=== PATIENT | female | born 1965 | race Caucasian/White ===

== ENCOUNTER 2020-01-27 18:01 | Outpatient (REF) | payer MEDICAID, SELFPAY ==
--- NOTE | 2020-01-27 | MR_ITS ---
EXAMINATION: MR CERVICAL SPINE WITHOUT CONTRAST CLINICAL INFORMATION: Neck pain. Right arm weakness, numbness, pain, finger numbness. COMPARISON: Multiple priors, most recent cervical spine radiographs dated 11/13/2019 and cervical spine MRI dated 11/25/2018. TECHNIQUE: MRI of the cervical spine was obtained using routine sequences without contrast. FINDINGS: VERTEBRAL BODIES AND PARASPINAL SOFT TISSUES: Normal vertebral body alignment. The cervical lordosis is maintained. Artifact from anterior fusion hardware redemonstrated at C5-C7 without significant adjacent marrow edema to suggest complication. No acute fracture or subluxation. No loss of vertebral body height. Loss of intervertebral disc height with endplate osteophytes at C4-C5, similar when compared to the prior radiographs. No additional abnormal marrow signal. The visualized paraspinal soft tissues are unremarkable. No abnormal signal within the visualized cord. CERVICOMEDULLARY JUNCTION AND VISUALIZED POSTERIOR FOSSA: Unremarkable. SPINAL LEVELS: C2-C3: No significant disc bulge. No central canal or neural foraminal stenosis. C3-C4: Mild broad-based disc bulge which nearly completely effaces the ventral thecal sac. Bilateral uncinate spurring with mild bilateral neural foraminal stenosis. Findings have slightly progressed when compared to the prior examination. C4-C5: Broad-based disc bulge with a superimposed posterior central disc protrusion which has increased in prominence when compared to the prior examination and completely effaces the ventral thecal sac indenting the ventral cord. No associated abnormal cord signal. Bilateral uncinate spurring with eojlpyhz-[id number] left and moderate right neural foraminal stenosis, similar when compared to the prior examination. C5-C6: Broad-based disc-osteophyte complex which completely effaces the ventral thecal sac. Flattening the ventral cord without abnormal cord signal. Bilateral uncinate spurring with moderate bilateral neural foraminal stenosis, similar when compared to the prior examination. C6-C7: Broad-based disc-osteophyte complex, asymmetric to the right which completely effaces the ventral thecal sac and flattens the ventral cord. Bilateral facet arthropathy with moderate left and mild right neural foraminal stenosis, similar when compared to the prior examination. C7-T1: Shallow disc-osteophyte complex which nearly completely effaces the ventral thecal sac. Bilateral uncinate spurring with mild left neural foraminal stenosis, unchanged when compared to the prior examination. MR/MR cervical spine wo con IMPRESSION: 1. C3-C4 mild broad-based disc bulge which nearly completely effaces the ventral thecal sac with bilateral uncinate spurring and mild bilateral neural foraminal stenosis, slightly progressed when compared to the prior examination. 2. C4-C5 broad-based disc bulge with a superimposed posterior central disc protrusion which has increased in prominence when compared to the prior examination and completely effaces the ventral thecal sac, indenting the ventral cord. No associated abnormal cord signal. Bilateral uncinate spurring with ymacyfhm-tw-spvbmq left and moderate right neural foraminal stenosis, similar when compared to the prior examination. 3. C5-C6 broad-based disc-osteophyte complex which completely effaces the ventral thecal sac and flattens the ventral cord without abnormal cord signal. Bilateral uncinate spurring with moderate bilateral neural foraminal stenosis, similar when compared to the prior examination. 4. C6-C7 broad-based disc-osteophyte complex, asymmetric to the right which completely effaces the ventral thecal sac and flattens the adjacent cord. Bilateral facet arthropathy with moderate left and mild right neural foraminal stenosis, similar when compared to the prior examination. 5. C7-T1 shallow disc-osteophyte complex which nearly completely effaces the ventral thecal sac. Bilateral uncinate spurring with mild left neural foraminal stenosis, similar when compared to the prior examination. 6. Anterior stabilization hardware at C5-C6 and C6-C7 without evidence of complication.
== END 2020-01-27 18:02 | disposition home or self-care (01) ==
LOC: HO.MRI 18:01
PROVIDERS: Visit Provider Internal Medicine Geriatric Medicine
DX: M54.12 Radiculopathy, cervical region (principal); M54.2 Cervicalgia; Z98.890 Other specified postprocedural states
CPT/HCPCS: 72141

== ENCOUNTER 2020-12-12 12:33 | Outpatient (REF) | payer MEDICAID, SELFPAY ==
--- NOTE | ~2020-12-12 | XR_ITS ---
EXAMINATION: XR LUMBOSACRAL SPINE WITH OBLIQUES CLINICAL INFORMATION: Radiculopathy. COMPARISON: Lumbar spine radiographs dated 08/07/2018 TECHNIQUE: AP, lateral, coned-down, and bilateral oblique views of the lumbosacral spine. FINDINGS: Normal vertebral body alignment. The lumbar lordosis is maintained. No acute fracture or subluxation. No loss of vertebral body or intervertebral disc height. Multilevel anterior endplate osteophytes. Bilateral facet arthropathy at L4-L5 and L5-S1. No abnormal soft tissue calcification. Intra-abdominal surgical clips. XR/XR lumbar spine 4V min IMPRESSION: Mild multilevel degenerative disc disease with bilateral facet arthropathy at L4-L5 and L5-S1. Findings have slightly progressed when compared to the prior examination.
== END 2020-12-12 12:34 | disposition home or self-care (01) ==
LOC: HO.XRAY 12:33
PROVIDERS: PCP Internal Medicine Geriatric Medicine; Visit Provider Internal Medicine Geriatric Medicine
DX: M54.10 Radiculopathy, site unspecified (principal)
CPT/HCPCS: 72110

== ENCOUNTER 2021-04-04 12:10 | Outpatient (REF) | payer MEDICAID, SELFPAY ==
--- NOTE | ~2021-04-04 | XR_ITS ---
EXAMINATION: XR LUMBOSACRAL SPINE CLINICAL INFORMATION: Back pain. COMPARISON: Radiographs dated 12/12/2020. TECHNIQUE: AP and lateral views of the lumbar spine and lateral view of the lumbosacral junction. FINDINGS: Vertebral body alignment is normal. There is a stable very mild T12 anterior wedge compression fracture. The disc spaces are well-maintained. No acute fracture or spondylolisthesis is seen. A stable sclerotic bone island is noted in the anterior aspect of the L5 upper endplate. There is multi-level mild to moderate lower thoracic and lumbar spondylosis. The posterior elements are intact. Abdominopelvic herniorrhaphy mesh and surgical clips are noted. XR/XR lumbar spine 2-3V IMPRESSION: 1. No acute fracture or spondylolisthesis is seen. 2. There is a stable very mild T12 anterior wedge compression fracture. 3. The lumbar disc spaces are well-maintained. 4. There is multi-level mild to moderate thoracolumbar spondylosis.
--- NOTE | ~2021-04-04 | XR_ITS ---
EXAMINATION: XR HIP, LEFT CLINICAL INFORMATION: Lumbago and sciatica; question fracture. COMPARISON: None TECHNIQUE: AP and frog-leg lateral views of the left hip. FINDINGS: Bony alignment and mineralization are normal. There is mild narrowing of the superolateral left acetabular joint space. The left acetabular roof shows subchondral sclerosis, irregularity and peripheral osteophyte formation. The left femoral head appears smooth. There is no fracture or dislocation. There is right pelvic herniorrhaphy mesh. A small lower pelvic phlebolith is noted. XR/XR hip LT min 2V IMPRESSION: There is mild to moderate osteoarthritic change of the left hip. No fracture or dislocation is seen
== END 2021-04-04 12:11 | disposition home or self-care (01) ==
LOC: HO.XRAY 12:10
PROVIDERS: Absent Provider Internal Medicine Geriatric Medicine; PCP Internal Medicine Geriatric Medicine; Visit Provider Nurse Practitioner Family
DX: M54.42 Lumbago with sciatica, left side (principal)
CPT/HCPCS: 72100; 73502

== ENCOUNTER 2021-04-05 09:19 | Outpatient (REF) | payer MEDICAID, SELFPAY ==
[2021-04-05 10:28] LABS: Anion Gap 12 (12-20); Blood Urea Nitrogen 12 mg/dL (9-16); Calcium 9.3 mg/dL (8.4-10.2); Carbon Dioxide 30 mmol/L (22-29); Chloride 102 mmol/L (96-108); Estimated Glomerular Filt Rate > 60; Glucose Random 118 mg/dL (60-115); Potassium 4.2 mmol/L (3.3-5.1); Sodium 140 mmol/L (135-145)
== END 2021-04-05 09:20 | disposition home or self-care (01) ==
LOC: HO.LAB 09:19
PROVIDERS: Absent Provider Internal Medicine Geriatric Medicine; PCP Internal Medicine Geriatric Medicine; Visit Provider Nurse Practitioner Family
DX: R10.32 Left lower quadrant pain (principal)
CPT/HCPCS: 36415; 80048

== ENCOUNTER 2021-04-11 07:57 | Outpatient (REF) | payer MEDICAID, SELFPAY ==
--- NOTE | ~2021-04-11 | CT_ITS ---
EXAMINATION: CT ABDOMEN AND PELVIS WITH CONTRAST CLINICAL INFORMATION: Left lower quadrant abdominal pain. COMPARISON: Ultrasound pelvis 11/30/2019. TECHNIQUE: Multidetector volumetric images were obtained from the superior aspect of the liver through the pubic symphysis following administration 85 mL of Omnipaque 350 intravenous contrast. Sagittal and coronal reformatted images were obtained on the technologist's workstation. Oral contrast: No This CT examination was performed using dose optimization techniques as appropriate, variously including the following: *Automated exposure control *Adjustment of mA and/or kV according to patient size (this includes techniques or standardized protocols for targeted exams where dose is matched to indication/reason for exam; i.e. extremities or head) *Use of iterative reconstruction technique DLP: 736 mGy-cm FINDINGS: LUNG BASES: The visualized lung bases are unremarkable. LIVER, GALLBLADDER, AND BILIARY TREE: The liver is normal in size, shape, and decreased attenuation. No focal hepatic lesion or biliary ductal dilatation is present. The gallbladder has been surgically removed. The mid CBD measures a 9 mm. PANCREAS: Unremarkable. SPLEEN: Unremarkable. ADRENAL GLANDS: Unremarkable. KIDNEYS AND URETERS: The kidneys are normal in size, shape, and attenuation. There are 3 mm lower pole and 2 mm midpole radiopaque calculi right kidney. No caliectasis or hydronephrosis. Punctate 1-2 mm radiopaque calculus suspected in the lower pole left kidney. There is lobulated kidney contour. BLADDER: Unremarkable. GASTROINTESTINAL TRACT: There is gastric sleeve surgery changes. There is scattered oral contrast in small bowel loops without distention. Scattered stool, diverticuli and gas seen in the colon without distention. ABDOMINAL WALL: There are postsurgical changes along the anterior abdominal wall with upper abdominal hernia repair and mesh placement. No recurrent hernia seen. LYMPH NODES: Normal. VASCULAR: Unremarkable. PELVIC VISCERA: The uterus is anteverted and appears unremarkable. There is no free air or free fluid. OSSEOUS STRUCTURES: There is moderate ventral spondylosis lower dorsal and upper lumbar spine. CT/CT abdomen pelvis w con IMPRESSION: Scattered colonic diverticulosis without diverticulitis. There is mild constipation. There is evidence of previous gastric sleeve surgery with anterior abdominal wall postsurgical changes. There is mesh placement in the upper abdominal wall for hernia repair. Mild hepatic steatosis without focal lesion. Nonobstructive bilateral radiopaque renal calculi. No hydronephrosis. Fleischner guidelines were followed.
[2021-04-11] MEDS: iohexoL 350 MG/ML 100 ML INFUS..BTL 85 ML IV (12:17)
[2021-04-11] MEDS: Barium Sulfate Oral (Vanilla) 450 ML ORAL.SUSP 900 ML PO (12:17)
== END 2021-04-11 07:58 | disposition home or self-care (01) ==
LOC: HO.CT 07:57
PROVIDERS: Absent Provider Internal Medicine Geriatric Medicine; PCP Internal Medicine Geriatric Medicine; Visit Provider Nurse Practitioner Family
DX: R10.32 Left lower quadrant pain (principal); R10.9 Unspecified abdominal pain; R30.0 Dysuria; Z87.442 Personal history of urinary calculi; Z90.49 Acquired absence of other specified parts of digestive tract; Z98.84 Bariatric surgery status
CPT/HCPCS: 74177; Q9967

== ENCOUNTER 2021-04-19 15:32 | Outpatient (REF) | payer MEDICAID, SELFPAY ==
--- NOTE | ~2021-04-19 | MR_ITS ---
EXAMINATION: MR THORACIC SPINE WITHOUT CONTRAST CLINICAL INFORMATION: Left-sided flank pain radiating to the left extremities with symptoms for 1.5 months. Left arm pain and weakness with left finger weakness. Left leg pain. Compression fracture of T12. Right hand weakness. COMPARISON: Most recent CT abdomen/pelvis dated 04/11/2021. TECHNIQUE: MRI of the thoracic spine was obtained using routine sequences without contrast. FINDINGS: VERTEBRAL BODIES AND PARASPINAL STRUCTURES: Normal vertebral body alignment. The thoracic kyphosis is maintained. No acute fracture or subluxation. No loss of vertebral body height. No marrow edema to suggest acute osseous injury. Specifically, there is no compression fracture at T12. There is mild multilevel loss of intervertebral disc height with disc desiccation throughout the thoracic spine. No abnormal signal within the visualized cord. Partially visualized hardware artifact at C5-C6 and C6-C7. The visualized paraspinal soft tissues are unremarkable. SPINAL LEVELS: C7-T1: No significant disc bulge. No central canal or neural foraminal stenosis. T1-T2: No significant disc bulge. No central canal or neural foraminal stenosis. T2-T3: Shallow disc bulge without significant central canal or neural foraminal stenosis. T3-T4: Shallow disc bulge without central canal or neural foraminal stenosis. T4-T5: No significant disc bulge. No central canal or neural foraminal stenosis. T5-T6: Posterior central disc protrusion which nearly completely effaces the ventral thecal sac. No abnormal signal within the adjacent cord. No significant neural foraminal stenosis. T6-T7: Shallow posterior central disc protrusion which partially effaces the ventral thecal sac without significant neural foraminal stenosis. T7-T8: Shallow left paracentral disc protrusion which nearly completely effaces the ventral thecal sac. Mild left neural foraminal stenosis. T8-T9: Broad-based disc bulge which nearly completely effaces the ventral thecal sac. No significant neural foraminal stenosis. T9-T10: Shallow left paracentral/subarticular disc protrusion with mild left neural foraminal stenosis. T10-T11: No significant disc bulge. No central canal or neural foraminal stenosis. T11-T12: No significant disc bulge. No central canal or neural foraminal stenosis. T12-L1: No significant disc bulge. No central canal or neural foraminal stenosis. MR/MR thoracic spine wo con IMPRESSION: Multilevel degenerative disc disease throughout the thoracic spine with small disc bulges and shallow disc protrusions causing multilevel mild central canal or neural foraminal stenosis. Shallow left paracentral disc protrusion at T7-T8 which nearly completely effaces the ventral thecal sac and causes mild left neural foraminal stenosis. Shallow left paracentral/subarticular disc protrusion at T9-T10 causing mild left neural foraminal stenosis. No compression deformity or acute osseous injury.
--- NOTE | ~2021-04-19 | MR_ITS ---
EXAMINATION: MR CERVICAL SPINE WITHOUT CONTRAST CLINICAL INFORMATION: 55-year-old with history of previous anterior cervical fusion, with complaints of left-sided upper extremity radicular symptoms. COMPARISON: 01/27/2020 MRI. TECHNIQUE: MRI of the cervical spine was obtained using routine sequences without contrast. FINDINGS: Alignment: The cervical spine is anatomically aligned. Lordotic curvature is maintained without spondylolisthesis or retrolisthesis. Craniocervical Junction/C1-C2 Articulations: Intact and aligned. Visualized Intracranial Structures: Within normal limits. Vertebral Bodies: Normal height. Disc Spaces and Endplates: Status post ACDF at C5-C6 and C6-C7, partially obscured by hardware artifact but unchanged in appearance from previous study. Mild disc space height loss and anterior marginal spondylosis at C4-C5 is stable. Bone Marrow: No significant marrow-replacing process or bone marrow edema, accounting for artifacts at C5-C6 and C6-C7. C2-C3: Normal disc contour. Mild hypertrophic changes of the left facet joint unchanged in appearance without significant canal or neural foraminal stenosis, stable in appearance. C3-C4: Broad-based central disc protrusion noted, with flattening of the ventral dural sac slightly more prominent centrally than on the previous exam without spinal cord impingement. There is mild spinal canal stenosis stable in appearance. No definite cord impingement. There is slfc-nc-qrgrvwgr bilateral facet arthropathy stable in appearance with uncinate process spurring noted, with the ajsw-hi-ribtkrya left and mild right-sided neural foraminal stenosis stable in appearance. C4-C5: Central disc herniation again noted, with effacement of the ventral dural sac indenting the ventral aspect of the spinal cord centrally and slightly to the left of midline consistent with kngr-qo-wjvfqdzv ventral cord impingement, with associated moderate central spinal canal stenosis largely unchanged. There is uncovertebral spurring and facet arthropathy with moderate right-sided and jmnxjyii-gc-ddbnsf left-sided neural foraminal stenosis stable in appearance. C5-C6: Status post ACDF, with posterolateral osteophytic ridging and adpuzseu-xq-losahw flattening of the dural sac asymmetric to the left without cord impingement. There is pazy-ws-umwnjsrn spinal canal stenosis, stable in appearance and there are lateral bony productive changes, with moderate bilateral neural foraminal stenosis stable in appearance. C6-C7: Status post ACDF with broad-based central to right paramedian posterior disc osteophyte complex and/or osteophytic ridging with effacement of the dural sac asymmetric to the right abutting the ventral aspect of the spinal cord to the right of midline resulting in mild right-sided ventral cord deformity and moderate central spinal canal stenosis stable in appearance. Suspect some degree of spondylitic myelomalacia at this level unchanged. There is moderate left-sided neural foraminal stenosis stable in appearance. C7-T1: Mild broad-based disc osteophyte complex with mild flattening of the ventral dural sac without cord impingement and no significant spinal canal stenosis stable in appearance. Mild facet arthropathy noted on the left unchanged in appearance with no significant neural foraminal stenosis. T1-T2: Small right paramedian to lateral foraminal disc osteophyte complex without neural impingement stable in appearance. No significant canal stenosis or neural foraminal compromise. There is facet arthropathy on the right at T2-T3 and T3-T4 stable in appearance. There is a tiny focus of T2 hyperintensity on the right side of the spinal cord at the C5-C6 level on the sagittal images which cannot be confirmed on the axial images and therefore may be artifactual. Otherwise, the cervical and visualized upper thoracic spinal cord is normal in signal intensity without focal lesion, edema or syrinx. MR/MR cervical spine wo con IMPRESSION: 1. Status post ACDF procedures at C5-C6 and C6-C7 with bony productive changes, stable from previous exam with stable lzya-tv-fiwxfcqj canal stenosis at C5-C6 and moderate canal stenosis at C6-C7 with suspicion for a mild degree of spondylitic myelomalacia at C6-C7, unchanged in appearance. Moderate bilateral neural foraminal stenosis at C5-C6 and moderate left-sided neural foraminal stenosis at C6-C7 is stable. 2. Discogenic degenerative changes, spondylosis and DJD at C4-C5 with central disc herniation and mdxq-hj-kpcyysqd ventral cord impingement at this level is stable with stable moderate central spinal canal stenosis. Central disc herniation at C3-C4 slightly more prominent than on the previous exam without spinal cord impingement, with mild spinal canal stenosis, unchanged in appearance. 3. Disc osteophyte complex at C7-T1 with mild flattening the ventral dural sac without cord impingement, stable in appearance. 4. Multilevel bilateral uncovertebral and facet arthrosis as detailed by level above, largely unchanged in appearance with varying degrees of neural foraminal compromise, unchanged in appearance.
== END 2021-04-19 15:33 | disposition home or self-care (01) ==
LOC: HO.MRI 15:32
PROVIDERS: Visit Provider Nurse Practitioner Family
DX: S22.089D Unspecified fracture of T11-T12 vertebra, subsequent encounter for fracture with routine healing (principal); M62.81 Muscle weakness (generalized)
CPT/HCPCS: 72141; 72146

== ENCOUNTER 2021-05-04 08:57 | Outpatient (REF) | payer MEDICAID, SELFPAY ==
--- NOTE | ~2021-05-04 | MM_ITS ---
EXAMINATION: BONE DENSITOMETRY CLINICAL INDICATION: Wedge compression fracture of T11-T12. COMPARISON: None (current study represents initial baseline exam). TECHNIQUE: Using a [employer] DXA System (software version: 13.1) manufactured by [employer], dual-energy x-ray absorptiometry was performed of the lumbar spine and left hip. The images are of good technical quality. Summary results are attached. FINDINGS: AP SPINE L1-L4: BMD 1.334 g/cm2, Z-score 0.8, T-score 1.3, normal. LEFT FEMUR, NECK: BMD 1.093 g/cm2, Z-score 0.6, T-score 0.4, normal. LEFT FEMUR, TOTAL: BMD 1.282 g/cm2, Z-score 2.0, T-score 2.2, normal. IDENTIFIED RISK FACTORS: Rheumatoid arthritis. Early menopause, secondary osteoporosis. HISTORY OF FRACTURE: None listed. MEDICATIONS: Calcium or multivitamins. MM/XR DEXA axial skeleton IMPRESSION: 1. DIAGNOSIS: Normal bone density based on the lowest T-score value of 0.4 in the femoral neck applying World Health Organization criteria. 2. 10-YEAR FRACTURE RISK PREDICTION, FRAX: According to the guidelines, FRAX calculation should only be performed on patients in the osteopenia bone density category. Therefore, FRAX was not performed on this patient. 3. Treatment Recommendations: NOF guidelines recommend consideration for treatment in postmenopausal women and men age 50 and older presenting with the following: -A hip or vertebral (clinical or morphometric) fracture. -T-score less than or equal to -2.5 at the femoral neck or spine after appropriate evaluation to exclude secondary causes. -Low bone mass at the hip or spine and a 10-year fracture probability by FRAX of greater than or equal to 3% for hip fracture or greater than or equal to 20% for major osteoporotic fracture based on the [place] adapted WHO algorithm. 4. Other Recommendations: All treatment decisions require clinical judgment and consideration of individual patient factors, including patient preferences, comorbidities, previous drug use, risk factors not captured in the FRAX model (e.g. frailty, falls, vitamin D deficiency, increased bone turnover, interval significant decline in bone density) and possible under or overestimation of fracture risk by FRAX. FUTURE SCAN RECOMMENDATION: People with diagnosed cases of osteoporosis or at high risk for fracture should have regular bone mineral density tests. For patients eligible for Medicare, routine testing is allowed once every 2 years. The testing frequency can be increased to one year for patients who have rapidly progressing disease, those who are receiving or discontinuing medical therapy to restore bone mass, or have additional risk factors.
== END 2021-05-04 08:58 | disposition home or self-care (01) ==
LOC: HO.MAMMO 08:57
PROVIDERS: Visit Provider Nurse Practitioner Family
DX: Z13.820 Encounter for screening for osteoporosis (principal); S22.080D Wedge compression fracture of T11-T12 vertebra, subsequent encounter for fracture with routine healing; Z78.0 Asymptomatic menopausal state; Z79.899 Other long term (current) drug therapy
CPT/HCPCS: 77080

== ENCOUNTER 2022-11-19 19:45 | Outpatient (REF) | payer MEDICAID, SELFPAY ==
[2022-11-24 03:34] LABS: HPV mRNA E6/E7 rflx Not Detected (Not Detected)
== END 2022-11-19 19:46 | disposition home or self-care (01) ==
LOC: HO.HHCLNP 19:45
PROVIDERS: Visit Provider Advanced Practice Midwife
DX: Z12.4 Encounter for screening for malignant neoplasm of cervix (principal)
CPT/HCPCS: 87624; 88142

== ENCOUNTER 2022-12-13 15:13 | Outpatient (REF) | payer MEDICAID, SELFPAY | END 2022-12-13 15:14 | disposition home or self-care (01) | LOC: HO.MAMMO 15:13 | PROVIDERS: PCP Internal Medicine Geriatric Medicine; Visit Provider Advanced Practice Midwife | DX: Z12.31 Encounter for screening mammogram for malignant neoplasm of breast (principal) | CPT/HCPCS: 77063; 77067 ==

== ENCOUNTER → 2022-12-13 15:30 | Outpatient (BNV) | payer MEDICAID, SELFPAY | PROVIDERS: PCP Internal Medicine Geriatric Medicine; Visit Provider Radiology Diagnostic Radiology | DX: Z12.31 Encounter for screening mammogram for malignant neoplasm of breast (principal) | CPT/HCPCS: 77063; 77067 ==

== ENCOUNTER 2023-02-07 11:01 | Outpatient (REF) | payer MEDICAID, SELFPAY ==
--- NOTE | ~2023-02-07 | XR_ITS ---
STUDY: Cervical spine, right shoulder, right elbow INDICATION: Postlaminectomy syndrome, right shoulder and right elbow pain COMPARISON: None TECHNIQUE: 3 view cervical spine, 4 view right shoulder, 3 view right elbow FINDINGS: Cervical spine: Anterior fusion hardware C5-C6. Disc spaces C4-C5-C7. Limited evaluation of underlying vertebral bodies. Alignment appears satisfactory, posterior elements are aligned and no prevertebral soft tissue swelling is seen. Hypertrophic facet changes identified. Odontoid is partially obscured. Lung apices are clear. Soft tissues are unremarkable. Right shoulder: Acromioclavicular joint space narrowing, sclerosis and spurring. Glenohumeral joint is maintained. Humeral head spurring. No fracture or dislocation. Visualized ribs and right lung are unremarkable. Right elbow: Calcification and/or spurring lateral epicondyle. No fracture or dislocation. Alignment and articulations are maintained. XR/XR cervical spine 3V IMPRESSION: Postoperative cervical spine. Right acromioclavicular degenerative changes. Lateral epicondylar spurring, question calcific tendinopathy.
--- NOTE | ~2023-02-07 | XR_ITS ---
STUDY: Cervical spine, right shoulder, right elbow INDICATION: Postlaminectomy syndrome, right shoulder and right elbow pain COMPARISON: None TECHNIQUE: 3 view cervical spine, 4 view right shoulder, 3 view right elbow FINDINGS: Cervical spine: Anterior fusion hardware C5-C6. Disc spaces C4-C5-C7. Limited evaluation of underlying vertebral bodies. Alignment appears satisfactory, posterior elements are aligned and no prevertebral soft tissue swelling is seen. Hypertrophic facet changes identified. Odontoid is partially obscured. Lung apices are clear. Soft tissues are unremarkable. Right shoulder: Acromioclavicular joint space narrowing, sclerosis and spurring. Glenohumeral joint is maintained. Humeral head spurring. No fracture or dislocation. Visualized ribs and right lung are unremarkable. Right elbow: Calcification and/or spurring lateral epicondyle. No fracture or dislocation. Alignment and articulations are maintained. XR/XR shoulder RT min 2V IMPRESSION: Postoperative cervical spine. Right acromioclavicular degenerative changes. Lateral epicondylar spurring, question calcific tendinopathy.
--- NOTE | ~2023-02-07 | XR_ITS ---
STUDY: Cervical spine, right shoulder, right elbow INDICATION: Postlaminectomy syndrome, right shoulder and right elbow pain COMPARISON: None TECHNIQUE: 3 view cervical spine, 4 view right shoulder, 3 view right elbow FINDINGS: Cervical spine: Anterior fusion hardware C5-C6. Disc spaces C4-C5-C7. Limited evaluation of underlying vertebral bodies. Alignment appears satisfactory, posterior elements are aligned and no prevertebral soft tissue swelling is seen. Hypertrophic facet changes identified. Odontoid is partially obscured. Lung apices are clear. Soft tissues are unremarkable. Right shoulder: Acromioclavicular joint space narrowing, sclerosis and spurring. Glenohumeral joint is maintained. Humeral head spurring. No fracture or dislocation. Visualized ribs and right lung are unremarkable. Right elbow: Calcification and/or spurring lateral epicondyle. No fracture or dislocation. Alignment and articulations are maintained. XR/XR elbow RT min 3V IMPRESSION: Postoperative cervical spine. Right acromioclavicular degenerative changes. Lateral epicondylar spurring, question calcific tendinopathy.
== END 2023-02-07 11:02 | disposition home or self-care (01) ==
LOC: HO.XRAY 11:01
PROVIDERS: PCP Internal Medicine Geriatric Medicine; Visit Provider Nurse Practitioner Family
DX: M25.521 Pain in right elbow (principal); M25.511 Pain in right shoulder; M54.12 Radiculopathy, cervical region; M96.1 Postlaminectomy syndrome, not elsewhere classified; M47.812 Spondylosis without myelopathy or radiculopathy, cervical region
CPT/HCPCS: 72040; 73030; 73080; 99212

== ENCOUNTER 2023-02-07 11:01 | Outpatient (AMB) | payer MEDICAID, SELFPAY ==
--- NOTE | 2023-02-07 11:15 | A.OFFVIS_ITS ---
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: [employer] Instructor Name: Esme Accompanied by: Self / Same As Patient Allergies No Known Allergies Allergy (Verified 02/07/23 11:32) Medication List - Last Reconciled 02/11/23 by CRISTINA Perez diclofenac sodium 1% (Arthritis Pain (diclofenac)) 4 grams topical QID dulaglutide (Trulicity) 4.5 mg subcut QWEEK metformin 500 mg PO DAILY oxycodone-acetaminophen 5-325 mg 1 tab PO Q8H PRN HPI CHRONIC NECK PAIN/confirmed HPI Details Patient is a pleasant 57 years old female this history of chronic neck pain, degenerative joint disease, history of cervical spine surgery x3 (ACDF C6- C7 in 2013, ACDF C5-C6 in 2018, ACDF C4-C5 in 2021 in [facility] [place] diabetes (A1C 8.3 on 01/21/23), bariatric surgery, presents today for initial evaluation for neck pain that has been radiating to right arm, upper chest and right elbow with associated intermittent tingling and weakness for about one year. Denies any recent trauma, injury, or falls. Reports recent influenza vaccination into right upper arm without any rash, swelling or pain. Pain is rated at 7/10 on average and 10/10 at its worse with movements or use of right arm. Right hand dominant. Patient reports she was evaluated at [facility] about 5 months ago for physical therapy and made no improvement in functioning or reduction in pain. She failed conservative measures including PT, elbow bracing, home exercise program, topical applications, medical management and failed previous cervical spinal surgeries. She avoids and states due to previous bariatric surgery and has been managing her pain with Percocet prescribed by her PCP. Pain affects her daily functioning, activities, mood, sleep, and quality of life. Patient denies any fever, chills, sore throat, cough, shortness of breath, wheezing, chest pain, leg swelling, weakness, gait imbalances, bladder or bowel dysfunction or saddle anesthesia. Location Anterior right neck pain, right shoulder and right elbow Duration Chronic pain >1 year Characteristics of symptom or complaint Throbbing, aching, spasming, tingling Aggravating or associated factors Movements, pulling, lifting, squeezing Relieving factors Oxycodone, muscle relaxant, rest, lidocaine patches, Tylenol Treatment PT- no improvement, neck surgery x3, elbow bracing [facility] Medical History (Updated 02/11/23 @ 17:44 by CRITSINA Perez) Chronic radicular cervical pain Cervical spine degeneration Cervical spondylosis Diabetes mellitus Surgical History (Updated 02/11/23 @ 17:43 by CRISTINA Perez) History of bariatric surgery H/O neck surgery (~2013) Review of Systems Const All systems reviewed & are unremarkable except as noted in HPI and below Physical Exam General: Appears afebrile. Alert and oriented. Mood and affect appropriate. Follows and participates in conversation appropriately. Respiratory effort is unlabored. No cough. No nasal discharge. Able to transition from sit to stand unassisted. Ambulates with bilaterally normal heel strike and toe off. Neck Neck: Yes no lymphadenopathy, Yes supple, No anterior neck swelling and Yes no JVD Thyroid: Thyroid normal Back/Spine/Pelvis Cervical Spine: loss of normal cervical lordosis, cervical muscular tenderness (right), pain with cervical ROM (with left lateral rotation and tilting), Cervical spine scars present, No Cervical spine tenderness and No step off deformity Thoracic/Lumbar Spine: thoracic and lumbar spine normal to inspection, Lasegue's sign negative, straight leg raise negative bilaterally, No thoracic spinal tenderness and No lumbar spinal tenderness Extrem General: Yes capillary refill normal, Yes no clubbing, cyanosis or edema and Yes no calf tenderness Right upper extremity: normal to inspection, normal capillary refill, shoulder/upper arm (Pain with overhead reaches. Painful arc test.) Details: normal to inspection, tenderness Location: of the clavicle Laterality: mid- shaft, of the A-C joint and of the scapula and crepitus; no swelling, no ecchymosis, no deformity and no unusual warmth and elbow/forearm (Wearing elbow bracing and lidocaine patch) Details: normal to inspection, tenderness Location: of the lateral epicondyle, normal ROM and distal pulses intact; no swelling, no unusual warmth, no ecchymosis and no crepitus; no cyanosis Results Reviewed Results Reviewed: MR CERVICAL SPINE WITHOUT CONTRAST 04/19/21 CLINICAL INFORMATION: 55-year-old with history of previous anterior cervical fusion, with complaints of left-sided upper extremity radicular symptoms. COMPARISON: 01/27/2020 MRI. TECHNIQUE: MRI of the cervical spine was obtained using routine sequences without contrast. FINDINGS: Alignment: The cervical spine is anatomically aligned. Lordotic curvature is maintained without spondylolisthesis or retrolisthesis. Craniocervical Junction/C1-C2 Articulations: Intact and aligned. Visualized Intracranial Structures: Within normal limits. Vertebral Bodies: Normal height. Disc Spaces and Endplates: Status post ACDF at C5-C6 and C6-C7, partially obscured by hardware artifact but unchanged in appearance from previous study. Mild disc space height loss and anterior marginal spondylosis at C4-C5 is stable. Bone Marrow: No significant marrow-replacing process or bone marrow edema, accounting for artifacts at C5-C6 and C6-C7. C2-C3: Normal disc contour. Mild hypertrophic changes of the left facet joint unchanged in appearance without significant canal or neural foraminal stenosis, stable in appearance. C3-C4: Broad-based central disc protrusion noted, with flattening of the ventral dural sac slightly more prominent centrally than on the previous exam without spinal cord impingement. There is mild spinal canal stenosis stable in appearance. No definite cord impingement. There is ghpn-mx-urityldk bilateral facet arthropathy stable in appearance with uncinate process spurring noted, with the bdkq-wd-jzuwwtek left and mild right-sided neural foraminal stenosis stable in appearance. C4-C5: Central disc herniation again noted, with effacement of the ventral dural sac indenting the ventral aspect of the spinal cord centrally and slightly to the left of midline consistent with iixd-nx-qetgdxuc ventral cord impingement, with associated moderate central spinal canal stenosis largely unchanged. There is uncovertebral spurring and facet arthropathy with moderate right-sided and wbkdigxs-qy-duiqmn left-sided neural foraminal stenosis stable in appearance. C5-C6: Status post ACDF, with posterolateral osteophytic ridging and vhxylgpn-jv-mmvmey flattening of the dural sac asymmetric to the left without cord impingement. There is rreg-if-ogvajjwn spinal canal stenosis, stable in appearance and there are lateral bony productive changes, with moderate bilateral neural foraminal stenosis stable in appearance. C6-C7: Status post ACDF with broad-based central to right paramedian posterior disc osteophyte complex and/or osteophytic ridging with effacement of the dural sac asymmetric to the right abutting the ventral aspect of the spinal cord to the right of midline resulting in mild right-sided ventral cord deformity and moderate central spinal canal stenosis stable in appearance. Suspect some degree of spondylitic myelomalacia at this level unchanged. There is moderate left-sided neural foraminal stenosis stable in appearance. C7-T1: Mild broad-based disc osteophyte complex with mild flattening of the ventral dural sac without cord impingement and no significant spinal canal stenosis stable in appearance. Mild facet arthropathy noted on the left unchanged in appearance with no significant neural foraminal stenosis. T1-T2: Small right paramedian to lateral foraminal disc osteophyte complex without neural impingement stable in appearance. No significant canal stenosis or neural foraminal compromise. There is facet arthropathy on the right at T2-T3 and T3-T4 stable in appearance. There is a tiny focus of T2 hyperintensity on the right side of the spinal cord at the C5-C6 level on the sagittal images which cannot be confirmed on the axial images and therefore may be artifactual. Otherwise, the cervical and visualized upper thoracic spinal cord is normal in signal intensity without focal lesion, edema or syrinx. IMPRESSION: 1. Status post ACDF procedures at C5-C6 and C6-C7 with bony productive changes, stable from previous exam with stable aoue-kh-pgixascy canal stenosis at C5-C6 and moderate canal stenosis at C6-C7 with suspicion for a mild degree of spondylitic myelomalacia at C6-C7, unchanged in appearance. Moderate bilateral neural foraminal stenosis at C5-C6 and moderate left-sided neural foraminal stenosis at C6-C7 is stable. 2. Discogenic degenerative changes, spondylosis and DJD at C4-C5 with central disc herniation and cvvr-kt-aohafmle ventral cord impingement at this level is stable with stable moderate central spinal canal stenosis. Central disc herniation at C3-C4 slightly more prominent than on the previous exam without spinal cord impingement, with mild spinal canal stenosis, unchanged in appearance. 3. Disc osteophyte complex at C7-T1 with mild flattening the ventral dural sac without cord impingement, stable in appearance. 4. Multilevel bilateral uncovertebral and facet arthrosis as detailed by level above, largely unchanged in appearance with varying degrees of neural foraminal compromise, unchanged in appearance. BONE DENSITOMETRY 05/04/21 CLINICAL INDICATION: Wedge compression fracture of T11-T12. FINDINGS: AP SPINE L1-L4: BMD 1.334 g/cm2, Z-score 0.8, T-score 1.3, normal. LEFT FEMUR, NECK: BMD 1.093 g/cm2, Z-score 0.6, T-score 0.4, normal. LEFT FEMUR, TOTAL: BMD 1.282 g/cm2, Z-score 2.0, T-score 2.2, normal. IDENTIFIED RISK FACTORS: Rheumatoid arthritis. Early menopause, secondary osteoporosis. HISTORY OF FRACTURE: None listed. MEDICATIONS: Calcium or multivitamins. IMPRESSION: 1. DIAGNOSIS: Normal bone density based on the lowest T-score value of 0.4 in the femoral neck applying World Health Organization criteria. MR THORACIC SPINE WITHOUT CONTRAST 04/19/21 CLINICAL INFORMATION: Left-sided flank pain radiating to the left extremities with symptoms for 1.5 months. Left arm pain and weakness with left finger weakness. Left leg pain. Compression fracture of T12. Right hand weakness. COMPARISON: Most recent CT abdomen/pelvis dated 04/11/2021. TECHNIQUE: MRI of the thoracic spine was obtained using routine sequences without contrast. FINDINGS: VERTEBRAL BODIES AND PARASPINAL STRUCTURES: Normal vertebral body alignment. The thoracic kyphosis is maintained. No acute fracture or subluxation. No loss of vertebral body height. No marrow edema to suggest acute osseous injury. Specifically, there is no compression fracture at T12. There is mild multilevel loss of intervertebral disc height with disc desiccation throughout the thoracic spine. No abnormal signal within the visualized cord. Partially visualized hardware artifact at C5-C6 and C6-C7. The visualized paraspinal soft tissues are unremarkable. SPINAL LEVELS: C7-T1: No significant disc bulge. No central canal or neural foraminal stenosis. T1-T2: No significant disc bulge. No central canal or neural foraminal stenosis. T2-T3: Shallow disc bulge without significant central canal or neural foraminal stenosis. T3-T4: Shallow disc bulge without central canal or neural foraminal stenosis. T4-T5: No significant disc bulge. No central canal or neural foraminal stenosis. T5-T6: Posterior central disc protrusion which nearly completely effaces the ventral thecal sac. No abnormal signal within the adjacent cord. No significant neural foraminal stenosis. T6-T7: Shallow posterior central disc protrusion which partially effaces the ventral thecal sac without significant neural foraminal stenosis. T7-T8: Shallow left paracentral disc protrusion which nearly completely effaces the ventral thecal sac. Mild left neural foraminal stenosis. T8-T9: Broad-based disc bulge which nearly completely effaces the ventral thecal sac. No significant neural foraminal stenosis. T9-T10: Shallow left paracentral/subarticular disc protrusion with mild left neural foraminal stenosis. T10-T11: No significant disc bulge. No central canal or neural foraminal stenosis. T11-T12: No significant disc bulge. No central canal or neural foraminal stenosis. T12-L1: No significant disc bulge. No central canal or neural foraminal stenosis. IMPRESSION: Multilevel degenerative disc disease throughout the thoracic spine with small disc bulges and shallow disc protrusions causing multilevel mild central canal or neural foraminal stenosis. Shallow left paracentral disc protrusion at T7-T8 which nearly completely effaces the ventral thecal sac and causes mild left neural foraminal stenosis. Shallow left paracentral/subarticular disc protrusion at T9-T10 causing mild left neural foraminal stenosis. No compression deformity or acute osseous injury. Lumbar spine xray 2-3V on 04/04/21 IMPRESSION: 1. No acute fracture or spondylolisthesis is seen. 2. There is a stable very mild T12 anterior wedge compression fracture. 3. The lumbar disc spaces are well-maintained. 4. There is multi-level mild to moderate thoracolumbar spondylosis. Assessment & Plan Assessment & Plan (1) Right elbow pain: Code(s): M25.521 - Pain in right elbow (2) Right shoulder pain: Code(s): M25.511 - Pain in right shoulder (3) Cervical post-laminectomy syndrome: Code(s): M96.1 - Postlaminectomy syndrome, not elsewhere classified (4) Cervical spondylosis: Code(s): M47.812 - Spondylosis without myelopathy or radiculopathy, cervical region (5) Cervical spine degeneration: Code(s): M47.812 - Spondylosis without myelopathy or radiculopathy, cervical region (6) Chronic radicular cervical pain: Code(s): M54.12 - Radiculopathy, cervical region; G89.29 - Other chronic pain Plan Cervical spine, right elbow and shoulder xrays to assess degree of degenerative changes, any subluxation, listhesis, compression fractures or pars defects. Discussed interventional treatments for right elbow and shoulder and cervical post laminectomy syndrome, including diagnostic vs therapeutic injections, peripheral nerve stimulation, cervical spinal cord stimulation, and RFA procedures. Will also proceed with neurodiagnostic studies to help us differentiate cervical radicular vs peripheral neuropathy of RUE prior to interventional treatments. All questions and concerns have been answered and patient agreed with the plan. Follow-up for x-ray and EMG studies results and sooner as needed. Orders: Orders XR elbow RT min 3V 02/07/23 M25.521 - Pain in right elbow XR shoulder RT min 2V 02/07/23 M25.511 - Pain in right shoulder, M25.521 - Pain in right elbow NE electromyogram (EMG) 02/07/23 M25.511 - Pain in right shoulder, M25.521 - Pain in right elbow, M96.1 - Postlaminectomy syndrome, not elsewhere classified XR cervical spine 3V 02/07/23 M96.1 - Postlaminectomy syndrome, not elsewhere classified NE nerve conduction velocity 02/07/23 M25.511 - Pain in right shoulder, M25.521 - Pain in right elbow, M96.1 - Postlaminectomy syndrome, not elsewhere classified Medications: New diclofenac sodium 1% (Arthritis Pain (diclofenac)) 4 grams topical QID 100 grams 3RF pain M25.511 - Pain in right shoulder, M25.521 - Pain in right elbow Coding Level of Care Code New Pt Level 4 (30258) Diagnoses Right elbow pain M25.521 Right shoulder pain M25.511 Cervical post-laminectomy syndrome M96.1 Cervical spondylosis M47.812 Cervical spine degeneration M47.812 Chronic radicular cervical pain M54.12; G89.29
== END 2023-02-07 12:00 | disposition home or self-care (01) ==
PROVIDERS: PCP Internal Medicine Geriatric Medicine; Visit Provider Nurse Practitioner Family
DX: M25.521 Pain in right elbow (principal); M25.511 Pain in right shoulder; M96.1 Postlaminectomy syndrome, not elsewhere classified; M47.812 Spondylosis without myelopathy or radiculopathy, cervical region; M54.12 Radiculopathy, cervical region; G89.29 Other chronic pain
CPT/HCPCS: 99204

== ENCOUNTER 2023-03-22 09:57 | Outpatient (REF) | payer MEDICAID, SELFPAY ==
--- NOTE | 2023-03-22 10:00 | EMG_ITS ---
Chief complaint: Right-sided neck pain, right arm pain, occasional numbness 2nd to 4th digits right history of cervical spine surgery x3 (ACDF C6-C7 in 2014, ACDF C5-C6 in 2019, ACDF C4-C5 in 2021 in [facility] [place]), diabetes Reason for referral: Evaluate for radiculopathy Referred by: Tiana Ocampo NP Procedure done: Right upper extremity NCS/EMG Precautions and/or limitations: None The limb temperature was monitored continuously and remained between 32-36 degrees C during the performance of the NCS. Nerve Conduction Studies Anti Sensory Summary Table ?Stim Site NR Onset (ms) Norm Onset (ms) Peak (ms) Norm Peak (ms) O-P Amp (?V) Norm O-P Amp Site1 Site2 Delta-0 (ms) Dist (cm) Aldo (m/s) Norm Aldo (m/s) Right Median Anti Sensory (2nd Digit) Wrist ? 3.3 4.3 <3.6 10.7 >10 Wrist 2nd Digit 3.3 14.0 42 Right Radial Anti Sensory (Thumb) Forearm ? 1.6 2.2 <3.1 20.5 Forearm Thumb 1.6 0.0 Right Ulnar Anti Sensory (5th Digit) Wrist ? 2.7 3.4 <3.7 18.3 >15.0 Wrist 5th Digit 2.7 14.0 52 Motor Summary Table ?Stim Site NR Onset (ms) Norm Onset (ms) O-P Amp (mV) Norm O-P Amp iAmp (mV) Amp (1st) (%) Site1 Site2 Delta-0 (ms) Dist (cm) Aldo (m/s) Norm Aldo (m/s) Right Median Motor (Abd Poll Brev) Wrist ? 4.9 <3.9 5.6 >4.5 7.0 100.0 Elbow Wrist 4.2 19.0 45 >45 Elbow ? 9.1 5.0 6.2 89.3 Right Ulnar Motor (Abd Dig Minimi) Wrist ? 3.0 <3.0 9.3 >5 11.4 100.0 B Elbow Wrist 3.5 17.5 50 >45 B Elbow ? 6.5 7.8 9.9 83.9 A Elbow B Elbow 1.4 10.0 71 >45 A Elbow ? 7.9 7.7 9.9 82.8 EMG ?Side Muscle Nerve Root Ins Act Fibs Psw Amp Dur Poly Recrt Int Pat Comment Right 1stDorInt Ulnar C8-T1 Nml Nml Nml Nml Nml 0 Nml Complete Right FlexCarRad Median C6-7 Nml Nml Nml Nml Nml 0 Nml Complete Right Biceps Musculocut C5-6 Nml Nml Nml Nml Nml 0 Nml Complete Right Triceps Radial C6-7-8 Nml Nml Nml Nml Nml 0 Nml Complete Right Deltoid Axillary C5-6 Nml Nml Nml Nml Nml 0 Nml Complete FINDINGS: Right median motor nerve showed prolonged distal latency, normal amplitude and normal conduction velocity. Right median sensory nerve showed prolonged peak latency. All other nerves tested were within normal. Concentric needle EMG was performed in selected muscles of the right upper extremity. Study did not reveal signs of electric abnormalities as shown in the table below. IMPRESSION: 1. This is an abnormal study. 2. There is electrodiagnostic evidence for right moderate-severe median neuropathy at the wrist, consistent with carpal tunnel syndrome. 3. There is no electrodiagnostic evidence for ulnar neuropathy, brachial plexopathy, or cervical radiculopathy. Thank you for your kind referral. Moni Boothe MD, RENE Board Certified, [place] [employer] and Rehabilitation (ABPMR) Board Certified, [place] Board of Electrodiagnostic Medicine (ABEM) [place] [id number] [facility]
== END 2023-03-22 09:58 | disposition home or self-care (01) ==
LOC: HO.NEURO 09:57
PROVIDERS: PCP Internal Medicine Geriatric Medicine; Visit Provider Nurse Practitioner Family
DX: M25.511 Pain in right shoulder (principal); M25.521 Pain in right elbow; M96.1 Postlaminectomy syndrome, not elsewhere classified
CPT/HCPCS: 95886; 95909

== ENCOUNTER → 2023-03-22 10:00 | Outpatient (BNV) | payer MEDICAID, SELFPAY | PROVIDERS: PCP Internal Medicine Geriatric Medicine; Visit Provider Physical Medicine & Rehabilitation | DX: G56.01 Carpal tunnel syndrome, right upper limb (principal) | CPT/HCPCS: 95886; 95909 ==

== ENCOUNTER 2023-04-17 09:36 | Outpatient (REF) | payer MEDICAID, SELFPAY ==
[2023-04-17 11:45] LABS: MANUAL DIFF FLAG NO
[2023-04-17 11:51] LABS: Basophils Percent Auto 0.5 % (0-2); Eosinophils Absolute Auto 0.1 X10*3/uL (0.0-0.4); Eosinophils Percent Auto 1.7 % (0-4); Hematocrit 40.3 % (37.0-47.0); Hemoglobin 12.6 g/dl (12.0-16.0); Imm Gran Abs Auto 0.02 X10*3/uL (0.00-0.03); Imm Gran Pct Auto 0.3 % (0.0-0.4); Lymphocytes Absolute Auto 2.1 X10*3/uL (1.2-4.9); Lymphocytes Percent Auto 35.7 % (20-40); Mean Corpuscular HGB Conc 31.3 g/dl (31.0-35.0); Mean Corpuscular Hemoglobin 25.3 pg (27.0-33.0); Mean Corpuscular Volume 80.9 fL (80.0-98.0); Mean Platelet Volume 10.7 fL (9.4-12.3); Monocytes Absolute Auto 0.7 X10*3/uL (0.1-1.2); Monocytes Percent Auto 11.4 % (2-11); Neutrophils Percent Auto 50.4 % (45-73); Platelet Count 241 X10*3/uL (160-400); Red Blood Count 4.98 X10*6/uL (4.20-5.50); Red Cell Distribution Width 13.4 % (11.0-16.0); White Blood Count 5.9 X10*3/uL (4.8-10.8)
[2023-04-17 12:32] LABS: Creatinine Urine 200.63 mg/dL; Microalbum/Creatinine Ratio Ur 30.4 ug/mg cr (<30)
[2023-04-17 12:57] LABS: Alanine Aminotransferase 13 U/L (0-31); Albumin Level 4.2 g/dL (3.5-5.0); Alkaline Phosphatase 73 U/L (39-117); Anion Gap 11 (12-20); Aspartate Amino Transferase 13 U/L (5-31); Bilirubin Total 0.4 mg/dL (0.0-1.0); Blood Urea Nitrogen 13 mg/dL (9-16); Calcium 9.4 mg/dL (8.4-10.2); Carbon Dioxide 26 mmol/L (22-29); Chloride 106 mmol/L (96-108); Cholesterol 246 mg/dL (<200); Estimated Glomerular Filt Rate > 60; Glucose Random 113 mg/dL (60-115); HDL Cholesterol 44 mg/dL (>40); LDL Cholesterol Calculated 174 mg/dL (<100); Potassium 4.1 mmol/L (3.3-5.1); Sodium 139 mmol/L (135-145); Triglycerides 143 mg/dL (<150)
[2023-04-18 07:55] LABS: ~HepC Num1 0.08 S/CO (0.00-0.79); ~Hepatitis C Antibody Nonreactive (Nonreactive)
== END 2023-04-17 09:37 | disposition home or self-care (01) ==
LOC: HO.HHCL 09:36
PROVIDERS: Visit Provider Internal Medicine Geriatric Medicine
DX: Z00.00 Encounter for general adult medical examination without abnormal findings (principal); Z11.59 Encounter for screening for other viral diseases; R30.0 Dysuria; E11.9 Type 2 diabetes mellitus without complications
CPT/HCPCS: 36415; 80053; 80061; 82043; 82570; 85025; 86803

== ENCOUNTER 2023-07-02 13:18 | Outpatient (AMB) | payer MEDICAID, SELFPAY ==
--- NOTE | 2023-07-02 13:22 | MHC.OFFVIS ---
Vital Signs 07/02/23 13:23 Height 5 ft 2 in Weight 193 lb 9.054 oz BMI 35.4 BP 148/63 H Blood Pressure Location Lt brachial Position Sitting Pulse 76 Intake Visit Reasons: Colonoscopy Screening Intake Note: New patient presents in office today for colonoscopy screening. CC: Patient reports diarrhea d/t metformin. She takes Omeprazole for GERD. Denies other GI symptoms. 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 female with past medical history of diabetes, hypertension, GERD, hyperlipidemia is here today for pre colonoscopy screening.? Patient was sent to us by her PCP.? ? Patient denies any gastrointestinal symptoms in the past or at present.? Patient does admit to have occasional acid reflux depending on what she eats. Patient does report occasional loose stool depending on what she eats, however patient was told that this is because of metformin. Patient states that she is taking omeprazole, however does not feel like it really helps. Denies any personal or family history of gastrointestinal disease, colon polyps, or cancer.? Denies history of difficulty with sedation or anesthesia in the past.? Negative for history of sleep apnea.? Denies any history of cardiac, renal, pulmonary, or hepatic disease.?? No history of infectious? diseases like hepatitis A, B, C, HIV or tuberculosis.? Patient is not on any anticoagulation therapy. [facility] Medical History Chronic radicular cervical pain Cervical spine degeneration Cervical spondylosis Diabetes mellitus Surgical History History of esophagogastroduodenoscopy (EGD) H/O colonoscopy History of bariatric surgery H/O neck surgery (~2013) Family History Maternal Grandmother Breast cancer Maternal Grandfather Colon cancer Social History Alcohol intake: never Patient Tobacco Use Status: Never used Tobacco Review of Systems Const Denies weight gain and Denies weight loss ENT Reports no additional complaints, Denies dysphagia and Denies odynophagia Card Reports no additional complaints Resp Reports no additional complaints GI Denies abdominal pain, Denies belching, Denies melena, Denies bloating, Denies change in bowel habits, Denies dysphagia, Denies excessive flatus, Denies dyspepsia, Reports heartburn (Occasional), Denies diarrhea, Denies loose stools, Denies nausea, Denies odynophagia and Denies vomiting Reports no additional complaints Musc Reports no additional complaints Neuro Reports no additional complaints Psych Reports no additional complaints Endo Reports no additional complaints Physical Exam Vital Signs: Last Vital Signs Pulse 76 07/02/23 13:23 BP 148/63 H 07/02/23 13:23 BMI result Body Mass Index 35.4 Const General: healthy appearing, no acute distress and well developed Nutritional Appearance: well nourished Orientation/consciousness: patient oriented x3 Resp Effort & Inspection: normal respiratory effort, able to speak in complete sentences, no tracheal deviation and symmetric chest movement Auscultation: clear to auscultation bilaterally Cardio Rate: regular rate GI Inspection: Yes normal to inspection and No distended Palpation (GI): Soft to palpation, not firm, nontender and No hepatosplenomegaly present Auscultation: normal bowel sounds General: Yes no CVA tenderness Back/Spine/Pelvis Back: no CVA tenderness Skin General skin exam: elasticity normal, turgor normal and dry skin Neuro General: patient oriented x3 Psych Appearance: grossly normal Mental Status: mental status grossly normal Assessment & Plan Assessment & Plan (1) Screen for colon cancer: Code(s): Z12.11 - Encounter for screening for malignant neoplasm of colon (2) GERD (gastroesophageal reflux disease): Code(s): K21.9 - Gastro-esophageal reflux disease without esophagitis Qualifiers: Esophagitis presence: esophagitis presence not specified Qualified Code(s): K21.9 - Gastro-esophageal reflux disease without esophagitis (3) Postprandial abdominal bloating: Code(s): R14.0 - Abdominal distension (gaseous) (4) Postprandial diarrhea: Code(s): K52.9 - Noninfective gastroenteritis and colitis, unspecified Plan ?Denies any issues with anesthesia in the past.? Denies any history of sleep apnea.? No history infectious diseases in the past or present.? Not on any anticoagulation therapy.? No family or personal history of colon cancer or polyps.? Patient denies melena, hematochezia, unintentional weight loss or ribbon like stools.? Patient reports that she continues to have epigastric pain and acid reflux despite taking omeprazole. Will switch to pantoprazole. Patient reports that her PCP wanted to stop Trulicity as her blood sugars were still elevated and she was going to put her not new medication. RN called pharmacy, no new meds send yet. Call placed to PCP and there was discussion with patient about putting her on Ozempic, however medication not order yet. Patient reports that she is moving her bowels well, however occasionally will have postprandial loose stools. Patient believes that this is related to metformin as she was told by her PCP. Discussed with patient avoiding dietary triggers. Low FODMAP diet discussed with patient. List of food recommended as well as list of food to avoid given to patient. She will follow-up in the office in 2 months to re-evaluate her reflux as well as her bowels. We will discuss prep then. Patient is agreeable to this plan and verbalizes understanding of instructions. She was given the opportunity to ask questions and all questions answered. Thank you for allowing me to participate in her care Medications: New methylcellulose (laxative) (Citrucel) 500 mg PO DAILY 30 tabs 2RF K59.00 - Constipation, unspecified bisacodyl (Dulcolax (bisacodyl)) take 4 tabs at noon the day before your colonoscopy 20 mg (4 x 5 mg) PO ONCE 1 day 4 tabs 0RF Z12.11 - Encounter for screening for malignant neoplasm of colon pantoprazole take one tablet half an hour before breakfast 40 mg PO DAILY 30 tabs 2RF K21.9 - Gastro-esophageal reflux disease without esophagitis Coding Level of Care Code New Pt Level 4 (53115) Diagnoses Screen for colon cancer Z12.11 Gastroesophageal reflux disease, unspecified whether esophagitis present K21.9 Esophagitis presence: esophagitis presence not specified Postprandial abdominal bloating R14.0 Postprandial diarrhea K52.9 Time Spent (min) 45 Comment 30 minutes spent with patient and additional 15 minutes spent reviewing her records
[2023-07-02 13:23] VITALS: BP 148/63; PULSE 76; BMI 35.4
== END 2023-07-02 14:03 | disposition home or self-care (01) ==
PROVIDERS: PCP Internal Medicine Geriatric Medicine; Visit Provider Nurse Practitioner Family
DX: Z12.11 Encounter for screening for malignant neoplasm of colon (principal); K21.9 Gastro-esophageal reflux disease without esophagitis; R14.0 Abdominal distension (gaseous); K52.9 Noninfective gastroenteritis and colitis, unspecified; Z01.818 Encounter for other preprocedural examination
CPT/HCPCS: 99204

== ENCOUNTER → 2023-07-02 13:18 | Outpatient (BNVA) | payer MEDICAID, SELFPAY | PROVIDERS: PCP Internal Medicine Geriatric Medicine; Visit Provider Nurse Practitioner Family | DX: Z01.818 Encounter for other preprocedural examination (principal); K21.9 Gastro-esophageal reflux disease without esophagitis; R14.0 Abdominal distension (gaseous); K52.9 Noninfective gastroenteritis and colitis, unspecified; K59.00 Constipation, unspecified; Z79.899 Other long term (current) drug therapy | CPT/HCPCS: 99212 ==

== ENCOUNTER 2023-10-02 15:55 | Outpatient (AMB) | payer MEDICAID, SELFPAY ==
--- NOTE | 2023-10-02 16:09 | A.OFFVIS_ITS ---
Vital Signs 10/02/23 16:11 Height 5 ft 2 in Weight 190 lb 14.725 oz BMI 34.9 BP 142/70 H Blood Pressure Location Lt brachial Position Sitting Pulse 76 Pulse Source Pulse Oximeter Pulse Oximetry (%) 97 Oxygen Delivery Method Room Air Intake Visit Reasons: Discuss prep w/ Daniela Intake Note: Rafi presents in office today to discuss the preparation instructions for her double s/p. CC; Pt provided with colo info in tamazight. Pt reports that following their previous colo s/p, there were some polyps removed. Pt reports that their last s/p was within the last 5 years. Pt denies any new concerns or sx since their last visit. Appeals Referee Required: Yes Appeals Referee Services: Appeals Referee Present Appeals Referee Name: Lisette [id number] Information Interpreted: non-clinical & clinical Accompanied by: Self / Same As Patient Allergies No Known Allergies Allergy (Verified 10/10/23 10:55) HPI HPI Discuss prep w/ Daniela: Details: LAST VISIT Screen for colon cancer GERD (gastroesophageal reflux disease) Postprandial abdominal bloating Postprandial diarrhea Plan ?Denies any issues with anesthesia in the past.? Denies any history of sleep apnea.? No history infectious diseases in the past or present.? Not on any anticoagulation therapy.? No family or personal history of colon cancer or polyps.? Patient denies melena, hematochezia, unintentional weight loss or ribbon like stools.? Patient reports that she continues to have epigastric pain and acid reflux despite taking omeprazole. Will switch to pantoprazole. Patient reports that her PCP wanted to stop Trulicity as her blood sugars were still elevated and she was going to put her not new medication. RN called pharmacy, no new meds send yet. Call placed to PCP and there was discussion with patient about putting her on Ozempic, however medication not order yet. Patient reports that she is moving her bowels well, however occasionally will have postprandial loose stools. Patient believes that this is related to metformin as she was told by her PCP. Discussed with patient avoiding dietary triggers. Low FODMAP diet discussed with patient. List of food recommended as well as list of food to avoid given to patient. She will follow-up in the office in 2 months to re- evaluate her reflux as well as her bowels. We will discuss prep then. Patient is agreeable to this plan and verbalizes understanding of instructions. She was given the opportunity to ask questions and all questions answered. ? Thank you for allowing me to participate in her care Medications New methylcellulose (laxative) (Citrucel) 500 mg PO DAILY 30 tabs 2RF K59.00 bisacodyl (Dulcolax (bisacodyl)) take 4 tabs at noon the day before your colonoscopy 20 mg (4 x 5 mg) PO ONCE 1 day 4 tabs 0RF Z12.11 pantoprazole take one tablet half an hour before breakfast 40 mg PO DAILY 30 tabs 2RF K21.9 TODAY'S VISIT Patient is here today to go over the prep. Doing better on pantoprazole. Avoids dietary triggers. Patient reports that she is moving her bowels better now. Denies any other GI concerning symptoms. Patient has colonoscopy and upper endoscopy scheduled for next . Denies any issues with anesthesia in the past. No history of sleep apnea. Not on any anticoagulation medication. [facility] Medical History Chronic radicular cervical pain Cervical spine degeneration Cervical spondylosis Diabetes mellitus Surgical History History of esophagogastroduodenoscopy (EGD) H/O colonoscopy History of bariatric surgery H/O neck surgery (~2013) Family History Maternal Grandmother Breast cancer Maternal Grandfather Colon cancer Social History Alcohol intake: never Patient Tobacco Use Status: Never used Tobacco Review of Systems Const Denies weight gain and Denies weight loss ENT Reports no additional complaints, Denies dysphagia and Denies odynophagia Card Reports no additional complaints Resp Reports no additional complaints GI Denies abdominal pain, Denies belching, Denies melena, Denies bloating, Denies change in bowel habits, Denies dysphagia, Denies excessive flatus, Denies dyspepsia, Denies heartburn, Denies diarrhea, Denies loose stools, Denies nausea, Denies odynophagia and Denies vomiting Musc Reports no additional complaints Neuro Reports no additional complaints Psych Reports no additional complaints Endo Reports no additional complaints Physical Exam Vital Signs: Last Vital Signs Pulse 76 10/02/23 16:11 BP 142/70 H 10/02/23 16:11 Pulse Ox 97 10/02/23 16:11 Oxygen Delivery Method Room Air 10/02/23 16:11 BMI result Body Mass Index 34.9 Const General: healthy appearing and no acute distress Nutritional Appearance: obese Orientation/consciousness: patient oriented x3 Resp Effort & Inspection: normal respiratory effort, able to speak in complete sentences, no tracheal deviation and symmetric chest movement Auscultation: clear to auscultation bilaterally Cardio Rate: regular rate GI Inspection: Yes normal to inspection, No distended and Yes obesity Palpation (GI): Soft to palpation, not firm, nontender and No hepatosplenomegaly present Auscultation: normal bowel sounds General: Yes no CVA tenderness Back/Spine/Pelvis Back: no CVA tenderness Skin General skin exam: elasticity normal, turgor normal and dry skin Neuro General: patient oriented x3 Psych Appearance: grossly normal Mental Status: mental status grossly normal Assessment & Plan Assessment & Plan (1) Screen for colon cancer: Code(s): Z12.11 - Encounter for screening for malignant neoplasm of colon (2) GERD (gastroesophageal reflux disease): Code(s): K21.9 - Gastro-esophageal reflux disease without esophagitis Qualifiers: Esophagitis presence: esophagitis presence not specified Qualified Code(s): K21.9 - Gastro-esophageal reflux disease without esophagitis (3) Postprandial abdominal bloating: Code(s): R14.0 - Abdominal distension (gaseous) (4) Postprandial diarrhea: Code(s): K52.9 - Noninfective gastroenteritis and colitis, unspecified Plan Continue pantoprazole. Avoid dietary triggers and late night snacking. Patient is scheduled for endoscopy next week and colonoscopy. What to expect before during and after procedure discussed with patient. The importance of clear liquid diet and good bowel prep discussed with patient. Patient will follow-up in the office after the procedure, sooner on as needed basis. Patient is agreeable to this plan and verbalizes understanding of instructions. She was given the opportunity to ask questions and all questions answered. Thank you for allowing me to participate in her care Medications: New polyethylene glycol 3350 (Miralax) As directed by gastroenterology department at [facility] 238 grams PO ONCE 238 grams 0RF Z12.11 - Encounter for screening for malignant neoplasm of colon Coding Level of Care Code Est Pt Level 3 (62653) Diagnoses Screen for colon cancer Z12.11 Gastroesophageal reflux disease, unspecified whether esophagitis present K21.9 Esophagitis presence: esophagitis presence not specified Postprandial abdominal bloating R14.0 Postprandial diarrhea K52.9 Time Spent (min) 30 Comment 20 minutes spent with patient and additional 10 minutes spent reviewing her records
[2023-10-02 16:11] VITALS: BP 142/70; PULSE 76; O2SAT 97; BMI 34.9
== END 2023-10-02 16:40 | disposition home or self-care (01) ==
PROVIDERS: PCP Internal Medicine Geriatric Medicine; Visit Provider Nurse Practitioner Family
DX: Z12.11 Encounter for screening for malignant neoplasm of colon (principal); K21.9 Gastro-esophageal reflux disease without esophagitis; R14.0 Abdominal distension (gaseous); K52.9 Noninfective gastroenteritis and colitis, unspecified; Z01.818 Encounter for other preprocedural examination
CPT/HCPCS: 99213

== ENCOUNTER → 2023-10-02 15:55 | Outpatient (BNVA) | payer MEDICAID, SELFPAY | PROVIDERS: PCP Internal Medicine Geriatric Medicine; Visit Provider Nurse Practitioner Family | DX: Z01.818 Encounter for other preprocedural examination (principal); K21.9 Gastro-esophageal reflux disease without esophagitis; K52.9 Noninfective gastroenteritis and colitis, unspecified; R14.0 Abdominal distension (gaseous) | CPT/HCPCS: 99212 ==

== ENCOUNTER → 2023-10-09 12:23 | Day surgery (SDC) | payer MEDICAID, SELFPAY ==
--- NOTE | 2023-10-08 08:16 | HO.ANESPROP2 ---
HPI - Anesthesia Eval Consult details Narrative: 58yo F for Upper Endoscopy and Colonoscopy Anesthesia Pre-Procedure Meds Is the patient on any of the following meds?: GLP1/DPP4 PMFSH Active Problems Active Problems: All Active Problems Carpal tunnel syndrome of right wrist (Acute) Chronic radicular cervical pain (Acute) Cervical spine degeneration (Acute) Cervical spondylosis (Acute) Right shoulder pain (Acute) Right elbow pain (Acute) Past Medical History Medical History Chronic radicular cervical pain Cervical spine degeneration Cervical spondylosis Diabetes mellitus Family History Family History Maternal Grandmother Breast cancer Maternal Grandfather Colon cancer Surgical History Surgical History History of esophagogastroduodenoscopy (EGD) H/O colonoscopy History of bariatric surgery H/O neck surgery (~2013) Social History Social History Alcohol intake: never Patient Tobacco Use Status: Never used Tobacco Meds Allergies Allergy/AdvReac Type Severity Reaction Status Date / Time No Known Allergies Allergy Verified 10/10/23 10:55 Home Medications ?Medication ?Instructions ?Recorded ?Confirmed ?Last Taken ?Type atorvastatin 40 mg tablet 40 mg PO DAILY 07/02/23 10/10/23 Unknown History lidocaine 5 % topical patch 1 patch topical DAILY 07/02/23 10/10/23 Unknown History lisinopril 10 mg tablet 10 mg PO DAILY 07/02/23 10/10/23 Unknown History metformin 850 mg tablet 850 mg PO BID 07/02/23 10/10/23 Unknown History sertraline 50 mg tablet 50 mg PO DAILY 07/02/23 10/10/23 Unknown History fexofenadine 180 mg tablet 180 mg PO DAILY 10/02/23 10/10/23 Unknown History glipizide 2.5 mg tablet, extended 2.5 mg PO DAILY 10/02/23 10/10/23 Unknown History release 24 hr insulin glargine 100 unit/mL (3 5 unit subcut DAILY 10/02/23 10/10/23 Unknown History mL) subcutaneous pen (Lantus Solostar U-100 Insulin) semaglutide 1 mg/dose (4 mg/3 mL) 1 mg subcut QWEEK 10/02/23 10/10/23 10/04/23 History subcutaneous pen injector (Ozempic) Assessment and Plan Assessment Anesthesia Assessment: Chart Reviewed
== END ==
LOC: HO.SSS 12:25
PROVIDERS: PCP Internal Medicine Geriatric Medicine; Visit Provider Internal Medicine Gastroenterology
DX: Z12.11 Encounter for screening for malignant neoplasm of colon (principal); Z53.8 Procedure and treatment not carried out for other reasons; K21.9 Gastro-esophageal reflux disease without esophagitis
CPT/HCPCS: J1596; J2704

== ENCOUNTER 2023-10-10 10:40 | Day surgery (SDC) | payer MEDICAID, SELFPAY ==
[2023-10-10 11:06] VITALS: BP 144/88; PULSE 86; RESP 18; TEMP 36.8; O2SAT 98; BMI 34.7
[2023-10-10 11:18] LABS: Glucose, Whole Blood 106 mg/dL (60-115)
[2023-10-10] MEDS: Lactated Ringers 1,000 ML 100 ML IVCONT (11:43)
--- NOTE | 2023-10-10 12:47 | P.HPSUR_ITS ---
Pre-Procedural Eval Section A - 24 Hr Update-Section A only Date of Service: 10/10/23 Section B - Complete if H&P > 30 days Chief Complaint: GERD, colon screening Relevant Family History (Specify if Yes): No Relevant Social History: None Present Medications: see Short Stay Collaborative assessment Medical History: Significant History (Chronic radicular cervical pain Cervical spine degeneration Cervical spondylosis Diabetes mellitus) History of Previous Operations: Relevant previous surgery/procedure and date(s) (History of esophagogastroduodenoscopy (EGD) H/O colonoscopy History of bariatric surgery H/O neck surgery (~2013)) Allergies: Allergies Allergy/AdvReac Type Severity Reaction Status Date / Time No Known Allergies Allergy Verified 10/10/23 10:55 Review of Systems Sugical H&P ROS: Negative: Constitution, Cardiovascular, Respiratory, Neurolo gical, Psychiatric, Hem-Onc, Allergic/Immunologic, Gastrointestinal, Genitourinary, Musculoskeletal, Integumentary, Endocrine and Eyes/Ears/Nose/Throat Exam Surgical H&P Exam: Normal: HEENT, Normal: Heart, Normal: Lungs, Normal: Extremities, Normal: Abdomen, Normal: Skin and Normal: Neurological Plan Diagnosis/Plan: Unchanged I have reviewed the history and physical and performed a pertinent physical examination on my patient. No changes have occurred unless specified. Time Spent With Patient Time: Total time managing care of this patient today ____ minutes.
--- NOTE | 2023-10-10 13:05 | HO.ANESPROP2 ---
[facility] Active Problems Active Problems: All Active Problems Carpal tunnel syndrome of right wrist (Acute) Chronic radicular cervical pain (Acute) Cervical spine degeneration (Acute) Cervical spondylosis (Acute) Right shoulder pain (Acute) Right elbow pain (Acute) Past Medical History Medical History Chronic radicular cervical pain Cervical spine degeneration Cervical spondylosis Diabetes mellitus Family History Family History Maternal Grandmother Breast cancer Maternal Grandfather Colon cancer Surgical History Surgical History History of esophagogastroduodenoscopy (EGD) H/O colonoscopy History of bariatric surgery H/O neck surgery (~2013) History of Problems with Anesthesia: No Social History Social History Alcohol intake: never Patient Tobacco Use Status: Never used Tobacco Use of substances other than those prescribed or required for medical reasons: No Are you DNR?: No Advance Directives: No Advance Directives Information Provided: Yes Meds Allergies Allergy/AdvReac Type Severity Reaction Status Date / Time No Known Allergies Allergy Verified 10/10/23 10:55 Active Medications: Current Medications Lactated Ringer's (Lr) 1,000 mls @ 100 mls/hr IVCONT .Q10H DONALD Last Admin: 10/10/23 11:43 Dose: 100 mls/hr Home Medications ?Medication ?Instructions ?Recorded ?Confirmed ?Last Taken ?Type atorvastatin 40 mg tablet 40 mg PO DAILY 07/02/23 10/10/23 Unknown History lidocaine 5 % topical patch 1 patch topical DAILY 07/02/23 10/10/23 Unknown History lisinopril 10 mg tablet 10 mg PO DAILY 07/02/23 10/10/23 Unknown History metformin 850 mg tablet 850 mg PO BID 07/02/23 10/10/23 Unknown History sertraline 50 mg tablet 50 mg PO DAILY 07/02/23 10/10/23 Unknown History fexofenadine 180 mg tablet 180 mg PO DAILY 10/02/23 10/10/23 Unknown History glipizide 2.5 mg tablet, extended 2.5 mg PO DAILY 10/02/23 10/10/23 Unknown History release 24 hr insulin glargine 100 unit/mL (3 5 unit subcut DAILY 10/02/23 10/10/23 Unknown History mL) subcutaneous pen (Lantus Solostar U-100 Insulin) semaglutide 1 mg/dose (4 mg/3 mL) 1 mg subcut QWEEK 10/02/23 10/10/23 10/04/23 History subcutaneous pen injector (Ozempic) Exam Height,Weight and Vital Signs: Height 5 ft 2 in Weight 86.183 kg Last Vital Signs Temp 98.3 F 10/10/23 11:06 Pulse 86 10/10/23 11:06 Resp 18 10/10/23 11:06 BP 144/88 H 10/10/23 11:06 Pulse Ox 98 10/10/23 11:06 O2 Del Method Room Air 10/10/23 11:06 Pertinent Lab Results Pertinent Lab Results: Laboratory Tests 10/10/23 11:14 POC Glucose 106 Airway Mallampati Class: III TM Dist: >3cm Neck ROM: Full Loose/Missing/Broken Teeth: No Heart: RRR Lungs: CTA Assessment and Plan Assessment Anesthesia Assessment: Anesthesia Plan Discussed and Chart Reviewed Final Anesthetic Review History of Problems with Anesthesia: No NPO: Yes ASA Class: II Final Preanesthetic Review: Meds/Allgs Chart Reviewed, Consent Obtained/Reviewed and Anes Risks/Benef Reviewed Patient Risk: Low Procedure Risk: Intermediate Anesthetic Plan Anesthetic Plan: MAC: Disposition: Standard PACU
--- NOTE | 2023-10-10 14:50 | HO.OPN-COLON ---
Colonoscopy Operative Note Operative Note Date of Service: 10/10/23 Narrative: Operative Information Procedure Description: EGD, Colonoscopy Indication: GERD, Colon screening Anesthesia: MAC FLEXIBLE TRANSORAL UPPER GASTROINTESTINAL ENDOSCOPY AND COLONOSCOPY PROCEDURE NOTE UPPER ENDOSCOPY Consent: Indications for the procedure and potential complications of bleeding, perforation, reaction to medications and missed diagnosis were discussed with the patient and informed consent was obtained. Instrument: Olympus GIF H 190 J mid size upper endoscope Monitoring: Vital signs and clinical assessment, continuous EKG monitoring, Pulse oximetry, Carbon Dioxide monitoring and blood pressure monitoring were done throughout the procedure. Procedure: The patient was placed in the left lateral decubitis position and pre-procedure medications were administered and a bite block was placed. The endoscope was inserted into the mouth and advanced under direct vision to the third part of duodenum. A careful inspection was made as the upper endoscope was withdrawn including a retroflexed examination of the proximal stomach; Findings and interventions are described below. Findings: Larynx:normal Esophagus: GE junction at 31 cm, diaphragm hiatus at 35 cm, consistent with 4 cm sliding hiatal hernia, with mild esophagitis noted Stomach: Altered stomach s/p sleeve with tight narrowing at proximal stomach, patchy erythema. Biopsies were obtained. Retroflexion- unable to see fundus due to the stricture. Duodenum: Normal bulb and descending duodenum, Intervention: Biopsies as noted above, COLONOSCOPY Instrument: Olympus variable stiffness pediatric scope 190L Colonoscopy Monitoring: Vital signs and clinical assessment, continuous EKG monitoring, Pulse oximetry, Carbon Dioxide monitoring and blood pressure monitoring were done throughout the procedure. Colon withdrawal time was 7 minutes. Procedure: The patient was placed in the left lateral decubitis position and pre-procedure medications were administered. After a digital rectal examination of the ano-rectum, the video colonoscope was inserted into the rectum and advanced through the colon to the cecum/TI. The colonoscope was slowly withdrawn in a retrograde panoramic fashion and the colon mucosa was carefully examined including a retroflexed view of the rectum. Findings and interventions are described below. Procedure Difficulty:moderate Findings: Terminal Ileum-not intubated Cecum:normal Ascending Colon: normal Transverse Colon -normal Descending Colon:normal Sigmoid Colon: normal Rectum: Retroflexion with small internal hemorrhoids, grade I Anorectum - normal Colon preparation: [place] Bowel Preparation Scale Right colon; 1 Transverse colon: 1 Left colon; 1 (0 = Unprepared colon segment with mucosa not seen due to solid stool that cannot be cleared. 1 = Portion of mucosa of the colon segment seen, but other areas of the colon segment not well seen due to staining, residual stool and/or opaque liquid. 2 = Minor amount of residual staining, small fragments of stool and/or opaque liquid, but mucosa of colon segment seen well. 3 = Entire mucosa of colon segment seen well with no residual staining, small fragments of stool or opaque liquid) Impression and Post Procedure Diagnosis: Endoscopy Findings: esophagitis Colonoscopy Findings: poor prep internal hemorrhoids Plan: Await Pathology results Repeat Colonoscopy in 3-6 months or earlier if clinically indicated High fiber diet leaflet avoid straining at stool, epsom salts and sitz bath, anusol supps or cream can consider dilation of narrowing with pneumatic balloon if needed. Probably contributing to her reflux sx. Should eat small meals and chew slowly. Above findings were reviewed with the patient and relevant handouts were provided if indicated.
[2023-10-10 14:55] VITALS: BP 119/62; PULSE 82; RESP 16; TEMP 36.1; O2SAT 96
[2023-10-10 15:10] VITALS: BP 128/71; PULSE 77; RESP 20; TEMP 36.6; O2SAT 98
== END 2023-10-10 15:45 | disposition home or self-care (01) ==
PROVIDERS: PCP Internal Medicine Geriatric Medicine; Visit Provider Internal Medicine Gastroenterology
PROC: (CPT 45378; principal; 2023-10-10 13:40)
DX: Z12.11 Encounter for screening for malignant neoplasm of colon (principal); K64.0 First degree hemorrhoids; K21.9 Gastro-esophageal reflux disease without esophagitis; K29.50 Unspecified chronic gastritis without bleeding; K44.9 Diaphragmatic hernia without obstruction or gangrene; K31.2 Hourglass stricture and stenosis of stomach; K20.80 Other esophagitis without bleeding; E11.9 Type 2 diabetes mellitus without complications; Z79.4 Long term (current) use of insulin; Z79.84 Long term (current) use of oral hypoglycemic drugs; Z79.85 Long-term (current) use of injectable non-insulin antidiabetic drugs; Z79.899 Other long term (current) drug therapy; Z98.84 Bariatric surgery status; Z98.890 Other specified postprocedural states
CPT/HCPCS: 45378; 43239; 82947; 88305; 88342

== ENCOUNTER → 2023-10-10 10:40 | Outpatient (BNV) | payer MEDICAID, SELFPAY | PROVIDERS: PCP Internal Medicine Geriatric Medicine; Visit Provider Internal Medicine Gastroenterology | DX: Z12.11 Encounter for screening for malignant neoplasm of colon (principal); K64.0 First degree hemorrhoids; Z91.199 Patient's noncompliance with other medical treatment and regimen due to unspecified reason; K21.00 Gastro-esophageal reflux disease with esophagitis, without bleeding; Z98.84 Bariatric surgery status; K31.89 Other diseases of stomach and duodenum | CPT/HCPCS: 43239; 45378 ==

== ENCOUNTER 2023-10-22 15:01 | Outpatient (AMB) | payer MEDICAID, SELFPAY ==
--- NOTE | 2023-10-22 15:03 | MHC.OFFVIS ---
Vital Signs 10/22/23 15:04 Height 5 ft 2 in Weight 193 lb 1.999 oz BMI 35.3 BP 122/60 Blood Pressure Location Rt brachial Position Sitting Pulse 80 Pulse Source Pulse Oximeter Pulse Oximetry (%) 97 Oxygen Delivery Method Room Air Intake Visit Reasons: S/p colo Intake Note: Rafi presents in office today for a scheduled post op FUV. CC; Pt denies any new concerns or sx post op and is here to discuss the results of her s/p today. Career Services Officer Required: Yes Career Services Officer Name: Colin De Guzman [id number] Accompanied by: Family/Other Allergies No Known Allergies Allergy (Verified 10/22/23 15:03) HPI HPI S/p colo: Details: LAST VISIT Screen for colon cancer GERD (gastroesophageal reflux disease) Postprandial abdominal bloating Postprandial diarrhea Plan Continue pantoprazole. Avoid dietary triggers and late night snacking. Patient is scheduled for endoscopy next week and colonoscopy. What to expect before during and after procedure discussed with patient. The importance of clear liquid diet and good bowel prep discussed with patient. Patient will follow-up in the office after the procedure, sooner on as needed basis. Patient is agreeable to this plan and verbalizes understanding of instructions. She was given the opportunity to ask questions and all questions answered. ? Thank you for allowing me to participate in her care Medications New polyethylene glycol 3350 (Miralax) As directed by gastroenterology department at [facility] 238 grams PO ONCE 238 grams 0RF Z12.11 UPPER ENDOSCOPY AND COLONOSCOPY Upper endoscopy Findings: Larynx:normal Esophagus: GE junction at 31 cm, diaphragm hiatus at 35 cm, consistent with 4 cm sliding hiatal hernia, with mild esophagitis noted Stomach: Altered stomach s/p sleeve with tight narrowing at proximal stomach, patchy erythema. Biopsies were obtained. Retroflexion- unable to see fundus due to the stricture. Duodenum: Normal bulb and descending duodenum, Intervention: Biopsies as noted above, Colonoscopy Findings: Terminal Ileum-not intubated Cecum:normal Ascending Colon: normal Transverse Colon -normal Descending Colon:normal Sigmoid Colon: normal Rectum: Retroflexion with small internal hemorrhoids, grade I Anorectum - normal Colon preparation: [place] Bowel Preparation Scale Right colon; 1 Transverse colon: 1 Left colon; 1 (0 = Unprepared colon segment with mucosa not seen due to solid stool that cannot be cleared. 1 = Portion of mucosa of the colon segment seen, but other areas of the colon segment not well seen due to staining, residual stool and/or opaque liquid. 2 = Minor amount of residual staining, small fragments of stool and/or opaque liquid, but mucosa of colon segment seen well. 3 = Entire mucosa of colon segment seen well with no residual staining, small fragments of stool or opaque liquid) Impression and Post Procedure Diagnosis: Endoscopy Findings: esophagitis Colonoscopy Findings: poor prep internal hemorrhoids Plan: Await Pathology results Repeat Colonoscopy in 3-6 months or earlier if clinically indicated High fiber diet leaflet avoid straining at stool, epsom salts and sitz bath, anusol supps or cream can consider dilation of narrowing with pneumatic balloon if needed. Probably contributing to her reflux sx. Should eat small meals and chew slowly. PATHOLOGY RESULTS Addendum Addendum #1 Immunostain for H. pylori is negative. Control stains appropriately. Electronically Signed By: Kaylan Ng 10/16/23 0842 Diagnosis Stomach, biopsy: Gastric antral mucosa with minimal chronic inactive gastritis; negative for intestinal metaplasia and dysplasia. Comment: Immunostain for H. pylori pending; addendum to follow. TODAY'S VISIT: Patient is here today for follow-up and to discuss upper endoscopy and colonoscopy. Patient denies any ill effects from the prep, anesthesia or procedure itself. Patient had poor prep and will need to have colonoscopy rescheduled in 3-6 months. Will try to schedule that today. Type narrowing in proximal stomach was seen which probably is contributing to patient's reflux. Patient reports that she has been feeling little better now. Denies any dyspepsia, dysphagia or odynophagia. Patient denies any melena, hematochezia. Patient has not follow-up with her bariatric surgeon or has not been following any of the diet that was suggested. [facility] Medical History Chronic radicular cervical pain Cervical spine degeneration Cervical spondylosis Diabetes mellitus Surgical History History of esophagogastroduodenoscopy (EGD) H/O colonoscopy History of bariatric surgery H/O neck surgery (~2013) Family History Maternal Grandmother Breast cancer Maternal Grandfather Colon cancer Social History Alcohol intake: never Patient Tobacco Use Status: Never used Tobacco Review of Systems Const Denies weight gain and Denies weight loss ENT Reports no additional complaints, Denies dysphagia and Denies odynophagia Card Reports no additional complaints Resp Reports no additional complaints GI Denies abdominal pain, Denies belching, Denies melena, Denies bloating, Reports constipation, Denies dysphagia, Denies excessive flatus, Denies dyspepsia, Denies heartburn, Denies diarrhea, Denies loose stools, Denies nausea, Denies odynophagia and Denies vomiting Reports no additional complaints Musc Reports no additional complaints Neuro Reports no additional complaints Psych Reports no additional complaints Endo Reports no additional complaints Physical Exam Vital Signs: Last Vital Signs Pulse 80 10/22/23 15:04 BP 122/60 10/22/23 15:04 Pulse Ox 97 10/22/23 15:04 Oxygen Delivery Method Room Air 10/22/23 15:04 BMI result Body Mass Index 35.3 Const General: healthy appearing and no acute distress Nutritional Appearance: obese Orientation/consciousness: patient oriented x3 Resp Effort & Inspection: normal respiratory effort, able to speak in complete sentences, no tracheal deviation and symmetric chest movement Auscultation: clear to auscultation bilaterally Cardio Rate: regular rate GI Inspection: Yes normal to inspection, No distended and Yes obesity Palpation (GI): Soft to palpation, not firm, nontender and No hepatosplenomegaly present Auscultation: normal bowel sounds General: Yes no CVA tenderness Back/Spine/Pelvis Back: no CVA tenderness Skin General skin exam: elasticity normal, turgor normal and dry skin Neuro General: patient oriented x3 Psych Appearance: grossly normal Mental Status: mental status grossly normal Assessment & Plan Assessment & Plan (1) Screen for colon cancer: Code(s): Z12.11 - Encounter for screening for malignant neoplasm of colon (2) GERD (gastroesophageal reflux disease): Code(s): K21.9 - Gastro-esophageal reflux disease without esophagitis Qualifiers: Esophagitis presence: with esophagitis Esophagitis bleeding: without hemorrhage Qualified Code(s): K21.00 - Gastro-esophageal reflux disease with esophagitis, without bleeding (3) Postprandial abdominal bloating: Code(s): R14.0 - Abdominal distension (gaseous) (4) Postprandial diarrhea: Code(s): K52.9 - Noninfective gastroenteritis and colitis, unspecified (5) Constipation: Code(s): K59.00 - Constipation, unspecified Qualifiers: Constipation type: slow transit constipation Qualified Code(s): K59.01 - Slow transit constipation (6) Anastomotic stricture of stomach: Code(s): K92.9 - Disease of digestive system, unspecified; K31.89 - Other diseases of stomach and duodenum Plan Patient will continue pantoprazole daily. Small meals and more often. Avoid dietary triggers. Avoid late night snacking. Staying upright for minimum 3 hours after meals discussed with patient. Patient will start taking Dulcolax tablets daily. Increase fluid intake and activity to promote better bowel motility. Patient was encouraged to call her bariatric surgeon for follow-up. Patient might need to have dilation of the proximal stomach. Again stressed the importance of good bowel prep and clear liquid diet day before procedure. Patient will be seen in 2 months to make sure that she is moving her bowels well just before she goes for her procedure. She is agreeable to this plan and verbalizes understanding of instructions. She was given the opportunity to ask questions and all questions answered. Thank you for allowing me to participate in her care Medications: New bisacodyl (Dulcolax (bisacodyl)) 10 mg (2 x 5 mg) PO BEDTIME 180 tabs 4RF Changed From polyethylene glycol 3350 As directed by gastroenterology department at [facility] 238 grams PO ONCE 238 grams 0RF Z12.11 - Encounter for screening for malignant neoplasm of colon To polyethylene glycol 3350 (Miralax) As directed by gastroenterology department at [facility] 238 grams PO ONCE 238 grams 0RF Z12.11 - Encounter for screening for malignant neoplasm of colon Refilled pantoprazole take one tablet half an hour before breakfast 40 mg PO DAILY 30 tabs 2RF K21.9 - Gastro-esophageal reflux disease without esophagitis bisacodyl (Dulcolax (bisacodyl)) take 4 tabs at noon the day before your colonoscopy 20 mg (4 x 5 mg) PO ONCE 4 tabs 0RF 1 day Z12.11 - Encounter for screening for malignant neoplasm of colon Coding Level of Care Code Est Pt Level 4 (21413) Diagnoses Screen for colon cancer Z12.11 Gastroesophageal reflux disease with esophagitis without hemorrhage K21.00 Esophagitis presence: with esophagitis Esophagitis bleeding: without hemorrhage Postprandial abdominal bloating R14.0 Postprandial diarrhea K52.9 Slow transit constipation K59.01 Constipation type: slow transit constipation Anastomotic stricture of stomach K92.9; K31.89 Time Spent (min) 35 Comment 20 minutes spent with patient and additional 15 minutes spent reviewing her records
[2023-10-22 15:04] VITALS: BP 122/60; PULSE 80; O2SAT 97; BMI 35.3
== END 2023-10-22 15:58 | disposition home or self-care (01) ==
PROVIDERS: PCP Internal Medicine Geriatric Medicine; Visit Provider Nurse Practitioner Family
DX: Z12.11 Encounter for screening for malignant neoplasm of colon (principal); K21.00 Gastro-esophageal reflux disease with esophagitis, without bleeding; R14.0 Abdominal distension (gaseous); K52.9 Noninfective gastroenteritis and colitis, unspecified; K59.01 Slow transit constipation; K92.9 Disease of digestive system, unspecified; K31.89 Other diseases of stomach and duodenum; Z01.818 Encounter for other preprocedural examination
CPT/HCPCS: 99214

== ENCOUNTER → 2023-10-22 15:01 | Outpatient (BNVA) | payer MEDICAID, SELFPAY | PROVIDERS: PCP Internal Medicine Geriatric Medicine; Visit Provider Nurse Practitioner Family | DX: Z12.11 Encounter for screening for malignant neoplasm of colon (principal); K21.00 Gastro-esophageal reflux disease with esophagitis, without bleeding; R14.0 Abdominal distension (gaseous); K52.9 Noninfective gastroenteritis and colitis, unspecified; K59.01 Slow transit constipation; K92.9 Disease of digestive system, unspecified; K31.89 Other diseases of stomach and duodenum | CPT/HCPCS: 99212 ==

== ENCOUNTER 2024-01-01 15:41 | Outpatient (REF) | payer MEDICAID, SELFPAY ==
--- NOTE | ~2024-01-01 | MM_ITS ---
EXAMINATION: MM SCREENING DIGITAL BREAST TOMOSYNTHESIS, BILATERAL CLINICAL INFORMATION: Screening. Asymptomatic. COMPARISON: Mammography: Comparison is made with available priors TECHNIQUE: Digital breast mammography with tomosynthesis is performed in both the craniocaudal and mediolateral oblique views along with computer-aided detection (CAD). FINDINGS: There are scattered areas of fibroglandular density (ACR BI-RADS breast composition Category b). There are no significant masses, abnormal calcifications, or other abnormalities. MM/MM tomosynthesis screening BI IMPRESSION: No mammographic evidence of malignancy. ASSESSMENT: BI-RADS BI-RADS 1 - Negative RECOMMENDATION: Routine annual mammography screening. 1 year F/U This examination should not preclude the clinical evaluation of a suspicious palpable abnormality. This patient's information was entered into a reminder system with a target due date for their next mammogram. Electronically signed by: Juanita Kaba DO 01/13/2024 04:15 PM MATT
== END 2024-01-01 15:42 | disposition home or self-care (01) ==
LOC: HO.MAMMO 15:41
PROVIDERS: PCP Internal Medicine Geriatric Medicine; Visit Provider Internal Medicine Geriatric Medicine
DX: Z12.31 Encounter for screening mammogram for malignant neoplasm of breast (principal)
CPT/HCPCS: 77063; 77067

== ENCOUNTER → 2024-01-01 16:00 | Outpatient (BNV) | payer MEDICAID, SELFPAY | PROVIDERS: PCP Internal Medicine Geriatric Medicine; Visit Provider Internal Medicine | DX: Z12.31 Encounter for screening mammogram for malignant neoplasm of breast (principal) | CPT/HCPCS: 77063; 77067 ==

== ENCOUNTER 2024-01-23 11:03 | Outpatient (AMB) | payer MEDICAID, SELFPAY ==
[2024-01-23 11:06] VITALS: BMI 35.3
--- NOTE | 2024-01-23 11:06 | MHC.OFFVIS ---
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 We utilized Leslie for youth development professional. She states she noticed them approximately a month ago and they are getting worse. Complaints include intermittent pain over varicosities, swelling of lower extremities, cramping, fatigue, and heaviness of the lower extremities. It has been affecting their daily activities including walking and standing. It is noted more so in right leg. She is a nonsmoker. She is a diabetic on oral medications. Patient denies any previous venous surgery or injections. Patient denies any history of DVT/ PE. Patient denies any history of phlebitis. Trial of compression includes - elevation with no change, has not tried compression stockings. They now present for vascular evaluation regarding their varicose veins. [facility] Medical History Chronic radicular cervical pain Cervical spine degeneration Cervical spondylosis Diabetes mellitus Surgical History History of esophagogastroduodenoscopy (EGD) H/O colonoscopy History of bariatric surgery H/O neck surgery (~2013) Family History Maternal Grandmother Breast cancer Maternal Grandfather Colon cancer Social History Alcohol intake: never Patient Tobacco Use Status: Never used Tobacco Review of Systems Const Reports as per HPI and Denies weakness ENT Reports Normal hearing present and Denies dizziness Card Reports as per HPI, Denies chest pain, Denies chest pain at rest, Denies chest pain with activity, Denies dyspnea and Denies dyspnea on exertion Resp Reports as per HPI, Denies cough, Denies dyspnea and Denies dyspnea on exertion GI Reports as per HPI, Denies abdominal pain, Denies nausea and Denies vomiting Musc Denies numbness Skin/Breast Reports as per HPI, Denies erythema and Denies wounds Neuro Reports Normal hearing present, Denies dizziness, Denies numbness, Denies Sensory deficit (Neuro) and Denies weakness Psych Reports no additional complaints Endo Reports no additional complaints Physical Exam Vital Signs: BMI result Body Mass Index 35.3 Const General: healthy appearing and no acute distress Orientation/consciousness: patient oriented x3 HEENT Head: Yes normal to inspection Ears: hearing grossly normal bilaterally Mouth: Normal oral and palatal mucosa present Resp Effort & Inspection: normal respiratory effort and able to speak in complete sentences Auscultation: clear to auscultation bilaterally Cardio Jugular venous distension: no JVD Rate: regular rate Rhythm: regular rhythm Heart sounds: S1 normal heart sound present and S2 normal heart sound present Bruits: no abdominal aortic bruits, no carotid bruits, no femoral bruits and no renal bruits Peripheral pulses: Peripheral pulses 2+ throughout GI Inspection: Yes normal to inspection Palpation (GI): No Abdominal aortic bruit present Skin General skin exam: no rashes or lesions noted Wounds: no wounds Hair: normal Neuro General: patient oriented x3 Cranial nerves: Yes Normal hearing present Cognition (Neuro): normal cognition Gait exam (Neuro): Normal gait present Motor exam (neuro): 5/5 motor strength present throughout Sensory Exam: No Sensory deficit (Neuro) Extrem Other: Right lower extremity: Several tortuous veins around the knee with varicose veins and spider veins noted. The longest tortuous vein approximately 4 cm. Palpable DP pulses. Slight discoloration noted in lower extremities. No edema noted. Left lower extremity: Tortuous vein, approximately 6-8 cm on the lateral aspect of her knee, with the ending in a circular pattern. Palpable DP pulses. Slight discoloration noted in the lower extremity. No edema noted. CEAP: C - 4 E - primary A - superficial P - reflux General: Yes normal to inspection, Yes full ROM, Yes capillary refill normal and Yes normal gait Assessment & Plan Assessment & Plan (1) Varicose veins of both lower extremities with inflammation: Code(s): I83.11 - Varicose veins of right lower extremity with inflammation; I83.12 - Varicose veins of left lower extremity with inflammation Category: Medical Plan: Eunices is presenting today as a referral from her PCP for ongoing varicose veins, worsening over the last month. She states she is getting pain intermittently over the varicosities. In short, the patient has evidence of venous insufficiency. I have discussed the pathophysiology with the patient. In addition I have provided informational material regarding venous disease to the patient. We have discussed conservative measures including compression, elevation, and exercise. I have also provided a handout regarding appropriate use of compression stockings and where to purchase good compression stockings as well; unfortunately, we do not have it in [place]. I have taken the liberty of ordering venous insufficiency testing with the patient. They will follow up with me after testing. The patient had an opportunity to ask questions regarding the treatment plan. All questions were answered. No major barriers to understanding were identified. The patient expressed understanding and agreement with the above treatment plan. The patient is aware they should contact our office by phone for worsening of the current condition or the appearance of new symptoms. Thank you for allowing me to participate in the vascular care of this patient. If you have any questions or concerns regarding the treatment for the above condition please do not hesitate to contact me. The office telephone contact is [phone]. This note is constructed using voice recognition software. While every effort has been made to ensure accuracy, motion picture scene builder errors may have been included. Thank you for allowing me to participate in the care of your patient. Yours sincerely, KRUNAL Mcgee Orders: Orders US venous duplex LE BI 1 Week I83.11 - Varicose veins of right lower extremity with inflammation, I83.12 - Varicose veins of left lower extremity with inflammation Coding Level of Care Code New Pt Level 4 (93013) Diagnoses Varicose veins of both lower extremities with inflammation I83.11; I83.12
== END 2024-01-23 11:21 | disposition home or self-care (01) ==
PROVIDERS: PCP Internal Medicine Geriatric Medicine; Visit Provider Physician Assistant Surgical
DX: I83.11 Varicose veins of right lower extremity with inflammation (principal); I83.12 Varicose veins of left lower extremity with inflammation
CPT/HCPCS: 99204

== ENCOUNTER → 2024-01-23 11:03 | Outpatient (BNVA) | payer MEDICAID, SELFPAY | PROVIDERS: PCP Internal Medicine Geriatric Medicine; Visit Provider Physician Assistant Surgical | DX: I83.11 Varicose veins of right lower extremity with inflammation (principal); I83.12 Varicose veins of left lower extremity with inflammation | CPT/HCPCS: 99212 ==

== ENCOUNTER 2024-02-17 13:04 | Outpatient (REF) | payer MEDICAID, SELFPAY | END 2024-02-17 13:05 | disposition home or self-care (01) | LOC: HO.US 13:04 | PROVIDERS: PCP Internal Medicine Geriatric Medicine; Visit Provider Physician Assistant Surgical | DX: I83.11 Varicose veins of right lower extremity with inflammation (principal); I83.12 Varicose veins of left lower extremity with inflammation | CPT/HCPCS: 93970 ==

== ENCOUNTER → 2024-02-17 13:11 | Outpatient (BNV) | payer MEDICAID, SELFPAY | PROVIDERS: PCP Internal Medicine Geriatric Medicine; Visit Provider Radiology Diagnostic Radiology | DX: I83.893 Varicose veins of bilateral lower extremities with other complications (principal) | CPT/HCPCS: 93970 ==

== ENCOUNTER 2024-02-20 08:08 | Day surgery (SDC) | payer MEDICAID, SELFPAY ==
[2024-02-20 08:30] VITALS: BP 148/71; PULSE 77; RESP 16; TEMP 36.7; O2SAT 99
[2024-02-20 08:32] LABS: Glucose, Whole Blood 132 mg/dL (60-115)
[2024-02-20 08:47] VITALS: BMI 36.8
--- NOTE | 2024-02-20 09:00 | P.CONAN_ITS ---
Documented by User: Christine Garcia NP 02/19/24 09:43 HPI - Anesthesia Eval Consult details Narrative: 58yo F for Upper Endoscopy and Colonoscopy Anesthesia Pre-Procedure Meds Is the patient on any of the following meds?: GLP1/DPP4 PMFSH Active Problems Active Problems: All Active Problems Varicose veins of both lower extremities with inflammation (Acute) Carpal tunnel syndrome of right wrist (Acute) Chronic radicular cervical pain (Acute) Cervical spine degeneration (Acute) Cervical spondylosis (Acute) Right shoulder pain (Acute) Right elbow pain (Acute) Past Medical History Medical History (Updated 01/23/24 @ 11:22 by Agueda Mejia PA-C) Chronic radicular cervical pain Cervical spine degeneration Cervical spondylosis Diabetes mellitus Family History Family History Maternal Grandmother Breast cancer Maternal Grandfather Colon cancer Surgical History Surgical History (Updated 02/20/24 @ 08:47 by Mone Wiggins RN) Hx of cholecystectomy Previous section History of esophagogastroduodenoscopy (EGD) H/O colonoscopy History of bariatric surgery H/O neck surgery (~2013) History of Problems with Anesthesia: No Social History Social History Are you a primary healthcare project manager to a significant other at home: No Do you presently have visiting nurse or other home services: No Alcohol intake: never Patient Tobacco Use Status: Never used Tobacco Use of substances other than those prescribed or required for medical reasons: No Have you been hit, kicked, punched, or otherwise hurt by someone within the past year? If so, by whom?: No Are you DNR?: No Advance Directives: No Advance Directives Information Provided: No Advance Directives on File: No Recently lost weight without trying: No How much weight loss: Not applicable Eating poorly because of decreased appetite: No Nutrition screen score: 0 Nutrition Risks: No Nutritional Risk Patient : No : No Poor oral hygiene: Yes (upper and lower missing teeth) Meds Allergies Allergy/AdvReac Type Severity Reaction Status Date / Time No Known Allergies Allergy Verified 02/20/24 08:46 Home Medications ?Medication ?Instructions ?Recorded ?Confirmed ?Last Taken ?Type atorvastatin 40 mg tablet 40 mg PO DAILY 07/02/23 02/20/24 Unknown History lidocaine 5 % topical patch 1 patch topical DAILY 07/02/23 02/20/24 Unknown History lisinopril 10 mg tablet 10 mg PO DAILY 07/02/23 02/20/24 Unknown History metformin 850 mg tablet 850 mg PO BID 07/02/23 02/20/24 02/19/24 History sertraline 50 mg tablet 50 mg PO DAILY 07/02/23 02/20/24 Unknown History fexofenadine 180 mg tablet 180 mg PO DAILY 10/02/23 02/20/24 Unknown History glipizide 2.5 mg tablet, extended 2.5 mg PO DAILY 10/02/23 02/20/24 02/19/24 History release 24 hr insulin glargine 100 unit/mL (3 5 unit subcut DAILY 10/02/23 02/20/24 02/18/24 History mL) subcutaneous pen (Lantus Solostar U-100 Insulin) semaglutide 1 mg/dose (4 mg/3 mL) 1 mg subcut QWEEK 10/02/23 02/20/24 02/10/24 History subcutaneous pen injector (Ozempic) Assessment and Plan Assessment Anesthesia Assessment: Chart Reviewed Final Anesthetic Review History of Problems with Anesthesia: No Documented by User: Leslie Garcia DO 02/20/24 09:08 HPI - Anesthesia Eval Anesthesia Pre-Procedure Meds Is the patient on any of the following meds?: GLP1/DPP4 [facility] Past Medical History Medical History (Updated 01/23/24 @ 11:22 by Agueda Mejia PA-C) Chronic radicular cervical pain Cervical spine degeneration Cervical spondylosis Diabetes mellitus Family History Family History Maternal Grandmother Breast cancer Maternal Grandfather Colon cancer Family history of problems with anesthesia: No Surgical History Surgical History (Updated 02/20/24 @ 08:47 by Mone Wiggins RN) Hx of cholecystectomy Previous section History of esophagogastroduodenoscopy (EGD) H/O colonoscopy History of bariatric surgery H/O neck surgery (~2013) History of Problems with Anesthesia: Yes (PONV) Social History Social History Are you a primary healthcare project manager to a significant other at home: No Do you presently have visiting nurse or other home services: No Alcohol intake: never Patient Tobacco Use Status: Never used Tobacco Use of substances other than those prescribed or required for medical reasons: No Have you been hit, kicked, punched, or otherwise hurt by someone within the past year? If so, by whom?: No Are you DNR?: No Advance Directives: No Advance Directives Information Provided: No Advance Directives on File: No Recently lost weight without trying: No How much weight loss: Not applicable Eating poorly because of decreased appetite: No Nutrition screen score: 0 Nutrition Risks: No Nutritional Risk Patient : No : No Poor oral hygiene: Yes (upper and lower missing teeth) Meds Allergies Allergy/AdvReac Type Severity Reaction Status Date / Time No Known Allergies Allergy Verified 02/20/24 08:46 Home Medications ?Medication ?Instructions ?Recorded ?Confirmed ?Last Taken ?Type atorvastatin 40 mg tablet 40 mg PO DAILY 07/02/23 02/20/24 Unknown History lidocaine 5 % topical patch 1 patch topical DAILY 07/02/23 02/20/24 Unknown History lisinopril 10 mg tablet 10 mg PO DAILY 07/02/23 02/20/24 Unknown History metformin 850 mg tablet 850 mg PO BID 07/02/23 02/20/24 02/19/24 History sertraline 50 mg tablet 50 mg PO DAILY 07/02/23 02/20/24 Unknown History fexofenadine 180 mg tablet 180 mg PO DAILY 10/02/23 02/20/24 Unknown History glipizide 2.5 mg tablet, extended 2.5 mg PO DAILY 10/02/23 02/20/24 02/19/24 History release 24 hr insulin glargine 100 unit/mL (3 5 unit subcut DAILY 10/02/23 02/20/24 02/18/24 History mL) subcutaneous pen (Lantus Solostar U-100 Insulin) semaglutide 1 mg/dose (4 mg/3 mL) 1 mg subcut QWEEK 10/02/23 02/20/24 02/10/24 History subcutaneous pen injector (Ozempic) Exam Exam Date and Time: 02/20/24 0900 Height,Weight and Vital Signs: Height 5 ft 2 in Weight 91.354 kg Vital Signs Temperature 98.0 F 02/20/24 08:30 Pulse Rate 77 02/20/24 08:30 Respiratory Rate 16 02/20/24 08:30 Blood Pressure 148/71 H 02/20/24 08:30 Pulse Oximetry 99 02/20/24 08:30 Oxygen Delivery Method Room Air 02/20/24 08:30 Temperature 98.0 F 02/20/24 08:30 Pulse Rate 77 02/20/24 08:30 Respiratory Rate 16 02/20/24 08:30 Blood Pressure 148/71 H 02/20/24 08:30 Pulse Oximetry 99 02/20/24 08:30 Oxygen Delivery Method Room Air 02/20/24 08:30 Airway Mallampati Class: III TM Dist: >3cm Neck ROM: Full Loose/Missing/Broken Teeth: No (patient denies any loose or broken teeth) Heart: S1S2 Lungs: CTAB Assessment and Plan Assessment Anesthesia Assessment: Anesthesia Plan Discussed and Chart Reviewed Final Anesthetic Review Family History of Problems with Anesthesia: No History of Problems with Anesthesia: Yes (PONV) NPO: Yes ASA Class: II Final Preanesthetic Review: No Changes in Pt Med Stat, Meds/Allgs Chart Reviewed, Consent Obtained/Reviewed (Malawian intepreter at bedside for translation) and Anes Risks/Benef Reviewed Patient Risk: Low Procedure Risk: Low Anesthetic Plan Anesthetic Plan: MAC: and Agree w/ Assess. and Plan Disposition: Standard PACU
[2024-02-20] MEDS: Lactated Ringers 1,000 ML 100 ML IVCONT (09:01)
--- NOTE | 2024-02-20 09:10 | P.HPSUR_ITS ---
Pre-Procedural Eval Section A - 24 Hr Update-Section A only Date of Service: 02/20/24 Section B - Complete if H&P > 30 days Chief Complaint: gerd,screening Relevant Family History (Specify if Yes): No Relevant Social History: None Present Medications: see Short Stay Collaborative assessment Medical History: Significant History (Chronic radicular cervical pain Cervical spine degeneration Cervical spondylosis Diabetes mellitus) History of Previous Operations: Relevant previous surgery/procedure and date(s) (Hx of cholecystectomy Previous section History of esophagogas troduodenoscopy (EGD) H/O colonoscopy History of bariatric surgery H/O neck surgery (~2013)) Allergies: Allergies Allergy/AdvReac Type Severity Reaction Status Date / Time No Known Allergies Allergy Verified 02/20/24 08:46 Review of Systems Sugical H&P ROS: Negative: Constitution, Cardiovascular, Respiratory, Neurological, Psychiatric, Hem-Onc, Allergic/Immunologic, Gastrointestinal, Genitourinary, Musculoskeletal, Integumentary, Endocrine and Eyes/Ears/Nose/Throat Exam Surgical H&P Exam: Normal: HEENT, Normal: Heart, Normal: Lungs, Normal: Extremities, Normal: Abdomen, Normal: Skin and Normal: Neurological Plan Diagnosis/Plan: Unchanged I have reviewed the history and physical and performed a pertinent physical examination on my patient. No changes have occurred unless specified. Time Spent With Patient Time: Total time managing care of this patient today ____ minutes.
--- NOTE | 2024-02-20 09:50 | HO.OPN-COLON ---
Colonoscopy Operative Note Operative Note Date of Service: 02/20/24 Narrative: Operative Information Procedure Description: EGD, Colonoscopy Indication: GERD and stomach stricture, screen colo Anesthesia: MAC FLEXIBLE TRANSORAL UPPER GASTROINTESTINAL ENDOSCOPY AND COLONOSCOPY PROCEDURE NOTE UPPER ENDOSCOPY Consent: Indications for the procedure and potential complications of bleeding, perforation, reaction to medications and missed diagnosis were discussed with the patient and informed consent was obtained. Instrument: Olympus GIF H 190 J mid size upper endoscope Monitoring: Vital signs and clinical assessment, continuous EKG monitoring, Pulse oximetry, Carbon Dioxide monitoring and blood pressure monitoring were done throughout the procedure. Procedure: The patient was placed in the left lateral decubitis position and pre-procedure medications were administered and a bite block was placed. The endoscope was inserted into the mouth and advanced under direct vision to the third part of duodenum. A careful inspection was made as the upper endoscope was withdrawn including a retroflexed examination of the proximal stomach; Findings and interventions are described below. Findings: Larynx:normal Esophagus: GE junction at 31 cm, diaphragm hiatus at 35 cm, consistent with 4 cm sliding hiatal hernia, with mild esophagitis noted Stomach: Altered stomach s/p sleeve with tight narrowing at proximal stomach, patchy erythema. Biopsies were obtained. Retroflexion- unable to see fundus due to the stricture. This was dilated using 20 mm balloon with wire with resistance felt. Duodenum: Normal bulb and descending duodenum, Intervention: Biopsies as noted above, balloon dilation COLONOSCOPY Instrument: Olympus variable stiffness pediatric scope 190L Colonoscopy Monitoring: Vital signs and clinical assessment, continuous EKG monitoring, Pulse oximetry, Carbon Dioxide monitoring and blood pressure monitoring were done throughout the procedure. Colon withdrawal time was 9 minutes. Procedure: The patient was placed in the left lateral decubitis position and pre-procedure medications were administered. After a digital rectal examination of the ano-rectum, the video colonoscope was inserted into the rectum and advanced through the colon to the cecum/TI. The colonoscope was slowly withdrawn in a retrograde panoramic fashion and the colon mucosa was carefully examined including a retroflexed view of the rectum. Findings and interventions are described below. Procedure Difficulty:moderate Findings: Terminal Ileum-not intubated Cecum:normal Ascending Colon: normal Transverse Colon -normal Descending Colon:normal Sigmoid Colon: normal Rectum: Retroflexion with small internal hemorrhoids, grade I Anorectum - normal Colon preparation: [employer] Bowel Preparation Scale Right colon; 1-2 Transverse colon: 1-2 Left colon; 1-2 (0 = Unprepared colon segment with mucosa not seen due to solid stool that cannot be cleared. 1 = Portion of mucosa of the colon segment seen, but other areas of the colon segment not well seen due to staining, residual stool and/or opaque liquid. 2 = Minor amount of residual staining, small fragments of stool and/or opaque liquid, but mucosa of colon segment seen well. 3 = Entire mucosa of colon segment seen well with no residual staining, small fragments of stool or opaque liquid) Impression and Post Procedure Diagnosis: Endoscopy Findings: esophagitis gastritis sleeve stricture Colonoscopy Findings: fair to poor prep internal hemorrhoids Plan: Await Pathology results Repeat Colonoscopy in 6-12 months or earlier if clinically indicated--NEXT time 2 d of clears High fiber diet leaflet avoid straining at stool, epsom salts and sitz bath, anusol supps or cream if no better with balloon dilation can consider pneumatic balloon next time Above findings were reviewed with the patient and relevant handouts were provided if indicated.
[2024-02-20 10:00] VITALS: BP 106/57; PULSE 102; RESP 16; TEMP 36.4; O2SAT 92
[2024-02-20 10:15] VITALS: BP 123/57; PULSE 101; RESP 16; TEMP 36.3; O2SAT 94
== END 2024-02-20 10:38 | disposition home or self-care (01) ==
PROVIDERS: PCP Internal Medicine Geriatric Medicine; Visit Provider Internal Medicine Gastroenterology
PROC: (CPT 45378; principal; 2024-02-20 11:50)
DX: Z12.11 Encounter for screening for malignant neoplasm of colon (principal); K64.0 First degree hemorrhoids; K21.9 Gastro-esophageal reflux disease without esophagitis; K29.50 Unspecified chronic gastritis without bleeding; K20.80 Other esophagitis without bleeding; K31.2 Hourglass stricture and stenosis of stomach; K44.9 Diaphragmatic hernia without obstruction or gangrene; E11.9 Type 2 diabetes mellitus without complications; Z79.84 Long term (current) use of oral hypoglycemic drugs; Z79.899 Other long term (current) drug therapy; Z98.84 Bariatric surgery status; Z98.890 Other specified postprocedural states; Z90.49 Acquired absence of other specified parts of digestive tract
CPT/HCPCS: 45378; 43245; 43239; 82947; 88305; 88313; 88342; J2003; J2704

== ENCOUNTER → 2024-02-20 08:08 | Outpatient (BNV) | payer MEDICAID, SELFPAY | PROVIDERS: PCP Internal Medicine Geriatric Medicine; Visit Provider Internal Medicine Gastroenterology | DX: Z12.11 Encounter for screening for malignant neoplasm of colon (principal); K64.0 First degree hemorrhoids; K21.9 Gastro-esophageal reflux disease without esophagitis; Z98.84 Bariatric surgery status; K31.89 Other diseases of stomach and duodenum; Z90.3 Acquired absence of stomach [part of] | CPT/HCPCS: 43239; 43245; 45378 ==

== ENCOUNTER 2024-03-06 13:38 | Outpatient (AMB) | payer MEDICAID, SELFPAY ==
--- NOTE | 2024-03-06 13:39 | A.OFFVIS_ITS ---
Vital Signs 03/06/24 13:40 Height 5 ft 2 in Weight 208 lb 1.862 oz BMI 38.1 BP 124/66 Blood Pressure Location Rt brachial Position Sitting Pulse 88 Pulse Source Pulse Oximeter Pulse Oximetry (%) 98 Oxygen Delivery Method Room Air Intake Visit Reasons: S/P Double; Dr. Canales Intake Note: ESTABLISHED PATIENT Rafi presents in office today for a scheduled s/p FUV Meds and Allergies reviewed? Y No recent or relevant surgeries? Duo w/ TH Any significant concerns or new changes? No significant concerns. Pharmacy verified? [facility] Mold Inspector Required: Yes Mold Inspector Services: Mold Inspector Present Mold Inspector Name: Stefani [id number] Information Interpreted: non-clinical & clinical Accompanied by: Self / Same As Patient Allergies No Known Allergies Allergy (Verified 03/06/24 13:40) HPI HPI S/P Double; Dr. Canales: Details: LAST VISIT: Screen for colon cancer GERD (gastroesophageal reflux disease) Postprandial abdominal bloating Postprandial diarrhea Constipation Anastomotic stricture of stomach Plan Patient will continue pantoprazole daily. Small meals and more often. Avoid dietary triggers. Avoid late night snacking. Staying upright for minimum 3 hours after meals discussed with patient. Patient will start taking Dulcolax tablets daily. Increase fluid intake and activity to promote better bowel motility. Patient was encouraged to call her bariatric surgeon for follow-up. Patient might need to have dilation of the proximal stomach. Again stressed the importance of good bowel prep and clear liquid diet day before procedure. Patient will be seen in 2 months to make sure that she is moving her bowels well just before she goes for her procedure. She is agreeable to this plan and verbalizes understanding of instructions. She was given the opportunity to ask questions and all questions answered. ? Thank you for allowing me to participate in her care Medications New bisacodyl (Dulcolax (bisacodyl)) 10 mg (2 x 5 mg) PO BEDTIME 180 tabs 4RF Changed Changed From polyethylene glycol 3350 As directed by gastroenterology department at [facility] [place] 238 grams PO ONCE 238 grams 0RF Z12.11 Changed To polyethylene glycol 3350 (Miralax) As directed by gastroenterology department at [facility] [place] 238 grams PO ONCE 238 grams 0RF Z12.11 Refilled pantoprazole take one tablet half an hour before breakfast 40 mg PO DAILY 30 tabs 2RF K21.9 bisacodyl (Dulcolax (bisacodyl)) take 4 tabs at noon the day before your colonoscopy 20 mg (4 x 5 mg) PO ONCE 4 tabs 0RF 1 day Z12.11 UPPER ENDOSCOPY AND COLONOSCOPY: Findings: Larynx:normal Esophagus: GE junction at 31 cm, diaphragm hiatus at 35 cm, consistent with 4 cm sliding hiatal hernia, with mild esophagitis noted Stomach: Altered stomach s/p sleeve with tight narrowing at proximal stomach, patchy erythema. Biopsies were obtained. Retroflexion- unable to see fundus due to the stricture. This was dilated using 20 mm balloon with wire with resistance felt. Duodenum: Normal bulb and descending duodenum, Intervention: Biopsies as noted above, balloon dilation COLONOSCOPY Instrument: Olympus variable stiffness pediatric scope 190L Colonoscopy Monitoring: Vital signs and clinical assessment, continuous EKG monitoring, Pulse oximetry, Carbon Dioxide monitoring and blood pressure monitoring were done throughout the procedure. Colon withdrawal time was 9 minutes. Procedure: The patient was placed in the left lateral decubitis position and pre-procedure medications were administered. After a digital rectal examination of the ano-rectum, the video colonoscope was inserted into the rectum and advanced through the colon to the cecum/TI. The colonoscope was slowly withdrawn in a retrograde panoramic fashion and the colon mucosa was carefully examined including a retroflexed view of the rectum. Findings and interventions are described below. Procedure Difficulty:moderate Findings: Terminal Ileum-not intubated Cecum:normal Ascending Colon: normal Transverse Colon -normal Descending Colon:normal Sigmoid Colon: normal Rectum: Retroflexion with small internal hemorrhoids, grade I Anorectum - normal Colon preparation: [employer] Bowel Preparation Scale Right colon; 1-2 Transverse colon: 1-2 Left colon; 1-2 (0 = Unprepared colon segment with mucosa not seen due to solid stool that cannot be cleared. 1 = Portion of mucosa of the colon segment seen, but other areas of the colon segment not well seen due to staining, residual stool and/or opaque liquid. 2 = Minor amount of residual staining, small fragments of stool and/or opaque liquid, but mucosa of colon segment seen well. 3 = Entire mucosa of colon segment seen well with no residual staining, small fragments of stool or opaque liquid) Impression and Post Procedure Diagnosis: Endoscopy Findings: esophagitis gastritis sleeve stricture Colonoscopy Findings: fair to poor prep internal hemorrhoids Plan: Await Pathology results Repeat Colonoscopy in 6-12 months or earlier if clinically indicated--NEXT time 2 d of clears High fiber diet leaflet avoid straining at stool, epsom salts and sitz bath, anusol supps or cream if no better with balloon dilation can consider pneumatic balloon next time PATHOLOGY: Diagnosis Stomach, biopsy: Chronic active erosive gastritis; no Helicobacter organisms identified TODAY'S VISIT Patient is here today for follow-up and to discuss upper endoscopy and colonoscopy results. Upper endoscopy showed chronic active erosive gastritis. Patient reports that she is taking pantoprazole daily. Patient denies any abdominal pain or discomfort. Patient denies any ill effects from the prep, anesthesia or procedure itself. Patient had suboptimal prep and will need to re peat colonoscopy in 6-12 months. Patient denies any dyspepsia, dysphagia or odynophagia. Denies any melena, hematochezia, unintentional weight loss or ribbon like stools. Patient reports that she moves her bowels daily. Patient denies any abdominal pain or discomfort. Patient denies any GI concerning symptoms today. [facility] Medical History Chronic radicular cervical pain Cervical spine degeneration Cervical spondylosis Diabetes mellitus Surgical History Hx of cholecystectomy Previous section History of esophagogastroduodenoscopy (EGD) H/O colonoscopy History of bariatric surgery H/O neck surgery (~2013) Family History Maternal Grandmother Breast cancer Maternal Grandfather Colon cancer Social History Are you a primary animal care taker to a significant other at home: No Do you presently have visiting nurse or other home services: No Alcohol intake: never Patient Tobacco Use Status: Never used Tobacco Review of Systems Const Denies weight gain and Denies weight loss ENT Reports no additional complaints, Denies dysphagia and Denies odynophagia Card Reports no additional complaints Resp Reports no additional complaints GI Denies abdominal pain, Denies belching, Denies melena, Denies bloating, Denies change in bowel habits, Reports constipation, Denies dysphagia, Denies excessive flatus, Denies dyspepsia, Denies heartburn, Denies diarrhea, Denies loose stools, Denies nausea, Denies odynophagia and Denies vomiting Reports no additional complaints Musc Reports no additional complaints Neuro Reports no additional complaints Psych Reports no additional complaints Endo Reports no additional complaints Physical Exam Vital Signs: Last Vital Signs Pulse 88 03/06/24 13:40 BP 124/66 03/06/24 13:40 Pulse Ox 98 03/06/24 13:40 Oxygen Delivery Method Room Air 03/06/24 13:40 BMI result Body Mass Index 38.1 Const General: healthy appearing and no acute distress Nutritional Appearance: obese Orientation/consciousness: patient oriented x3 Resp Effort & Inspection: normal respiratory effort, able to speak in complete sentences, no tracheal deviation and symmetric chest movement Auscultation: clear to auscultation bilaterally Cardio Rate: regular rate GI Inspection: Yes normal to inspection, No distended and Yes obesity Palpation (GI): Soft to palpation, not firm, nontender and No hepatosplenomegaly present Auscultation: normal bowel sounds General: Yes no CVA tenderness Back/Spine/Pelvis Back: no CVA tenderness Skin General skin exam: elasticity normal, turgor normal and dry skin Neuro General: patient oriented x3 Psych Appearance: grossly normal Mental Status: mental status grossly normal Assessment & Plan Assessment & Plan (1) Screen for colon cancer: Code(s): Z12.11 - Encounter for screening for malignant neoplasm of colon (2) GERD (gastroesophageal reflux disease): Code(s): K21.9 - Gastro-esophageal reflux disease without esophagitis Qualifiers: Esophagitis presence: esophagitis presence not specified Qualified Code(s): K21.9 - Gastro-esophageal reflux disease without esophagitis (3) Postprandial abdominal bloating: Code(s): R14.0 - Abdominal distension (gaseous) (4) Anastomotic stricture of stomach: Code(s): K92.9 - Disease of digestive system, unspecified; K31.89 - Other diseases of stomach and duodenum Plan Patient will start taking Dulcolax to help with emptying her bowels completely. Even though patient reports that she is moving her bowels, admits that she does not feel like she empties her bowels completely. Continue pantoprazole daily. Avoid dietary triggers and late night snacking. Staying upright for minimum 3 hours after meals discussed with patient. Patient will return in 2 months to discuss going for colonoscopy. Patient is agreeable to this plan and verbalizes understanding of instructions. She was given the opportunity to ask questions and all questions answered. Thank you for allowing me to participate in her care Medications: New bisacodyl (Dulcolax (bisacodyl)) 10 mg (2 x 5 mg) PO BEDTIME 180 tabs 4RF hydrocortisone 2.5% (Proctosol HC) 1 appl [place] BID-QID PRN 30 grams 2RF hemorrhoids K64.9 - Unspecified hemorrhoids Discontinued methylcellulose (laxative) Discontinued Reason: Doctor's Order 500 mg PO DAILY 30 tabs 0RF K59.00 - Constipation, unspecified Coding Level of Care Code Est Pt Level 3 (22659) Diagnoses Screen for colon cancer Z12.11 Gastroesophageal reflux disease, unspecified whether esophagitis present K21.9 Esophagitis presence: esophagitis presence not specified Postprandial abdominal bloating R14.0 Anastomotic stricture of stomach K92.9; K31.89 Time Spent (min) 30 Comment 20 minutes spent with patient and additional 10 minutes spent reviewing her records
[2024-03-06 13:40] VITALS: BP 124/66; PULSE 88; O2SAT 98; BMI 38.1
== END 2024-03-06 14:10 | disposition home or self-care (01) ==
PROVIDERS: PCP Internal Medicine Geriatric Medicine; Visit Provider Nurse Practitioner Family
DX: K21.9 Gastro-esophageal reflux disease without esophagitis (principal); K92.9 Disease of digestive system, unspecified; K31.89 Other diseases of stomach and duodenum; K64.8 Other hemorrhoids
CPT/HCPCS: 99213

== ENCOUNTER → 2024-03-06 13:38 | Outpatient (BNVA) | payer MEDICAID, SELFPAY | PROVIDERS: PCP Internal Medicine Geriatric Medicine; Visit Provider Nurse Practitioner Family | DX: K21.9 Gastro-esophageal reflux disease without esophagitis (principal); K92.9 Disease of digestive system, unspecified; K31.89 Other diseases of stomach and duodenum; K59.00 Constipation, unspecified; K64.9 Unspecified hemorrhoids; R14.0 Abdominal distension (gaseous) | CPT/HCPCS: 99212 ==

== ENCOUNTER → 2024-04-16 10:46 | Outpatient (BNVA) | payer MEDICAID, SELFPAY | PROVIDERS: PCP Internal Medicine Geriatric Medicine; Visit Provider Physician Assistant Surgical | DX: I83.11 Varicose veins of right lower extremity with inflammation (principal); I83.12 Varicose veins of left lower extremity with inflammation | CPT/HCPCS: 99212 ==

== ENCOUNTER 2024-05-19 09:06 | Outpatient (REF) | payer MEDICAID, SELFPAY ==
--- OUTSIDE RECORDS SUMMARY | 2024-05-19 10:09 | XMS_ITS | Encounter Summary ---
Author Organization [employer] Address [address] [facility] [address] [place] [address] Care Team Providers Care Chief Building Inspector Name Role Phone Name, Andrés RODRIGUEZ Primary Care Provider [phone] Reason for Visit * Reason Onset Date Comments Med Refill 02/18/2024 Encounter Details Date Type Department Care Team ([facility] st Contact Info) Description 02/18/2024 Telephone [facility] MEDICINE [address] [place], [place] [phone] Name, MD Andrés [address] [place] [address] Med Refill Social History Tobacco Use Types Packs/Day Years Used Date Smoking Tobacco: Never Passive Smoke Exposure: Never Smokeless Tobacco: Never Alcohol Use Standard Drinks/Week Comments Never 0 (1 standard drink = 0.6 oz pur e alcohol) Alcohol Answer Date Recorded Frequency of Alcohol Consumption Not on file 10/29/2023 Average Number of Drinks Not on file 024 Frequency of Binge Drinking Not on file 10/10 Score 0 10/29/2023 Depression Answer Date Recorded Patient Health Questionnaire-9 Score 0 08/07/2023 Patient Health Questionnaire-9 Score 0 08/07/2023 Last PHQ-9: Questionnaire Data Not on file 0 08/07/2023 Housing Stability Answer Date Recorded What is your housing situation today? I have imtiaz lima 01/03/[address] you li ve. Do you have problems with any of the following? None of the above 01/03/2023 Food Insecurity Answer Date Recorded Within the past 12 months, y ou worried that your food would run out before you got money to buy more: Never True 01/03/2023 Within the past 12 months,th e food you bought just didn't last and you didn't have enough money to get more: Never True Transportation Answer Date Recorded In the past 12 months, has l ack of transportation kept you from medical appts, meetings, work or from getting things needed for daily living? No 01/03/2023 Utilities Answer Date Recorded In the past 12 months, has t he electric, gas, oil or water company threatened to shut off services in your home? No 01/03/2023 Depression Answer Date Recorded Patient Health Questionnaire-2 Score 0 08/07/2023 Comments No Sex and Gender Information Value Date Recorded Sex Assigned at Female 01/08/2022 10:29 AM EDT Legal Sex Female 10:29 AM EDT Gender Identity Female 01/08/2022 10:29 AM EDT Sexual Orientation Straight 01/08/2022 10 :29 AM EDT documented as of this encounter Miscellaneous Notes * Telephone Encounter - Yolie Houston LPN - 02/18/2024 10:49 AM EST Medication pended to PCP. * Telephone Encounter - Hodan Sanz - 02/18/2024 10:39 AM EST TC from pt requesting medication refill. Medications needing refill : tiZANidine (Zanaflex) 4 MG tablet To be sent to: [facility] - [place], [place] - [address] documented in this encounter Plan of Treatment Upcoming Encounters Date Type Department Care Team (Late st Contact Info) Description 06/17/2024 9:00 AM EDT Procedure Visit [facility]ICINE [address] [place] [phone] Roshni Mays FNP 230 [place] [address] 08/25/2024 2:30 PM EDT Office Visit [facility] [address] [place] [phone] Name, MD Andrés [address] [place] [address] documented as of this encounter Visit Diagnoses Not on filedocumented in this encounter Additional Health Concerns Assessment Noted Time PHQ-9 Depression Total Score: 0 08/07/19 24 2:21 PM EDT documented as of this encounter Care Teams Chief Building Inspector Relationship Specialty Start Date End Date Name, MD Andrés [address] [place] [address] PCP - General Family Medicine 04/08/15 documented as of this encounter
--- OUTSIDE RECORDS SUMMARY | 2024-05-19 10:09 | XMS_ITS | Encounter Summary ---
Author Organization [employer] [facility] Address [address] [facility] [address] [place] [address] Care Team Providers Care Web Site Specialist Name Role Phone Name, Andrés RODRIGUEZ Primary Care Provider [phone] Reason for Visit * Reason Comments Med Refill Encounter Details Date Type Department Care Team (Late Contact Info) Description 08/28/2022 Refill [facility] MEDICINE [address] [place] [address] [phone] Name, MD Andrés [address] [place] [address] [phone] Cervical radicular pain Social History Tobacco Use Types Packs/Day Years Used Date Smoking Tobacco: Never Smokeless Tobacco: Never Alcohol Use Standard Drinks/Week Comments Never 0 (1 standard drink = 0.6 oz pur e alcohol) Depression Answer Date Recorded Patient Health Questionnaire-9 Score 0 02/20/2022 Depression Answer Date Recorded Patient Health Questionnaire-2 Score 0 02/20/2022 Comments Unknown Sex and Gender Information Value Date Recorded Sex Assigned at Female 01/08/2022 10:29 AM EDT Legal Sex Female 10:29 AM EDT Gender Identity Female 01/08/2022 10:29 AM EDT Sexual Orientation Straight 01/08/2022 10 :29 AM EDT COVID-19 Exposure Response Date Recorded In the last 10 days, have yo u been in contact with someone who was confirmed or suspected to have Coronavirus/COVID-19? No / Unsure 08/13/2022 12:51 PM EDT documented as of this encounter Plan of Treatment Upcoming Encounters Date Type Department Care Team ([facility] Contact Info) Description 06/17/2024 9:00 AM EDT Procedure Visit [facility] MEDICINE 230 [place], [place] [phone] Roshni Mays FNP [address] [place] [address] 08/25/2024 2:30 PM EDT Office Visit [facility] MEDICINE [address] [place] [address] [phone] Name, MD Andrés [address] [place] [address] [phone] documented as of this encounter Visit Diagnoses Diagnosis Cervical radicular pain documented in this encounter Additional Health Concerns Assessment Noted Time PHQ-9 Depression Total Score: 0 02/21/20 22 3:25 PM EST documented as of this encounter Care Teams Web Site Specialist Relationship Specialty Start Date End Date Name, MD Andrés [address] [place] [phone] PCP - General Family Medicine 04/08/15 documented as of this encounter
--- OUTSIDE RECORDS SUMMARY | 2024-05-19 10:10 | XMS_ITS | Encounter Summary ---
Author Organization [employer] Address [address] [facility] 7t [place] [address] Care Team Providers Care Seed Service Advisor Name Role Phone Name, Andrés RODRIGUEZ Primary Care Provider [phone] Encounter Details Date Type Department Care Team (Latest Contact Info) Description 05/19/2024 Travel Social History Tobacco Use Types Packs/Day Years [...] AM EDT documented as of this encounter Plan of Treatment Upcoming Encounters Date Type Department Care Team (Late st Contact Info) Description 06/17/2024 9:00 AM EDT Procedure Visit [facility] MEDICINE [address] [place] [phone] Roshni Mays FNP [address] [place] [phone] 08/25/2024 2:30 PM EDT Office Visit [facility] MEDICINE [address] [place] [phone] Name, MD Andrés [address] [place] [phone] documented as of this encounter Visit Diagnoses Not on filedocumented in this encounter Additional Health Concerns Assessment Noted Time PHQ-9 Depression Total Score: 0 08/07/19 24 2:21 PM EDT documented as of this encounter Care Teams Seed Service Advisor Relationship Specialty Start Date End Date Name, MD Andrés [address] [place] [phone] PCP - General Family Medicine 04/08/15 documented as of this encounter
--- OUTSIDE RECORDS SUMMARY | 2024-05-19 10:10 | XMS_ITS | Encounter Summary ---
Author Organization [employer] Address [address] [facility] [address] [place] [address] Care Team Providers Care Commercial Ocean Clammer Name Role Phone Name, Andrés RODRIGUEZ Primary Care Provider [phone] Reason for Visit * Reason Comments Med Refill Encounter Details Date Type Department Care Team ([facility] st Contact Info) Description 05/14/2024 Refill [facility] MEDICINE 230 [place], [place] [phone] Name, MD Andrés 230 [place] [address] Type 2 diabetes mellitus without complication, without long-term current use of insulin ([facility]) Social History Tobacco Use Types Packs/Day Years [...] Description 06/17/2024 9:00 AM EDT Procedure Visit [facility] MEDICINE [address] [place] [phone] Roshni Mays FNP [address] [place] [phone] 08/25/2024 2:30 PM EDT Office Visit [facility] MEDICINE [address] [place] [phone] NameAndrés MD [address] [place] [phone] documented as of this encounter Visit Diagnoses Diagnosis Type 2 diabetes mellitus without complication, without long-term current use of insulin ([facility]) documented in this encounter Additional Health Concerns Assessment Noted Time PHQ-9 Depression Total Score: 0 08/07/19 24 2:21 PM EDT documented as of this encounter Care Teams Commercial Ocean Clammer Relationship Specialty Start Date End Date Andrés Lee MD [address] [place] [phone] PCP - General Family Medicine 04/08/15 documented as of this encounter
--- OUTSIDE RECORDS SUMMARY | 2024-05-19 10:10 | XMS_ITS | Encounter Summary ---
Author Organization [employer] Address [address] [facility] [address] [place] [address] Care Team Providers Care Bureau Director Name Role Phone Name, Andrés RODRIGUEZ Primary Care Provider Reason for Visit * Reason Onset Date Comments Medication Question 04/23/2024 Encounter Details Date Type Department Care Team ([facility] st Contact Info) Description 04/23/2024 Refill [facility] MEDICINE 230 [place], [place] [phone] Name, MD Andrés [address] [place] [address] Chronic neck pain Social History Tobacco Use Types Packs/Day [...] encounter Miscellaneous Notes * Telephone Encounter - Mone Parkinson RN - 04/24/2024 8:59 AM EST Received the following message from PCP this morning: Noted, I do not think we should increase the dose, we can taper her off Percocet and try her on Celebrex instead if she wants. Return TC via BLS#[id number], reviewed above message with patient. Patient stated she does not want to stop Percocet, she just wants a dose increased. Reinforced that PCP will not be increasing dose at this time but would be willing to try her on a new medication. Reviewed date of her next PCP appt. Pt was encouraged to come to [facility] for evaluation if her pain has increased and she can't wait for PCP appt. * Telephone Encounter - Bib Shay - 04/23/2024 1:57 PM EST Tc from pt notifying medication oxyCODONE-acetaminophen (Percocet) 5-325 MG tablet needs to be increased as is no longer helping out with pain as she requests same medication to increase (512). documented in this encounter Plan of Treatment Upcoming Encounters Date Type Department Care Team (Late st Contact Info) Description 06/17/2024 9:00 AM EDT Procedure Visit [facility] MEDICINE [address] [place] [address] Roshni Mays FNP 230 [place] [address] 08/25/2024 2:30 PM EDT Office Visit [facility] MEDICINE [address] [place] [address] NameAndrés MD [address] [place] [phone] documented as of this encounter Visit Diagnoses Diagnosis Chronic neck pain Cervicalgia documented in this encounter Additional Health Concerns Assessment Noted Time PHQ-9 Depression Total Score: 0 08/07/19 24 2:21 PM EDT documented as of this encounter Care Teams Bureau Director Relationship Specialty Start Date End Date Andrés Lee MD [address] [place] [phone] PCP - General Family Medicine 04/08/15 documented as of this encounter
--- OUTSIDE RECORDS SUMMARY | 2024-05-19 10:10 | XMS_ITS | Encounter Summary ---
Author Organization [email or web address] Address [address] [place] [address], [place] [address] Care Team Providers Care Director Outpatient Services Name Role Phone Name, Andrés RODRIGUEZ Primary Care Provider [phone] Encounter Details Date Type Department Care Team (Late st Contact Info) Description 04/12/2022 Orders Only [facility] MEDICINE [address] [place] [address] [phone] Graciela Gifford FNP [address] [place] [address] [place] [address] Dysuria Social History Tobacco Use Types Packs/Day Years Used Date Smoking Tobacco: Never Smokeless Tobacco: Never Depression Answer Date Recorded Patient Health Questionnaire-9 [...] suspected to have Coronavirus/COVID-19? No / Unsure 04/11/2022 9:25 AM EST documented as of this encounter Plan of Treatment Upcoming Encounters Date Type Department Care Team (Late st Contact Info) Description 06/17/2024 9:00 AM EDT Procedure Visit [facility] MEDICINE [address] [place] [phone] Roshni Mays FNP 230 [place], [place] [phone] 08/25/2024 2:30 PM EDT Office Visit [facility] MEDICINE 230 [place] [address] Name, MD Andrés [address] [place] [address] documented as of this encounter Visit Diagnoses Diagnosis Dysuria documented in this encounter Additional Health Concerns Assessment Noted Time PHQ-9 Depression Total Score: 0 02/21/20 22 3:25 PM EST documented as of this encounter Care Teams Director Outpatient Services Relationship Specialty Start Date End Date Name, MD Andrés [address] [place] [phone] PCP - General Family Medicine 04/08/15 documented as of this encounter
--- OUTSIDE RECORDS SUMMARY | 2024-05-19 10:10 | XMS_ITS | Encounter Summary ---
Author Organization [employer] Address [address] [facility] [address] [place] [address] Care Team Providers Care Manager Bar Name Role Phone Name, Andrés RODRIGUEZ Primary Care Provider Reason for Visit * Reason Comments Flu Vaccine Encounter Details Date Type Department Care Team (Latest Contact Info) Description 04/29/2024 2:45 PM EST Clinical Support [facility] MEDICINE [address] [place], [place] [phone] Alan Randle, RN [address] [place] [address] Encounter for immunization Social History Tobacco Use Types Packs/Day Years [...] AM EDT documented as of this encounter Progress Notes * Alan Randle RN - 04/29/2024 2:45 PM EST S: Pt here for Flu vaccination. Pt denies any s/s of adverse reaction with previous immunizations. O: No obvious s/s of current illness. A: Health maintenance. Flu vaccine admin; no s/s of adverse reaction noted. Post immunization education provided. P: Advised to FU Prn. Pt verbalized understanding, and agrees with plan. Alan Randle RN documented in this encounter Plan of Treatment Upcoming Encounters Date Type Department Care Team (Late st Contact Info) Description 06/17/2024 9:00 AM EDT Procedure Visit [facility] MEDICINE [address] [place] [phone] Roshni Mays FNP 230 [place] [address] 08/25/2024 2:30 PM EDT Office Visit [facility] MEDICINE [address] [place] [phone] Name, MD Andrés 230 [place] [address] documented as of this encounter Visit Diagnoses Diagnosis Encounter for immunization documented in this encounter Additional Health Concerns Assessment Noted Time PHQ-9 Depression Total Score: 0 08/07/19 24 2:21 PM EDT documented as of this encounter Care Teams Manager Bar Relationship Specialty Start Date End Date Name, MD Andrés [address] [place] [address] PCP - General Family Medicine 04/08/15 documented as of this encounter
--- OUTSIDE RECORDS SUMMARY | 2024-05-19 10:10 | XMS_ITS | Encounter Summary ---
Author Organization [employer] Address [address] [facility] [address] [place] [address] Care Team Providers Care Plastic Dolls Mold Filler Name Role Phone Name, Andrés RODRIGUEZ Primary Care Provider [phone] Reason for Visit * Reason Comments Diabetes Encounter Details Date Type Department Care Team (Latest Contact Info) Description 2024 2:00 PM EST Office Visit [facility] [address] [place] [address] [phone] Name, MD Andrés [address] [place] [address] Type 2 diabetes mellitus without complication, without long-term current use of insulin ([facility]) (Primary Dx); Cervical radiculopathy due to degenerative joint disease of spine; Hx of cervical spine surgery; Screening for cervical cancer; Encounter for immunization Social History Tobacco Use Types Packs/Day Years Used Date Smoking Tobacco: Never Passive Smoke Exposure: Never Smokeless Tobacco: Never Tobacco Cessation:Counseling Given: Not Answered Alcohol Use Standard Drinks/Week Comments Never 0 [...] AM EDT documented as of this encounter Last Filed Vital Signs Vital Sign Reading Time Taken Comments Blood Pressure 128/72 2024 2:09 PM EST Pulse 84 2024 2:09 PM EST Temperature 36.6 ??C (97.9 ??F) 2024 2:09 PM ES T Respiratory Rate 21 2024 2:09 PM EST Oxygen Saturation 98% 2024 2:09 PM EST Inhaled Oxygen Concentration - - Weight 94.3 kg (208 lb) 2024 2:09 PM EST Height 152.4 cm (5') 2024 2:09 PM EST Body Mass Index 40.62 2024 2:09 PM EST documented in this encounter Progress Notes * Andrés Lee MD - 2024 2:00 PM EST Subjective Patient ID: Rafi Ceja is a 59 y.o. female who presents for Diabetes. Patient comes for a follow-up visit. We discussed several issues. The patient suffers with chronic neck pain with arm radiculopathy. She has severe neck DJD and history of previous cervical spine surgeries. She describes radiation of the pain to the right arm. She mostly has pain and numbness. No arm weakness. Current pain medication regimen includes Percocet 5/325 every 8 hours as needed, she isalso on gabapentin and tizanidine. She follows with the chronic pain group. She is reluctant to have injections on the cervical spine since this approach did not help her in the past. Patient tells me that her GI symptoms of constipation have resolved after she came off the Ozempic.She is currently on the starting dose of Trulicity without any GI side effects. Other medications for diabetes include metformin, she is on glipizide, statin, lisinopril. She does not bring her glucose meter but her hemoglobin A1c is consistent with suboptimal control at 9.6 today. Review of Systems Constitutional: Negative for chills and fever. HENT: Negative for sore throat. Respiratory: Negative for cough, shortness of breath and wheezing. Cardiovascular: Negative for chest pain, palpitations and leg swelling. Gastrointestinal: Negative for abdominal pain. Visit Vitals BP 128/72 (BP Location: Left arm, Patient Position: Sitting, BP Cuff Size: Adult) Pulse 84 Temp 97.9 ??F (36.6 ??C) (Temporal) Resp 21 Ht 5' (1.524 m) Wt 208 lb (94.3 kg) SpO2 98% BMI 40.62 kg/m?? OB Status IUD Smoking Status Never BSA 2 m?? Objective Physical Exam Constitutional: Appearance: Normal appearance. Cardiovascular: Rate and Rhythm: Normal rate and regular rhythm. Heart sounds: No murmur heard. No gallop. Pulmonary: Effort: Pulmonary effort is normal. No respiratory distress. Breath sounds: Normal breath sounds. No wheezing. Musculoskeletal: Right lower leg: No edema. Left lower leg: No edema. Neurological: Mental Status: She is alert. Lab Results Component Value Date HGBA1C 9.6 (A) 2024 HGBA1C 7.8 (A) 10/29/2023 HGBA1C 11.0 (A) 08/07/2023 HGBA1C 7.3 (A) 04/16/2023 HGBA1C 8.3 (A) 01/21/2023 HGBA1C 9.6 (A) 09/04/2022 HGBA1C 10.3 (A) 04/11/2022 HGBA1C 8.1 (H) 01/03/2022 HGBA1C 8.7 (A) 01/02/2022 HGBA1C 7.7 (H) 09/26/2020 HGBA1C 9.3 (H) 07/20/2020 Lab Results Component Value Date GLUCOSE 132 (H) 02/20/2024 NA 139 04/17/2023 K 4.1 04/17/2023 CO2 26 04/17/2023 CL 106 04/17/2023 BUN 13 04/17/2023 CREATININE 0.80 04/17/2023 Lab Results Component Value Date WBC 5.9 04/17/2023 HGB 12.6 04/17/2023 HCT 40.3 04/17/2023 MCV 80.9 04/17/2023 PLT 241 04/17/2023 Current Outpatient Medications on File Prior to Visit Medication Sig Dispense Refill acetaminophen (Tylenol 8 Hour) 650 MG ER tablet Take 1 tablet by mouth in the morning and 1 tablet at noon and 1 tablet in the evening. atorvastatin (Lipitor) 40 MG tablet Take 1 tablet (40 mg) by mouth Once per day. 90 tablet 3 Bisacodyl EC 5 MG EC tablet Diclofenac Sodium 1 % gel APPLY THIN LAYER BY TOPICAL ROUTE (QUANTITY DIRECTED ON PACKAGE INSERT) TO AFFECTED AREA OF PAIN 3 TIMES DAILY NEEDED. 100 g 2 erythromycin (Romycin) 5 MG/GM ophthalmic ointment Apply to affected eye(s) every 12 (twelve) hours. fexofenadine (Grace) 180 MG tablet TAKE 1 TABLET BY MOUTH ONCE DAILY 90 tablet 1 glipiZIDE XL (Glucotrol XL) 2.5 MG 24 hr tablet TAKE 1 TABLET BY MOUTH EVERY DAY. DO NOT CRUSH, CHEW OR SPLIT. 90 tablet 1 glucose blood (FREESTYLE LITE) test strip at bed time. HM Fiber 500 MG tablet lidocaine (Lidoderm) 5 % patch APPLY 1 PATCH TOPICALLY IN THE MORNING. REMOVE & DISCARD PATCH WITHIN 12 HOURS OR DIRECTED BY MD. 60 patch 3 lisinopril 10 MG tablet TAKE 1 TABLET BY MOUTH EVERY DAY 90 tablet 1 Multiple Vitamins-Minerals ([employer]) tablet Take 1 tablet by mouth in the morning. naloxone (Narcan) 4 mg/0.1 mL nasal spray Administer 0.1 mL into affected nostril(s). omeprazole (PriLOSEC) [address] capsule TAKE 1 CAPSULE (40 MG) BY MOUTH BEFORE BREAKFAST. 90 capsule1 oxybutynin (Ditropan) 5 MG tablet Take 1 tablet by mouth if needed in the morning, at noon, and at bedtime for discomfort. Urinary discomfort oxyCODONE-acetaminophen (Percocet) 5-325 MG tablet Take 1 tablet by mouth every 8 (eight) hours if needed for severe pain for up to 28 days. 84 tablet 0 pantoprazole (ProtoNix) 40 MG EC tablet sertraline (Zoloft) 50 MG tablet TAKE 1 TABLET BY MOUTH EVERY DAY 30 tablet 3 tamsulosin (Flomax) 0.4 MG 24 hr capsule TAKE 1 CAPSULE BY MOUTH DAILY 30 MINUTES AFTER THE SAME MEAL EVERY DAY 90 capsule 1 tiZANidine (Zanaflex) 4 MG tablet TAKE 1 TABLET BY MOUTH EVERY 6 TO 8 HOURS NEEDED NOT TO EXCEED3 DOSES IN 24 HOURS 30 tablet 0 [DISCONTINUED] Diclofenac Sodium 1 % gel [DISCONTINUED] Diclofenac Sodium 1 % gel Apply thin layer by topical route (quantity as directed onpackage insert) to affected area of pain 3 times daily as needed. 50 g 3 [DISCONTINUED] dulaglutide (Trulicity) 0.75 MG/0.5ML solution pen-injector Inject 0.75 mg under theskin 1 (one) time per week. 4 each 11 [DISCONTINUED] gabapentin (Neurontin) 100 MG capsule TAKE 1 CAPSULE (100 MG) BY MOUTH 2 TIMES DAILY. 60 capsule 0 [DISCONTINUED] Ozempic, 0.25 or 0.5 MG/DOSE, 2 MG/3ML solution pen-injector metFORMIN (Glucophage) 850 MG tablet Take 1 tablet (850 mg) by mouth with breakfast and with evening meal. 180 tablet 3 No current facility-administered medications on file prior to visit. Assessment/Plan Diagnoses and all orders for this visit: Type 2 diabetes mellitus without complication, without long-term current use of insulin ([facility]) Comments: I will double dose of Trulicity. Continue same dose of metformin, glipizide, continue current dose of statin and KIMBERLEE inhibitor, check fasting blood work listed below Orders: - POCT Glucose - POCT HGB A1C - CBC auto differential; Future - Comprehensive Metabolic Panel; Future - Lipid Panel, Standard; Future - Albumin, Random Urine W/Creatinine; Future Cervical radiculopathy due to degenerative joint disease of spine Comments: Discontinue gabapentin. I started the patient on Lyrica instead. Continue current dose of Percocet. Continue muscle relaxants at bedtime. She is reluctant to be referred to [facility] pain management clinic because she does not want any more invasive interventions for treatment of her chronic neck pain with arm radiculopathy. Hx of cervical spine surgery Screening for cervical cancer Comments: She requested referral to female provider for Pap smear and I agreed. Encounter for immunization - PCV-20 VACCINE 6 wks + Other orders - Dulaglutide (Trulicity) 1.5 MG/0.5ML solution auto-injector; Inject 1.5 mg under the skin 1 (one)time per week. - pregabalin (Lyrica) 50 MG capsule; Take 1 capsule (50 mg) by mouth 3 times daily. documented in this encounter Plan of Treatment Upcoming Encounters Date Type Department Care Team (Late st Contact Info) Description 06/17/2024 9:00 AM EDT Procedure Visit [facility] [address] [place] [phone] Roshni Mays FNP [address] [place] [address] 08/25/2024 2:30 PM EDT Office Visit [facility] [address] [place] [phone] Andrés Lee MD [address] [place] [phone] Scheduled Orders Name Type Priority Associated Diagnoses Orde r Schedule CBC auto differential Lab Routine Type 2 diabetes mellitus without complication, without long-term current use of insulin ([facility]) Expected: 2024 (Approximate), Expires: 2025 Comprehensive Metabolic Panel Lab Routine Type 2 diabetes mellitus without complication, without long-term current use of insulin (CMS/HCC) Expected: 2024 (Approximate), Expires: 2025 Lipid Panel, Standard Lab Routine Type 2 diabetes mellitus without complication, without long-term current use of insulin ([facility]) Expected: 2024 (Approximate), Expires: 2025 Albumin, Random Urine W/Creatinine Lab Routine Type 2 diabetes mellitus without complication, without long-term current use of insulin ([facility]) Expected: 2024 (Approximate), Expires: 2025 documented as of this encounter Procedures Procedure Name Priority Date/Time Associated Diagnosis Comments POCT GLYCATED HEMOGLOBIN, TOTAL Routine 2024 2:10 PM EST Type 2 diabetes mellitus without complication, without long-term current use of insulin ([facility]) POCT GLUCOSE Routine 2024 2:10 PM EST Type 2 diabetes mellitus without complication, without long-term current use of insulin ([facility]) documented in this encounter Results * (ABNORMAL) POCT HGB A1C (2024 2:10 PM EST) Hemoglobin A1C 9.6(A) 4.0 - 6.0 % QC Media Lot # [id number] Lot# Expiration Date 110,426 Blood 2024 2:10 PM EST Result Kole Lee MD POINT OF CARE TEST ENTER/EDIT OR DERABLES Final Result * POCT Glucose (2024 2:10 PM EST) Glucose Blood, POC 159 60 - 200 mg/dL QC Media Lot # [id number] Lot# Expiration Date 82,625 Blood Capillary blood specimen / Unknown 2024 2:10 PM EST Result Kole Lee MD POINT OF CARE TEST ENTER/EDIT OR DERABLES Final Result documented in this encounter Visit Diagnoses Diagnosis Type 2 diabetes mellitus without complication, without long-term current use of insulin ([facility])- Primary Cervical radiculopathy due to degenerative joint disease of spine Hx of cervical spine surgery Screening for cervical cancer Screening for malignant neoplasm of the cervix Encounter for immunization documented in this encounter Additional Health Concerns Assessment Noted Time PHQ-9 Depression Total Score: 0 08/07/19 24 2:21 PM EDT documented as of this encounter Care Teams Plastic Dolls Mold Filler Relationship Specialty Start Date End Date Name, MD Andrés [address] [place] [address] PCP - General Family Medicine 04/08/15 documented as of this encounter
--- OUTSIDE RECORDS SUMMARY | 2024-05-19 10:10 | XMS_ITS | Encounter Summary ---
Author Organization [employer] Address [address] [facility] [address] [place] [address] Care Team Providers Care Apple Checker Name Role Phone Name, Andrés RODRIGUEZ Primary Care Provider [phone] Encounter Details Date Type Department Care Team (Latest Contact Info) Description 04/29/2024 Travel Social History Tobacco Use Types Packs/Day [...] Description 06/17/2024 9:00 AM EDT Procedure Visit [facility] [address] [place] [phone] Roshni Mays FNP [address] [place] [phone] 08/25/2024 2:30 PM EDT Office Visit [facility] [address] [place] [phone] Name, MD Andrés [address] [place] [phone] documented as of this encounter Visit Diagnoses Not on filedocumented in this encounter Additional Health Concerns Assessment Noted Time PHQ-9 Depression Total Score: 0 08/07/19 24 2:21 PM EDT documented as of this encounter Care Teams Apple Checker Relationship Specialty Start Date End Date Name, MD Andrés [address] [place] [phone] PCP - General Family Medicine 04/08/15 documented as of this encounter
--- OUTSIDE RECORDS SUMMARY | 2024-05-19 10:10 | XMS_ITS | Clinical Summary ---
Author Organization [employer] Address [address] [facility] [address] [place] [address] Care Team Providers Care Feeder Catcher Name Role Phone Name, Andrés RODRIGUEZ Primary Care Provider [phone] Allergies No known active allergies Medications acetaminophen (Tylenol 8 Hour) 650 MG ER tablet Take 1 tablet by mouth in the morning and 1 tablet at noon and 1 tablet in the evening. 03/23/19 21 Active erythromycin (Romycin) 5 MG/GM ophthalmic ointment Apply to affected eye(s) every 12 (twelve) hours. 12/02/19 22 Active glucose blood (FREESTYLE LITE) test strip at bed time. 06/11/19 20 Active Multiple Vitamins-Minera ls (Alive Womens Energy) tablet Take 1 tablet by mouth in the morning. 02/10/20 16 Active naloxone (Narcan) 4 mg/0.1 mL nasal spray Administer 0.1 mL into affected nostril(s). 05/23/19 22 Active oxybutynin (Ditropan) 5 MG tablet Take 1 tablet by mouth if needed in the morning, at noon, and at bedtime for discomfort. Urinary discomfort 08/17/19 23 Active tamsulosin (Flomax) 0.4 MG 24 hr capsule TAKE 1 CAPSULE BY MOUTH DAILY 30 MINUTES AFTER THE SAME MEAL EVERY DAY 90 capsule 1 10/06/19 23 Active metFORMIN (Glucophage) 850 MG tabletIndicatio ns:Type 2 diabetes mellitus without complication, without long-term current use of insulin (CMS/HCC) Take 1 tablet (850 mg) by mouth with breakfast and with evening meal. 180 tablet 3 03/18/19 24 Active Bisacodyl EC 5 MG EC tablet 07/02/19 24 Active HM Fiber 500 MG tablet 07/02/19 24 Active pantoprazole (ProtoNix) 40 MG EC tablet 07/02/19 24 Active omeprazole (PriLOSEC) [address] capsuleIndicati ons:Essential hypertension TAKE 1 CAPSULE (40 MG) BY MOUTH BEFORE BREAKFAST. 90 capsule 1 09/18/19 24 Active fexofenadine (Grace) 180 MG tablet TAKE 1 TABLET BY MOUTH ONCE DAILY 90 tablet 1 10/29/19 24 Active lidocaine (Lidoderm) 5 % patchIndication s:Chronic neck pain APPLY 1 PATCH TOPICALLY IN THE MORNING. REMOVE & DISCARD PATCH WITHIN 12 HOURS OR DIRECTED BY MD. 60 patch 3 11/18/19 24 Active lisinopril 10 MG tabletIndicatio ns:Essential hypertension TAKE 1 TABLET BY MOUTH EVERY DAY 90 tablet 1 02/18/20 24 Active sertraline (Zoloft) 50 MG tabletIndicatio ns:Depressive disorder TAKE 1 TABLET BY MOUTH EVERY DAY 30 tablet 3 02/18/20 24 Active glipiZIDE XL (Glucotrol XL) 2.5 MG 24 hr tablet TAKE 1 TABLET BY MOUTH EVERY DAY. DO NOT CRUSH, CHEW OR SPLIT. 90 tablet 1 02/18/20 24 Active Diclofenac Sodium 1 % gel APPLY THIN LAYER BY TOPICAL ROUTE (QUANTITY DIRECTED ON PACKAGE INSERT) TO AFFECTED AREA OF PAIN 3 TIMES DAILY NEEDED. 100 g 2 02/18/20 24 Active atorvastatin (Lipitor) 40 MG tablet Take 1 tablet (40 mg) by mouth Once per day. 90 tablet 3 04/08/19 25 026 Active oxyCODONE-aceta minophen (Percocet) 5-325 MG tabletIndicatio ns:Chronic neck pain Take 1 tablet by mouth every 8 (eight) hours if needed for severe pain for up to 28 days. 84 tablet 04/24/19 25 025 Active Dulaglutide (Trulicity) 1.5 MG/0.5ML solution auto-injector Inject 1.5 mg under the skin 1 (one) time per week. 2 mL 2 05/13/19 25 026 Active pregabalin (Lyrica) 50 MG capsule Take 1 capsule (50 mg) by mouth 3 times daily. 90 capsule 05/13/19 25 026 Active tiZANidine (Zanaflex) 4 MG tabletIndicatio ns:Type 2 diabetes mellitus without complication, without long-term current use of insulin (CMS/HCC) TAKE 1 TABLET BY MOUTH EVERY 6 TO 8 HOURS NEEDED NOT TO EXCEED 3 DOSES IN 24 HOURS 30 tablet 05/15/19 25 Active Diclofenac Sodium 1 % gel 02/08/20 025 Discontinued(D uplicate order (will not trigger notification to Pharmacy)) dulaglutide (Trulicity) 0.75 MG/0.5ML solution pen-injector Inject 0.75 mg under the skin 1 (one) time per week. 4 each 10/29/19 025 Discontinued(D ose adjustment) Diclofenac Sodium 1 % gel Apply thin layer by topical route (quantity as directed on package insert) to affected area of pain 3 times daily as needed. 50 g 3 10/29/19 025 Discontinued(D uplicate order (will not trigger notification to Pharmacy)) Ozempic, 0.25 or 0.5 MG/DOSE, 2 MG/3ML solution pen-injector 10/21/19 025 Discontinued(S kaiser effects) tiZANidine (Zanaflex) 4 MG tabletIndicatio ns:Type 2 diabetes mellitus without complication, without long-term current use of insulin (CMS/HCC) TAKE 1 TABLET BY MOUTH EVERY 6 TO 8 HOURS NEEDED NOT TO EXCEED 3 DOSES IN 24 HOURS 30 tablet 04/07/19 025 Discontinued oxyCODONE-aceta minophen (Percocet) 5-325 MG tabletIndicatio ns:Chronic neck pain Take 1 tablet by mouth every 8 (eight) hours if needed for severe pain for up to 28 days. 84 tablet 04/17/19 25 025 Discontinued(R eorder (will not trigger notification to Pharmacy)) gabapentin (Neurontin) 100 MG capsule TAKE 1 CAPSULE (100 MG) BY MOUTH 2 TIMES DAILY. 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 ACDF C4-5 2021 H. pylori infection 01/18/2023 01/18/2023 Class 1 obesity 09/27/2022 Esophageal reflux 04/11/2022 Migraine 04/11/2022 Pelvic pain syndrome 04/11/2022 Sexual dysfunction 04/11/2022 Type 2 diabetes mellitus 04/11/2022 Ureteral stone 04/11/2022 Overview (04/11/2022): Carbonate Apatite: 60% Ammonium Magnesium Phosphate: 40% IUD (intrauterine device) in place 02/21/2022 Chronic radicular cervical pain 02/13/2022 Anxiety and depression 12/10/2017 Cervical radiculopathy due t o degenerative joint disease of spine 10/29/2017 Assessment & Plan (04/23/2024 1:19 PM EST): -Good engagement and participation with Group Medical Visit model -Encouraged multifactorial approach to pain control including pharm and non- pharm modalities -Pill count as expected, utox deferred given as expected in Mar 2024 Assessment & Plan (03/24/2024 4:52 PM EST): -DME request for 10-in-1 pillow sent 03/24/24 -Good engagement and participation with Group Medical Visit model -Encouraged multifactorial approach to pain control including pharm and non- pharm modalities -UTOX and Pill count as expected Assessment & Plan (10/22/2023 2:22 PM EDT): Good engagement and participation with Group Medical Visit model -Encouraged multifactorial approach to pain control including pharm and non- pharm modalities -UTOX and Pill count not performed today, as the previous three in the past six months were as expected Assessment & Plan (09/17/2023 3:28 PM EDT): -Good engagement and participation with Group Medical Visit model -Encouraged multifactorial approach to pain control including pharm and non- pharm modalities -UTOX and Pill count as expected Carpal tunnel syndrome 10/11/2016 Radicular pain 10/03/2016 Chronic neck pain 10/03/2016 Assessment & Plan (12/17/2023 1:56 PM EDT): Pt participated in group pain session to fullest extent possible of her abilities and desires Urine toxicology and pill count as expected Continue to encourage non pharmacological modalities of pain management Assessment & Plan (11/19/2023 12:36 PM EDT): Pt participated in group pain session to fullest extent possible, on the topic of chronic pain and mood No Urine toxicology and pill count because up to date on screening To followup in 1-2 months for next visit Assessment & Plan (07/23/2023 3:32 PM EDT): Pt participated in group pain session Urine toxicology and pill count as expected To followup next month Assessment & Plan (06/18/2023 2:04 PM EDT): Pt participated in group pain session Utox and pill count as expected To followup next month Assessment & Plan (05/22/2023 8:52 AM EDT): Pt attended and participated in group today - urine tox and pill count as expected - followup in one month for theme Tell My Story Snoring 06/18/2016 Tired 06/18/2016 Diabetes mellitus type 2, uncontrolled 6 Severe obesity (BMI 35.0-39.9) with comorbidity 04/08/2015 Plantar fasciitis 09/26/2010 Hypercholesterolemia 02/06/2010 Hypertension 11/18/2009 Recurrent urinary tract infection 01/28/2009 Encounters Date Type Department Care Team Description 05/19/2024 Travel 05/14/2024 Telephone [facility] [place] [address] Andrés Lee MD PA 05/14/2024 Refill [facility] [address] [place] [phone] Andrés Lee MD Type 2 diabetes mellitus without complication, without long-term current use of insulin ([facility]/HCC) 2024 2:00 PM EST Office Visit [facility] [address] [place] [phone] Andrés Lee MD Type 2 diabetes mellitus without complication, without long-term current use of insulin ([facility]) (Primary Dx); Cervical radiculopathy due to degenerative joint disease of spine; Hx of cervical spine surgery; Screening for cervical cancer; Encounter for immunization 2024 Travel 05/01/2024 Patient Outreach [facility] [address] [place], [place] [phone] Andrés Lee MD Pre-visit Planning ([facility] unable to reach [facility] ) 04/29/2024 2:45 PM EST Clinical Support [address] [phone] Alan Randle, RN Encounter for immunization 04/29/2024 Travel 04/23/2024 Refill [facility] [address] [place] [phone] Andrés Lee MD Chronic neck pain 04/21/2024 9:45 AM EST Office Visit [facility] [address] [place] [phone] Lala Mercado, TUNGSTEN TENDER Cervical radiculopathy due to degenerative joint disease of spine (Primary Dx); 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 03/24/2024 Travel 03/17/2024 Refill [facility] [address] [place] [address] NameAndrés MD Chronic neck pain; Type 2 diabetes mellitus without complication, without long-term current use of insulin ([facility]/HCC) 03/09/2024 Telephone [facility] [address] [place] [address] Rosario Guerrier MA Feb recall 03/09/2024 Abstract [facility] [address] [place] [address] Andrés Lee MD 02/20/2024 Orders Only GENERIC EXTERNAL DATA DEPARTMENT Provider, Generic External Data from Last 3 Months Immunizations Name Administration Dates Next Due Hep A / Hep B 01/20/2010 Hep A, Adult 01/28/2009 Hep B, adult 10/17/2023,,04/16/2023,01/28 Influenza Injectable Quadriv alant Preservative Free IIV4 MDCK 12/31/2019 Influenza injectable quadriv alent IIV4 with preservative 11/03/2018,12/05/2015 Influenza injectable quadriv alent preservative free 01/21/2023,01/02/2022,12/12/2020,11/19,11/08/2017 Influenza, IIV3, injectable 11/03/2012,0 11/27/2010,01/05/2010,01/21,11/30/2008,12/18/2006,01/10/2006 Influenza, seasonal, injecta ble, preservative free 04/29/2024,11/01/2016 Kendall SARS-CoV-2 Vaccination 06/06/2020 Pfizer Covid-19 Vaccine 12+ 03/07/2021 Pfizer Covid-19 Vaccine 12+ Bivalent 12/21/2021 Pfizer Covid-19 Vaccine 12+ kush-sucrose (Pineda Cap) 07/28/2021 Pneumococcal Conjugate PCV 20 2024 Pneumococcal Polysaccharide PPSV23 02/17/2015, Td (adult), unspecified 01/09/2002 Tdap 12/10/2017,07/15/2014 Tetanus Toxoid, Unspecified 01/09/2002 Zoster, Recombinant 08/17/2021,05/22/2021 Family History Medical History Relation Name Comments Colon cancer Maternal Grandfather Prostate cancer Maternal Grandfather Breast cancer Maternal Grandmother Relation Name Status Comments Maternal Grandfather Maternal Grandmother Social History Tobacco Use Types Packs/Day Years [...] Orientation Straight 01/08/2022 10 :29 AM EDT Last Filed Vital Signs Vital Sign Reading [...] Mass Index 40.62 2024 2:09 PM EST Plan of Treatment Upcoming Encounters Date Type Department Care Team (Late st Contact Info) Description 06/17/2024 9:00 AM EDT Procedure Visit [facility] [address] [place] [phone] Roshni Mays FNP [address] [place] [address] 08/25/2024 2:30 PM EDT Office Visit [facility] [address] [place] [phone] Name, MD Andrés [address] [place] [address] Health Maintenance Due Date Last Done Comments CT Colonography 1965 FIT DNA/Cologuard 1965 FIT 1965 FOBT 1965 HIV Screening 1965 Sigmoidoscopy 1965 COVID-19 Vaccine ( season) 2023 12/21/2021, 07/28/2021, 03/07/2021, Additional history exists Cervical Cancer Screening 11/20/2023 HPV/Cotest 11/20/2023 11/19/2022, 11/2019, 09/20/2016 Pap Smear 11/20/2023 11/19/2022, 03/11, 11/18/2019, Additional history exists Diabetes: Foot Exam 01/22/2024 01/21/2023, 01/21/2023, 01/21/2023, Additional history exists SDOH Screening 04/09/2024 04/09/2023 Diabetes: Urine Protein Screening 04/17/2024 04/17/2023, 04/11/2022, 01/03/2022 Lipid Panel 04/17/2024 04/17/2023, 0203/2022, 01/03/2022, Additional history exists Depression Screening 08/06/2024 08/07/2023, 08/07/19 Diabetes: Hemoglobin A1C 08/12/2024 025, 10/29/2023, 08/07/2023, Additional history exists Alcohol/Substance Use Screening 10/28/2024 10/29/2023 Mammogram 12/31/2024 01/01/2024, 100 07/2022, 12/13/2022, Additional history exists Colonoscopy 02/19/2025 02/20/2024, 10/10/2023 Colorectal Cancer Screening 02/19/2025 Tobacco Screening 2025 2024 Eye Exam 11/19/2025 11/20/2023, 0506/2023, 08/02/2023, Additional history exists DTaP/Tdap/Td Vaccines (3 - Td or Tdap) 12/11/2027 12/10/2017, 07/15/2014, 01/09/2002, Additional history exists RSV Patients and Patients Aged 60 years or older (1 - 1-dose 75+ series) 05/11/2042 Hepatitis A Vaccines Aged Out 01/20/2010, 01/29/20 09 No longer eligible based on patient's age to complete this topic Zoster Vaccines Completed 08/17/2021, 05/22/2021 Hepatitis C Screening Completed 04/17/2023 Hepatitis B Vaccines Completed 10/17/2023, 05/17/2023, 04/16/2023, Additional history exists Influenza Vaccine Completed 04/29/2024, , 01/02/2022, Additional history exists Pneumococcal Vaccine: 50+ Years Completed 2024, 02/17/2015, 04/14/2006 HIB Vaccines Aged Out No longer eligi ble based on patient's age to complete this topic HPV Vaccines Aged Out No longer eligi ble based on patient's age to complete this topic IPV Vaccines Aged Out No longer eligi ble based on patient's age to complete this topic Meningococcal Vaccine Aged Out No rick philip eligible based on patient's age to complete this topic RSV under 20 months Aged Out No longe r eligible based on patient's age to complete this topic Rotavirus Vaccines Aged Out No longer eligible based on patient's age to complete this topic Procedures Procedure Name Priority Date/Time Associated Diagnosis Comments POCT GLYCATED HEMOGLOBIN, TOTAL Routine 2024 2:10 PM EST Type 2 diabetes mellitus without complication, without long-term current use of insulin ([facility]) POCT GLUCOSE Routine 2024 2:10 PM EST Type 2 diabetes mellitus without complication, without long-term current use of insulin (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 HM COLONOSCOPY Routine 02/20/2024 9:55 AM EST HEMATOXYLIN AND EOSIN STAIN Routine 02/20/2024 9:31 AM EST GLUCOSE, WHOLE BLOOD Routine 02/20/2024 8:29 AM EST BI MAMMOGRAM SCREENING TOMOSYNTHESIS BILATERAL Routine 01/01/2024 3:45 PM EDT AMB REFERRAL TO OPHTHALMOLOGY Routine 11/20/2023 Eyelid lesion ALBUMIN, RANDOM URINE W/CREATININE Routine 04/17/2023 9:45 AM EST Type 2 diabetes mellitus without complication, without long-term current use of insulin (CMS/HCC) HEPATITIS C ANTIBODY Routine 04/17/2023 9:41 AM EST Need for hepatitis C screening test LIPID PANEL, STANDARD Routine 04/17/2023 9:41 AM EST PE (physical exam), annual HPV MRNA E6/E7 REFLEX TO HPV 16, 18/45 Routine 11/19/2022 10:39 AM EDT PAP SMEAR Routine 11/19/2022 10:39 AM EDT from Last 3 Months or Most Recently Relevant to Health Maintenance Results * (ABNORMAL) POCT HGB A1C (2024 2:10 PM EST) Hemoglobin A1C 9.6(A) 4.0 - 6.0 % QC Media Lot # [id number] Lot# Expiration Date [id number] Blood 2024 2:10 PM EST us Andrés Lee MD POINT OF CARE TEST ENTER/EDIT OR DERABLES Final Result * POCT Glucose (2024 2:10 PM EST) Glucose Blood, POC 159 60 - 200 mg/dL QC Media Lot # [id number] Lot# Expiration Date [id number] Blood Capillary blood specimen / Unknown 2024 2:10 PM EST us Andrés Lee MD POINT OF CARE TEST ENTER/EDIT OR DERABLES Final Result * POCT MERLENE-14 Urine Drug Screen (03/24/2024 1:17 PM EST) Oxycodone Screen, Urine Positive Urine Urine specimen obtained by clean catch procedure / Unknown 03/24/2024 1:17 PM EST Narrative Heena Johnston RN - 03/24/2024 1:17 PM EST .UTOX cup Lot#[id number] Exp. 12/03/25 Internal Pass Control Lala Mercado TUNGSTEN TENDER POINT OF CARE TEST ENTER/EDIT ORDERABLES Final Result * (ABNORMAL) Hm Colonoscopy (02/20/2024 9:55 AM EST) Colonoscopy Abnormal(A ) Normal 02/20/2024 9:55 AM EST us Andrés Lee MD HEALTH MAINTENANCE Final Result * Hematoxylin and Eosin Stain (02/20/2024 9:31 AM EST) 02/20/2024 9:31 AM EST 02/20/2024 10:19 AM EST Narrative [facility] - 02/24/2024 4:48 PM EST ----- ------- Name: Rafi Ceja ? Age/Sex: 58/F ? : 1965 Unit#: [id number] ?? Attend Dr: Gerardo Canales MD ?Re02/20/24 ?Status: DEP SDC ? Location: HO.SSS ?Disch: ? ----- ------- SPEC : [id number] ? RECD: 02/20/24-9 ? STATUS: ??SOUT ? REQ NUM: [id number] ? DANISHA: 02/20/24-930 ? SUBM DR: Gerardo Canales MD ? ENTERED: ??02/20/24-1022 ?SP TYPE: Surgical ? OTHR DR: Andrés Lee MD ? ORDERED: ??HE Stain/3, Gross Micro L4, IHC, Special st. 2, H. pylori, AB/PAS ? Diagnosis ?? Stomach, biopsy: ??Chronic active erosive gastritis; no Helicobacter organisms identified. ?Clinical History Pre-Op Dx: ??GERD, screening Post-Op Dx: Gastritis, esophagitis, stomach stricture, poor prep ?Microscopic Description Microscopic sections examined. ??No metaplastic changes are seen, supported by AB/PAS stains; no Helicobacter organisms are seen, supported by H. pylori immunostain. ? Material Received ?? Stomach bx's ? Gross Description Received in formalin labeled ?stomach biopsies? are 4 montanez-pink irregular tissue fragments ranging from 0.1-0.25 cm, submitted in toto in a cassette labeled A. ??CEDS Special studies ordered and performed: Immunostain for H. pylori; AB/PAS stains Copies To: ?? Gerardo Canales MD ?? [facility] ?? [address] ?? [place] [address] ?? [phone] ?? Name,Andrés RODRIGUEZ ?? [address] [facility] ?? [place] ?? [phone] ----- ------- Signed (signature on file) Rui Najera MD 02/24/24 1089 ? ----- ------- ? END OF REPORT ? us Generic External Data Provider LAB BLOOD ORDERAB LES Final Result [facility] [address] [place] [address] [phone] * (ABNORMAL) Glucose, Whole Blood (02/20/2024 8:29 AM EST) Glucose, Whole Blood 132(H) 60 - 115 mg/dL [facility] Comment:METER #: [id number] 02/20/2024 8:29 AM EST 02/20/2024 8:32 AM EST us Generic External Data Provider LAB BLOOD ORDERAB LES Final Result [facility] [address] [facility] [place] [address] [phone] * BI Mammogram Screening Tomosynthesis Bilateral (01/01/2024 3:45 PM EDT) Anatomical Region Laterality Modality Breast Bilateral Mammography 01/01/2024 3:45 PM EDT Narrative 01/13/2024 4:19 PM EST ? [facility] [place] ? [address] ?[place] [address] ? Mammography Report ? Signed ? Patient: Marcial,Eunices ?MR#: [id number] ?? [id number] ? : 1965 ?Acct:[id number] ? Age/Sex: 58 / F ?ADM Date: 10/23/24 ? Loc: HO.MAMMO ? Attending Dr: Andrés Name MD ? Ordering Physician: Name,Andrés MD ?Results: 1Negative ? Date of Service: //24 ?Follow Up: 1 Year From Orig ?? inal Mammogram ? Procedure(s): MM tomosynthesis screening BI ?? Accession Number(s): [id number] ? cc: Name,Andrés RODRIGUEZ ? EXAMINATION: ?? MM SCREENING DIGITAL BREAST TOMOSYNTHESIS, BILATERAL ? CLINICAL INFORMATION: ? Screening. Asymptomatic. ? COMPARISON: ?? Mammography: Comparison is made with available priors ? TECHNIQUE: ?? Digital breast mammography with tomosynthesis is performed in both the ?? craniocaudal and mediolateral oblique views along with computer-aided ?? detection (CAD). ? FINDINGS: ?? There are scattered areas of fibroglandular density (ACR BI-RADS breast ?? composition Category b). ? There are no significant masses, abnormal calcifications, or other ?? abnormalities. ? MM/MM tomosynthesis screening BI ?? IMPRESSION: ?? No mammographic evidence of malignancy. ? ASSESSMENT: ? BI-RADS BI-RADS 1 - Negative ? RECOMMENDATION: ?? Routine annual mammography screening. ? 1 year F/U ? This examination should not preclude the clinical evaluation of a ?? suspicious palpable abnormality. ? This patient's information was entered into a reminder system with a ?? target due date for their next mammogram. ? Electronically signed by: ??Juanita Kaba DO ??01/13/2024 04:15 PM EST ? Dictated By: ?Juanita Kaba DO ? Signed By: ?<Electronically signed by Juanita Kaba, DO in OV> ? 01/13/24 1615 ? DD/ 1545 ? TD/TT: 01/01/24 1600 ? Import/Export Analyst: ? Procedure Note Stoney, Image - 01/13/2024 [facility] [address] [place] [address] [place] [address] Mammography Report Signed Patient: Rafi Ceja#: [id number] : 1965Acct:[id number] Age/Sex: 58 / FADM Date: 01/01/24 Loc: [facility] Attending Dr: Andrés Lee MD Ordering Physician: Andrés Lee MDResults: 1Negative Date of Service: 01/01/24Follow Up: 1 Year From Orig inal Mammogram Procedure(s): MM tomosynthesis screening BI Accession Number(s): [id number] cc: Andrés Lee MD EXAMINATION: MM SCREENING DIGITAL BREAST TOMOSYNTHESIS, BILATERAL CLINICAL INFORMATION: Screening. Asymptomatic. COMPARISON: Mammography: Comparison is made with available priors TECHNIQUE: Digital breast mammography with tomosynthesis is performed in both the craniocaudal and mediolateral oblique views along with computer-aided detection (CAD). FINDINGS: There are scattered areas of fibroglandular density (ACR BI-RADS breast composition Category b). There are no significant masses, abnormal calcifications, or other abnormalities. MM/MM tomosynthesis screening BI IMPRESSION: No mammographic evidence of malignancy. ASSESSMENT: BI-RADS BI-RADS 1 - Negative RECOMMENDATION: Routine annual mammography screening. 1 year F/U This examination should not preclude the clinical evaluation of a suspicious palpable abnormality. This patient's information was entered into a reminder system with a target due date for their next mammogram. Electronically signed by: Juanita Kaba DO 01/13/2024 04:15 PM EST Dictated By: Juanita Kaba DO Signed By: <Electronically signed by Juanita Kaba DO in OV> 01/13/24 1615 DD/ 1545 TD/TT: 01/01/24 1600 Import/Export Analyst: us Andrés Lee MD IMG BI PROCEDURES Edited Result - Final * Referral to Ophthalmology (11/20/2023) us Andrés Lee MD OUTPATIENT REFERRAL ORDERABLES F inal Result * (ABNORMAL) Albumin, Random Urine W/Creatinine (04/17/2023 9:45 AM EST) Creatinine, Urine 200.63 mg/dL [facility] Microalbumin Urine 61.0 mg/L [facility] Microalbum Creatinine Ratio Ur 30.4(H) <30 ug/mg cr [facility] Comment:Albumin/Creatinine R atio Reference Ranges: Normal: < 30 ug/mg creatinine Microalbuminuria: 30 - 300 ug/mg creatinineClinical Albuminuria: > 300 ug/mg creatinine Urine (Urine, Random) 04/17/2023 9:45 AM EST 04/17/2023 11:28 AM EST us Andrés Lee MD LAB URINE ORDERABLES Final Resul t Performing Organization Address [facility] Co de Phone Number [facility] [address] [place] [phone] * Hepatitis C Ab (04/17/2023 9:41 AM EST) Hepatitis C Antibody Nonreactive Nonreactive [facility] Comment:Antibodies to HCV no t detected; does not exclude early acuteHCV infection. Blood Venous blood specimen / Unknown 04/17/2023 9:41 AM EST 04/17/2023 11:46 AM EST us Andrés Lee MD LAB BLOOD ORDERABLES Final Resul t Performing Organization Address [facility] Co de Phone Number [facility] [address] [place] [phone] * (ABNORMAL) Lipid Panel, Standard (04/17/2023 9:41 AM EST) Triglycerides 143 <150 mg/dL [facility] Comment:Desirable Triglyceri de: less than 150 mg/dLBorderline High Triglyceride 150-199 mg/dLHigh Triglyceride: 200-499 mg/dLVery High Triglyceride: greater than or equal to 5OO mg/dL Cholesterol 246(H) <200 mg/dL [facility] Comment:Desirable Cholestero l: less than 200 mg/dLBorderline High Cholesterol: 200-239 mg/dLHigh Cholesterol: greater than 239 mg/dL LDL Cholesterol Calculated 174(H) <100 mg/dL [facility] Comment:Desirable LDL: less than 100 mg/dLNear Optimal/Above Optimal LDL: 110- 129 mg/dLBorderline High LDL: 130-159 mg/dLHigh LDL: 160-189 mg/dLVery High LDL: greater than or equal to 190 mg/dL HDL Cholesterol 44 >40 mg/dL [facility] Comment:Desirable HDL: great er than 40 mg/dL Note: This HDL assay may give artificially low results in patients with liver disease. Blood Venous blood specimen / Unknown 04/17/2023 9:41 AM EST 04/17/2023 11:46 AM EST us Andrés Lee MD LAB BLOOD ORDERABLES Final Resul t [facility] [address] [place] [address] [phone] * HPV mRNA E6/E7 w/Reflex to HPV Genotypes 16, 18/45 (11/19/2022 10:39 AM EDT) HPV nRNA E6/E7 Not Detected Not Detected [facility] Comment:Methodology: Transcr iption-Mediated AmplificationThis assay detects E6/E7 viral messenger RNA (mRNA) from 14high-risk HPV types (16,18,31,33,35,39,45,51,52,56,58,59,66,68).Cervical sources are required for HPV testing.If a vaginal source from a patient who has had atotal hysterectomy with removal of cervix wassubmitted, please contact the testing laboratoryfor alternative testing options.For additional information, please refer tohttp://education.Tosk/faq/[email or web address](This link if provided for information/educational purposes only.)THIS TEST WAS PERFORMED AT:[facility] [place] [phone] ANDREWS MD HPV mRNA E6/E7 TNP [facility] HPV 16 RNA [facility] HPV 18/45 RNA [facility] 11/19/2022 10:3 9 AM EDT 11/20/2022 8:40 AM EDT Karthik Rob CNM LAB CYTOLOGY ORDERABLES F inal Result [facility] [address] [place] [address] [phone] * Pap Smear (11/19/2022 10:39 AM EDT) 11/19/2022 10:3 9 AM EDT 11/20/2022 8:40 AM EDT Narrative [facility] - 12/02/2022 5:22 PM EDT ----- ------- Name: Rafi Ceja ? Age/Sex: 57/F ? : 1965 Unit#: [id number] ?? Attend Dr: KARTHIK ROB ?Re11/19/22 ?Status: DEP REF ? Location: HO.HHCLNP ? Disch: ? ----- ------- SPEC : [id number] ?RECD: 11/20/22-839 ? STATUS: ??SOUT ? REQ NUM: [id number] ? DANISHA: 11/19/22-9 ? SUBM DR: KARTHIK ROB CNM ? ENTERED: ??11/20/22 ?SP TYPE: Pap Smr ?OTHR : ? ORDERED: ??Pap Smear ? Interpretation ?? Satisfactory for evaluation. ?? Negative for intraepithelial lesion or malignancy. ? HPV mRNA E6/E7: ?NOT DETECTED ? This assay detects E6/E7 viral messenger RNA (mRNA) from 14 high-risk HPV types (16, 18, ?? 31, 33, 35, 39, 45, 51, 52, 56, 58, 59, 66, 68) ? HPV testing performed by [employer] [facility], [place], [place]. ??See reference laboratory ?? portion of the EMR for entire report. ?Clinical Information LMP: Unknown date Previous PAP test: WNL ? Material Received ?? ThinPrep-Vaginal/Cervical ----- ------- Signed (signature on file) Razia Higgins 12/02/22 1722 ? ----- ------- ? END OF REPORT ? us Karthik Rob CN LAB CYTOLOGY ORDERABLES F inal Result [facility] [address], [place] [phone] from Last 3 Months or Most Recently Relevant to Health Maintenance Insurance [employer] Care Teams Feeder Catcher Relationship Specialty Start Date End Date Name, MD Andrés [address] [place] [phone] PCP - General Family Medicine 04/08/15
--- OUTSIDE RECORDS SUMMARY | 2024-05-19 10:10 | XMS_ITS | Encounter Summary ---
Author Organization [employer] Address 75 [facility] [address] [place] [address] Care Team Providers Care Senior Recruitment Consultant Name Role Phone Name, Andrés RODRIGUEZ Primary Care Provider Reason for Visit * Reason Onset Date Comments Med Refill 05/21/2023 Encounter Details Date Type Department Care Team ([facility] st Contact Info) Description 05/21/2023 Telephone [facility] [address] [place] [address] Name, MD Andrés [address] [place], [place] [phone] Med Refill Social History Tobacco Use Types Packs/Day Years Used Date Smoking Tobacco: Never Smokeless Tobacco: Never Alcohol Use Standard Drinks/Week Comments Never 0 (1 standard drink = 0.6 oz pur e alcohol) Depression Answer Date Recorded Patient Health Questionnaire-9 Score 0 02/20/2022 Housing Stability Answer Date Recorded What is your housing situation today? I have imtiazjossy lima 01/03/[address] you [...] the past 12 months, has t he [employer], oil or water [employer] threatened to shut off services in your home? No 01/03/2023 Depression Answer Date Recorded Patient Health Questionnaire-2 Score 0 02/20/2022 Comments No Sex and Gender Information Value Date Recorded Sex Assigned at Female 01/08/2022 10:29 AM EDT Legal Sex Female 10:29 AM EDT Gender Identity Female 01/08/2022 10:29 AM EDT Sexual Orientation Straight 01/08/2022 10 :29 AM EDT documented as of this encounter Miscellaneous Notes * Telephone Encounter - Hodan Sanz - 05/21/2023 1:35 PM EDT TC from pt requesting medication refill. Medications needing refill : oxyCODONE-acetaminophen (Percocet) 5-325 MG tablet To be sent to: [facility] - [place], [place] - [address] documented in this encounter Plan of Treatment Upcoming Encounters Date Type Department Care Team (Late st Contact Info) Description 06/17/2024 9:00 AM EDT Procedure Visit [facility] [address] [place] [address] Roshni Mays FNP 230 [place] [address] 08/25/2024 2:30 PM EDT Office Visit [facility] [address] [place] [address] NameAndrés MD [address] [place] [address] documented as of this encounter Visit Diagnoses Not on filedocumented in this encounter Additional Health Concerns Assessment Noted Time PHQ-9 Depression Total Score: 0 02/21/20 22 3:25 PM EST documented as of this encounter Care Teams Senior Recruitment Consultant Relationship Specialty Start Date End Date Andrés Lee MD [address] [place] [address] PCP - General Family Medicine 04/08/15 documented as of this encounter
--- OUTSIDE RECORDS SUMMARY | 2024-05-19 10:10 | XMS_ITS | Encounter Summary ---
Author Organization [email or web address] Address 75 [facility] 7t [place] [address] Care Team Providers Care Tablet Repair Name Role Phone Name, Andrés RODRIGUEZ Primary Care Provider [phone] Encounter Details Date Type Department Care Team (Latest Contact Info) Description 2024 Travel Social History Tobacco Use Types Packs/Day [...] Description 06/17/2024 9:00 AM EDT Procedure Visit [facility] [address] [place] [address] Roshni Mays FNP [address] [place] [address] 08/25/2024 2:30 PM EDT Office Visit [facility] [address] [place] [address] Name, MD Andrés [address] [place] [address] documented as of this encounter Visit Diagnoses Not on filedocumented in this encounter Additional Health Concerns Assessment Noted Time PHQ-9 Depression Total Score: 0 08/07/19 24 2:21 PM EDT documented as of this encounter Care Teams Tablet Repair Relationship Specialty Start Date End Date Name, MD Andrés [address] [place] [address] PCP - General Family Medicine 04/08/15 documented as of this encounter
--- OUTSIDE RECORDS SUMMARY | 2024-05-19 10:10 | XMS_ITS | Encounter Summary ---
Author Organization [employer] Address 75 [facility] [address] [place] [address] Care Team Providers Care Central Office Repairer Name Role Phone Name, Andrés RODRIGUEZ Primary Care Provider [phone] Reason for Visit * Reason Comments Med Refill Encounter Details Date Type Department Care Team ([facility] st Contact Info) Description 01/20/2024 Refill [facility] 230 [place], [place] [phone] Name, MD Andrés 230 [place] [address] Depressive disorder Social History Tobacco Use Types Packs/Day Years [...] Description 06/17/2024 9:00 AM EDT Procedure Visit [facility] [address] [place] [address] Roshni Mays FNP 230 [place] [address] 08/25/2024 2:30 PM EDT Office Visit [facility] [address] [place] [address] NameAndrés MD [address] [place] [address] documented as of this encounter Visit Diagnoses Diagnosis Depressive disorder Depressive disorder, not elsewhere classified documented in this encounter Additional Health Concerns Assessment Noted Time PHQ-9 Depression Total Score: 0 08/07/19 24 2:21 PM EDT documented as of this encounter Care Teams Central Office Repairer Relationship Specialty Start Date End Date Name, MD Andrés [address] [place] [address] PCP - General Family Medicine 04/08/15 documented as of this encounter
--- OUTSIDE RECORDS SUMMARY | 2024-05-19 10:10 | XMS_ITS | Encounter Summary ---
Author Organization [employer] Address 75 [facility] [address] [place] [address] Care Team Providers Care Pharmaceutical Assistant Name Role Phone Name, Andrés RODRIGUEZ Primary Care Provider [phone] Reason for Visit * Reason Comments Pre-visit Planning SDOH unable to reach LVM Encounter Details Date Type Department Care Team ([facility] st Contact Info) Description 05/01/2024 Patient Outreach [facility] [address] [place], [place] [phone] Name, MD Andrés 230 [place] [address] Pre-visit Planning (SDOH unable to reach LVM ) Social History Tobacco Use Types Packs/Day Years [...] as of this encounter Progress Notes * Isabelle Bob - 05/01/2024 4:04 PM EST MADISYN Barrios placed outbound call to patient to complete pre-visit planning. No answer at this time. Patient name and were not confirmed. CC left voicemail requesting return call. Direct contactinformation provided. documented in this encounter Plan of Treatment Upcoming Encounters Date Type Department Care Team ([facility] st Contact Info) Description 06/17/2024 9:00 AM EDT Procedure Visit [facility] MEDICINE [address] [place] [address] Roshni Mays FNP 230 [place] [address] 08/25/2024 2:30 PM EDT Office Visit [facility] [address] [place] [address] [phone] Name, MD Andrés [address] [place] [address] documented as of this encounter Visit Diagnoses Not on filedocumented in this encounter Additional Health Concerns Assessment Noted Time PHQ-9 Depression Total Score: 0 08/07/19 24 2:21 PM EDT documented as of this encounter Care Teams Pharmaceutical Assistant Relationship Specialty Start Date End Date Name, MD Andrés [address] [place] [address] PCP - General Family Medicine 04/08/15 documented as of this encounter
--- OUTSIDE RECORDS SUMMARY | 2024-05-19 10:10 | XMS_ITS | Encounter Summary ---
Author Organization [employer] Address 75 [facility] 7 [place] [address] Care Team Providers Care Utilities Equipment Repairer Name Role Phone Name, Andrés RODRIGUEZ Primary Care Provider Reason for Visit * Reason Onset Date Comments Appointment Request 03/23/2022 Encounter Details Date Type Department Care Team (Late st Contact Info) Description 03/23/2022 Telephone [facility] [address] [place], [place] [phone] Name, MD Andrés 230 [place] [address] Appointment Request Social History Tobacco Use Types Packs/Day Years [...] encounter Miscellaneous Notes * Telephone Encounter - Stevie Bob - 03/23/2022 11:54 AM EST Tc from pt requesting to have a Physical done during APPT on 04/18/22 at 9:45 am Please contact pt at [phone] documented in this encounter Plan of Treatment Upcoming Encounters Date Type Department Care Team (Late st Contact Info) Description 06/17/2024 9:00 AM EDT Procedure Visit [facility] [place] [address] Roshni Mays FNP 230 [place] [address] 08/25/2024 2:30 PM EDT Office [facility] [place] [address] Name, MD [place] [address] documented as of this encounter Visit Diagnoses Not on filedocumented in this encounter Additional Health Concerns Assessment Noted Time PHQ-9 Depression Total Score: 0 02/21/20 22 3:25 PM EST documented as of this encounter Care Teams Utilities Equipment Repairer Relationship Specialty Start Date End Date Name, MD [place] [address] PCP - General Family Medicine 04/08/15 documented as of this encounter
--- OUTSIDE RECORDS SUMMARY | 2024-05-19 10:10 | XMS_ITS | Encounter Summary ---
Author Organization [employer] Address 75 [facility] [address] [place] [address] Care Team Providers Care Restaurant Assistant Manager Name Role Phone Name, Andrés RODRIGUEZ Primary Care Provider [phone] Reason for Visit * Reason Onset Date Comments PA 05/14/2024 Encounter Details Date Type Department Care Team ([facility] st Contact Info) Description 05/14/2024 Telephone [facility] 230 [place], [place] [phone] Name, MD Andrés 230 [place], [place] [phone] PA Social History Tobacco Use Types Packs/Day Years [...] encounter Miscellaneous Notes * Telephone Encounter - Dale Khan - 05/14/2024 11:22 AM EST TC from pt requesting Pa for Medication pregabalin (Lyrica) 50 MG capsule. Contact pt at [phone] documented in this encounter Plan of Treatment Upcoming Encounters Date Type Department Care Team ([facility] st Contact Info) Description 06/17/2024 9:00 AM EDT Procedure Visit [facility] MED[facility]INE [address] [place] [address] Roshni Mays FNP 230 [place] [address] 08/25/2024 2:30 PM EDT Office Visit [facility] [address] [place] [address] Name, MD Andrés [address] [place] [address] documented as of this encounter Visit Diagnoses Not on filedocumented in this encounter Additional Health Concerns Assessment Noted Time PHQ-9 Depression Total Score: 0 08/07/19 24 2:21 PM EDT documented as of this encounter Care Teams Restaurant Assistant Manager Relationship Specialty Start Date End Date Name, MD Andrés [address] [place] [address] PCP - General Family Medicine 04/08/15 documented as of this encounter
--- OUTSIDE RECORDS SUMMARY | 2024-05-19 10:10 | XMS_ITS | Encounter Summary ---
Author Organization [employer] Address 75 [facility] [address] [place] [address] Care Team Providers Care Guide Alpine Name Role Phone Name, Andrés RODRIGUEZ Primary Care Provider [phone] Reason for Visit * Reason Onset Date Comments Medication Question 02/12/2023 Encounter Details Date Type Department Care Team ([facility] st Contact Info) Description 02/12/2023 Telephone [facility] 230 [place] [address] Name, MD Andrés 230 [place], [place] [phone] Medication Question Social History Tobacco Use Types Packs/Day Years [...] encounter Miscellaneous Notes * Telephone Encounter - Ti Devine RN - 02/12/2023 12:23 PM EST Meds. Que for approval. * Telephone Encounter - iT Devine RN - 02/12/2023 11:38 AM EST T/C to pt. For below request. RN cannot see Lidocaine patch was previously prescribe by PCP. Pt. States PCP always prescribe patches to her. She had surgery for spine and has pinch nerve as well. Pt. Is asking for Lidocaine patch for pain at Back, neck and right arm. Please review and adviseif Lidocaine patch needs to be que for approval. * Telephone Encounter - Jayjay Chester - 02/12/2023 10:29 AM EST Tc from patient requesting status on lidocaine patch 5% however policy writer sales does not see anything on chart regarding that matter. documented in this encounter Plan of Treatment Upcoming Encounters Date Type Department Care Team (Late st Contact Info) Description 06/17/2024 9:00 AM EDT Procedure Visit [facility] [address] [place] [address] Roshni Mays FNP 230 [place], [place] [phone] 08/25/2024 2:30 PM EDT Office Visit [facility] [address] [place] [address] Name, MD Andrés [address] [place] [address] documented as of this encounter Visit Diagnoses Not on filedocumented in this encounter Additional Health Concerns Assessment Noted Time PHQ-9 Depression Total Score: 0 02/21/20 22 3:25 PM EST documented as of this encounter Care Teams Guide Alpine Relationship Specialty Start Date End Date Name, MD Andrés [address] [place] [address] PCP - General Family Medicine 04/08/15 documented as of this encounter
--- OUTSIDE RECORDS SUMMARY | 2024-05-19 10:10 | XMS_ITS | Encounter Summary ---
Author Organization [employer] Address 75 [facility] 7[address] [place] [address] Care Team Providers Care Resident Director Name Role Phone Name, Andrés RODRIGUEZ Primary Care Provider Reason for Visit * Reason Comments Med Refill Encounter Details Date Type Department Care Team ([facility] st Contact Info) Description 01/07/2024 Refill [facility] [address] [place], [place] [phone] Name, MD Andrés 230 [place] [address] Social History Tobacco Use Types Packs/Day Years [...] Description 06/17/2024 9:00 AM EDT Procedure Visit [facility]ICINE [address] [place] [address] Roshni Mays FNP [address] [place] [address] 08/25/2024 2:30 PM EDT Office Visit [facility] [address] [place] [address] Name, MD Andrés [address] [place] [address] documented as of this encounter Visit Diagnoses Not on filedocumented in this encounter Additional Health Concerns Assessment Noted Time PHQ-9 Depression Total Score: 0 08/07/19 24 2:21 PM EDT documented as of this encounter Care Teams Resident Director Relationship Specialty Start Date End Date Name, MD Andrés [address] [place] [address] [phone] PCP - General Family Medicine 04/08/15 documented as of this encounter
--- OUTSIDE RECORDS SUMMARY | 2024-05-19 10:10 | XMS_ITS | Encounter Summary ---
Author Organization [employer] Address 75 [facility] 7[place] [address] Care Team Providers Care Field Sales Executive Name Role Phone Name, Andrés RODRIGUEZ Primary Care Provider [phone] Reason for Visit * Reason Onset Date Comments Med Refill 09/24/2023 Encounter Details Date Type Department Care Team ([facility] st Contact Info) Description 09/24/2023 Telephone [facility] 230 [place] [address] Name, MD Andrés 230 [place], [place] [phone] Med Refill Social History Tobacco Use Types [...] Telephone Encounter - Yolie Houston LPN - 09/24/2023 3:37 PM EDT Medication prescribed by Gastro. * Telephone Encounter - Darrin Grant - 09/24/2023 3:04 PM EDT TC from pt requesting medication refill. Medications needing refill : pantoprazole (ProtoNix) 40 MG EC tablet To be sent to: [facility] [address] [facility] documented in this encounter Plan of Treatment Upcoming Encounters Date Type Department Care Team (Late st Contact Info) Description 06/17/2024 9:00 AM EDT Procedure Visit [facility] [address] [place] [address] Roshni Mays FNP 230 [place] [address] 08/25/2024 2:30 PM EDT Office Visit [facility] [address] [place] [address] [phone] Name, MD Andrés [address] [place] [address] documented as of this encounter Visit Diagnoses Not on filedocumented in this encounter Additional Health Concerns Assessment Noted Time PHQ-9 Depression Total Score: 0 08/07/19 24 2:21 PM EDT documented as of this encounter Care Teams Field Sales Executive Relationship Specialty Start Date End Date Name, MD Andrés [address] [place] [address] PCP - General Family Medicine 04/08/15 documented as of this encounter
--- OUTSIDE RECORDS SUMMARY | 2024-05-19 10:11 | XMS_ITS | Encounter Summary ---
Author Organization [employer] Address 75 [facility] 7t [place] [address] Care Team Providers Care Placement Officer Name Role Phone Name, Andrés RODRIGUEZ Primary Care Provider [phone] Encounter Details Date Type Department Care Team (Latest Contact Info) Description 04/21/2024 Travel Social History Tobacco Use Types Packs/Day [...] Description 06/17/2024 9:00 AM EDT Procedure Visit [facility] MEDICINE [address] [place] [address] Roshni Mays FNP [address] [place] [address] 08/25/2024 2:30 PM EDT Office Visit [facility] [address] [place] [phone] Name, MD Andrés [address] [place] [address] documented as of this encounter Visit Diagnoses Not on filedocumented in this encounter Additional Health Concerns Assessment Noted Time PHQ-9 Depression Total Score: 0 08/07/19 24 2:21 PM EDT documented as of this encounter Care Teams Placement Officer Relationship Specialty Start Date End Date Name, MD Andrés [address] [place] [address] PCP - General Family Medicine 04/08/15 documented as of this encounter
--- OUTSIDE RECORDS SUMMARY | 2024-05-19 10:11 | XMS_ITS | Encounter Summary ---
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 female w/ PMH HTN, DM2, obesity, esophageal reflux, cervical radiculopathy, who presents to the office for - Chronic Pain Clinic Group visits. Initial Group visit: 05/21/23 Group Visit Number: [id number] Last PCP visit: 10/29/23, Dr. Lee Group Confidentiality signed: 05/21/23 Group Topic: Sepideh Lira - She takes care of her mother at home 01/10, and reports that Groups are a very special place for her to focus on her own health and healing. Chronic Pain History: Associated Diagnosis: cervical radicular pain Relevant Imagin02.07.23 XR/XR cervical spine 3V IMPRESSION: Postoperative cervical spine. Right acromioclavicular degenerative changes. Lateral epicondylar spurring, question calcific tendinopathy. Current pharm tx: Percocet 5/325 q8 hours prn, Tizanidne 4mg, Lidocaine patches Medication: States taking medication as prescribed. Other substance use: Tobacco: no Marijuana: no Alcohol: no Illicit substances: no Review of Systems Constitutional: Negative. Respiratory: Negative. Cardiovascular: Negative. Musculoskeletal: Positive for neck pain. Physical Exam Constitutional: Appearance: Normal appearance. HENT: Head: Normocephalic and atraumatic. Skin: General: Skin is warm and dry. Neurological: General: No focal deficit present. Mental Status: She is alert and oriented to person, place, and time. Psychiatric: Mood and Affect: Mood normal. Behavior: Behavior normal. Problem List Items Addressed This Visit Nervous Cervical radiculopathy due to degenerative joint disease of spine - Primary Current Assessment & Plan -Good engagement and participation with Group Medical Visit model -Encouraged multifactorial approach to pain control including pharm and non- pharm modalities -Pill count as expected, utox deferred given as expected in Mar 2024 Other FPC (current) use of opiate analgesic Overview Dx: Cervical radiculopathy due to degenerative joint disease of spine Rx: Percocet 5/325mg q 8hours Last WEIGH BOSS agreement: 01/21/24 Tier II (visit every 3 months) Follow up: 1-3 months for Group Chronic Pain Clinic. Follow up as scheduled with PCP, sooner as needed. * Heena Johnston RN - 04/21/2024 9:45 AM EST .WEIGH BOSS imaging scheduler: PDMP reviewed today. Last fill date: 03/20/24 (Percocet 5-325mg tid PRN) count was (82), anticipated (71) to be remaining. .UTOX not completed as it was WNL at the last group visit on 03/24/24. . documented in this encounter Miscellaneous Notes * Assessment & Plan Note - CRISTINA Cantu - 04/23/2024 1:19 PM ESTAssociated Problem(s): Cervical radiculopathy due to degenerative joint disease of spine -Good engagement and participation with Group Medical Visit model -Encouraged multifactorial approach to pain control including pharm and non- pharm modalities -Pill count as expected, utox deferred given as expected in Mar 2024 documented in this encounter Plan of Treatment Upcoming Encounters Date Type Department Care Team (Late st Contact Info) Description 06/17/2024 9:00 AM EDT Procedure Visit [facility] [address] [place] [address] Roshni Masy FNP [address] [place] [address] 08/25/2024 2:30 PM EDT Office Visit [facility] [address] [place] [address] Name, MD Andrés [address] [place] [address] documented as of this encounter Visit Diagnoses Diagnosis Cervical radiculopathy due to degenerative joint disease of spine- 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
[2024-05-19 11:47] LABS: Basophils Absolute Auto 0.1 X10*3/uL (0.0-0.2); Basophils Percent Auto 0.7 % (0-2); Eosinophils Absolute Auto 0.1 X10*3/uL (0.0-0.4); Eosinophils Percent Auto 1.2 % (0-4); Hematocrit 38.9 % (37.0-47.0); Hemoglobin 12.1 g/dl (12.0-16.0); Imm Gran Abs Auto 0.04 X10*3/uL (0.00-0.03); Imm Gran Pct Auto 0.5 % (0.0-0.4); Lymphocytes Absolute Auto 2.9 X10*3/uL (1.2-4.9); Lymphocytes Percent Auto 35.9 % (20-40); MANUAL DIFF FLAG SCAN; Mean Corpuscular HGB Conc 31.1 g/dl (31.0-35.0); Mean Corpuscular Hemoglobin 24.8 pg (27.0-33.0); Mean Corpuscular Volume 79.7 fL (80.0-98.0); Mean Platelet Volume 10.9 fL (9.4-12.3); Monocytes Absolute Auto 0.8 X10*3/uL (0.1-1.2); Monocytes Percent Auto 9.2 % (2-11); Neutrophils Absolute Auto 4.3 x10*3/uL (2.0-8.3); Neutrophils Percent Auto 52.5 % (45-73); Platelet Count 257 X10*3/uL (160-400); Red Blood Count 4.88 X10*6/uL (4.20-5.50); Red Cell Distribution Width 13.8 % (11.0-16.0); SCAN SMEAR FLAG 1; White Blood Count 8.2 X10*3/uL (4.8-10.8)
[2024-05-19 12:01] LABS: Alanine Aminotransferase 25 U/L (0-31); Albumin Level 4.1 g/dL (3.5-5.0); Alkaline Phosphatase 84 U/L (39-117); Anion Gap 11 (12-20); Aspartate Amino Transferase 22 U/L (5-31); Bilirubin Total 0.5 mg/dL (0.0-1.0); Blood Urea Nitrogen 17 mg/dL (9-16); Calcium 8.9 mg/dL (8.4-10.2); Carbon Dioxide 27 mmol/L (22-29); Chloride 107 mmol/L (96-108); Cholesterol 122 mg/dL (<200); Estimated Glomerular Filt Rate > 60; Glucose Random 132 mg/dL (60-115); HDL Cholesterol 37 mg/dL (>40); LDL Cholesterol Calculated 60 mg/dL (<100); Potassium 4.2 mmol/L (3.3-5.1); Sodium 141 mmol/L (135-145); Total Protein 8.2 g/dL (6.5-8.0); Triglycerides 129 mg/dL (<150)
[2024-05-19 12:07] LABS: SLIDE REVIEW VERIFIED
[2024-05-19 12:40] LABS: Creatinine Urine 188.03 mg/dL
== END 2024-05-19 09:07 | disposition home or self-care (01) ==
LOC: HO.HHCL 09:06
PROVIDERS: Visit Provider Internal Medicine Geriatric Medicine
DX: E11.9 Type 2 diabetes mellitus without complications (principal)
CPT/HCPCS: 36415; 80053; 80061; 82043; 82570; 85025

== ENCOUNTER 2024-06-05 08:36 | Outpatient (AMB) | payer MEDICAID, SELFPAY ==
[2024-06-08 07:58] VITALS: BMI 38.0
--- NOTE | 2024-06-08 07:58 | A.OFFVIS_ITS ---
Vital Signs 06/08/24 07:58 Height 5 ft 2 in Weight 208 lb BMI 38.0 Intake Visit Reasons: Right Micro Escalator Service Mechanic Required: No Accompanied by: Self / Same As Patient Allergies No Known Allergies Allergy (Verified 06/08/24 07:59) PFSH Medical History Chronic radicular cervical pain Cervical spine degeneration Cervical spondylosis Diabetes mellitus Surgical History Hx of cholecystectomy Previous section History of esophagogastroduodenoscopy (EGD) H/O colonoscopy History of bariatric surgery H/O neck surgery (~2013) Family History Maternal Grandmother Breast cancer Maternal Grandfather Colon cancer Social History Are you a primary school child care attendant to a significant other at home: No Do you presently have visiting nurse or other home services: No Alcohol intake: never Patient Tobacco Use Status: Never used Tobacco Physical Exam Vital Signs: BMI result Body Mass Index 38.0 Office Procedures Vascular Office Procedure Details Details: Diagnosis: Right Leg varicose veins with inflammation Procedure: Right leg Microphlebectomy Anesthesia: Local Infiltration 20 cc, Tumescent: 0 cc. Varicose veins were marked in the standing position on the right leg and the patient was then placed in the prone position. The right lower extremity was prepared and draped to allow knee flexion in the sterile field. The patient had large superficial varicose veins with significant symptoms of pain. It was therefore determined to perform microphlebectomies of the clusters of varicose veins. The patient had bulging varicose veins which were previously marked in the standing position. A small stab incision was made longitudinally directly overlying the varicose vein in the calf and the varicose vein was grasped with a hemostat aided by a vein hook. It was then dissected as far proximally and distally as possible and avulsed. A total of 12 stab incisions were made and the procedure of stab phlebectomies was repeated 12 times. Hemostasis was checked and stab incision sites were closed with steri-strips and sterile dressing was given with gauze and krilex wrap followed by an yolanda bandage. There were no complications and blood loss was minimal. Post-Op instructions were given and a follow-up appointment was recommended. [id number] - Phleb Veins, Extrem - up to 20 All charges added?: Procedure code (CPT) selection complete Assessment & Plan Assessment & Plan (1) Varicose veins of right lower extremity with inflammation: Comment: 06/05/2024 - right leg microphlebectomy Code(s): I83.11 - Varicose veins of right lower extremity with inflammation Category: Medical Plan: See op report Coding Level of Care Code Procedure Only Diagnoses Varicose veins of right lower extremity with inflammation I83.11 CPT Codes Details - Vascular 5: [id number] - Phleb Veins, Extrem - up to 20 ([id number])
== END 2024-06-05 10:06 | disposition home or self-care (01) ==
LOC: HO.HVS 08:37
PROVIDERS: PCP Internal Medicine Geriatric Medicine; Visit Provider Surgery Vascular Surgery
DX: I83.11 Varicose veins of right lower extremity with inflammation (principal)
CPT/HCPCS: 37765

== ENCOUNTER → 2024-06-05 08:36 | Outpatient (BNVA) | payer MEDICAID, SELFPAY | PROVIDERS: PCP Internal Medicine Geriatric Medicine; Visit Provider Surgery Vascular Surgery | DX: I83.11 Varicose veins of right lower extremity with inflammation (principal) | CPT/HCPCS: 37765 ==

== ENCOUNTER 2024-06-18 14:49 | Outpatient (AMB) | payer MEDICAID, SELFPAY ==
--- NOTE | 2024-06-18 15:04 | MHC.OFFVIS ---
Intake Visit Reasons: Two week follow up Micro Intake Note: Patient presents for follow up micro. Patient states she had no issues post procedure but that she has one incision that is bothering her. Accompanied by: Self / Same As Patient Allergies No Known Allergies Allergy (Verified 06/18/24 15:07) HPI HPI Two week follow up Micro: Details: The patient is a 59-year-old female presenting with follow-up for post-microphlebectomy evaluation. She underwent the procedure on June 05, 2024, with the target being the right lower extremity. Post-operatively, the patient reports an improvement in symptoms, noting a marked improvement in sensation and a general sense of feeling better. Some pulling remains but is not of significant concern currently. There is a small cluster of untreated veins, monitored for symptom progression. The left leg is stable and does not display any concerning signs or symptoms following the surgery. No new complications have arisen, and the removal of Steri-Strips is planned due to satisfactory healing and symptom alleviation. She now presents for routine postprocedure follow-up [facility] Medical History Chronic radicular cervical pain Cervical spine degeneration Cervical spondylosis Diabetes mellitus Surgical History Hx of cholecystectomy Previous section History of esophagogastroduodenoscopy (EGD) H/O colonoscopy History of bariatric surgery H/O neck surgery (~2013) Family History Maternal Grandmother Breast cancer Maternal Grandfather Colon cancer Social History Are you a primary vision care associate to a significant other at home: No Do you presently have visiting nurse or other home services: No Alcohol intake: never Patient Tobacco Use Status: Never used Tobacco Review of Systems Const All systems reviewed & are unremarkable except as noted in HPI and below Reports no additional complaints ENT Reports Normal hearing present Card Denies chest pain, Denies chest pain at rest, Denies chest pain with activity and Denies pedal edema Resp Denies cough GI Denies abdominal pain Musc Denies abnormal gait, Denies muscle cramps and Denies radiating pain into limb Skin/Breast Denies skin ulcer and Denies wounds Neuro Reports Normal hearing present and Denies abnormal gait Psych Reports no additional complaints Physical Exam Const General: cooperative, healthy appearing and comfortable Orientation/consciousness: oriented to person, oriented to place and oriented to time HEENT Head: Yes normal to inspection Neck Neck: Yes normal visual inspection Carotids: no bruits Chest Chest palpation & inspection: normal inspection of the chest Resp Effort & Inspection: normal respiratory effort and able to speak in complete sentences Auscultation: clear to auscultation bilaterally, no crackles, no rales, no rhonchi and no wheezes Cardio Rate: regular rate Rhythm: regular rhythm Heart sounds: S1 normal heart sound present and S2 normal heart sound present Bruits: no carotid bruits Peripheral pulses: Peripheral pulses 2+ throughout GI Inspection: Yes normal to inspection Skin Other: Right leg incisions have healed Wounds: no wounds Hair: normal Neuro General: oriented to person, oriented to place and oriented to time Cranial nerves: Yes CN's II-XII intact bilaterally and Yes Normal hearing present Cognition (Neuro): normal cognition Motor exam (neuro): 5/5 motor strength present throughout Extrem Other: venous exam: No significant superficial varicosities or spider telangiectasias, minimal edema General: No clubbing, No cyanosis and No edema Psych Appearance: grossly normal Mental Status: mental status grossly normal Speech and movement: Normal speech and movement present Assessment & Plan Assessment & Plan (1) Varicose veins of right lower extremity with inflammation: Comment: 06/05/2024 - right leg microphlebectomy Code(s): I83.11 - Varicose veins of right lower extremity with inflammation Category: Medical Plan: The patient has done extremely well with all venous treatments. Patient's may often experience postprocedure phlebitic episodes and I have discussed with the patient use of warm compresses and NSAIDS if tolerated for pain discomfort. In addition, I have discussed continued conservative measures including use of compression, leg elevation, and exercise. The patient was also given an information sheet regarding appropriate use of compression stockings and future purchases. Thank you for allowing us to care for your patient with venous disease. Plan Patient was informed and verbally consented to the use of an ambient scribe for clinic note documentation during this visit. Patient Instructions: - Continue wearing compression stockings daily to support leg circulation. - Monitor for symptoms such as pain, swelling, or discomfort; inform the office if these occur. - Contact the clinic if previously untreated veins cause new issues or increase in size or tenderness. Coding Level of Care Code Est Pt Level 3 (69250) Diagnoses Varicose veins of right lower extremity with inflammation I83.11
--- OUTSIDE RECORDS SUMMARY | 2024-06-18 17:29 | XMS_ITS | Encounter Summary ---
Author Organization [employer] Address [address] [facility] [address] [place] [address] Care Team Providers Care Housekeeper Head Name Role Phone Name, Andrés RODRIGUEZ Primary Care Provider [phone] Reason for Visit * Reason Onset Date Comments Medication Question 02/12/2023 Encounter Details Date Type Department Care Team ([facility] st Contact Info) Description 02/12/2023 Telephone [facility] [address] [place] [address] Name, MD Andrés [address] [place], [place] [phone] Medication Question Social History Tobacco Use Types [...] Que for approval. * Telephone Encounter - Ti Devine RN - 02/12/2023 11:38 AM EST [...] requesting status on lidocaine patch 5% however typewriter assembly and parts inspector does not see anything on chart regarding that matter. documented in this encounter Plan of Treatment Upcoming Encounters Date Type Department Care Team (Late st Contact Info) Description 08/04/2024 11:00 AM EDT Office Visit [facility] [address] [place] [address] 08/25/2024 2:30 PM EDT Office Visit [facility] [address] [place] [address] Name, MD Andrés [address] [place] [address] documented as of this encounter Visit Diagnoses Not on filedocumented in this encounter Additional Health Concerns Assessment Noted Time PHQ-9 Depression Total Score: 0 02/21/20 22 3:25 PM EST documented as of this encounter Care Teams Housekeeper Head Relationship Specialty Start Date End Date Name, MD Andrés [address] [place] [address] PCP - General Family Medicine 04/08/15 documented as of this encounter
--- OUTSIDE RECORDS SUMMARY | 2024-06-18 17:29 | XMS_ITS | Encounter Summary ---
Author Organization [employer] Address [address] [place] [address] [place] [address] Care Team Providers Care Oil Rig Driller Name Role Phone Name, Andrés RODRIGUEZ Primary Care Provider [phone] Encounter Details Date Type Department Care Team (Late st Contact Info) Description 04/12/2022 Orders Only [address] [address] Graciela Gifford FNP [address] [place] [address] Dept [place] [address] Dysuria Social History Tobacco Use Types Packs/Day [...] Description 08/04/2024 11:00 AM EDT Office Visit [address] [phone] 08/25/2024 2:30 PM EDT Office Visit [address] [phone] Name, MD Andrés [address] [place] [address] documented as of this encounter Visit Diagnoses Diagnosis Dysuria documented in this encounter Additional Health Concerns Assessment Noted Time PHQ-9 Depression Total Score: 0 02/21/20 22 3:25 PM EST documented as of this encounter Care Teams Oil Rig Driller Relationship Specialty Start Date End Date Name, MD Andrés [address] [place] [address] PCP - General Family Medicine 04/08/15 documented as of this encounter
--- OUTSIDE RECORDS SUMMARY | 2024-06-18 17:29 | XMS_ITS | Encounter Summary ---
Author Organization [employer] Address [address] [facility] [address] [place] [address] Care Team Providers Care Setter Juice Packaging Machines Name Role Phone Name, Andrés RODRIGUEZ Primary Care Provider [phone] Reason for Visit * Reason Onset Date Comments Reschedule Chronic Pain Group 06/18/2024 Encounter Details Date Type Department Care Team (Late st Contact Info) Description 06/18/2024 Telephone [facility] [address] [place], [place] [phone] Name, MD Andrés [address] [place] [address] Reschedule Chronic Pain Group Social History Tobacco Use Types Packs/Day Years [...] encounter Miscellaneous Notes * Telephone Encounter - Keisha Arellano MA - 06/18/2024 10:10 AM EDT Call pt to reschedule 06/16/2024 Chronic Pain Group. Pt agree to be schedule 08/04/2024 at 11am documented in this encounter Plan of Treatment Upcoming Encounters Date Type Department Care Team ([facility] st Contact Info) Description 08/04/2024 11:00 AM EDT Office Visit [facility] [address] [place] [address] 08/25/2024 2:30 PM EDT Office Visit [facility] [address] [place] [address] Name, MD Andrés [address] [place] [address] documented as of this encounter Visit Diagnoses Not on filedocumented in this encounter Additional Health Concerns Assessment Noted Time PHQ-9 Depression Total Score: 0 08/07/19 24 2:21 PM EDT documented as of this encounter Care Teams Setter Juice Packaging Machines Relationship Specialty Start Date End Date NameAndrés MD [address] [place] [address] PCP - General Family Medicine 04/08/15 documented as of this encounter
--- OUTSIDE RECORDS SUMMARY | 2024-06-18 17:29 | XMS_ITS | Encounter Summary ---
Author Organization [employer] Address 75 [facility] [address] [place] [address] Care Team Providers Care Cleaning Specialist Name Role Phone Name, Andrés RODRIGUEZ Primary Care Provider [phone] Reason for Visit * Reason Onset Date Comments Appointment Request 03/23/2022 Encounter Details Date Type Department Care Team (Late st Contact Info) Description 03/23/2022 Telephone [facility] [address] [place], [place] [phone] Name, MD Andrés [address] [place] [address] Appointment Request Social History Tobacco Use Types [...] at 9:45 am Please contact pt at [phone] documented in this encounter Plan of Treatment Upcoming Encounters Date Type Department Care Team (Late st Contact Info) Description 08/04/2024 11:00 AM EDT Office Visit [facility] [place] [place] [address] 08/25/2024 2:30 PM EDT Office Visit [facility] [place] [address] Name, [place] [address] documented as of this encounter Visit Diagnoses Not on filedocumented in this encounter Additional Health Concerns Assessment Noted Time PHQ-9 Depression Total Score: 0 02/21/20 22 3:25 PM EST documented as of this encounter Care Teams Cleaning Specialist Relationship Specialty Start Date End Date Name, [place] [place] [address] PCP - General Family Medicine 04/08/15 documented as of this encounter
--- OUTSIDE RECORDS SUMMARY | 2024-06-18 17:29 | XMS_ITS | Encounter Summary ---
Author Organization [employer] Address [address] [facility] [address] [place] [address] Care Team Providers Care Mixer Runner Name Role Phone Name, Andrés RODRIGUEZ Primary Care Provider [phone] Reason for Visit * Reason Comments Med Refill Encounter Details Date Type Department Care Team ([facility] st Contact Info) Description 01/07/2024 Refill [facility] [address] [place], [place] [phone] Name, MD Andrés [address] [place] [address] Social History Tobacco Use Types Packs/Day Years [...] Description 08/04/2024 11:00 AM EDT Office Visit [address] [address] 08/25/2024 2:30 PM EDT Office Visit [address] [address] Name, MD Andrés [address] [place] [address] documented as of this encounter Visit Diagnoses Not on filedocumented in this encounter Additional Health Concerns Assessment Noted Time PHQ-9 Depression Total Score: 0 08/07/19 24 2:21 PM EDT documented as of this encounter Care Teams Mixer Runner Relationship Specialty Start Date End Date NameAndrés MD [address] [place] [address] PCP - General Family Medicine 04/08/15 documented as of this encounter
--- OUTSIDE RECORDS SUMMARY | 2024-06-18 17:29 | XMS_ITS | Encounter Summary ---
Author Organization [employer] Address 75 [facility] [address] [address] Care Team Providers Care Service Operations Manager Name Role Phone Name, Andrés RODRIGUEZ Primary Care Provider [phone] Reason for Visit * Reason Comments Med Refill Encounter Details Date Type Department Care Team ([facility] st Contact Info) Description 01/20/2024 Refill [facility] [address] [place], [place] [phone] Name, MD Andrés [address] [place] [address] Depressive disorder Social History Tobacco Use Types [...] Description 08/04/2024 11:00 AM EDT Office Visit [address] [address] 08/25/2024 2:30 PM EDT Office Visit [address] [address] Name, MD Andrés [address] [place] [address] documented as of this encounter Visit Diagnoses Diagnosis Depressive disorder Depressive disorder, not elsewhere classified documented in this encounter Additional Health Concerns Assessment Noted Time PHQ-9 Depression Total Score: 0 08/07/19 24 2:21 PM EDT documented as of this encounter Care Teams Service Operations Manager Relationship Specialty Start Date End Date NameAndrés MD [address] [place] [address] PCP - General Family Medicine 04/08/15 documented as of this encounter
--- OUTSIDE RECORDS SUMMARY | 2024-06-18 17:29 | XMS_ITS | Encounter Summary ---
Author Organization [employer] Address [address] [facility] [address] [place] [address] Care Team Providers Care Promotion Writer Name Role Phone Name, Andrés RODRIGUEZ Primary Care Provider [phone] Encounter Details Date Type Department Care Team ([facility] st Contact Info) Description 06/17/2024 Telephone [facility] [address] [place], [place] [phone] Roshni Mays FNP [address] [place], [place] [phone] Social History Tobacco Use Types Packs/Day Years [...] encounter Miscellaneous Notes * Telephone Encounter - Amanda Avila - 06/17/2024 9:33 AM EDT Pt no showed to apt on 06/17/2024 letter will be sent out to rs apt. documented in this encounter Plan of Treatment Upcoming Encounters Date Type Department Care Team (Late st Contact Info) Description 08/04/2024 11:00 AM EDT Office Visit [facility] [address] [place] [address] 08/25/2024 2:30 PM EDT Office Visit [facility] [address] [place] [address] Name, MD Andrés [address] [place] [address] documented as of this encounter Visit Diagnoses Not on filedocumented in this encounter Additional Health Concerns Assessment Noted Time PHQ-9 Depression Total Score: 0 08/07/19 24 2:21 PM EDT documented as of this encounter Care Teams Promotion Writer Relationship Specialty Start Date End Date NameAndrés MD [address] [place] [address] PCP - General Family Medicine 04/08/15 documented as of this encounter
--- OUTSIDE RECORDS SUMMARY | 2024-06-18 17:29 | XMS_ITS | Clinical Summary ---
Author Organization [employer] Address [address] [place] [address] Care Team Providers Care Nurse Epidemiologist Name Role Phone Name, Andrés RODRIGUEZ Primary Care Provider [phone] Allergies No known active allergies Medications acetaminophen [...] DAY 90 capsule 1 10/06/19 23 Active Bisacodyl EC 5 MG EC tablet [...] DAILY 90 tablet 1 10/29/19 24 Active lisinopril 10 MG tabletIndicatio ns:Essential [...] 90 tablet 3 04/08/19 25 026 Active Dulaglutide (Trulicity) 1.5 MG/0.5ML solution auto-injector Inject 1.5 mg under the skin 1 (one) time per week. 2 mL 2 05/13/19 25 026 Active pregabalin (Lyrica) 50 MG capsule Take 1 capsule (50 mg) by mouth 3 times daily. 90 capsule 05/13/19 25 026 Active metFORMIN (Glucophage) 850 MG tabletIndicatio ns:Type 2 diabetes mellitus without complication, without long-term current use of insulin ([facility]) TAKE 1 TABLET BY MOUTH WITH BREAKFAST AND EVENING MEAL 180 tablet 3 05/26/19 25 Active oxyCODONE-aceta minophen (Percocet) 5-325 MG tabletIndicatio ns:Chronic neck pain Take 1 tablet by mouth every 8 (eight) hours if needed for severe pain for up to 28 days. Do not start before June 09, 2024. 84 tablet 06/10/19 25 025 Active lidocaine (Lidoderm) 5 % patchIndication s:Chronic neck pain APPLY 1 PATCH TOPICALLY IN THE MORNING. REMOVE & DISCARD PATCH WITHIN 12 HOURS OR DIRECTED BY . 30 patch 2 06/13/19 25 Active tiZANidine (Zanaflex) 4 MG tabletIndicatio ns:Type 2 diabetes mellitus without complication, without long-term current use of insulin (CMS/HCC) TAKE 1 TABLET BY MOUTH EVERY 6 TO 8 HOURS NEEDED NOT TO EXCEED 3 DOSES IN 24 HOURS 30 tablet 06/13/19 25 Active metFORMIN (Glucophage) 850 MG tabletIndicatio ns:Type 2 diabetes mellitus without complication, without long-term current use of insulin (CMS/HCC) Take 1 tablet (850 mg) by mouth with breakfast and with evening meal. 180 tablet 3 03/18/19 24 025 Discontinued lidocaine (Lidoderm) 5 % patchIndication s:Chronic neck pain APPLY 1 PATCH TOPICALLY IN THE MORNING. REMOVE & DISCARD PATCH WITHIN 12 HOURS OR DIRECTED BY MD. 60 patch 3 11/18/19 24 025 Discontinued oxyCODONE-aceta minophen (Percocet) 5-325 MG tabletIndicatio ns:Chronic neck pain Take 1 tablet by mouth every 8 (eight) hours if needed for severe pain for up to 28 days. 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 01/09 Overview (03/23/2024): Dx: Cervical radiculopathy due to degenerative joint disease of spine Rx: Percocet 5/325mg q 8hours Last [employer] agreement: 01/21/24 Tier II (visit every 3 [...] disease of spine 10/29/2017 Assessment & Plan (05/21/2024 11:44 AM EDT): -Good engagement and participation with Group Medical Visit model -Encouraged multifactorial approach to pain control including pharm and non- pharm modalities -Pill count/utox as expected Assessment & Plan (04/23/2024 1:19 PM EST): [...] Encounters Date Type Department Care Team Description 06/18/2024 Travel 06/18/2024 Telephone [facility] [address] [place] [address] Andrés Lee MD Reschedule Chronic Pain Group 06/17/2024 Telephone [facility] [address] [place] [address] Roshni Mays FNP 06/12/2024 Refill [facility] [address] [place] [address] Andrés Lee MD Chronic neck pain; Type 2 diabetes mellitus without complication, without long-term current use of insulin ([facility]) 06/09/2024 Telephone [facility] [address] [place] [phone] Armida Cifuetnes MA Chart Prep 06/08/2024 Refill [facility] [address] [place] [phone] Andrés Lee MD Chronic neck pain 05/25/2024 Refill [facility] [address] [place] [phone] Andrés Lee MD Type 2 diabetes mellitus without complication, without long-term current use of insulin ([facility]) 05/22/2024 Telephone [facility] [address] [place] [phone] Andrés Lee MD Nurse Triage 05/22/2024 Population Health Risk Score [facility] () Department [address] [place] [phone] Provider, Population Health Generic 05/19/2024 9:45 AM EDT Office Visit [facility] [address] [place] [phone] Lala Mercado, CRISTINA Cervical radiculopathy due to degenerative joint disease of spine (Primary Dx); FPC (current) use of opiate analgesic 05/19/2024 Orders Only [facility] [address] [place] [phone] Andrés Lee MD 05/19/2024 Travel 05/14/2024 Telephone [facility] [address] [place] [address] Andrés Lee MD PA 05/14/2024 Refill [facility] [address] [place] [address] Andrés Lee MD Type 2 diabetes mellitus without complication, without long-term current use of insulin (CMS/[facility]) 2024 2:00 PM EST Office Visit [facility] [address] [place] [phone] Andrés Lee MD Type 2 diabetes mellitus without complication, without long-term current use of insulin (CMS/HCC) (Primary Dx); Cervical radiculopathy due to degenerative joint disease of spine; Hx of cervical spine surgery; Screening for cervical cancer; Encounter for immunization 2024 Travel 05/01/2024 Patient Outreach [facility] [address], [place] [phone] Andrés Lee MD Pre-visit Planning ([facility] unable to reach [facility] ) 04/29/2024 2:45 PM EST Clinical Support [facility] [address] [place] [phone] Alan Randle, ALEJANDRO Encounter for immunization 04/29/2024 Travel 04/23/2024 Refill [facility] [address] [place] [phone] Andrés Lee MD Chronic neck pain 04/21/2024 9:45 AM EST Office Visit [facility] [address] [place] [phone] Lala Mercado FNP Cervical radiculopathy due to degenerative joint disease of spine (Primary Dx); FPC (current) use of opiate analgesic 04/21/2024 Travel 04/17/2024 Refill [facility] [address] [place] [phone] Yaakov Wahl MD 04/17/2024 Refill [facility] [address] [place] [phone] Andrés Lee MD Chronic neck pain 04/08/2024 Refill [facility] [address] [place] [address] Andrés Lee MD 04/06/2024 Refill [facility] [address] [place] [phone] America Suh, DRE Type 2 diabetes mellitus without complication, without long-term current use of insulin (CMS/HCC) 03/25/2024 Telephone [facility] [address] [place] [address] Caitlin Bear LPN 03/24/2024 9:45 AM EST Office Visit [facility] [address], [place] [phone] Lala Mercado, UTILITY ACCOUNTS DIRECTOR Cervical radiculopathy due to degenerative joint disease of spine (Primary Dx); FPC (current) use of opiate analgesic 03/24/2024 Travel from Last 3 Months Immunizations Name Administration [...] Description 08/04/2024 11:00 AM EDT Office Visit [facility] [address] [place] [address] 08/25/2024 2:30 PM EDT Office Visit [facility] [address] [place] [phone] Name, MD Andrés [address] [place] [address] Health Maintenance Due Date Last Done Comments [...] Additional history exists SDOH Screening 04/09/2024 04/09/2023 Depression Screening 08/06/2024 08/07/2023, 08/07/19 24 Diabetes: Hemoglobin A1C 08/12/2024 025, 10/29/2023, 08/07/2023, Additional history exists Alcohol/Substance Use Screening 10/28/2024 10/29/2023 Mammogram 12/31/2024 01/01/2024, 07/2022, 12/13/2022, Additional history exists Colonoscopy 02/19/2025 02/20/2024, 10/10/2023 Colorectal Cancer Screening 02/19/2025 Tobacco Screening 2025 2024 Diabetes: Urine Protein Screening 05/19/2025 05/19/2024, 04/17/2023, 04/11/2022, Additional history exists Lipid Panel 05/19/2025 05/19/2024, 09/2023, 04/11/2022, Additional history exists Eye Exam 11/19/2025 11/20/2023, 07/10, 08/02/2023, Additional history exists DTaP/Tdap/Td Vaccines (3 [...] Name Priority Date/Time Associated Diagnosis Comments POCT MERLENE-14 URINE DRUG SCREEN Routine 05/19/2024 11:33 AM EDT Cervical radiculopathy due to degenerative joint disease of spine SLIDE REVIEW Routine 05/19/2024 9:10 AM EDT ALBUMIN, RANDOM URINE W/CREATININE Routine 05/19/2024 9:10 AM EDT Type 2 diabetes mellitus without complication, without long-term current use of insulin (CMS/HCC) LIPID PANEL, STANDARD Routine 05/19/2024 9:10 AM EDT Type 2 diabetes mellitus without complication, without long-term current use of insulin (CMS/HCC) COMPREHENSIVE METABOLIC PANEL Routine 05/19/2024 9:10 AM EDT Type 2 diabetes mellitus without complication, without long-term current use of insulin (CMS/HCC) CBC WITH AUTO DIFFERENTIAL Routine 05/19/2024 9:10 AM EDT Type 2 diabetes mellitus without complication, without long-term current use of insulin (CMS/HCC) POCT GLYCATED HEMOGLOBIN, TOTAL Routine 2024 2:10 PM EST Type 2 diabetes mellitus without complication, without long-term current use of insulin (CMS/HCC) POCT GLUCOSE Routine 2024 2:10 PM EST Type 2 diabetes mellitus without complication, without long-term current use of insulin (CMS/HCC) POCT MERLENE-14 URINE DRUG SCREEN Routine 03/24/2024 1:17 PM EST 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 Oxycodone Screen, Urine Positive Urine Urine specimen obtained by clean catch procedure / Unknown 05/19/2024 11:33 AM EDT Narrative Mone Parkinson RN - 05/19/2024 11:33 AM EDT UTOX cup Lot#[id number] Exp. 10/28/25 Internal Pass Control Lala EVANS POINT OF CARE TEST ENTER/EDIT ORDERABLES Final Result * Slide Review (05/19/2024 9:10 AM EDT) Pathologist [facility] Slide Review VERIFIED [facility] 05/19/2024 9:10 AM EDT 05/19/2024 11:29 AM EDT us Andrés Lee MD LAB BLOOD ORDERABLES Final Resul t [facility] [address] [place] [phone] * Albumin, Random Urine W/Creatinine (05/19/2024 9:10 AM EDT) Creatinine, Urine 188.03 mg/dL [facility] Microalbumin Urine 32.0 mg/L [facility] Microalbum Creatinine Ratio Ur 17.0 <30 ug/mg cr [facility] Comment:Albumin/Creatinine R atio Reference Ranges: Normal: < 30 ug/mg creatinine Microalbuminuria: 30 - 300 ug/mg creatinineClinical Albuminuria: > 300 ug/mg creatinine Urine (Urine, Random) 05/19/2024 9:10 AM EDT 05/19/2024 11:34 AM EDT us Andrés Name MD LAB URINE ORDERABLES Final Resul t [facility] [address] [place] [address], [place] [phone] * (ABNORMAL) CBC auto differential (05/19/2024 9:10 AM EDT) White Blood Count 8.2 4.8 - 10.8 X10*3/uL [facility] Red Blood Count 4.88 4.20 - 5.50 X10*6/uL [facility] Hemoglobin 12.1 12.0 - 16.0 g/dl [facility] Hematocrit 38.9 37.0 - 47.0 % [facility] Mean Corpuscular Volume 79.7(L) 80.0 - 98.0 fL [facility] Mean Corpuscular Hemoglobin 24.8(L) 27.0 - 33.0 pg [facility] Mean Corpuscular HGB Conc 31.1 31.0 - 35.0 g/dl [facility] Red Cell Distribution Width 13.8 11.0 - 16.0 % [facility] Platelet Count 257 160 - 400 X10*3/uL [facility] Mean Platelet Volume 10.9 9.4 - 12.3 fL [facility] Neutrophils Percent Auto 52.5 45 - 73 % [facility] Imm Gran Pct Auto 0.5(H) 0.0 - 0.4 % [facility] Lymphocytes Percent Auto 35.9 20 - 40 % [facility] Monocytes Percent Auto 9.2 2 - 11 % [facility] Eosinophils Percent Auto 1.2 0 - 4 % [facility] Basophils Percent Auto 0.7 0 - 2 % [facility] NRBC Pct Auto 0.0 0.0 - 0.2 /100WBC [facility] Neutrophils Absolute Auto 4.3 2.0 - 8.3 x10*3/uL [facility] Imm Gran Abs Auto 0.04(H) 0.00 - 0.03 X10*3/uL [facility] Lymphocytes Absolute Auto 2.9 1.2 - 4.9 X10*3/uL [facility] Monocytes Absolute Auto 0.8 0.1 - 1.2 X10*3/uL [facility] Eosinophils Absolute Auto 0.1 0.0 - 0.4 X10*3/uL [facility] Basophils Absolute Auto 0.1 0.0 - 0.2 X10*3/uL [facility] NRBC Abs Auto 0.000 0.0 - 0.012 X10*3/uL [facility] Blood Venous blood specimen / Unknown 05/19/2024 9:10 AM EDT 05/19/2024 11:29 AM EDT us Andrés Name LAB BLOOD ORDERABLES Edited Resu lt - Final [facility] [address] [place] [phone] * (ABNORMAL) Lipid Panel, Standard (05/19/2024 9:10 AM EDT) Triglycerides 129 <150 mg/dL [facility] Comment:Desirable Triglyceri de: less than 150 mg/dLBorderline High Triglyceride 150-199 mg/dLHigh Triglyceride: 200-499 mg/dLVery High Triglyceride: greater than or equal to 5OO mg/dL Cholesterol 122 <200 mg/dL [facility] Comment:Desirable Cholestero l: less than 200 mg/dLBorderline High Cholesterol: 200-239 mg/dLHigh Cholesterol: greater than 239 mg/dL LDL Cholesterol Calculated 60 <100 mg/dL [facility] Comment:Desirable LDL: less than 100 mg/dLNear Optimal/Above Optimal LDL: 110- 129 mg/dLBorderline High LDL: 130-159 mg/dLHigh LDL: 160-189 mg/dLVery High LDL: greater than or equal to 190 mg/dL HDL Cholesterol 37(L) >40 mg/dL [facility] Comment:Desirable HDL: great er than 40 mg/dL Note: This HDL assay may give artificially low results in patients with liver disease. Blood Venous blood specimen / Unknown 05/19/2024 9:10 AM EDT 05/19/2024 11:29 AM EDT us Anrdés Name MD LAB BLOOD ORDERABLES Final Resul t [facility] [address] [place] [phone] * (ABNORMAL) Comprehensive Metabolic Panel (05/19/2024 9:10 AM EDT) Sodium 141 135 - 145 mmol/L [facility] Potassium 4.2 3.3 - 5.1 mmol/L [facility] Chloride 107 96 - 108 mmol/L [facility] Carbon Dioxide 27 22 - 29 mmol/L [facility] Anion Gap 11(L) 12 - 20 [facility] Urea Nitrogen (BUN) 17(H) 9 - 16 mg/dL [facility] Creatinine, Serum 0.84 0.5 - 1.4 mg/dL [facility] Estimated Glomerular Filt Rate >60 [facility] Comment:Chronic Kidney Disea se: Estimated GFR < 60 mL/min/1.40o3Qushxb Kidney Disease: Estimated GFR < 15 mL/min/1.73m2 Glucose 132(H) 60 - 115 mg/dL [facility] Calcium 8.9 8.4 - 10.2 mg/dL [facility] Bilirubin, Total 0.5 0.0 - 1.0 mg/dL [facility] Aspartate Amino Transferase 22 5 - 31 U/L [facility] Alanine Aminotransferase 25 0 - 31 U/L [facility] Total Protein 8.2(H) 6.5 - 8.0 g/dL [facility] Albumin Level 4.1 3.5 - 5.0 g/dL [facility] Alkaline Phosphatase 84 39 - 117 U/L [facility] Blood Venous blood specimen / Unknown 05/19/2024 9:10 AM EDT 05/19/2024 11:29 AM EDT Result Kole Lee MD LAB BLOOD ORDERABLES Final Resul t [facility] [address] [place] [phone] * (ABNORMAL) POCT HGB A1C (2024 2:10 [...] TEST ENTER/EDIT OR DERABLES Final Result * (ABNORMAL) Hm Colonoscopy (02/20/2024 9:55 AM EST) Colonoscopy Abnormal(A ) Normal 02/20/2024 9:55 AM EST Result Kole Lee MD HEALTH MAINTENANCE Final Result * BI Mammogram Screening Tomosynthesis Bilateral (01/01/2024 3:45 PM EDT) Anatomical Region Laterality Modality Breast Bilateral Mammography 01/01/2024 3:45 PM EDT Narrative 01/13/2024 4:19 PM EST ? [facility] ? [address] ?[place] [address] ? Mammography Report ? Signed ? Patient: Marcial,Rafi ?MR#: [id number] ?? [id number] ? : 1965 ?Acct:[id number] ? Age/Sex: 58 / F ?ADM Date: 01/01/24 ? Loc: HO.MAMMO ? Attending Dr: Andrés Lee MD ? Ordering Physician: Name,Andrés RODRIGUEZ ?Results: 1Negative ? Date of Service: 01/01/24 ?Follow Up: 1 Year From Orig ?? inal Mammogram ? Procedure(s): MM tomosynthesis screening BI ?? Accession Number(s): [id number] ? cc: Name,Andrés RODRIGUEZ ? EXAMINATION: ?? [...] DD/ 1545 ? TD/TT: 01/01/24 1600 ? Screener Operator: ? Procedure Note Donopalter, Image - 01/13/2024 [facility] [address] [place] [address] Mammography Report Signed Patient: [place] Ceja#: [id number] : 1965Acct:[id number] Age/Sex: 58 / FADM Date: 01/01/24 Loc: HO.MAMMO Attending Dr: Andrés Lee MD Ordering Physician: Andrés Leeults: 1Negative Date of Service: 01/01/24Follow Up: 1 Year From Orig inal Mammogram Procedure(s): MM tomosynthesis screening BI Accession Number(s): [id number] cc: Andrés Lee MD EXAMINATION: MM SCREENING [...] 01/13/24 1615 DD/ 1545 TD/TT: 01/01/24 1600 Screener Operator: us Andrés Lee MD IMG BI PROCEDURES Edited Result - Final * Referral to Ophthalmology (11/20/2023) us Andrés Lee MD OUTPATIENT REFERRAL ORDERABLES F inal Result * Hepatitis C Ab (04/17/2023 9:41 AM EST) Hepatitis C Antibody Nonreactive Nonreactive [facility] Comment:Antibodies to HCV no t detected; does not exclude early acuteHCV infection. Blood Venous blood specimen / Unknown 04/17/2023 9:41 AM EST 04/17/2023 11:46 AM EST us Andrés Lee MD LAB BLOOD ORDERABLES Final Resul t [facility] [address] [place] [phone] * HPV mRNA E6/E7 w/Reflex to HPV Genotypes 16, 18/45 (11/19/2022 10:39 AM EDT) HPV nRNA E6/E7 Not Detected Not Detected [facility] Comment:Methodology: Transcr iption-Mediated AmplificationThis assay detects E6/E7 viral messenger RNA (mRNA) from 14high-risk HPV types (16,18,31,33,35,39,45,51,52,56,58,59,66,68).Cervical sources are required for HPV testing.If a vaginal source from a patient who has had atotal hysterectomy with removal of cervix wassubmitted, please contact the testing laboratoryfor alternative testing options.For additional information, please refer tohttp://education.[employer]/faq/LZA573j5(This link if provided for information/educational purposes only.)THIS TEST WAS PERFORMED AT:[employer] [place] [phone] ANDREWS MD HPV mRNA E6/E7 [facility] HPV 16 RNA [facility] HPV 18/45 RNA [facility] 11/19/2022 10:3 9 AM EDT 11/20/2022 8:40 AM EDT Karthik Rob [facility] CYTOLOGY ORDERABLES F inal Result [facility] [address] [place] [phone] * Pap Smear (11/19/2022 10:39 AM EDT) 11/19/2022 10:3 9 AM EDT 11/20/2022 8:40 AM EDT Narrative [facility] - 12/02/2022 5:22 PM EDT ----- ------- Name: Rafi Ceja ? Age/Sex: 57/F ? : 1965 Unit#: [id number] ?? Attend Dr: KARTHIK ROB CNM ?Re11/19/22 ?Status: DEP REF ? Location: HO.HHCLNP ? Disch: ? ----- ------- SPEC : [id number] ?RECD: 11/20/22 ? STATUS: ??SOUT ? REQ NUM: [id number] ? DANISHA: 11/19/22-9 ? SUBM DR: KARTHIK ROB CNM ? ENTERED: ??11/20/221403 ?SP TYPE: Pap Smr ?OTHR DR: ? ORDERED: ??Pap Smear ? Interpretation ?? Satisfactory for evaluation. ?? Negative for intraepithelial lesion or malignancy. ? HPV mRNA E6/E7: ?NOT DETECTED ? This assay detects E6/E7 viral messenger RNA (mRNA) from 14 high-risk HPV types (16, 18, ?? 31, 33, 35, 39, 45, 51, 52, 56, 58, 59, 66, 68) ? HPV testing performed by [facility], [place], [place]. ??See reference laboratory ?? portion of the EMR for entire report. ?Clinical Information LMP: Unknown date Previous PAP test: WNL ? Material Received ?? ThinPrep-Vaginal/Cervical ----- ------- Signed (signature on file) Razia Higgins 12/02/221721 ? ----- ------- ? END OF REPORT ? us Karthik [facility] CYTOLOGY ORDERABLES F inal Result [facility] [address] [place] [phone] from Last 3 Months or Most Recently Relevant to Health Maintenance Insurance Care Teams Nurse Epidemiologist Relationship Specialty Start Date End Date Name, MD Andrés [address] [place] [phone] PCP - General Family Medicine 04/08/15
--- OUTSIDE RECORDS SUMMARY | 2024-06-18 17:29 | XMS_ITS | Encounter Summary ---
Author Organization [employer] Address [address] [facility] [address] [place] [address] Care Team Providers Care Roustabout Name Role Phone Name, Andrés RODRIGUEZ Primary Care Provider [phone] Encounter Details Date Type Department Care Team (Latest Contact Info) Description 06/18/2024 Travel Social History Tobacco Use Types Packs/Day [...] Description 08/04/2024 11:00 AM EDT Office Visit [facility] [address] [place] [phone] 08/25/2024 2:30 PM EDT Office Visit [facility] [address] [place] [phone] Name, MD Andrés [address] [place] [phone] documented as of this encounter Visit Diagnoses Not on filedocumented in this encounter Additional Health Concerns Assessment Noted Time PHQ-9 Depression Total Score: 0 08/07/19 24 2:21 PM EDT documented as of this encounter Care Teams Roustabout Relationship Specialty Start Date End Date NameAndrés MD [address] [place] [phone] PCP - General Family Medicine 04/08/15 documented as of this encounter
--- OUTSIDE RECORDS SUMMARY | 2024-06-18 17:29 | XMS_ITS | Encounter Summary ---
Author Organization [employer] Address [address] [facility] [address] [place] [address] Care Team Providers Care Neurology Director Name Role Phone Name, Andrés RODRIGUEZ Primary Care Provider [phone] Reason for Visit * Reason Onset Date Comments PA 05/14/2024 Encounter Details Date Type Department Care Team ([facility] st Contact Info) Description 05/14/2024 Telephone [facility] [address] [place], [place] [phone] Name, MD Andrés [address] [place], [place] [phone] PA Social History Tobacco Use Types Packs/Day [...] encounter Miscellaneous Notes * Telephone Encounter - CRISTINA Cantu - 05/21/2024 11:45 AM EDT Ms. Ceja was seen for chronic pain group visit on 05/19/24. She asked me about the Lyrica and I called [facility]. They said no need for a PA, and that they would have it filled on 05/19/24 for her to excelsior picker. I advised Ms. Ceja to let us know if she has any further difficulty picking up the med. Sending as FYI to PA team as no further action required at this time. * Telephone Encounter - Dale Khan - 05/14/2024 11:22 AM EST TC from pt requesting Pa for Medication pregabalin (Lyrica) 50 MG capsule. Contact pt at [phone] documented in this encounter Plan of Treatment Upcoming Encounters Date Type Department Care Team ([facility] st Contact Info) Description 08/04/2024 11:00 AM EDT Office Visit [address] [address] 08/25/2024 2:30 PM EDT Office Visit [facility] [address] [place] [address] Name, MD Andrés [address] [place] [address] documented as of this encounter Visit Diagnoses Not on filedocumented in this encounter Additional Health Concerns Assessment Noted Time PHQ-9 Depression Total Score: 0 08/07/19 24 2:21 PM EDT documented as of this encounter Care Teams Neurology Director Relationship Specialty Start Date End Date Name, MD [place] [address] PCP - General Family Medicine 04/08/15 documented as of this encounter
--- OUTSIDE RECORDS SUMMARY | 2024-06-18 17:29 | XMS_ITS | Encounter Summary ---
Author Organization [employer] Address 75 [facility] [address] [place] [address] Care Team Providers Care Maintenance Technician 3Rd Shift Name Role Phone Name, Andrés RODRIGUEZ Primary Care Provider [phone] Reason for Visit * Reason Onset Date Comments Med Refill 02/18/2024 Encounter Details Date Type Department Care Team ([facility] st Contact Info) Description 02/18/2024 Telephone [facility]INE [address] [place], [place] [phone] Name, MD Andrés [address] [place] [address] Med Refill Social History Tobacco Use Types [...] 4 MG tablet To be sent to: [facility] - [place], [place] - [address] documented in this encounter Plan of Treatment Upcoming Encounters Date Type Department Care Team (Late st Contact Info) Description 08/04/2024 11:00 AM EDT Office Visit [facility] [address] [place] [phone] 08/25/2024 2:30 PM EDT Office Visit [facility] [address] [place] [phone] Name, MD Andrés [address] [place] [address] documented as of this encounter Visit Diagnoses Not on filedocumented in this encounter Additional Health Concerns Assessment Noted Time PHQ-9 Depression Total Score: 0 08/07/19 24 2:21 PM EDT documented as of this encounter Care Teams Maintenance Technician 3Rd Shift Relationship Specialty Start Date End Date Name, MD Andrés [address] [place] [address] PCP - General Family Medicine 04/08/15 documented as of this encounter
--- OUTSIDE RECORDS SUMMARY | 2024-06-18 17:29 | XMS_ITS | Encounter Summary ---
Author Organization [employer] [facility] Address [address] [facility] [address] [place] [address] Care Team Providers Care Rib Builder Name Role Phone Name, Andrés RODRIGUEZ Primary Care Provider [phone] Reason for Visit * Reason Comments Med Refill Encounter Details Date Type Department Care Team ([facility] Contact Info) Description 08/28/2022 Refill [facility] MEDICINE [address] [place] [address] [phone] Name, MD Andrés [address] [place] [address] [phone] Cervical radicular pain Social History Tobacco Use [...] Upcoming Encounters Date Type Department Care Team ([facility] Contact Info) Description 08/04/2024 11:00 AM EDT Office Visit [facility] MED[facility]INE [address] [place] [address] [phone] 08/25/2024 2:30 PM EDT Office Visit [facility] 230 [facility] [place] [address] Name, MD Andrés David [facility] [facility] [place] [address] documented as of this encounter Visit Diagnoses Diagnosis Cervical radicular pain documented in this encounter Additional Health Concerns Assessment Noted Time PHQ-9 Depression Total Score: 0 02/21/20 3:25 PM EST documented as of this encounter Care Teams Rib Builder Relationship Specialty Start Date End Date Name, MD Andrés David [facility] [facility] [place] [address] PCP - General Family Medicine 04/08/15 documented as of this encounter
--- OUTSIDE RECORDS SUMMARY | 2024-06-18 17:29 | XMS_ITS | Encounter Summary ---
Author Organization [employer] Address 75 [facility] [address] [place] [address] Care Team Providers Care Construction Area Manager Name Role Phone Name, Andrés RODRIGUEZ Primary Care Provider [phone] Reason for Visit * Reason Onset Date Comments Med Refill 09/24/2023 Encounter Details Date Type Department Care Team ([facility] st Contact Info) Description 09/24/2023 Telephone [facility] [address] [place] [address] Name, MD Andrés [address] [place], [place] [phone] Med Refill Social History Tobacco Use Types [...] MG EC tablet To be sent to: [facility] [address] [place] [address] documented in this encounter Plan of Treatment Upcoming Encounters Date Type Department Care Team (Late st Contact Info) Description 08/04/2024 11:00 AM EDT Office Visit [facility] MED[facility]INE [address] [place] [phone] 08/25/2024 2:30 PM EDT Office Visit [facility] [address] [place] [address] Name, MD Andrés [address] [place] [address] documented as of this encounter Visit Diagnoses Not on filedocumented in this encounter Additional Health Concerns Assessment Noted Time PHQ-9 Depression Total Score: 0 08/07/19 24 2:21 PM EDT documented as of this encounter Care Teams Construction Area Manager Relationship Specialty Start Date End Date Name, MD Andrés [address] [place] [address] PCP - General Family Medicine 04/08/15 documented as of this encounter
--- OUTSIDE RECORDS SUMMARY | 2024-06-18 17:29 | XMS_ITS | Encounter Summary ---
Author Organization [employer] Address 75 [facility] [address] [address] Care Team Providers Care Retail Merchandising Manager Name Role Phone Name, Andrés RODRIGUEZ Primary Care Provider Reason for Visit * Reason Onset Date Comments Med Refill 05/21/2023 Encounter Details Date Type Department Care Team ([facility] st Contact Info) Description 05/21/2023 Telephone [facility] MEDICINE 230 [place] [address] Name, MD Andrés [address] [place], [place] [phone] Med Refill Social History Tobacco Use Types [...] the past 12 months, has t he [employer], [employer], oil or water [employer] threatened to shut off services in your [...] 5-325 MG tablet To be sent to: [facility] - [place], [place] - [address] documented in this encounter Plan of Treatment Upcoming Encounters Date Type Department Care Team (Late st Contact Info) Description 08/04/2024 11:00 AM EDT Office Visit [facility] MEDICINE [address] [place] [phone] 08/25/2024 2:30 PM EDT Office Visit [facility] MED[facility]INE [address] [place] [phone] NameAndrés MD [address] [place] [address] documented as of this encounter Visit Diagnoses Not on filedocumented in this encounter Additional Health Concerns Assessment Noted Time PHQ-9 Depression Total Score: 0 02/21/20 22 3:25 PM EST documented as of this encounter Care Teams Retail Merchandising Manager Relationship Specialty Start Date End Date NameAndrés MD [address] [place] [phone] PCP - General Family Medicine 04/08/15 documented as of this encounter
--- OUTSIDE RECORDS SUMMARY | 2024-06-18 17:29 | XMS_ITS | Encounter Summary ---
Author Organization [employer] Address 75 [facility] [address] [place] [address] Care Team Providers Care Commercial Illustrator Name Role Phone Name, Andrés RODRIGUEZ Primary Care Provider [phone] Reason for Visit * Reason Onset Date Comments Nurse Triage 05/22/2024 Encounter Details Date Type Department Care Team ([facility] st Contact Info) Description 05/22/2024 Telephone [facility] MEDICINE 230 [place], [place] [phone] Name, MD Andrés [address] [place] [address] Nurse Triage Social History Tobacco Use Types Packs/Day Years [...] encounter Miscellaneous Notes * Telephone Encounter - Azul Worthy LPN - 05/22/2024 1:33 PM EDT Triage call returned to patient with [facility] Media Planner / Buyer # [id number] Marjan. Patient reports reaction to Pregabalin that was ordered on 05/12/24 and then delivered to her on 05/19/24. After first dose patient had vomited and had diarrhea that she relates to new medication. No previous diarrhea symptoms with diabetes meds or increase in Trulicity. Patient had only one day of symptoms on 05/19 and did not take any further Pregabablin. No known sick contacts. Tolerating diet andfluids without issue today. No recent travel or use of ABT. Confirms that she has Percocet previously ordered available as needed. Forwarded to PCP and team as FYI to follow up PRN Protocol Used: Medication Question Call (Adult) Protocol-Based Disposition: Callback or Video Visit by PCP Today Override (Final) Disposition: Discuss with PCP and Callback by Nurse Today Override Reason: No appointments available Override Notes: RX stopped by patient due to Vomiting and diarrhea Video visit not offered Positive Triage Question: * Caller has NON-URGENT medicine question about med that PCP or specialist prescribed and triager unable to answer question * All higher-acuity triage questions were negative * Telephone Encounter - Bib Shay - 05/22/2024 1:08 PM EDT Symptoms: Medication Reaction, Diarrhea Outcome: Schedule an urgent appointment (within 1 hour) or talk to a nurse or provider soon Reason: Caller denied all higher acuity questions The caller accepted this outcome. documented in this encounter Plan of Treatment Upcoming Encounters Date Type Department Care Team (Late st Contact Info) Description 08/04/2024 11:00 AM EDT Office Visit [address] [address] 08/25/2024 2:30 PM EDT Office Visit [address] [address] NameAndrés MD [address] [place] [address] documented as of this encounter Visit Diagnoses Not on filedocumented in this encounter Additional Health Concerns Assessment Noted Time PHQ-9 Depression Total Score: 0 08/07/19 24 2:21 PM EDT documented as of this encounter Care Teams Commercial Illustrator Relationship Specialty Start Date End Date NameAndrés MD [address] [place] [address] PCP - General Family Medicine 04/08/15 documented as of this encounter
== END 2024-06-18 15:45 | disposition home or self-care (01) ==
LOC: HO.HVS 14:50
PROVIDERS: PCP Internal Medicine Geriatric Medicine; Visit Provider Surgery Vascular Surgery
DX: I83.11 Varicose veins of right lower extremity with inflammation (principal)
CPT/HCPCS: 99213

== ENCOUNTER → 2024-06-18 14:49 | Outpatient (BNVA) | payer MEDICAID, SELFPAY | PROVIDERS: PCP Internal Medicine Geriatric Medicine; Visit Provider Surgery Vascular Surgery | DX: I83.11 Varicose veins of right lower extremity with inflammation (principal) | CPT/HCPCS: 99212 ==

== ENCOUNTER 2024-08-18 15:08 | Outpatient (AMB) | payer MEDICAID, SELFPAY ==
--- NOTE | 2024-08-18 15:34 | MHC.OFFVIS ---
Vital Signs 08/18/24 15:36 Height 5 ft 2 in Weight 208 lb BMI 38.0 Intake Visit Reasons: pain in R leg s/p Micro Intake Note: follow up Right Leg pain s/p Right Microphlebectomy 06/05/24 Production Stage Manager Required: Yes Allergies No Known Allergies Allergy (Verified 08/18/24 15:39) HPI HPI pain in R leg s/p Micro: Details: Very pleasant 59-year-old female presents for follow-up regarding right leg pain. She had previous procedures by us inclusive of a right leg microphlebectomy dating back to 06/05/2024. In general she had done well with the procedure. At the current time she is complaining of knee pain which has been her primary concern. She has difficulty bending her knee and standing from a seated position. It has been going on for appeared of time and was concerned that it might be venous issues. She now presents for routine follow-up. [facility] Medical History Chronic radicular cervical pain Cervical spine degeneration Cervical spondylosis Diabetes mellitus Surgical History Hx of cholecystectomy Previous section History of esophagogastroduodenoscopy (EGD) H/O colonoscopy History of bariatric surgery H/O neck surgery (~2013) Family History Maternal Grandmother Breast cancer Maternal Grandfather Colon cancer Social History Are you a primary customer care specialist to a significant other at home: No Do you presently have visiting nurse or other home services: No Alcohol intake: never Patient Tobacco Use Status: Never used Tobacco Review of Systems Const Reports as per HPI ENT Reports no additional complaints Card Denies chest pain, Denies chest pain at rest and Denies chest pain with activity Resp Denies chest congestion and Denies cough GI Reports no additional complaints Musc Details: pain over varicosities, aching of lower extremities, swelling, cramping, heaviness and tiredness, itching Denies abnormal gait Skin/Breast Reports pruritus and Denies wounds Neuro Reports no additional complaints and Denies abnormal gait Psych Denies no additional complaints Physical Exam Vital Signs: BMI result Body Mass Index 38.0 Const General: cooperative, healthy appearing and comfortable Orientation/consciousness: oriented to person, oriented to place and oriented to time Neck Carotids: no bruits Chest Chest palpation & inspection: normal inspection of the chest and normal palpation of entire chest wall Resp Effort & Inspection: normal respiratory effort and able to speak in complete sentences Cardio Rate: regular rate Heart sounds: S1 normal heart sound present and S2 normal heart sound present Peripheral pulses: Peripheral pulses 2+ throughout GI Inspection: Yes normal to inspection Skin Other: +2 edema, does have some small varicosities surrounding the knee. CEAP Classification C4 - skin color changes Ep - Etiology Primary As - superficial veins P - reflux General skin exam: dry skin Neuro General: oriented to person, oriented to place and oriented to time Extrem Right lower extremity: full ROM, normal capillary refill and edema Left lower extremity: full ROM, normal capillary refill and edema Psych Mental Status: mental status grossly normal Assessment & Plan Assessment & Plan (1) Varicose veins of right lower extremity with inflammation: Comment: 06/05/2024 - right leg microphlebectomy Code(s): I83.11 - Varicose veins of right lower extremity with inflammation Category: Medical Plan: Leg appears to be doing well from microphlebectomy. She does have some residual varicosities but they do not seem to be the issue at the current time. (2) Right knee pain: Code(s): M25.561 - Pain in right knee Category: Medical Qualifiers: Chronicity: chronic Qualified Code(s): M25.561 - Pain in right knee; G89.29 - Other chronic pain Plan: I do believe she has an element of chronic right knee pain. This appears to be more orthopedic in nature. She has been treated by pain management in the past for some cervical pain. I do believe that she has knee issues at the current time that may be better served with an orthopedic evaluation. I have placed a consult for evaluation and treatment. Once again her venous disease appears to be stable and will be seen with by us on an as-needed basis. Thank you for allowing us to assist in her care. Orders: Referrals Orthopedics Referral G89.29 - Other chronic pain, M25.561 - Pain in right knee Coding Level of Care Code Est Pt Level 4 (04375) Diagnoses Varicose veins of right lower extremity with inflammation I83.11 Chronic pain of right knee M25.561; G89.29 Chronicity: chronic
[2024-08-18 15:36] VITALS: BMI 38.0
--- OUTSIDE RECORDS SUMMARY | 2024-08-18 18:15 | XMS_ITS | Encounter Summary ---
Author Organization [employer] [facility] Address 75 [facility] 7[address] [place] [address] Care Team Providers Care Eight Section Blower Name Role Phone Name, Andrés RODRIGUEZ Primary Care Provider Reason for Visit * Reason Comments Med Refill Encounter Details Date Type Department Care Team (Late Contact Info) Description 08/28/2022 Refill [facility] MEDICINE [address] [place] [address] [phone] Name, MD Andrés [address] [place] [address] [phone] Cervical radicular pain Social History Tobacco Use [...] Encounters Date Type Department Care Team (Late Contact Info) Description 08/25/2024 2:30 PM EDT Office Visit [facility] MEDICINE [address] [place] [address] [phone] Name, MD Andrés David [facility] [place] [address] 09/01/2024 11:00 AM EDT Office Visit [facility] David [facility] [place] [address] documented as of this encounter Visit Diagnoses Diagnosis Cervical radicular pain documented in this encounter Additional Health Concerns Assessment Noted Time PHQ-9 Depression Total Score: 0 02/21/20 22 3:25 PM EST documented as of this encounter Care Teams Eight Section Blower Relationship Specialty Start Date End Date Name, MD [place] [address] PCP - General Family Medicine 04/08/15 documented as of this encounter
== END 2024-08-19 10:14 | disposition home or self-care (01) ==
LOC: HO.HVS 15:09
PROVIDERS: PCP Internal Medicine Geriatric Medicine; Visit Provider Surgery Vascular Surgery
DX: I83.11 Varicose veins of right lower extremity with inflammation (principal); M25.561 Pain in right knee; G89.29 Other chronic pain
CPT/HCPCS: 99214

== ENCOUNTER → 2024-08-18 15:08 | Outpatient (BNVA) | payer MEDICAID, SELFPAY | PROVIDERS: PCP Internal Medicine Geriatric Medicine; Visit Provider Surgery Vascular Surgery | DX: I83.11 Varicose veins of right lower extremity with inflammation (principal); M25.561 Pain in right knee; G89.29 Other chronic pain | CPT/HCPCS: 99212 ==

== ENCOUNTER 2024-08-25 16:28 | Outpatient (REF) | payer MEDICAID, SELFPAY ==
[2024-08-25 16:38] LABS: Appearance Urine Clear; Color Urine Yellow; Glucose Urine UA Negative (Negative); Leukocyte Esterase Urine Large (3+) (Negative); Nitrite Urine Negative (Negative); Specific Gravity - Urine 1.025 (1.005-1.025); UMIC TRIGGER UACC YES; Urine Blood Negative (Negative); Urine Ketones Trace mg/dL (Negative); Urine Protein Trace mg/dL (Neg-Trace)
[2024-08-25 16:40] LABS: Bacteria Urine None Seen (None Seen); Hyaline Casts Urine 0-2 /LPF (0-2); RBC Urine 0-2 /HPF (0-2); UACC Culture Trigger YES; WBC Urine >50 /HPF (0-5)
--- OUTSIDE RECORDS SUMMARY | 2024-08-25 18:36 | XMS_ITS | Encounter Summary ---
Author Organization [employer] Address 75 [facility] 7t [place] [address] Care Team Providers Care Repair Coil Winder Name Role Phone Name, Andrés RODRIGUEZ Primary Care Provider [phone] Encounter Details Date Type Department Care Team (Latest Contact Info) Description 08/25/2024 Travel Social History Tobacco Use Types Packs/Day [...] Answer Date Recorded Patient Health Questionnaire-9 Score 11 08/25/2024 Patient Health Questionnaire-9 Score 11 08/25/2024 Last PHQ-9: Questionnaire Data Not on file 0 08/25/2024 Housing Stability Answer Date Recorded What is your housing situation today? I have imtiaz lima 08/25/[address] you li ve. Do you have problems with any of the following? None of the above 08/25/2024 Food Insecurity Answer Date Recorded Within the past 12 months, y ou worried that your food would run out before you got money to buy more: Never True 08/25/2024 Within the past 12 months,th e food you bought just didn't last and you didn't have enough money to get more: Never True Transportation Answer Date Recorded In the past 12 months, has l ack of transportation kept you from medical appts, meetings, work or from getting things needed for daily living? No 08/25/2024 Utilities Answer Date Recorded In the past 12 months, has t he electric, gas, oil or water company threatened to shut off services in your home? No 08/25/2024 Depression Answer Date Recorded Patient Health Questionnaire-2 Score 5 08/25/2024 Comments No Sex and Gender Information Value Date Recorded Sex Assigned at Female 01/08/2022 10:29 AM EDT Legal Sex Female 10:29 AM EDT Gender Identity Female 01/08/2022 10:29 AM EDT Sexual Orientation Straight 01/08/2022 10 :29 AM EDT documented as of this encounter Functional Status * Over the past 2 weeks, how often have you been bothered by any of the following problems? Question Answer Date of Assessment Author Patient Health Questionnaire -2 Score 5 08/25/2024 2:48 PM EDT Suzanne Guerrier MA * Little interest or pleasure in doing things Answer Date of Assessment Author Nearly every day 08/25/2024 2:48 PM EDT Rosario Guerrier MA * Feeling down, depressed, or hopeless Answer Date of Assessment Author More than half the days 08/25/2024 2:48 PM EDT Rosario Fuentes MA * Trouble falling or staying asleep, or sleeping too much Answer Date of Assessment Author More than half the days 08/25/2024 2:48 PM EDT Rosario Fuentes MA * Feeling tired or having little energy Answer Date of Assessment Author Several days 08/25/2024 2:48 PM EDT Rosario Guerrier MA * Poor appetite or overeating Answer Date of Assessment Author Several days 08/25/2024 2:48 PM EDT Rosario Guerrier MA * Feeling bad about yourself - or that you are a failure or have let yourself or your family down Answer Date of Assessment Author Several days 08/25/2024 2:48 PM EDT Rosario Guerrier MA * Trouble concentrating on things, such as reading the newspaper or watching television Answer Date of Assessment Author Not at all 08/25/2024 2:48 PM EDT Rosario Guerrier MA * Moving or speaking so slowly that other people could have noticed? Or the opposite - being so fidgety or restless that you have been moving around a lot more than usual. Answer Date of Assessment Author Several days 08/25/2024 2:48 PM EDT Rosario Guerrier MA * Thoughts that you would be better off or hurting yourself in some way Answer Date of Assessment Author Not at all 08/25/2024 2:48 PM EDT Rosario Guerrier MA * Patient Health Questionnaire-9 Score Answer Date of Assessment Author 11 08/25/2024 2:48 PM EDT Rosario Guerrier MA * How difficult have these problems made it for you to do your work, take care of things at home, or get along with other people? Answer Date of Assessment Author Somewhat difficult 08/25/2024 2:48 PM EDT Rosario Shanks MA * Over the last 2 weeks, how often have you been bothered by any of the following problems? Question Answer Date of Assessment Author Feeling nervous, anxious, or on edge 1 08/25/2024 2:49 PM EDT Suzanne Guerrier MA Not being able to stop or control worrying 0 08/25/2024 2:49 PM JOHNT Suzanne Guerrier MA Worrying too much about different things 0 08/25/2024 2:49 PM JOHNT Suzanne Guerrier MA Trouble relaxing 0 08/25/2024 2:49 PM EDT Rosario Fuentes MA Being so restless that it is hard to sit still 0 08/25/2024 2:49 PM JOHNT Suzanne Guerrier MA Becoming easily annoyed or irritable 0 08/25/2024 2:49 PM JOHNT Suzanne Guerrier MA Feeling afraid as if somethi ng awful might happen 0 08/25/2024 2:49 PM JOHNT Suzanne Guerrier MA HEBER-7 Total Score 1 08/25/2024 2:49 PM JOHNT Rosario Guerrier MA documented as of this encounter Plan of Treatment Upcoming Encounters Date Type Department Care Team (Late st Contact Info) Description 09/01/2024 11:00 AM EDT Office Visit [facility] MEDICINE [address] [place] [phone] 12/02/2024 2:30 PM EDT Office Visit [facility] MEDICINE [address] [place] [phone] Name, MD Andrés [address] [place] [address] documented as of this encounter Visit Diagnoses Not on filedocumented in this encounter Additional Health Concerns Assessment Noted Time PHQ-9 Depression Total Score: 11 025 2:48 PM EDT documented as of this encounter Care Teams Repair Coil Winder Relationship Specialty Start Date End Date Name, MD Andrés [address] [place] [address] PCP - General Family Medicine 04/08/15 documented as of this encounter
== END 2024-08-25 16:29 | disposition home or self-care (01) ==
LOC: HO.HHCLNP 16:28
PROVIDERS: Visit Provider Internal Medicine Geriatric Medicine
DX: R30.0 Dysuria (principal)
CPT/HCPCS: 81001; 87086; 87088; 87186

== ENCOUNTER 2024-09-01 12:51 | Outpatient (REF) | payer MEDICAID, SELFPAY ==
--- OUTSIDE RECORDS SUMMARY | 2024-09-01 14:25 | XMS_ITS | Encounter Summary ---
Author Organization [facility] Address [address] [facility] [address] [place] [address] Care Team Providers Care Felt Carbonizer Name Role Phone Name, Andrés RODRIGUEZ Primary Care Provider [phone] Reason for Visit * Reason Comments Med Refill Encounter Details Date Type Department Care Team (Late Contact Info) Description 08/28/2022 Refill [facility] MEDICINE [address] [place] [address] [phone] Name, MD Andrés [address] [place] [address] [phone] Cervical radicular pain Social History Tobacco Use [...] Department Care Team (Late Contact Info) Description 09/29/2024 11:00 AM EDT Office Visit [facility] MEDICINE [address] [place] [address] [phone] 12/02/2024 2:30 PM EDT Office Visit [facility] MEDICINE 230 [place] [address] Name, MD Andrés 230 [place] [address] documented as of this encounter Visit Diagnoses Diagnosis Cervical radicular pain documented in this encounter Additional Health Concerns Assessment Noted Time PHQ-9 Depression Total Score: 0 02/21/20 3:25 PM EST documented as of this encounter Care Teams Felt Carbonizer Relationship Specialty Start Date End Date Name, MD Andrés 230 [place] [address] PCP - General Family Medicine 04/08/15 documented as of this encounter
== END 2024-09-01 12:52 | disposition home or self-care (01) ==
LOC: HO.HHCL 12:51
PROVIDERS: Visit Provider Registered Nurse
DX: Z79.891 Long term (current) use of opiate analgesic (principal)
CPT/HCPCS: 36415

== ENCOUNTER 2024-10-07 08:05 | Outpatient (REF) | payer MEDICAID, SELFPAY ==
--- OUTSIDE RECORDS SUMMARY | 2024-10-08 08:12 | XMS_ITS | Encounter Summary ---
Author Organization [employer] [facility] Address [address] [facility] [address] [place] [address] Care Team Providers Care Patient Transition Specialist Name Role Phone Name, Andrés RODRIGUEZ Primary Care Provider [phone] Reason for Visit * Reason Comments Med Refill Encounter Details Date Type Department Care Team (Late Contact Info) Description 08/28/2022 Refill [facility] MEDICINE [address] [place] [address] [phone] Name, MD Andrés [address] [place] [address] [phone] Cervical radicular pain Social History Tobacco Use [...] Department Care Team (Late Contact Info) Description 11/03/2024 11:00 AM EDT Office Visit [facility] MEDICINE [address] [place] [address] [phone] 11/03/2024 2:30 PM EDT Medication Management [facility] MEDICINE 230 [place] [address] Jhoana Pickering, PharmD 230 [place] [address] 11/25/2024 9:00 AM EDT Office Visit [facility] OPTOMETRY [address] [place] [address] Ovi, Sonali, OD 230 [place] [address] 12/02/2024 2:30 PM EDT Office Visit [facility] MEDICINE 230 [place] [address] NameAndrés MD 230 [place] [address] documented as of this encounter Visit Diagnoses Diagnosis Cervical radicular pain documented in this encounter Additional Health Concerns Assessment Noted Time PHQ-9 Depression Total Score: 0 02/21/20 22 3:25 PM EST documented as of this encounter Care Teams Patient Transition Specialist Relationship Specialty Start Date End Date NameAndrés MD [address] [place] [address] PCP - General Family Medicine 04/08/15 documented as of this encounter
== END 2024-10-07 08:06 | disposition home or self-care (01) ==
LOC: HO.HOSX 08:05
PROVIDERS: Visit Provider Physician Assistant
DX: Z13.89 Encounter for screening for other disorder (principal)

== ENCOUNTER 2024-11-03 13:24 | Outpatient (REF) | payer MEDICAID, SELFPAY ==
--- OUTSIDE RECORDS SUMMARY | 2024-11-03 11:00 | XMS_ITS | Encounter Summary ---
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 female w/ PMH HTN, DM2, obesity, esophageal reflux, cervical radiculopathy, who presents to the office for - Chronic Pain Clinic Group visits. Initial Group visit: 05/21/23 Session: Grief Chronic Pain History: Associated Diagnosis: cervical radicular pain, s/p multiple previous cervical spine surgeries ACDF Relevant Imagin02.07.23 XR/XR cervical spine 3V IMPRESSION: Postoperative cervical spine. Right acromioclavicular degenerative changes. Lateral epicondylar spurring, question calcific tendinopathy. Current pharm tx: Percocet 5/325 q8 hours prn, Tizanidne 4mg, Lidocaine patches. Medication: Statestaking medication as prescribed. Previous med trials: Lyrica 75mg TID Other substance use: Tobacco: no Marijuana: no Alcohol: no Illicit substances: no Review of Systems Constitutional: Negative. Respiratory: Negative. Cardiovascular: Negative. Musculoskeletal: Positive for neck pain. Physical Exam Constitutional: Appearance: Normal appearance. Pulmonary: Effort: Pulmonary effort is normal. Neurological: Mental Status: She is alert and oriented to person, place, and time. Psychiatric: Mood and Affect: Mood normal. Behavior: Behavior normal. 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 Overview Dx: Cervical radiculopathy due to degenerative joint disease of spine Rx: Percocet 5/325mg q 8hours Last CHAPERON agreement: 01/21/24 Tier II (visit every 3 months) Current Assessment & Plan Timeline: - 08/04/24: Group visit - utox/pill count as expected - 09/01/24: Group visit - pill count as expected, utox as expected on 09/02/24 - 11/03/24: Group visit - pill count as expected, utox abnormal --> confirmatory testing pending Relevant Orders Drug Monitoring, Methadone Metabolite, Screen, Urine POCT MERLENE-14 Urine Drug Screen (Completed) Neuro Cervical radiculopathy due to degenerative joint disease of spine - Primary Current Assessment & Plan -Good engagement and participation with Group Medical Visit model -Encouraged multifactorial approach to pain control including pharm and non- pharm modalities -Pill count as expected, utox NOT as expected. Confirmatory testing sent to lab. Follow up: 1-3 months for CHAPERON visit. Sooner as needed. * Heena Johnston RN - 11/03/2024 11:00 AM EDT .CHAPERON netezza developer: PDMP reviewed today. Last fill date: 10/06/24 (Percocet 5-325mg tid) count was (8), anticipated (0) to be remaining. .UTOX completed. Positive for (MTD, OXY, TCA), Negative for AMP, BAR, BUP, BZO, ANJUM, FTY, MDMA, MET, MOP, PCP, THC. UTOX not as expected. PCP notified. documented in this encounter Miscellaneous Notes * Assessment & Plan Note - CRISTINA Cantu - 11/03/2024 1:53 PM EDTAssociated Problem(s): penitentiary (current) use of opiate analgesic Timeline: - 08/04/24: Group visit - utox/pill count as expected - 09/01/24: Group visit - pill count as expected, utox as expected on 09/02/24 - 11/03/24: Group visit - pill count as expected, utox abnormal --> confirmatory testing pending * Assessment & Plan Note - CRISTINA Cantu - 11/03/2024 1:52 PM EDTAssociated Problem(s): Cervical radiculopathy due to degenerative joint disease of spine -Good engagement and participation with Group Medical Visit model -Encouraged multifactorial approach to pain control including pharm and non- pharm modalities -Pill count as expected, utox NOT as expected. Confirmatory testing sent to lab. documented in this encounter Plan of Treatment Upcoming Encounters Date Type Department Care Team (Late st Contact Info) Description 11/03/2024 2:30 PM EDT Medication Management [facility] MEDICINE [address] [place] [address] PuiaYrissa, PharmD 230 [place] [address] Arrived 11/25/2024 9:00 AM EDT Office Visit [facility] OPTOMETRY [address] [place] [address] Ovi, Sonali, OD 230 [place] [address] 12/02/2024 2:30 PM EDT Office Visit [facility] MEDICINE [address] [place] [phone] Name, MD Andrés 230 [place] [address] 01/05/2025 11:00 AM EDT Office Visit [facility] MEDICINE [address] [place] [phone] documented as of this encounter Procedures Procedure Name Priority Date/Time Associated Diagnosis Comments POCT MERLENE-14 URINE DRUG SCREEN Routine 11/03/2024 11:22 AM EDT penitentiary (current) use of opiate analgesic METHADONE SCREEN, URINE Routine 11/03/2024 11:00 AM EDT penitentiary (current) use of opiate analgesic documented in this encounter Results * (ABNORMAL) POCT MERLENE-14 Urine Drug Screen (11/03/2024 11:22 AM EDT) THC Negative Negative Cocaine Screen, Urine Negative Negative Opiate Screen, Urine Negative Negative Methamphetamine Screen Urine Negative Negative Amphetamine Screen, Urine Negative Negative Benzodiazepines Screen, Urine Negative Negative Barbiturate Screen, Urine Negative Negative Methadone Screen, Urine Positive(A) Negative Buprenophine Screen, Urine Negative Negative TCA, Urine Positive(A) Negative MDMA Urine Negative Negative ng/mL Oxycodone Screen, Urine Positive(A) Negative Phencyclidine (PCP), Urine Negative Negative Propoxyphene, Urine Negative Negative Fentanyl, Urine Negative Negative Urine Urine specimen obtained by clean catch procedure / Unknown 11/03/2024 11:22 AM EDT Narrative Heena Johnston RN - 11/03/2024 11:22 AM EDT .UTOX cup Lot#[id number] Exp. 12/15/25 Internal Pass Control Lala Mercado WINE CELLAR WORKER POINT OF CARE TEST ENTER/EDIT ORDERABLES Final Result * Drug Monitoring, Methadone Metabolite, Screen, Urine (11/03/2024 11:00 AM EDT) Methadone Screen, Urine Not Detected Not Detect ng/mL [facility] Comment:Methadone cut-off is 300 ng/mL.Positive results are unconfirmed and should not be used fornon-medical purposes. Urine (Urine, Random) 11/03/2024 11:00 AM EDT 11/03/2024 1:25 PM EDT us Andrés Lee MD LAB URINE ORDERABLES Final Resul t [facility] [address] [place] [address] [phone] documented in this encounter Visit Diagnoses Diagnosis Cervical radiculopathy due to degenerative joint disease of spine- Primary penitentiary (current) use of opiate analgesic documented in this encounter Additional Health Concerns Assessment Noted Time PHQ-9 Depression Total Score: 11 08/25/ 025 2:48 PM EDT documented as of this encounter Care Teams Car Icer Relationship Specialty Start Date End Date Name, MD Andrés [address] [place] [phone] PCP - General Family Medicine 04/08/15 documented as of this encounter
--- OUTSIDE RECORDS SUMMARY | 2024-11-03 14:17 | XMS_ITS | Encounter Summary ---
Author Organization [employer] Address [address] [facility] [address] [place] [address] Care Team Providers Care Marine Geologist Name Role Phone Name, Andrés RODRIGUEZ Primary Care Provider [phone] Reason for Visit * Reason Onset Date Comments Med Refill 02/18/2024 Encounter Details Date Type Department Care Team ([facility] st Contact Info) Description 02/18/2024 Telephone [facility] MEDICINE [address] [place], [place] [phone] Name, MD Andrés 230 [place] [address] Med Refill Social History Tobacco Use Types [...] 4 MG tablet To be sent to: [facility] [address] [facility] documented in this encounter Plan of Treatment Upcoming Encounters Date Type Department Care Team (Late st Contact Info) Description 11/03/2024 2:30 PM EDT Medication Management [facility] MEDICINE [address] [place], [place] [phone] Jhoana Pickering, Bladimir 230 [place], [place] [phone] Arrived 11/25/2024 9:00 AM EDT Office Visit [facility] OPTOMETRY [address] [place], [place] [phone] Sonali Dior, OD 230 [place] [address] 12/02/2024 2:30 PM EDT Office Visit [address] [address] Name, [place] [address] 01/05/2025 11:00 AM EDT Office Visit [address] [address] documented as of this encounter Visit Diagnoses Not on filedocumented in this encounter Additional Health Concerns Assessment Noted Time PHQ-9 Depression Total Score: 0 08/07/19 24 2:21 PM EDT documented as of this encounter Care Teams Marine Geologist Relationship Specialty Start Date End Date Name, MD [place] [address] PCP - General Family Medicine 04/08/15 documented as of this encounter
--- OUTSIDE RECORDS SUMMARY | 2024-11-03 14:17 | XMS_ITS | Encounter Summary ---
Author Organization [employer] [facility] Address [address] [facility] 7[address] [place] [address] Care Team Providers Care Bleach Supervisor Name Role Phone Name, Andrés RODRIGUEZ Primary Care Provider [phone] Reason for Visit * Reason Comments Med Refill Encounter Details Date Type Department Care Team (Late Contact Info) Description 08/28/2022 Refill [facility] MEDICINE [address] [place] [address] [phone] Name, MD Andrés [address] [place] [address] [phone] Cervical radicular pain Social History Tobacco Use [...] Description 11/03/2024 2:30 PM EDT Medication Management [facility] MEDICINE [address] [place] [address] [phone] Jhoana Pickering, PharmD 230 [place] [address] Arrived 11/25/2024 9:00 AM EDT Office Visit [facility] OPTOMETRY [address] [place] [address] Ovi Sonali, OD 230 [place] [address] 12/02/2024 2:30 PM EDT Office Visit [facility] MEDICINE 230 [place] [address] Name, MD Andrés 230 [place] [address] 01/05/2025 11:00 AM EDT Office Visit [facility] MEDICINE [address] [place] [address] documented as of this encounter Visit Diagnoses Diagnosis Cervical radicular pain documented in this encounter Additional Health Concerns Assessment Noted Time PHQ-9 Depression Total Score: 0 02/21/20 22 3:25 PM EST documented as of this encounter Care Teams Bleach Supervisor Relationship Specialty Start Date End Date Andrés Lee MD [address] [place] [address] PCP - General Family Medicine 04/08/15 documented as of this encounter
--- OUTSIDE RECORDS SUMMARY | 2024-11-03 14:17 | XMS_ITS | Encounter Summary ---
Author Organization [employer] Address [address] [facility] 7t [place] [address] Care Team Providers Care Lumber Material Handler Name Role Phone Name, Andrés RODRIGUEZ Primary Care Provider [phone] Encounter Details Date Type Department Care Team (Latest Contact Info) Description 11/03/2024 Travel Social History Tobacco Use Types Packs/Day [...] Description 11/03/2024 2:30 PM EDT Medication Management [facility] MEDICINE [address] [place] [address] Jhoana Pickering, PharmD 230 [place] [address] Arrived 11/25/2024 9:00 AM EDT Office Visit [facility] OPTOMETRY [address] [place] [address] Ovi, Sonali, OD 230 [place] [address] 12/02/2024 2:30 PM EDT Office Visit [facility] MEDICINE [address] [place] [address] Name, MD Andrés 230 [place] [address] 01/05/2025 11:00 AM EDT Office Visit [facility] MEDICINE [address] [place] [phone] documented as of this encounter Visit Diagnoses Not on filedocumented in this encounter Additional Health Concerns Assessment Noted Time PHQ-9 Depression Total Score: 11 025 2:48 PM EDT documented as of this encounter Care Teams Lumber Material Handler Relationship Specialty Start Date End Date NameAndrés MD [address] [place] [phone] PCP - General Family Medicine 04/08/15 documented as of this encounter
--- OUTSIDE RECORDS SUMMARY | 2024-11-03 14:17 | XMS_ITS | Encounter Summary ---
Author Organization [employer] Address 75 [facility] 7[place] [address] Care Team Providers Care Manipulative Therapy Specialist Name Role Phone Name, Andrés RODRIGUEZ Primary Care Provider [phone] Reason for Visit * Reason Onset Date Comments Med Refill 11/03/2024 Encounter Details Date Type Department Care Team ([facility] st Contact Info) Description 11/03/2024 Refill [facility] MED & PEDS [address] [place] [address] Heena Johnston, RN 505 [place] [address] Chronic neck pain Social History Tobacco Use [...] encounter Miscellaneous Notes * Telephone Encounter - Heena Johnston RN - 11/03/2024 11:23 AM EDT Justin. Edd pos. MTD. Sending It out to the lab for MTD confirmation. documented in this encounter Plan of Treatment Upcoming Encounters Date Type Department Care Team (Late st Contact Info) Description 11/03/2024 2:30 PM EDT Medication Management [facility] MEDICINE [address] [place] [address] Jhoana Pickering, PharmD 230 [place] [address] Arrived 11/25/2024 9:00 AM EDT Office Visit [facility] OPTOMETRY [address] [place] [address] Sonali Dior, OD 230 [place] [address] 12/02/2024 2:30 PM EDT Office Visit [facility] MEDICINE [address] [place] [phone] Name, MD Andrés 230 [place] [address] 01/05/2025 11:00 AM EDT Office Visit [facility] MEDICINE [address] [place] [address] documented as of this encounter Visit Diagnoses Diagnosis Chronic neck pain Cervicalgia documented in this encounter Additional Health Concerns Assessment Noted Time PHQ-9 Depression Total Score: 11 025 2:48 PM EDT documented as of this encounter Care Teams Manipulative Therapy Specialist Relationship Specialty Start Date End Date Name, MD Andrés 230 [place] [address] PCP - General Family Medicine 04/08/15 documented as of this encounter
--- OUTSIDE RECORDS SUMMARY | 2024-11-03 14:18 | XMS_ITS | Encounter Summary ---
Author Organization [employer] Address [address] [place] [address] [address] [address] Care Team Providers Care Surgical Attendant Name Role Phone Name, Andrés RODRIGUEZ Primary Care Provider [phone] Reason for Visit * Reason Onset Date Comments Appointment Request 03/23/2022 Encounter Details Date Type Department Care Team (Late st Contact Info) Description 03/23/2022 Telephone [facility] MEDICINE 230 [place], [place] [phone] Name, MD Andrés 230 [place] [address] Appointment Request Social History Tobacco Use Types [...] at 9:45 am Please contact pt at [phone] documented in this encounter Plan of Treatment Upcoming Encounters Date Type Department Care Team (Late st Contact Info) Description 11/03/2024 2:30 PM EDT Medication Management [facility] MEDICINE [address] [place] [address] Jhoana Pickering, PharmD 230 [place] [address] Arrived 11/25/2024 9:00 AM EDT Office Visit [facility] OPTOMETRY [address] [place] [address] OviTom poen, OD 230 [place] [address] 12/02/2024 2:30 PM EDT Office Visit [facility] MEDICINE [address] [place] [address] Name, MD Andrés [address] [place] [address] 01/05/2025 11:00 AM EDT Office Visit [facility] MEDICINE [address] [place] [address] documented as of this encounter Visit Diagnoses Not on filedocumented in this encounter Additional Health Concerns Assessment Noted Time PHQ-9 Depression Total Score: 0 02/21/20 22 3:25 PM EST documented as of this encounter Care Teams Surgical Attendant Relationship Specialty Start Date End Date Andrés Lee MD [address] [place] [address] PCP - General Family Medicine 04/08/15 documented as of this encounter
--- OUTSIDE RECORDS SUMMARY | 2024-11-03 14:18 | XMS_ITS | Encounter Summary ---
Author Organization [employer] Address [address] [facility] [address] [address] Care Team Providers Care Tennis Ball Coverer Hand Name Role Phone Name, Andrés RODRIGUEZ Primary Care Provider [phone] Reason for Visit * Reason Onset Date Comments Med Refill 09/24/2023 Encounter Details Date Type Department Care Team ([facility] st Contact Info) Description 09/24/2023 Telephone [facility] MEDICINE [address] [place] [address] Name, MD Andrés 230 [place], [place] [phone] Med Refill Social History Tobacco Use Types [...] MG EC tablet To be sent to: [facility] [address] [facility] documented in this encounter Plan of Treatment Upcoming Encounters Date Type Department Care Team (Late st Contact Info) Description 11/03/2024 2:30 PM EDT Medication Management [facility] MEDICINE [address] [place] [address] Jhoana Pickering, PharmD [address] [place] [address] Arrived 11/25/2024 9:00 AM EDT Office Visit [facility] OPTOMETRY [address] [place] [address] Sonali Dior, OD [address] [place] [address] 12/02/2024 2:30 PM EDT Office Visit [facility] MEDICINE [address] [place] [address] Name, MD Andrés [facility] [address] 01/05/2025 11:00 AM EDT Office Visit [facility] MED[facility] [place] [address] documented as of this encounter Visit Diagnoses Not on filedocumented in this encounter Additional Health Concerns Assessment Noted Time PHQ-9 Depression Total Score: 0 08/07/19 24 2:21 PM EDT documented as of this encounter Care Teams Tennis Ball Coverer Hand Relationship Specialty Start Date End Date Name, MD Andrés [facility] [place] [address] PCP - General Family Medicine 04/08/15 documented as of this encounter
--- OUTSIDE RECORDS SUMMARY | 2024-11-03 14:18 | XMS_ITS | Encounter Summary ---
Author Organization [employer] Address 75 [facility] [address] [address] Care Team Providers Care Residential Door Unit Installer Name Role Phone Name, Andrés RODRIGUEZ Primary Care Provider [phone] Reason for Visit * Reason Onset Date Comments PA 05/14/2024 Encounter Details Date Type Department Care Team ([facility] st Contact Info) Description 05/14/2024 Telephone [facility] MEDICINE [address] [place], [place] [phone] Name, MD Andrés 230 [place], [place] [phone] PA Social History Tobacco Use Types Packs/Day [...] me about the Lyrica and I called [facility]. They said no need for a PA, and that they would have it filled on 05/19/24 for her to order picker/assembler. I advised Ms. Ceja to let us know if she has any further difficulty picking up the med. Sending as FYI to PA team as no further action required at this time. * Telephone Encounter - Dale Khan - 05/14/2024 11:22 AM EST TC from pt requesting Pa for Medication pregabalin (Lyrica) 50 MG capsule. Contact pt at [phone] documented in this encounter Plan of Treatment Upcoming Encounters Date Type Department Care Team (Late st Contact Info) Description 11/03/2024 2:30 PM EDT Medication Management [facility] MEDICINE [address] [place] [address] Jhoana Pickering, PharmD [address] [place] [address] Arrived 11/25/2024 9:00 AM EDT Office Visit [facility] OPTOMETRY [address] [place] [address] Ovi, Sonali, OD 230 [place] [address] 12/02/2024 2:30 PM EDT Office Visit [facility] MEDICINE [address] [place] [address] Name, MD Andrés [address] [place] [address] 01/05/2025 11:00 AM EDT Office Visit [facility] MEDICINE [address] [place] [address] documented as of this encounter Visit Diagnoses Not on filedocumented in this encounter Additional Health Concerns Assessment Noted Time PHQ-9 Depression Total Score: 0 08/07/19 24 2:21 PM EDT documented as of this encounter Care Teams Residential Door Unit Installer Relationship Specialty Start Date End Date NameAndrés MD [address] [place] [address] PCP - General Family Medicine 04/08/15 documented as of this encounter
--- OUTSIDE RECORDS SUMMARY | 2024-11-03 14:18 | XMS_ITS | Clinical Summary ---
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 acetaminophen (Tylenol 8 Hour) 650 MG ER tablet Take 1 tablet by mouth in the morning and 1 tablet at noon and 1 tablet in the evening. 03/23/19 21 Active erythromycin (Romycin) 5 MG/GM ophthalmic ointment Apply to affected eye(s) every 12 (twelve) hours. 12/02/19 22 Active Multiple Vitamins-Mineral s (Alive Wom[employer]) tablet Take 1 tablet by mouth Once per day. 02/10/20 16 Active oxybutynin (Ditropan) 5 MG tablet Take [...] 24 Active omeprazole (PriLOSEC) [address] capsuleIndcecilytio ns:Essential hypertension TAKE 1 CAPSULE (40 MG) BY MOUTH BEFORE BREAKFAST. 90 capsule 1 09/18/19 24 Active fexofenadine (Grace) 180 MG tablet TAKE 1 TABLET BY MOUTH ONCE DAILY 90 tablet 1 10/29/19 24 Active Diclofenac Sodium 1 % gel APPLY THIN LAYER BY TOPICAL ROUTE (QUANTITY DIRECTED ON PACKAGE INSERT) TO AFFECTED AREA OF PAIN 3 TIMES DAILY NEEDED. 100 g 2 02/18/20 Active atorvastatin (Lipitor) 40 MG tablet Take 1 tablet (40 mg) by mouth Once per day. 90 tablet 3 04/08/19 25 2025 Active lidocaine (Lidoderm) 5 % patchIndications :Chronic neck pain APPLY 1 PATCH TOPICALLY IN THE MORNING. REMOVE & DISCARD PATCH WITHIN 12 HOURS OR DIRECTED BY . 30 patch 2 06/13/19 Active Diclofenac Sodium 1 % gelIndications:C ervical radiculopathy due to degenerative joint disease of spine Apply thin layer by topical route (quantity as directed on package insert) to affected area of pain 3 times daily as needed. 50 g 3 09/02/19 Active lidocaine (Xylocaine) 5 % ointmentIndicati ons:Cervical radiculopathy due to degenerative joint disease of spine Apply topically if needed in the morning, at noon, and at bedtime (pain). 30 g 3 09/02/19 25 2025 Active capsaicin (Capzasin-HP) 0.1 % creamIndications :Cervical radiculopathy due to degenerative joint disease of spine Apply thin layer by topical route up to 4 times daily for pain. 45 g 09/02/19 Active insulin glargine (Lantus) 100 UNIT/ML pen Inject 10 Units under the skin at bedtime. 3 mL 09/08/19 25 2025 Active insulin pen needle (BD Pen Needle Lashaun Ultrafine) 32G x 4 mm [facility] Use as instructed 100 each 09/08/19 25 2025 Active Continuous Glucose Vegetable Tester (FreeStyle Kobe 3 Palmetto) device 1 each Once per day. Use as directed for CGM 1 each 09/08/19 Active Continuous Glucose Sensor (FreeStyle Kobe 3 Plus Sensor) misc 1 each every 15 days. Apply 1 every 15 days as directed for CGM 2 each 09/08/19 Active glucose blood (FreeStyle Precision Nima Test) test strip Use to test blood sugar 3 times daily in case of CGM failure or extremes of BG 100 each 09/08/19 25 2025 Active metFORMIN (Glucophage) 850 MG tabletIndication s:Type 2 diabetes mellitus without complication, without long-term current use of insulin ([facility]) TAKE 1 TABLET BY MOUTH WITH BREAKFAST AND EVENING MEAL 180 tablet 3 09/08/19 25 Active lisinopril 10 MG tabletIndication s:Essential hypertension Take 1 tablet by mouth every day 90 tablet 1 09/09/19 25 Active tiZANidine (Zanaflex) 4 MG tabletIndication s:Type 2 diabetes mellitus without complication, without long-term current use of insulin ([facility]) TAKE 1 TABLET BY MOUTH EVERY 6 TO 8 HOURS NEEDED NOT TO EXCEED 3 DOSES IN 24 HOURS 30 tablet 10/24/19 25 Active sertraline (Zoloft) 50 MG tabletIndication s:Depressive disorder TAKE 1 TABLET BY MOUTH EVERY DAY 30 tablet 2 10/24/19 25 Active oxyCODONE-acetam inophen (Percocet) 5-325 MG tabletIndication s:Chronic neck pain Take 1 tablet by mouth every 8 (eight) hours if needed for severe pain for up to 28 days. 84 tablet 11/04/19 25 2024 Active naloxone (Narcan) 4 mg/0.1 mL nasal spray Administer 1 spray (4 mg) into affected nostril(s) if needed for opioid reversal. 2 each 1 11/04/19 25 Active naloxone (Narcan) 4 mg/0.1 mL nasal spray Administer 0.1 mL into affected nostril(s). 05/23/19 22 2024 Discontinued(R eorder (will not trigger notification to Pharmacy)) sertraline (Zoloft) 50 MG tabletIndication s:Depressive disorder TAKE 1 TABLET BY MOUTH EVERY DAY 30 tablet 2 07/10/19 25 2024 Discontinued(R eorder (will not trigger notification to Pharmacy)) oxyCODONE-acetam inophen (Percocet) 5-325 MG tabletIndication s:Chronic neck pain Take 1 tablet by mouth every 8 (eight) hours if needed for severe pain for up to 28 days. Do not start before September 04, 2024. 84 tablet 09/05/19 25 2024 Discontinued(R eorder (will not trigger notification to Pharmacy)) tiZANidine (Zanaflex) 4 MG tabletIndication s:Type 2 diabetes mellitus without complication, without long-term current use of insulin ([facility]) TAKE 1 TABLET BY MOUTH EVERY 6 TO 8 HOURS NEEDED NOT TO EXCEED 3 DOSES IN 24 HOURS 30 tablet 09/30/19 25 2024 Discontinued(R eorder (will not trigger notification to Pharmacy)) oxyCODONE-acetam inophen (Percocet) 5-325 MG tabletIndication s:Chronic neck pain Take 1 tablet by mouth every 8 (eight) hours if needed for severe pain for up to 28 days. Do not start before October 06, 2024. 84 tablet 10/07/19 25 2024 Discontinued(R eorder (will not trigger notification to Pharmacy)) Active Problems Problem Noted Date Diagnosed Date residential (current) use of opiate analgesic 01/09 Overview (03/23/2024): Dx: Cervical radiculopathy due to degenerative joint disease of spine Rx: Percocet 5/325mg q 8hours Last WICK TENDER agreement: 01/21/24 Tier II (visit every 3 months) Assessment & Plan (11/03/2024 1:53 PM EDT): Timeline: - 08/04/24: Group visit - utox/pill count as expected - 09/01/24: Group visit - pill count as expected, utox as expected on 09/02/24 - 11/03/24: Group visit - pill count as expected, utox abnormal --> confirmatory testing pending Assessment & Plan (09/01/2024 6:56 PM EDT): Timeline: - 08/04/24: Group visit - utox/pill count as expected - 09/01/24: Group visit - pill count as expected, utox pos BZO, confirmatory lab sent Assessment & Plan (08/04/2024 5:35 PM EDT): Timeline: - 08/04/24: Group visit - utox/pill count as expected Assessment & Plan (01/21/2024 12:26 PM EST): [...] disease of spine 10/29/2017 Assessment & Plan (11/03/2024 1:52 PM EDT): -Good engagement and participation with Group Medical Visit model -Encouraged multifactorial approach to pain control including pharm and non- pharm modalities -Pill count as expected, utox NOT as expected. Confirmatory testing sent to lab. Assessment & Plan (09/01/2024 6:55 PM EDT): -Good engagement and participation with Group Medical Visit model -Encouraged multifactorial approach to pain control including pharm and non- pharm modalities -Pill count as expected, utox positive BZO. Confirmatory testing sent to lab. Assessment & Plan (08/04/2024 5:34 PM EDT): -Good engagement and participation with Group Medical Visit model -Encouraged multifactorial approach to pain control including pharm and non- pharm modalities -Pill count/utox as expected Assessment & Plan (05/21/2024 11:44 AM EDT): [...] 11/18/2009 Recurrent urinary tract infection 01/28/2009 Encounters * This document contains information received from the source organization and may not represent a complete record from that organization. Date Type Department Care Team Description 11/03/2024 11:00 AM EDT Office Visit [facility] [address] [place] [phone] Lala Mercado FNP Cervical radiculopathy due to degenerative joint disease of spine (Primary Dx); residential (current) use of opiate analgesic 11/03/2024 Refill [facility] [address] [place] [address] Heena Johnston RN Chronic neck pain 11/03/2024 Travel 10/23/2024 Refill [facility] [address] [place] [phone] Andrés Lee MD Type 2 diabetes mellitus without complication, without long-term current use of insulin ([facility]); Depressive disorder 10/05/2024 Refill [facility] [address] [place] [phone] Andrés Lee MD Chronic neck pain 09/28/2024 Telephone [facility] [address] [place] [phone] Andrés Lee MD Appointment Request 09/28/2024 Refill [facility] [address] [place] [address] Andrés Lee MD Type 2 diabetes mellitus without complication, without long-term current use of insulin ([facility]) 09/08/2024 Refill [facility] [address] [place] [address] Andrés Lee MD Type 2 diabetes mellitus without complication, without long-term current use of insulin (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) (Primary Dx); Type 2 diabetes mellitus without complication, without long-term current use of insulin ([facility]) 09/07/2024 Travel 09/03/[address] [address] Andrés Lee MD Nurse Triage 09/02/2024 11:00 AM EDT Clinical Support [address] [address] Mone Parkinson, RN residential (current) use of opiate analgesic (Primary Dx) 09/02/[address] [address] Mone Parkinson, RN UTOX WNL today 09/02/[address] [address] Andrés Lee MD Chronic neck pain 09/02/2024 Travel 09/01/2024 11:00 AM EDT Office Visit [address] [address] Lala Mercado FNP Cervical radiculopathy due to degenerative joint disease of spine (Primary Dx); supervisor 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 (current) use of opiate analgesic 09/01/[address] [phone] Mone Parkinson, RN UTOX was Pos BZO today 09/01/[address] [phone] Lala Mercado, LUMP INSPECTOR Test cancelled 09/01/2024 Orders Only [address] [place] [address] [facility] 09/01/2024 Travel 08/27/2024 Results Follow-Up [address] [address] Andrés Lee MD Culture, Urine, Routine 08/25/2024 2:30 PM EDT Office Visit [address] [address] Andrés Lee MD Type 2 diabetes mellitus with hyperglycemia, without long-term current use of insulin (CMS/HCC) (Primary Dx); Recurrent urinary tract infection; Dysuria; Screening for cervical cancer; Chronic neck pain 08/25/2024 Orders Only [address] [address] Andrés Lee MD 08/25/2024 Travel 08/24/[address] [address] Andrés Lee MD Chart Prep 08/17/2024 Telephone [facility] [address] [place], [place] [phone] Heena Johnston RN 08/11/[address] [address] Anrdés Lee MD Type 2 diabetes mellitus without complication, without long-term current use of insulin (CMS/HCC) 08/04/2024 11:00 AM EDT Office Visit [address] [address] Lala Mercado, LUMP INSPECTOR Cervical radiculopathy due to degenerative joint disease of spine (Primary Dx); supervisor 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 (current) use of opiate analgesic 08/04/[address] [address] Mone Parkinson, child protective services social worker neck pain 08/04/2024 Travel from Last 3 Months Immunizations Immunization Administration Dates Next Due Hep A / [...] Sign Reading Time Taken Comments Blood Pressure 130/74 09/07/2024 10:33 AM EDT Pulse 81 09/07/2024 10:33 AM EDT Temperature 36.1 C (97 F) 09/07/2024 10:33 AM EDT Respiratory Rate 12 09/07/2024 10:33 AM EDT Oxygen Saturation 98% 09/07/2024 10:33 AM EDT Inhaled Oxygen Concentration - - Weight 89.8 kg (198 lb) 09/07/2024 10:33 AM EDT Height 157.5 cm (5' 2 ) 09/07/2024 10:33 AM EDT Body Mass Index 36.21 09/07/2024 10:33 AM EDT Plan of Treatment Upcoming Encounters Date Type Department Care Team (Late st Contact Info) Description 11/03/2024 2:30 PM EDT Medication Management [facility] [address] [place] [address] Jhoana Pickering, PharmD [address] [place] [address] Arrived 11/25/2024 9:00 AM EDT Office Visit [facility] [address] [place] [address] Ovi, Sonali, OD [address] [place] [address] 12/02/2024 2:30 PM EDT Office Visit [facility] [address] [place] [address] Name, MD Andrés [address] [place] [address] 01/05/2025 11:00 AM EDT Office Visit [facility] [address] [place] [address] Health Maintenance Due Date Last Done Comments CT Colonography 1967 FIT DNA/Cologuard 1967 FIT 1967 FOBT 1965 HIV Screening 1965 Sigmoidoscopy 1967 Alcohol/Substance Use Screening 1979 COVID-19 Vaccine ( season) 2023 12/21/2021, 07/28/2021, 03/07/2021, Additional history exists Cervical Cancer Screening 11/20/2023 HPV/Cotest 11/20/2023 11/19/2022, 0911/2019, 09/20/2016 Pap Smear 11/20/2023 11/19/2022, 03/11, 11/18/2019, Additional history exists Diabetes: Foot Exam 01/22/2024 01/21/2023, 01/21/2023, 01/21/2023, Additional history exists SDOH Screening 04/09/2024 04/09/2023 Influenza Vaccine (#1) 2024 , 01/21/2023, 01/02/2022, Additional history exists Diabetes: Hemoglobin A1C 11/25/2024 025, 2024, 10/29/2023, Additional history exists Mammogram 12/31/2024 01/01/2024, 07/2022, 12/13/2022, Additional history exists Colonoscopy 02/19/2025 02/20/2024, 10/10/2023 Colorectal Cancer Screening 02/19/2025 Depression Monitoring 02/24/2025 08/25/2024, 025 Diabetes: Urine Protein Screening 05/19/2025 05/19/2024, 04/17/2023, 04/11/2022, Additional history exists Lipid Panel 05/19/2025 05/19/2024, 09/2023, 04/11/2022, Additional history exists Disability Screening 08/25/2025 08/25/2024 Tobacco Screening 09/07/2025 09/07/2024 Eye Exam 11/19/2025 11/20/2023, 07/10, 08/02/2023, Additional [...] Completed 10/17/2023, 05/17/2023, 04/16/2023, Additional history exists Pneumococcal Vaccine: 50+ Years Completed 2024, 02/17/2015, 04/14/2006 HIB Vaccines Aged Out No longer eligi ble based on patient's age to complete this topic HPV Vaccines Aged Out No longer eligi ble based on patient's age to complete this topic IPV Vaccines Aged Out No longer eligi ble based on patient's age to complete this topic Meningococcal B Vaccine Aged Out No l onger eligible based on patient's age to complete [...] DRUG SCREEN Routine 11/03/2024 11:22 AM EDT residential (current) use of opiate analgesic METHADONE SCREEN, URINE Routine 11/03/2024 11:00 AM EDT supervisor 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 (current) use of opiate analgesic POCT MERLENE-14 URINE DRUG SCREEN Routine 09/02/2024 11:04 AM EDT residential (current) use of opiate analgesic POCT MERLENE-14 URINE DRUG SCREEN Routine 09/01/2024 2:27 PM EDT Cervical radiculopathy due to degenerative joint disease of spine supervisor 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 (current) use of opiate analgesic CANCELLED CHEMISTRY Routine 09/01/2024 1 2:00 AM EDT POCT URINALYSIS DIPSTICK Routine 08/25/2024 2:29 PM EDT Dysuria POCT GLYCATED HEMOGLOBIN, TOTAL Routine 08/25/2024 2:18 PM EDT Type 2 diabetes mellitus with hyperglycemia, without long-term current use of insulin ([facility]) POCT GLUCOSE Routine 08/25/2024 2:17 PM EDT Type 2 diabetes mellitus with hyperglycemia, without long-term current use of insulin ([facility]) URINALYSIS, COMPLETE, WITH REFLEX TO CULTURE Routine 08/25/2024 12:00 AM EDT Dysuria CULTURE, URINE, ROUTINE Routine 08/25/2024 12:00 AM EDT POCT MERLENE-14 URINE DRUG SCREEN Routine 08/04/2024 11:46 AM EDT supervisor 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 (current) use of opiate analgesic ALBUMIN, RANDOM URINE W/CREATININE Routine 05/19/2024 9:10 AM EDT Type 2 diabetes mellitus without complication, without long-term current use of insulin (CMS/HCC) LIPID PANEL, STANDARD Routine 05/19/2024 9:10 AM EDT Type 2 diabetes mellitus without complication, without long-term current use of insulin (CMS/HCC) HM COLONOSCOPY Routine 02/20/2024 9:55 AM EST [...] to Health Maintenance Results * (ABNORMAL) POCT MERLENE-14 Urine Drug Screen (11/03/2024 11:22 AM EDT) Only the most recent of4 resultswithin the time period is included. THC Negative Negative Cocaine Screen, Urine Negative [...] - 11/03/2024 11:22 AM EDT .UTOX cup Lot#[id number] Exp. 12/15/25 Internal Pass Control Lala Mercado [facility] POINT OF CARE TEST ENTER/EDIT ORDERABLES Final Result * Drug Monitoring, Methadone Metabolite, Screen, Urine (11/03/2024 11:00 AM EDT) Pathologist [facility] Methadone Screen, Urine Not Detected Not Detect ng/mL [facility] Comment:Methadone cut-off is 300 ng/mL.Positive results are unconfirmed and should not be used fornon-medical purposes. Urine (Urine, Random) 11/03/2024 11:00 AM EDT 11/03/2024 1:25 PM EDT Andrés Lee MD LAB URINE ORDERABLES Final Resul t Performing Organization Address City/[facility]/ZIP Co de Phone Number [facility] [address] [place] [phone] * Cancelled Chemistry (09/01/2024 12:00 AM EDT) [facility] Cancelled Chemistry SEE NOTE [facility] Comment:THE FOLLOWING TESTS WERE CANCELLED: BENZODIAZEPINES, URREASON: SPECIMEN RECEIVED WITHOUT COMPLETE LABEL 09/01/2024 09/01/2024 12: 59 PM EDT [facility] HISTORICAL/NON ORDERABLE LABS Final Result Performing Organization Address [facility] Co de Phone Number [facility] [address] [place] [phone] * (ABNORMAL) POCT Urinalysis (08/25/2024 2:29 PM EDT) Color, UA Yellow Clarity, UA Clear Glucose, UA Negative Bilirubin, UA Negative Ketones, UA Negative Spec Grav, UA 1.025 Blood, UA Negative Negative, None Detected pH, UA 6.0 Protein, UA Many Comment:30mg/dL Urobilinogen, UA 0.2 Leukocytes, UA Many(A) Negative, Rare, Trace Comment:small Nitrite, UA Negative Negative, None Detected Appearance, UA yellow QC Media Lot # [id number] Lot# Expiration Date Urine 08/25/2024 2:29 PM EDT us Andrés Lee MD POINT OF CARE TEST ENTER/EDIT OR DERABLES Final Result * (ABNORMAL) POCT HGB A1C (08/25/2024 2:18 PM EDT) Hemoglobin A1C 9.6(A) 4.0 - 6.0 % QC Media Lot # [id number] Lot# Expiration Date Blood 08/25/2024 2:18 PM EDT us Andrés Lee MD POINT OF CARE TEST ENTER/EDIT OR DERABLES Final Result * (ABNORMAL) POCT Glucose (08/25/2024 2:17 PM EDT) Glucose Blood, POC 261(A) 60 - 200 mg/dL QC Media Lot # [id number] Lot# Expiration Date Blood Capillary blood specimen / Unknown 08/25/2024 2:17 PM EDT us Andrés Lee MD POINT OF CARE TEST ENTER/EDIT OR DERABLES Final Result * (ABNORMAL) Urinalysis, Complete, with Reflex to Culture (08/25/2024 12:00 AM EDT) Color Urine Yellow [facility] Appearance Urine Clear [facility] PH 6.0 5.0 - 9.0 [facility] Glucose Urine UA Negative Negative mg/dL [facility] Urine Blood Negative Negative [facility] Specific [place] - Urine 1.025 1.005 - 1.025 [facility] Urine Protein Trace Neg-Trace mg/dL [facility] Urine Ketones Trace Negative mg/dL [facility] Nitrite Urine Negative Negative [facility] Leukocyte Esterase Urine Large (3+)(A) Negative [facility] RBC Urine 0-2 0 - 2 /HPF [facility] Urine WBC >50(A) 0 - 5 /HPF [facility] Urine Squamous Epithelial Cell 3-5 0 - 2 /HPF [facility] Urine Bacteria None Seen None Seen [facility] Hyaline Casts, Urine 0-2 0 - 2 /LPF [facility] Urine 08/25/2024 08/25/2024 Narrative [facility] - 08/25/2024 4:45 PM EDT Urine, Clean Catch Andrés Lee MD LAB URINE ORDERABLES Final Resul t Performing Organization Address [facility] de Phone Number [facility] [address] [place] [phone] * Culture, Urine, Routine (08/25/2024 12:00 AM EDT) Urine Urine specimen obtained by clean catch procedure / Unknown 08/25/2024 08/25/2024 Comment:[facility] - 08/27/2024 8:03 AM EDT Proteus mirabilis Quant 50,000 to 100,000 cfu/mL Proteus mirabilis: Ampicillin <=2(S) Proteus mirabilis: Cefazolin (Urine) 4(S) Proteus mirabilis: Cefepime 0.25(S) Proteus mirabilis: Ceftriaxone <=0.25(S) Proteus mirabilis: Ciprofloxacin <=0.06(S) Proteus mirabilis: Gentamicin <=1(S) Proteus mirabilis: Nitrofurantoin 64(R) Proteus mirabilis: Trimethoprim/Sulfamethoxazole <=20(S) Specimen Source: Urine clean catch us Andrés AGUILERA MICROBIOLOGY - GENERAL ORDER TANJA Final Result Performing Organization Address [facility] de Phone Number [facility] [address] [place] [phone] * Albumin, Random Urine W/Creatinine (05/19/2024 9:10 AM EDT) Creatinine, Urine 188.03 mg/dL [facility] Microalbumin Urine 32.0 mg/L [facility] Microalbum Creatinine Ratio Ur 17.0 <30 ug/mg cr [facility] Comment:Albumin/Creatinine R atio Reference Ranges: Normal: < 30 ug/mg creatinine Microalbuminuria: 30 - 300 ug/mg creatinineClinical Albuminuria: > 300 ug/mg creatinine Urine (Urine, Random) 05/19/2024 9:10 AM EDT 05/19/2024 11:34 AM EDT us Andrés Name LAB URINE ORDERABLES Final Resul t [facility] [address] [place] [phone] [phone] * (ABNORMAL) Lipid Panel, Standard (05/19/2024 9:10 AM EDT) Triglycerides 129 <150 mg/dL [facility] Comment:Desirable Triglyceri de: less than 150 mg/dLBorderline High Triglyceride 150-199 mg/dLHigh Triglyceride: 200-499 mg/dLVery High Triglyceride: greater than or equal to 5OO mg/dL Cholesterol 122 <200 mg/dL [facility] Comment:Desirable Cholestero l: less than 200 mg/dLBorderline High Cholesterol: 200-239 mg/dLHigh Cholesterol: greater than 239 mg/dL LDL Cholesterol Calculated 60 <100 mg/dL [facility] Comment:Desirable LDL: less than 100 mg/dLNear Optimal/Above Optimal LDL: 110- 129 mg/dLBorderline High LDL: 130-159 mg/dLHigh LDL: 160-189 mg/dLVery High LDL: greater than or equal to 190 mg/dL HDL Cholesterol 37(L) >40 mg/dL [facility] Comment:Desirable HDL: great er than 40 mg/dL Note: This HDL assay may give artificially low results in patients with liver disease. Blood Venous blood specimen / Unknown 05/19/2024 9:10 AM EDT 05/19/2024 11:29 AM EDT us Andrés Lee MD LAB BLOOD ORDERABLES Final Resul t [facility] [address] [place] [phone] * (ABNORMAL) Hm Colonoscopy (02/20/2024 9:55 AM EST) Colonoscopy Abnormal(A ) Normal 02/20/2024 9:55 AM EST Andrés Lee MD HEALTH MAINTENANCE Final Result * BI Mammogram Screening Tomosynthesis Bilateral (01/01/2024 3:45 PM EDT) Anatomical Region Laterality Modality Breast Bilateral Mammography 01/01/2024 3:45 PM EDT Narrative 01/13/2024 4:19 PM EST [address] [place] [address] Mammography Report Signed Patient: Rafi Ceja MR#: [id number] : 1965 Acct:[id number] Age/Sex: 58 / F ADM Date: 01/01/24 Loc: HO.MAMMO Attending Dr: Andrés Lee MD Ordering Physician: Andrés Lee MD Results: 1Negative Date of Service: 01/01/24 Follow Up: 1 Year From [facility] Mammogram Procedure(s): MM tomosynthesis screening BI Accession Number(s): [id number] cc: Andrés Lee MD EXAMINATION: MM SCREENING [...] 01/13/24 1615 DD/ 1545 TD/TT: 01/01/24 1600 Knitter Operator: Procedure Note Donotuseinterpreter, Image - 01/13/2024 [facility] [address] [place] [address] Mammography Report Signed Patient: [place] Ceja#: [id number] : 1965Acct:[id number] Age/Sex: 58 / FADM Date: 01/01/24 Loc: [facility].MAMMO Attending Dr: Andrés Lee MD Ordering Physician: Andrés Leeesults: 1Negative Date of Service: 01/01/24Follow Up: 1 Year From Orig inal Mammogram Procedure(s): MM tomosynthesis screening BI Accession Number(s): [id number] cc: Andrés Lee MD EXAMINATION: MM SCREENING [...] 01/13/24 1615 DD/ 1545 TD/TT: 01/01/24 1600 Knitter Operator: us Andrés Lee MD IMG BI PROCEDURES Edited Result - Final * Referral to Ophthalmology (11/20/2023) us Andrés Lee MD OUTPATIENT REFERRAL ORDERABLES F inal Result * Hepatitis C Ab (04/17/2023 9:41 AM EST) Hepatitis C Antibody Nonreactive Nonreactive [facility] Comment:Antibodies to HCV no t detected; does not exclude early acuteHCV infection. Blood Venous blood specimen / Unknown 04/17/2023 9:41 AM EST 04/17/2023 11:46 AM EST us Andrés Lee MD LAB BLOOD ORDERABLES Final Resul t [facility] [address] [place] [phone] * HPV mRNA E6/E7 w/Reflex to HPV Genotypes 16, 18/45 (11/19/2022 10:39 AM EDT) HPV nRNA E6/E7 Not Detected Not Detected [facility] Comment:Methodology: Transcr iption-Mediated AmplificationThis assay detects E6/E7 viral messenger RNA (mRNA) from 14high-risk HPV types (16,18,31,33,35,39,45,51,52,56,58,59,66,68).Cervical sources are required for HPV testing.If a vaginal source from a patient who has had atotal hysterectomy with removal of cervix wassubmitted, please contact the testing laboratoryfor alternative testing options.For additional information, please refer [email or web address]/faq/CFD222d0(This link if provided for information/educational purposes only.)THIS TEST WAS PERFORMED AT:[facility] [place] [phone] ANDREWS MD HPV mRNA E6/E7 TNP [facility] HPV 16 RNA TNP [facility] HPV 18/45 RNA TNP [facility] 11/19/2022 10:3 9 AM EDT 11/20/2022 8:40 AM EDT Karthik Rob CNM LAB CYTOLOGY ORDERABLES F inal Result [facility] [address] [place] [phone] * Pap Smear (11/19/2022 10:39 AM EDT) 11/19/2022 10:3 9 AM EDT 11/20/2022 8:40 AM EDT Narrative [facility] - 12/02/2022 5:22 PM EDT ----- ------- Name: Rafi Ceja Age/Sex: 57/F : 1965 Unit#: [id number] Attend Dr: KARTHIK ROB CNM Re11/19/22 Status: DEP [facility] ----- ------- SPEC : [id number] RECD: 11/20/22 STATUS: MARIO [place] NUM: [id number] DANISHA: 11/19/22 [facility] DR: KARTHIK ROB CNM ENTERED: 11/20/22 SP TYPE: Pap Smr OT DR: ORDERED: Pap Smear Interpretation Satisfactory for evaluation. Negative for intraepithelial lesion or malignancy. HPV mRNA E6/E7: NOT DETECTED This assay detects E6/E7 viral messenger RNA (mRNA) from 14 high-risk HPV types (16, 18, 31, 33, 35, 39, 45, 51, 52, 56, 58, 59, 66, 68) HPV testing performed by [facility], [place], [place]. See reference laboratory portion of the EMR for entire report. Clinical Information LMP: Unknown date Previous PAP test: WNL Material Received ThinPrep-Vaginal/Cervical ----- ------- Signed (signature on file) Razia A Ronaldo 12/02/22 1722 ----- ------- END OF REPORT Karthik Rob CNM LAB CYTOLOGY ORDERABLES F inal Result [facility] [address] [place] [address] [phone] from Last 3 Months or Most Recently Relevant to Health Maintenance Insurance C3 Care Teams Film Developing Machine Operator Relationship Specialty Start Date End Date Name, MD Andrés [address] [place] [address] PCP - General Family Medicine 04/08/15
--- OUTSIDE RECORDS SUMMARY | 2024-11-03 14:18 | XMS_ITS | Encounter Summary ---
Author Organization [employer] Address [address] [facility] [address] [place] [address] Care Team Providers Care Data Entry Clerk Name Role Phone Name, Andrés RODRIGUEZ Primary Care Provider [phone] Reason for Visit * Reason Onset Date Comments Nurse Triage 05/22/2024 Encounter Details Date Type Department Care Team ([facility] st Contact Info) Description 05/22/2024 Telephone [facility] [address] [place], [place] [phone] Name, MD Andrés 230 [place], [place] [phone] Nurse Triage Social History Tobacco Use Types [...] EDT Triage call returned to patient with [facility] Hob[facility] # [id number] Marjan. Patient reports reaction to Pregabalin that [...] Description 11/03/2024 2:30 PM EDT Medication Management [facility] [address] [place] [address] Jhoana Pickering, PharmD 230 [place] [address] Arrived 11/25/2024 9:00 AM EDT Office Visit [facility] OPT[facility] [address] [place] [address] Sonali Dior, OD 230 [place] [address] 12/02/2024 2:30 PM EDT Office Visit [address] [address] NameAndrés MD 230 [place] [address] 01/05/2025 11:00 AM EDT Office Visit [address] [address] documented as of this encounter Visit Diagnoses Not on filedocumented in this encounter Additional Health Concerns Assessment Noted Time PHQ-9 Depression Total Score: 0 08/07/19 24 2:21 PM EDT documented as of this encounter Care Teams Data Entry Clerk Relationship Specialty Start Date End Date NameAndrés MD [address] [place] [address] PCP - General Family Medicine 04/08/15 documented as of this encounter
--- OUTSIDE RECORDS SUMMARY | 2024-11-03 14:18 | XMS_ITS | Encounter Summary ---
Author Organization [employer] Address 75 [facility] [address] [place] [address] Care Team Providers Care Athletic Monitor Name Role Phone Name, Andrés RODRIGUEZ Primary Care Provider [phone] Reason for Visit * Reason Onset Date Comments Medication Question 02/12/2023 Encounter Details Date Type Department Care Team ([facility] st Contact Info) Description 02/12/[address] [facility] [address] [place] [address] Name, MD Andrés [address] [place], [place] [phone] Medication Question Social History Tobacco Use Types [...] requesting status on lidocaine patch 5% however customs entry writer does not see anything on chart regarding that matter. documented in this encounter Plan of Treatment Upcoming Encounters Date Type Department Care Team (Late st Contact Info) Description 11/03/2024 2:30 PM EDT Medication Management [facility] [address] [place] [address] Jhoana Pickering, PharmD [address] [place], [place] [phone] Arrived 11/25/2024 9:00 AM EDT Office Visit [facility] OPTOMETRY [address] [place] [address] Sonali Dior, OD 230 [place] [address] 12/02/2024 2:30 PM EDT Office Visit [facility] [address] [place] [address] NameAndrés MD [address] [place] [address] 01/05/2025 11:00 AM EDT Office Visit [facility] [address] [place] [address] documented as of this encounter Visit Diagnoses Not on filedocumented in this encounter Additional Health Concerns Assessment Noted Time PHQ-9 Depression Total Score: 0 02/21/20 22 3:25 PM EST documented as of this encounter Care Teams Athletic Monitor Relationship Specialty Start Date End Date NameAndrés MD [address] [place] [address] PCP - General Family Medicine 04/08/15 documented as of this encounter
--- OUTSIDE RECORDS SUMMARY | 2024-11-03 14:18 | XMS_ITS | Encounter Summary ---
Author Organization [employer] Address 75 [facility] [address] [place] [address] Care Team Providers Care Lead Recreation Assistant Name Role Phone Name, Andrés RODRIGUEZ Primary Care Provider [phone] Reason for Visit * Reason Comments Med Refill Encounter Details Date Type Department Care Team ([facility] st Contact Info) Description 01/20/2024 Refill [facility] 230 [place], [place] [phone] Name, MD Andrés [address] [place], [place] [phone] Depressive disorder Social History Tobacco Use Types [...] EDT Medication Management [facility] [address] [place] [address] Jhoana Pickering, PharmD 230 [place] [address] Arrived 11/25/2024 9:00 AM EDT Office Visit [facility] OPTOMETRY [address] [place] [address] Ovi, Sonali, OD 230 [place] [address] 12/02/2024 2:30 PM EDT Office Visit [facility] [address] [place] [address] Name, MD Andrés [address] [place] [address] 01/05/2025 11:00 AM EDT Office Visit [facility] [address] [place] [address] documented as of this encounter Visit Diagnoses Diagnosis Depressive disorder Depressive disorder, not elsewhere classified documented in this encounter Additional Health Concerns Assessment Noted Time PHQ-9 Depression Total Score: 0 08/07/19 24 2:21 PM EDT documented as of this encounter Care Teams Lead Recreation Assistant Relationship Specialty Start Date End Date Name, MD Andrés [address] [place] [address] PCP - General Family Medicine 04/08/15 documented as of this encounter
--- OUTSIDE RECORDS SUMMARY | 2024-11-03 14:18 | XMS_ITS | Encounter Summary ---
Author Organization [employer] Address 75 [facility] [address] [address] Care Team Providers Care Assistant Corporate Secretary Name Role Phone Name, Andrés RODRIGUEZ Primary Care Provider [phone] Reason for Visit * Reason Comments Med Refill Encounter Details Date Type Department Care Team ([facility] st Contact Info) Description 01/07/2024 Refill [facility] [address] [place], [place] [phone] Name, MD Andrés [address] [place] [address] Social History Tobacco Use Types Packs/Day Years [...] Description 11/03/2024 2:30 PM EDT Medication Management [facility] [address] [place] [address] Jhoana Pickering, PharmD [address] [place] [address] Arrived 11/25/2024 9:00 AM EDT Office Visit [facility] OPTOMETRY [address] [place] [address] Ovi, Sonali, OD 230 [place] [address] 12/02/2024 2:30 PM EDT Office Visit [facility] MED[facility] [address] [place] [address] Name, MD Andrés [address] [place] [address] 01/05/2025 11:00 AM EDT Office Visit [facility] [address] [place] [address] documented as of this encounter Visit Diagnoses Not on filedocumented in this encounter Additional Health Concerns Assessment Noted Time PHQ-9 Depression Total Score: 0 08/07/19 24 2:21 PM EDT documented as of this encounter Care Teams Assistant Corporate Secretary Relationship Specialty Start Date End Date Name, MD Andrés [address] [place] [address] PCP - General Family Medicine 04/08/15 documented as of this encounter
--- OUTSIDE RECORDS SUMMARY | 2024-11-03 14:18 | XMS_ITS | Encounter Summary ---
Author Organization [employer] Address 75 [facility] 7t [place] [address] Care Team Providers Care Test Equipment Mechanic Name Role Phone Name, Andrés RODRIGUEZ Primary Care Provider [phone] Encounter Details Date Type Department Care Team (Late Contact Info) Description 04/12/2022 Orders Only [facility] [address] [place], [place] [phone] Graciela Gifford, DOT NET DEVELOPER Dysuria Social History Tobacco Use Types Packs/Day [...] Description 11/03/2024 2:30 PM EDT Medication Management [facility] [address] [place] [address] Jhoana Pickering, PharmD [address] [place] [address] Arrived 11/25/2024 9:00 AM EDT Office Visit [facility] [address] [place] [address] [place] [address] Sonali Dior, OD 230 [place] [address] 12/02/2024 2:30 PM EDT Office Visit [facility] [address] [place] [address] Name, MD Andrés [address] [place] [address] 01/05/2025 11:00 AM EDT Office Visit [facility] [address] [place] [address] documented as of this encounter Visit Diagnoses Diagnosis Dysuria documented in this encounter Additional Health Concerns Assessment Noted Time PHQ-9 Depression Total Score: 0 02/21/20 22 3:25 PM EST documented as of this encounter Care Teams Test Equipment Mechanic Relationship Specialty Start Date End Date Name, MD Andrés [address] [place] [address] PCP - General Family Medicine 04/08/15 documented as of this encounter
--- OUTSIDE RECORDS SUMMARY | 2024-11-03 14:18 | XMS_ITS | Encounter Summary ---
Author Organization [employer] Address 75 [facility] [address] [place] [address] Care Team Providers Care Wood Shop Teacher Name Role Phone Name, Andrés RODRIGUEZ Primary Care Provider [phone] Reason for Visit * Reason Onset Date Comments Med Refill 05/21/2023 Encounter Details Date Type Department Care Team ([facility] st Contact Info) Description 05/21/2023 Telephone [facility] [address] [place] [address] Name, MD Andrés [address] [place], [place] [phone] Med Refill Social History Tobacco Use Types [...] 5-325 MG tablet To be sent to: [facility] - [place], [place] - [address] documented in this encounter Plan of Treatment Upcoming Encounters Date Type Department Care Team (Late st Contact Info) Description 11/03/2024 2:30 PM EDT Medication Management [facility] [address] [place] [address] Jhoana Pickering, PharmD [address] [place] [address] Arrived 11/25/2024 9:00 AM EDT Office Visit [facility] OPTOMETRY [address] [place] [address] Sonali Dior, OD [address] [place] [address] 12/02/2024 2:30 PM EDT Office Visit [facility] [address] [place] [address] Name, MD Andrés [address] [place] [address] 01/05/2025 11:00 AM EDT Office Visit [facility] [address] [place] [address] documented as of this encounter Visit Diagnoses Not on filedocumented in this encounter Additional Health Concerns Assessment Noted Time PHQ-9 Depression Total Score: 0 02/21/20 22 3:25 PM EST documented as of this encounter Care Teams Wood Shop Teacher Relationship Specialty Start Date End Date Name, MD Andrés [address] [place] [address] PCP - General Family Medicine 04/08/15 documented as of this encounter
== END 2024-11-03 13:25 | disposition home or self-care (01) ==
LOC: HO.HHCLNP 13:24
PROVIDERS: Visit Provider Internal Medicine Geriatric Medicine
DX: Z79.891 Long term (current) use of opiate analgesic (principal)
CPT/HCPCS: 36415; 80307

== ENCOUNTER 2024-12-02 15:15 | Outpatient (REF) | payer MEDICAID, SELFPAY ==
--- NOTE | ~2024-12-02 | XR_ITS ---
EXAMINATION: XR HAND, RIGHT CLINICAL INFORMATION: Trigger finger on all fingers of the right hand COMPARISON: None available. TECHNIQUE: PA, lateral, and oblique views of the right hand. FINDINGS: The bones and soft tissues are normal. No fracture. Alignment is anatomic. Joint spaces are maintained. No erosions or soft tissue calcifications. XR/XR hand RT min 3V IMPRESSION: Normal right hand. Electronically signed by: Omid Arnett MD 12/02/2024 04:06 PM EDT RP
--- OUTSIDE RECORDS SUMMARY | 2024-12-02 14:30 | XMS_ITS | Encounter Summary ---
Author Organization [employer] Address 75 [facility] 7t [place] [address] Care Team Providers Care Finance And Administration Manager Name Role Phone Name, Andrés RODRIGUEZ Primary Care Provider [phone] Jhoana Pickering PharmD Unavailable [phone] Reason for Visit * Reason Comments Follow-up Encounter Details Date Type Department Care Team ([facility] st Contact Info) Description 12/02/2024 2:30 PM EDT Office Visit [facility] 230 [place], [place] [phone] Name, MD Andrés [address] [place] [address] Type 2 diabetes mellitus without complication, without long-term current use of insulin (CMS/HCC) (Primary Dx); Encounter for immunization; Type 2 diabetes mellitus with hyperglycemia, with long-term current use of insulin (CMS/HCC); Trigger finger of all digits of right hand Social History Tobacco Use Types Packs/Day Years [...] Recorded Patient Health Questionnaire-2 Score 5 08/25/2024 Internet Access Answer Date Recorded Internet Access Q1 Yes 12/02/2024 Internet Access Q2 Not on file 12/02/2024 Comments No Sex and Gender Information Value Date Recorded Sex Assigned at Female 01/08/2022 10:29 AM EDT Legal Sex Female 10:29 AM EDT Gender Identity Female 01/08/2022 10:29 AM EDT Sexual Orientation Straight 01/08/2022 10 :29 AM EDT documented as of this encounter Last Filed Vital Signs Vital Sign Reading Time Taken Comments Blood Pressure 128/82 12/02/2024 2:36 PM EDT Pulse 72 12/02/2024 2:36 PM EDT Temperature 36.9 C (98.5 F) 12/02/2024 2:36 PM EDT Respiratory Rate 18 12/02/2024 2:36 PM EDT Oxygen Saturation 98% 12/02/2024 2:36 PM EDT Inhaled Oxygen Concentration - - Weight 96.3 kg (212 lb 6.4 oz) 12/02/2024 2:36 P M EDT Height 157.5 cm (5' 2 ) 12/02/2024 2:36 PM EDT Body Mass Index 38.85 12/02/2024 2:36 PM EDT documented in this encounter Plan of Treatment Upcoming Encounters Date Type Department Care Team (Late st Contact Info) Description 12/18/2024 11:30 AM EDT Medication Management [address] [address] Jhoana Pickering, PharmD [address] [place] [address] 01/05/2025 11:00 AM EDT Office Visit [address] [address] documented as of this encounter Procedures Procedure Name Priority Date/Time Associated Diagnosis Comments XR HAND 3+ VIEWS RIGHT Routine 12/02/2024 3:43 PM EDT Trigger finger of all digits of right hand POCT GLUCOSE Routine 12/02/2024 2:37 PM EDT Type 2 diabetes mellitus without complication, without long-term current use of insulin ([facility]) documented in this encounter Results * XR Hand 3+ Views Right (12/02/2024 3:43 PM EDT) Anatomical Region Laterality Modality Upper Extremities, Hand Right [facility] 12/02/2024 3:43 PM EDT Narrative 12/02/2024 4:09 PM EDT [address] [address] XRay Report Signed Patient: Rafi Ceja MR#: [id number] : 1965 Acct:[id number] Age/Sex: 59 / F ADM Date: 12/02/24 Loc: [facility] Attending Dr: Andrés Lee MD Ordering Physician: Andrés Lee MD Date of Service: 12/02/24 Procedure(s): XR hand RT min 3V Accession Number(s): [id number] cc: Andrés Lee MD Reason for Exam: Trigger finger on all fingers of the right hand EXAMINATION: XR HAND, RIGHT CLINICAL INFORMATION: Trigger finger on all fingers of the right hand COMPARISON: None available. TECHNIQUE: PA, lateral, and oblique views of the right hand. FINDINGS: The bones and soft tissues are normal. No fracture. Alignment is anatomic. Joint spaces are maintained. No erosions or soft tissue calcifications. XR/XR hand RT min 3V IMPRESSION: Normal right hand. Electronically signed by: Omid Arnett MD 12/02/2024 04:06 PM EDT RP Dictated By: Omid Arnett MD Signed By: <Electronically signed by Omid Arnett MD in OV> 12/02/24 1606 DD/ 1543 TD/TT: 12/02/24 1559 Flower Grower: Procedure Note Donotuseinterpreter, Image - 12/02/[address] [address] XRay Report Signed Patient: Rafi Ceja#: [id number] : 1965Acct:[id number] Age/Sex: 59 / FADM Date: 12/02/24 Loc: [facility] Attending Dr: Andrés Lee MD Ordering Physician: Andrés Lee MD Date of Service: 12/02/24 Procedure(s): XR hand RT min 3V Accession Number(s): [id number] cc: Andrés Lee MD Reason for Exam: Trigger finger on all fingers of the right hand EXAMINATION: XR HAND, RIGHT CLINICAL INFORMATION: Trigger finger on all fingers of the right hand COMPARISON: None available. TECHNIQUE: PA, lateral, and oblique views of the right hand. FINDINGS: The bones and soft tissues are normal. No fracture. Alignment is anatomic. Joint spaces are maintained. No erosions or soft tissue calcifications. XR/XR hand RT min 3V IMPRESSION: Normal right hand. Electronically signed by: Omid Arnett MD 12/02/2024 04:06 PM EDT RP Dictated By: Omid Arnett MD Signed By: <Electronically signed by Omid Arnett MD in OV> 12/02/24 1606 DD/ 1543 TD/TT: 12/02/24 1559 Flower Grower: Andrés Lee MD IMG XR PROCEDURES Final Result * (ABNORMAL) POCT Glucose (12/02/2024 2:37 PM EDT) Glucose Blood, POC 263(A) 60 - 200 mg/dL QC Media Lot # [id number] Lot# Expiration Date Blood Capillary blood specimen / Unknown 12/02/2024 2:37 PM EDT Andrés Lee MD POINT OF CARE TEST ENTER/EDIT OR DERABLES Final Result documented in this encounter Visit Diagnoses Diagnosis Type 2 diabetes mellitus without complication, without long-term current use of insulin ([facility])- Primary Encounter for immunization Type 2 diabetes mellitus with hyperglycemia, with long-term current use of insulin ([facility]) Trigger finger of all digits of right hand documented in this encounter Additional Health Concerns Assessment Noted Time PHQ-9 Depression Total Score: 11 025 2:48 PM EDT documented as of this encounter Care Teams Finance And Administration Manager Relationship Specialty Start Date End Date Name, MD Andrés [address] [place] [address] PCP - General Family Medicine 04/08/15 Jhoana Pickering, Bladimir [address] [place] [address] Pharmacist Pharmacy 11/03/24 documented as of this encounter
--- OUTSIDE RECORDS SUMMARY | 2024-12-02 17:41 | XMS_ITS | Encounter Summary ---
Author Organization [employer] Address 75 [facility] 7[place] [address] Care Team Providers Care Intranet Support Name Role Phone Name, Andrés RODRIGUEZ Primary Care Provider [phone] Jhoana Pickering PharmD Unavailable [phone] Reason for Visit * Reason Comments Med Refill Encounter Details Date Type Department Care Team ([facility] Contact Info) Description 08/28/2022 Refill [facility] [address] [place], [place] [phone] Name, MD Andrés [address] [place] [address] Cervical radicular pain Social History Tobacco Use [...] Upcoming Encounters Date Type Department Care Team ([facility] Contact Info) Description 12/18/2024 11:30 AM EDT Medication Management [facility] [address] [place] [address] Jhoana Pickering PharmD [address] [place] [address] 01/05/2025 11:00 AM EDT Office Visit [facility] [address] [place] [address] documented as of this encounter Visit Diagnoses Diagnosis Cervical radicular pain documented in this encounter Additional Health Concerns Assessment Noted Time PHQ-9 Depression Total Score: 0 02/21/20 22 3:25 PM EST documented as of this encounter Care Teams Intranet Support Relationship Specialty Start Date End Date Name, MD Andrés [address] [place] [address] PCP - General Family Medicine 04/08/15 Jhoana Pickering PharmD [address] [place] [address] Pharmacist Pharmacy 11/03/24 documented as of this encounter
--- OUTSIDE RECORDS SUMMARY | 2024-12-02 17:41 | XMS_ITS | Encounter Summary ---
Author Organization [employer] Address 75 [facility] [address] [address] Care Team Providers Care Wrapper Stemmer Operator Name Role Phone Name, Andrés RODRIGUEZ Primary Care Provider Jhoana Pickering PharmD Unavailable [phone] Reason for Visit * Reason Onset Date Comments Med Refill 11/30/2024 Encounter Details Date Type Department Care Team ([facility] st Contact Info) Description 11/30/2024 Refill [facility] [address] [place], [place] [phone] Name, MD Andrés [address] [place] [address] Chronic neck pain Social History Tobacco Use [...] encounter Miscellaneous Notes * Telephone Encounter - Edda Dos Santos - 11/30/2024 10:23 AM EDT TC from pt requesting medication refill. Medications needing refill : - oxyCODONE-acetaminophen (Percocet) 5-325 MG tablet To be sent to: - [facility] - [place], [place] - [address] [place] [address] documented in this encounter Plan of Treatment Upcoming Encounters Date Type Department Care Team (Late st Contact Info) Description 12/18/2024 11:30 AM EDT Medication Management [facility] [address] [place] [address] Jhoana Pickering, PharmD [address] [place] [address] 01/05/2025 11:00 AM EDT Office Visit [facility] [address] [place] [address] documented as of this encounter Visit Diagnoses Diagnosis Chronic neck pain Cervicalgia documented in this encounter Additional Health Concerns Assessment Noted Time PHQ-9 Depression Total Score: 11 025 2:48 PM EDT documented as of this encounter Care Teams Wrapper Stemmer Operator Relationship Specialty Start Date End Date Name, MD Andrés [address] [place] [address] PCP - General Family Medicine 04/08/15 Jhoana Pickering, Bladimir [address] [place] [address] Pharmacist Pharmacy 11/03/24 documented as of this encounter
--- OUTSIDE RECORDS SUMMARY | 2024-12-02 17:41 | XMS_ITS | Encounter Summary ---
Author Organization [employer] Address [address] [place] [address] Care Team Providers Care Coagulating Drying Supervisor Name Role Phone Name, Andrés RODRIGUEZ Primary Care Provider [phone] Jhoana Pickering PharmD Unavailable [phone] Reason for Visit * Reason Onset Date Comments Nurse Triage 05/22/2024 Encounter Details Date Type Department Care Team ([facility] st Contact Info) Description 05/22/2024 Telephone [facility] MEDICINE [address], [place] [phone] Name, MD Andrés [address] [place], [place] [phone] Nurse Triage Social History Tobacco Use Types [...] EDT Triage call returned to patient with S Behavior[facility]vention Specialist # [id number] Marjan. Patient reports reaction to Pregabalin that [...] Description 12/18/2024 11:30 AM EDT Medication Management [address] [address] Jhoana Pickering PharmD [address] [place] [phone] 01/05/2025 11:00 AM EDT Office Visit [facility] MEDICINE [address] [place] [phone] documented as of this encounter Visit Diagnoses Not on filedocumented in this encounter Additional Health Concerns Assessment Noted Time PHQ-9 Depression Total Score: 0 08/07/19 24 2:21 PM EDT documented as of this encounter Care Teams Coagulating Drying Supervisor Relationship Specialty Start Date End Date Name, MD Andrés [address] [place] [phone] PCP - General Family Medicine 04/08/15 Jhoana Pickering PharmD [address] [place] [phone] Pharmacist Pharmacy 11/03/24 documented as of this encounter
--- OUTSIDE RECORDS SUMMARY | 2024-12-02 17:41 | XMS_ITS | Clinical Summary ---
Author Organization [employer] Address [address] [facility] [address] [place] [address] Care Team Providers Care Floor Space Allocator Name Role Phone Name, Andrés RODRIGUEZ Primary Care Provider [phone] Jhoana Pickering PharmD Unavailable [phone] Allergies No known active allergies Medications * This document contains information received from the source organization and may not represent a complete record from that organization. Multiple Vitamins-Mineral s (Alive [employer]) tablet Take 1 tablet by mouth Once per day. 02/10/20 16 Active pantoprazole (ProtoNix) 40 MG EC tablet 07/02/19 24 Active atorvastatin (Lipitor) 40 MG tablet Take 1 tablet (40 mg) by mouth Once per day. 90 tablet 3 04/08/19 25 2025 Active lidocaine (Lidoderm) 5 % patchIndications :Chronic neck pain APPLY 1 PATCH TOPICALLY IN THE MORNING. REMOVE & DISCARD PATCH WITHIN 12 HOURS OR DIRECTED BY MD. 30 patch 2 06/13/19 25 Active insulin pen needle (BD Pen Needle Lashaun Ultrafine) 32G x 4 mm misc Use as instructed 100 each 09/08/19 25 2025 Active Continuous Glucose Dot Etcher Apprentice (FreeStyle Kobe 3 [facility]) device 1 each Once per day. Use as directed for CGM 1 each 09/08/19 25 Active Continuous Glucose Sensor (FreeStyle Kobe 3 Plus Sensor) misc 1 each every 15 days. Apply 1 every 15 days as directed for CGM 2 each 09/08/19 25 Active glucose blood (FreeStyle Precision Nima Test) test strip Use to test blood sugar 3 times daily in case of CGM failure or extremes of BG 100 each 09/08/19 25 06/30/ 2026 Active lisinopril 10 MG tabletIndication s:Essential hypertension Take 1 tablet by mouth every day 90 tablet 1 09/09/19 25 Active sertraline (Zoloft) 50 MG tabletIndication s:Depressive disorder TAKE 1 TABLET BY MOUTH EVERY DAY 30 tablet 2 10/24/19 25 Active naloxone (Narcan) 4 mg/0.1 mL nasal spray Administer 1 spray (4 mg) into affected nostril(s) if needed for opioid reversal. 2 each 1 11/04/19 25 Active aspirin (Aspirin Adult Low Dose) 81 MG EC tabletIndication s:Type 2 diabetes mellitus with hyperglycemia, with long-term current use of insulin (CMS/HCC) Take 1 tablet (81 mg) by mouth Once per day. 90 tablet 3 11/21/19 25 2025 Active insulin glargine (Lantus) 100 UNIT/ML penIndications:T ype 2 diabetes mellitus with hyperglycemia, with long-term current use of insulin (CMS/HCC) Inject 34 Units under the skin at bedtime. Increase as directed up to a max of 58 units daily. 15 mL 2 11/21/19 25 Active tiZANidine (Zanaflex) 4 MG tabletIndication s:Type 2 diabetes mellitus without complication, without long-term current use of insulin (CMS/HCC) TAKE 1 TABLET BY MOUTH EVERY 6 TO 8 HOURS NEEDED NOT TO EXCEED 3 DOSES IN 24 HOURS 30 tablet 11/21/19 25 Active oxyCODONE-acetam inophen (Percocet) 5-325 MG tabletIndication s:Chronic neck pain Take 1 tablet by mouth every 8 (eight) hours if needed for severe pain for up to 28 days. Do not start before December 02, 2024. 84 tablet 12/03/19 25 2024 Active insulin lispro (HumaLOG KWIKPEN) 100 UNIT/ML injection 10 units prior to lunch 1 each 1 12/03/19 25 Active metFORMIN XR (Glucophage-XR) 750 MG 24 hr tabletIndication s:Type 2 diabetes mellitus with hyperglycemia, with long-term current use of insulin (CMS/HCC) Take 1 tablet (750 mg) by mouth with breakfast and with evening meal. Do not crush, chew, or split. 180 tablet 3 12/03/19 25 2025 Active acetaminophen (Tylenol 8 Hour) 650 MG ER tablet Take 1 tablet by mouth in the morning and 1 tablet at noon and 1 tablet in the evening. 03/23/19 21 2024 Discontinued(M ed list cleanup (will not trigger notification to Pharmacy)) erythromycin (Romycin) 5 MG/GM ophthalmic ointment Apply to affected eye(s) every 12 (twelve) hours. 12/02/192024 Discontinued(M ed list cleanup (will not trigger notification to Pharmacy)) naloxone (Narcan) 4 mg/0.1 mL nasal spray Administer 0.1 mL into affected nostril(s). 05/23/192024 Discontinued(R eorder (will not trigger notification to Pharmacy)) oxybutynin (Ditropan) 5 MG tablet Take 1 tablet by mouth if needed in the morning, at noon, and at bedtime for discomfort. Urinary discomfort 08/17/192024 Discontinued(M ed list cleanup (will not trigger notification to Pharmacy)) tamsulosin (Flomax) 0.4 MG 24 hr capsule TAKE 1 CAPSULE BY MOUTH DAILY 30 MINUTES AFTER THE SAME MEAL EVERY DAY 90 capsule 1 10/06/192024 Discontinued(M ed list cleanup (will not trigger notification to Pharmacy)) Bisacodyl EC 5 MG EC tablet 07/02/19 24 2024 Discontinued(M ed list cleanup (will not trigger notification to Pharmacy)) HM Fiber 500 MG tablet 07/02/19 24 2024 Discontinued(M ed list cleanup (will not trigger notification to Pharmacy)) omeprazole (PriLOSEC) [address] Bloom ns:Essential hypertension TAKE 1 CAPSULE (40 MG) BY MOUTH BEFORE BREAKFAST. 90 capsule 1 09/18/19 24 2024 Discontinued(M ed list cleanup (will not trigger notification to Pharmacy)) fexofenadine (Grace) 180 MG tablet TAKE 1 TABLET BY MOUTH ONCE DAILY 90 tablet 1 10/29/19 24 2024 Discontinued(M ed list cleanup (will not trigger notification to Pharmacy)) Diclofenac Sodium 1 % gel APPLY THIN LAYER BY TOPICAL ROUTE (QUANTITY DIRECTED ON PACKAGE INSERT) TO AFFECTED AREA OF PAIN 3 TIMES DAILY NEEDED. 100 g 2 02/18/202024 Discontinued(M ed list cleanup (will not trigger notification to Pharmacy)) Diclofenac Sodium 1 % gelIndications:C ervical radiculopathy due to degenerative joint disease of spine Apply thin layer by topical route (quantity as directed on package insert) to affected area of pain 3 times daily as needed. 50 g 09/02/192024 Discontinued(M ed list cleanup (will not trigger notification to Pharmacy)) lidocaine (Xylocaine) 5 % ointmentIndicati ons:Cervical radiculopathy due to degenerative joint disease of spine Apply topically if needed in the morning, at noon, and at bedtime (pain). 30 g 09/02/192024 Discontinued(M ed list cleanup (will not trigger notification to Pharmacy)) capsaicin (Capzasin-HP) 0.1 % creamIndications :Cervical radiculopathy due to degenerative joint disease of spine Apply thin layer by topical route up to 4 times daily for pain. 45 g 09/02/192024 Discontinued(I neffective) insulin glargine (Lantus) 100 UNIT/ML pen Inject 10 Units under the skin at bedtime. 3 mL 09/08/192024 Discontinued(R eorder (will not trigger notification to Pharmacy)) metFORMIN (Glucophage) 850 MG tabletIndication s:Type 2 diabetes mellitus without complication, without long-term current use of insulin ([facility]) TAKE 1 TABLET BY MOUTH WITH BREAKFAST AND EVENING MEAL 180 tablet 09/08/192024 Discontinued(A lternate therapy) oxyCODONE-acetam inophen (Percocet) 5-325 MG tabletIndication s:Chronic neck pain Take 1 tablet by mouth every 8 (eight) hours if needed for severe pain for up to 28 days. Do not start before October 06, 2024. 84 tablet 10/07/192024 Discontinued(R eorder (will not trigger notification to Pharmacy)) tiZANidine (Zanaflex) 4 MG tabletIndication s:Type 2 diabetes mellitus without complication, without long-term current use of insulin (CMS/HCC) TAKE 1 TABLET BY MOUTH EVERY 6 TO 8 HOURS NEEDED NOT TO EXCEED 3 DOSES IN 24 HOURS 30 tablet 10/24/19 25 2024 Discontinued oxyCODONE-acetam inophen (Percocet) 5-325 MG tabletIndication s:Chronic neck pain Take 1 tablet by mouth every 8 (eight) hours if needed for severe pain for up to 28 days. 84 tablet 11/04/19 25 2024 Discontinued(R eorder (will not trigger notification to Pharmacy)) insulin glargine (Lantus) 100 UNIT/ML pen Inject 14 Units under the skin at bedtime. Increase as directed up to a max of 30 units daily. 11/04/19 25 2024 Discontinued(R eorder (will not trigger notification to Pharmacy)) metFORMIN XR (Glucophage-XR) 750 MG 24 hr tabletIndication s:Type 2 diabetes mellitus with hyperglycemia, with long-term current use of insulin ([facility]) Take 2 tablets (1,500 mg) by mouth with breakfast. Do not crush, chew, or split. 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 Date Type Department Care Team Description 12/02/2024 2:30 PM EDT Office Visit [facility] MEDICINE [address] [place] [address] Name, MD Andrés Type 2 diabetes mellitus without complication, without long-term current use of insulin ([facility]) (Primary Dx); Encounter for immunization; Type 2 diabetes mellitus with hyperglycemia, with long-term current use of insulin (CMS/[facility]); Trigger finger of all digits of right hand 12/02/2024 Travel 11/30/2024 Refill [facility] MEDICINE [address] [place] [address] Name, MD Andrés Chronic neck pain 11/25/2024 9:00 AM EDT Office Visit [facility] OPTOMETRY [address] [place] [address] Ovi, Sonali, OD Diabetes type 2, no ocular involvement ([facility]) (Primary Dx); Combined forms of age-related cataract of both eyes; Meibomian gland disease of both eyes, unspecified eyelid; Presbyopia 11/25/2024 Travel 11/20/2024 Refill [facility] MEDICINE [address] [place] [address] Andrés Lee MD Type 2 diabetes mellitus without complication, without long-term current use of insulin ([facility]/HCC) 11/20/2024 Travel 11/16/2024 Telephone [facility] MEDICINE [address] [place] [address] Andrés Lee MD Med Refill 11/13/2024 Refill [facility] MEDICINE [address] [place] [phone] Andrés Lee MD 11/03/2024 11:00 AM EDT Office Visit [facility] MEDICINE [address] [place] [phone] Lala Mercado, [employer] Cervical radiculopathy due to degenerative joint disease of spine (Primary Dx); 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 11/03/2024 Refill [facility] MED & PEDS [address] [place] [address] Heena Johnston RN Chronic neck pain 11/03/2024 Travel 10/23/2024 Refill [facility] MEDICINE [address] [place] [address] Andrés Lee MD Type 2 diabetes mellitus without complication, without long-term current use of insulin ([facility]); Depressive disorder 10/05/2024 Refill [facility] MEDICINE [address] [place] [address] Andrés Lee MD Chronic neck pain 09/28/2024 Telephone [facility] MEDICINE [address] [place] [phone] Andrés Lee MD Appointment Request 09/28/2024 Refill [facility] MED & PEDS [address] [place] [address] Andrés Lee MD Type 2 diabetes mellitus without complication, without long-term current use of insulin ([facility]) 09/08/2024 Refill [facility] MED & PEDS [address] [place] [address] Andrés Lee MD Type 2 diabetes mellitus without complication, without long-term current use of insulin ([facility]); Essential hypertension 09/07/2024 10:45 AM EDT Office Visit [address] [address] Andrés Lee MD Type 2 diabetes mellitus with hyperglycemia, unspecified whether halfway insulin use ([facility]) (Primary Dx); Type 2 diabetes mellitus without complication, without long-term current use of insulin ([facility]) 09/07/2024 Travel 09/03/[address] [address] Andrés Lee MD Nurse Triage 09/02/2024 11:00 AM EDT Clinical Support [address] [address] Mone Parkinson RN 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 (Primary Dx) 09/02/[address] [address] Mone Parkinson RN UTOX WNL today 09/02/[address] [address] Andrés Lee MD Chronic neck pain 09/02/2024 Travel 09/01/2024 11:00 AM EDT Office Visit [address] [address] Lala Mercado, [employer] Cervical radiculopathy due to degenerative joint disease of spine (Primary Dx); nursing home (current) use of opiate analgesic 09/01/[address] [address] Mone Parkinson, RN UTOX was Pos BZO today 09/01/[address] [address] Phalen Lala, [employer] Test cancelled 09/01/2024 Orders Only [facility] MEDICINE [address] [place] [address] [place], [place], [employer] 09/01/2024 Travel from Last 3 Months Immunizations Immunization Administration Dates Next Due Hep A / Hep B 01/20/2010 Hep A, Adult 01/28/2009 Hep B, adult 10/17/2023,,04/16/2023,01/28 Influenza Injectable Quadriv alant Preservative Free IIV4 MDCK 12/31/2019 Influenza injectable quadriv alent IIV4 with preservative 11/03/2018,12/05/2015 Influenza injectable quadriv alent preservative free 01/21/2023,01/02/2022,12/12/2020,11/19,11/08/2017 Influenza, IIV3, injectable 11/03/2012,0 11/27/2010,01/05/2010,01/21,11/30/2008,12/18/2006,01/10/2006 Influenza, seasonal, injecta ble, preservative free 12/02/2024,04/29/2024,11/01/2016 [place] SARS-CoV-2 Vaccination 06/06/2020 Pfizer Covid-19 Vaccine [...] Mass Index 38.85 12/02/2024 2:36 PM EDT Plan of Treatment Upcoming Encounters Date Type Department Care Team (Late st Contact Info) Description 12/18/2024 11:30 AM EDT Medication Management [facility] MEDICINE [address] [place] [phone] Jhoana Pickering, PharmD [address] [place] [address] 01/05/2025 11:00 AM EDT Office Visit [facility] MEDICINE [address] [place] [phone] Health Maintenance Due Date Last Done Comments CT Colonography 1965 FIT DNA/Cologuard 1967 FIT 1965 FOBT 1965 HIV Screening 1965 Sigmoidoscopy 1965 Cervical Cancer Screening 11/20/2023 HPV/Cotest 11/20/2023 11/19/2022, 11/2019, 09/20/2016 Pap Smear 11/20/2023 11/19/2022, 03/11, 11/18/2019, Additional history exists Diabetes: Foot Exam 01/22/2024 01/21/2023, 01/21/2023, 01/21/2023, Additional history exists COVID-19 Vaccine ( season) 2024 12/21/2021, 07/28/2021, 03/07/2021, Additional history exists Mammogram 12/31/2024 01/01/2024, 07/2022, 12/13/2022, Additional history exists Colonoscopy 02/19/2025 02/20/2024, 10/10/2023 Colorectal Cancer Screening 02/19/2025 Diabetes: Hemoglobin A1C 02/19/2025 025, 08/25/2024, 2024, Additional history exists Depression Monitoring 02/24/2025 08/25/2024, 025 Diabetes: Urine Protein Screening 05/19/2025 05/19/2024, 04/17/2023, 04/11/2022, Additional history exists Lipid Panel 05/19/2025 05/19/2024, 09/2023, 04/11/2022, Additional history exists Disability Screening 08/25/2025 08/25/2024 Tobacco Screening 11/30/2025 11/30/2024 Alcohol/Substance Use Screening 12/02/2025 12/02/2024 SDOH Screening 12/02/2025 12/02/2024 Eye Exam 11/25/2026 11/25/2024, 11/09, 11/25/2024, Additional history exists DTaP/Tdap/Td Vaccines (3 - Td or Tdap) 12/11/2027 12/10/2017, 07/15/2014, 01/09/2002, Additional history exists RSV Patients and Patients Aged 60 years or older (1 - 1-dose 75+ series) 05/11/2042 Hepatitis A Vaccines Aged Out 01/20/2010, 01/29/20 No longer eligible based on patient's age to complete this topic Zoster Vaccines Completed 08/17/2021, 05/22/2021 Hepatitis C Screening Completed 04/17/2023 Hepatitis B Vaccines Completed 10/17/2023, 05/17/2023, 04/16/2023, Additional history exists Pneumococcal Vaccine: 50+ Years Completed 2024, 02/17/2015, 04/14/2006 Influenza Vaccine Completed 12/02/2024, , 01/21/2023, Additional history exists HIB Vaccines Aged Out No longer eligi [...] complication, without long-term current use of insulin (CMS/[facility]) POCT GLYCATED HEMOGLOBIN, TOTAL Routine 11/20/2024 12:40 PM EDT Type 2 diabetes mellitus with hyperglycemia, with long-term current use of insulin (CMS/HCC) POCT MERLENE-14 URINE DRUG SCREEN Routine 11/03/2024 11:22 AM EDT nursing home (current) use of opiate analgesic METHADONE SCREEN, URINE Routine 11/03/2024 11:00 AM EDT 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 POCT MERLENE-14 URINE DRUG SCREEN Routine 09/02/2024 11:04 AM EDT 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 POCT MERLENE-14 URINE DRUG SCREEN Routine 09/01/2024 2:27 PM EDT Cervical radiculopathy due to degenerative joint disease of spine nursing home (current) use of opiate analgesic CANCELLED CHEMISTRY Routine 09/01/2024 1 2:00 AM EDT ALBUMIN, RANDOM URINE W/CREATININE Routine [...] Recently Relevant to Health Maintenance Results * XR Hand 3+ Views Right (12/02/2024 3:43 PM EDT) Anatomical Region Laterality Modality Upper Extremities, Hand Right Radiogra phic Imaging 12/02/2024 3:43 PM EDT Narrative 12/02/2024 4:09 PM EDT [address] [address] XRay Report Signed Patient: Rafi Ceja MR#: [id number] 3529 : 1965 Acct:[id number] Age/Sex: 59 / F ADM Date: 12/02/24 Loc: HO.HHCX Attending Dr: Andrés Lee MD Ordering Physician: Andrés Lee MD Date of Service: 12/02/24 Procedure(s): XR hand RT min 3V Accession Number(s): [id number] cc: Andrés Lee MD Reason for Exam: [...] 12/02/24 1606 DD/ 1543 TD/TT: 12/02/24 1559 Contract Loader: Procedure Note Donopalter, Image - 12/02/[address] [address] XRay Report Signed Patient: Rafi Ceja#: [id number] : 1965Acct:[id number] Age/Sex: 59 / FADM Date: 12/02/24 Loc: .HHCX Attending Dr: Andrés Lee MD Ordering Physician: Andrés Lee MD Date of Service: 12/02/24 Procedure(s): XR hand RT min 3V Accession Number(s): [id number] cc: Andrés Lee MD Reason for Exam: [...] OV> 12/02/24 1606 DD/ 1543 TD/TT: 12/02/24 155 Contract Loader: Andrés Lee MD IMG XR PROCEDURES Final Result * (ABNORMAL) POCT Glucose (12/02/2024 2:37 PM EDT) Glucose Blood, POC 263(A) 60 - 200 mg/dL QC Media Lot # [id number] Lot# Expiration Date Blood Capillary blood specimen / Unknown 12/02/2024 2:37 PM EDT us Andrés Lee MD POINT OF CARE TEST ENTER/EDIT OR DERABLES Final Result * (ABNORMAL) POCT Hgb A1c (11/20/2024 12:40 PM EDT) Hemoglobin A1C 11.0(A) 4.0 - 5.7 % Blood 11/20/2024 12:4 0 PM EDT us Andrés Lee MD POINT OF CARE TEST ENTER/EDIT OR DERABLES Final Result * (ABNORMAL) POCT MERLENE-14 Urine Drug Screen (11/03/2024 11:22 AM EDT) Only the most recent of3 resultswithin the time period is included. THC [...] - 11/03/2024 11:22 AM EDT .UTOX cup Lot#[id number] Exp. 12/15/25 Internal Pass Control us Lala Mercado [employer] POINT OF CARE TEST ENTER/EDIT ORDERABLES Final Result * Drug Monitoring, Methadone Metabolite, Screen, Urine (11/03/2024 11:00 AM EDT) Methadone Screen, Urine Not Detected Not Detect ng/mL [facility] Comment:Methadone cut-off is 300 ng/mL.Positive results are unconfirmed and should not be used fornon-medical purposes. Urine (Urine, Random) 11/03/2024 11:00 AM EDT 11/03/2024 1:25 PM EDT Andrés Lee MD LAB URINE ORDERABLES Final Resul t Performing Organization Address [facility] de Phone Number [facility] [address] [place] [phone] * Cancelled Chemistry (09/01/2024 12:00 AM EDT) Cancelled Chemistry SEE NOTE [facility] Comment:THE FOLLOWING TESTS WERE CANCELLED: BENZODIAZEPINES, URREASON: SPECIMEN RECEIVED WITHOUT COMPLETE LABEL 09/01/2024 09/01/2024 12: 59 PM EDT [facility] [employer] HISTORICAL/NON ORDERABLE LABS Final Result Performing Organization Address [facility] de Phone Number [facility] [address] [place] [phone] * Albumin, Random Urine W/Creatinine (05/19/2024 9:10 AM EDT) Creatinine, Urine 188.03 mg/dL [facility] Microalbumin Urine 32.0 mg/L [facility] Microalbum Creatinine Ratio Ur 17.0 <30 ug/mg cr [facility] Comment:Albumin/Creatinine R atio Reference Ranges: Normal: < 30 ug/mg creatinine Microalbuminuria: 30 - 300 ug/mg creatinineClinical Albuminuria: > 300 ug/mg creatinine Urine (Urine, Random) 05/19/2024 9:10 AM EDT 05/19/2024 11:34 AM EDT Andrés Lee MD LAB URINE ORDERABLES Final Resul t Performing Organization Address [facility] de Phone Number [facility] [address] [place] [phone] * (ABNORMAL) Lipid Panel, Standard (05/19/2024 9:10 AM EDT) Triglycerides 129 <150 mg/dL [facility] Comment:Desirable Triglyceri de: less than 150 mg/dLBorderline High Triglyceride 150-199 mg/dLHigh Triglyceride: 200-499 mg/dLVery High Triglyceride: greater than or equal to 5OO mg/dL Cholesterol 122 <200 mg/dL [facility] Comment:Desirable Cholestero l: less than 200 mg/dLBorderline High Cholesterol: 200-239 mg/dLHigh Cholesterol: greater than 239 mg/dL LDL Cholesterol Calculated 60 <100 mg/dL [facility] Comment:Desirable LDL: less than 100 mg/dLNear Optimal/Above Optimal LDL: 110- 129 mg/dLBorderline High LDL: 130-159 mg/dLHigh LDL: 160-189 mg/dLVery High LDL: greater than or equal to 190 mg/dL HDL Cholesterol 37(L) >40 mg/dL [facility] Comment:Desirable HDL: great er than 40 mg/dL Note: This HDL assay may give artificially low results in patients with liver disease. Blood Venous blood specimen / Unknown 05/19/2024 9:10 AM EDT 05/19/2024 11:29 AM EDT us Andrés Lee MD LAB BLOOD ORDERABLES Final Resul t [facility] [address] [place] [phone] * (ABNORMAL) Hm Colonoscopy (02/20/2024 9:55 AM EST) Colonoscopy Abnormal(A ) Normal 02/20/2024 9:55 AM EST us Andrés Lee MD HEALTH MAINTENANCE Final Result * BI Mammogram Screening Tomosynthesis Bilateral (01/01/2024 3:45 PM EDT) Anatomical Region Laterality Modality Breast Bilateral Mammography 01/01/2024 3:45 PM EDT Narrative 01/13/2024 4:19 PM EST [address] [place] [address] Mammography Report Signed Patient: Rafi Ceja MR#: [id number] 3529 : 1965 Acct:[id number] Age/Sex: 58 / F ADM Date: 01/01/24 Loc: HO.MAMMO Attending Dr: Andrés Lee MD Ordering Physician: Andrés Lee MD Results: 1Negative Date of Service: 01/01/24 Follow Up: 1 Year From Orig inal Mammogram Procedure(s): MM tomosynthesis screening BI Accession Number(s): [id number] cc: Andrés Lee MD EXAMINATION: MM SCREENING [...] 01/13/24 1615 DD/ 1545 TD/TT: 01/01/24 1600 Contract Loader: Procedure Note Donotuseinterpreter, Image - 01/13/[address] [place] [address] Mammography Report Signed Patient: [place] Ceja#: [id number] : 1965Acct:[id number] Age/Sex: 58 / FADM Date: 01/01/24 Loc: HO.MAMMO Attending Dr: Andrés Lee MD Ordering Physician: Andrés Leeults: 1Negative Date of Service: 01/01/24Follow Up: 1 Year From Orig inal Mammogram Procedure(s): MM tomosynthesis screening BI Accession Number(s): [id number] cc: Andrés Lee MD EXAMINATION: MM SCREENING [...] 01/13/24 1615 DD/ 1545 TD/TT: 01/01/24 1600 Contract Loader: us Andrés Lee MD IMG BI PROCEDURES Edited Result - Final * Referral to Ophthalmology (11/20/2023) us Andrés Lee MD OUTPATIENT REFERRAL ORDERABLES F inal Result * Hepatitis C Ab (04/17/2023 9:41 AM EST) Hepatitis C Antibody Nonreactive Nonreactive [facility] Comment:Antibodies to HCV no t detected; does not exclude early acuteHCV infection. Blood Venous blood specimen / Unknown 04/17/2023 9:41 AM EST 04/17/2023 11:46 AM EST Andrés Lee MD LAB BLOOD ORDERABLES Final Resul t Performing Organization Address City/[facility]/ZIP Co de Phone Number [facility] [address] [place] [phone] * HPV mRNA E6/E7 w/Reflex to HPV Genotypes 16, 18/45 (11/19/2022 10:39 AM EDT) HPV nRNA E6/E7 Not Detected Not Detected [facility] Comment:Methodology: Transcr iption-Mediated AmplificationThis assay detects E6/E7 viral messenger RNA (mRNA) from 14high-risk HPV types (16,18,31,33,35,39,45,51,52,56,58,59,66,68).Cervical sources are required for HPV testing.If a vaginal source from a patient who has had atotal hysterectomy with removal of cervix wassubmitted, please contact the testing laboratoryfor alternative testing options.For additional information, please refer [email or web address].IdeaPaint/faq/CTM642h2(This link if provided for information/educational purposes only.)THIS TEST WAS PERFORMED AT:[facility] [place] [phone] ANDREWS MD HPV mRNA E6/E7 [facility] HPV 16 RNA [facility] HPV 18/45 RNA [facility] 11/19/2022 10:3 9 AM EDT 11/20/2022 8:40 AM EDT Karthik Rob CNM LAB CYTOLOGY ORDERABLES F inal Result Performing Organization Address [facility]/ZIP Co de Phone Number [facility] [address] [place] [address] [phone] * Pap Smear (11/19/2022 10:39 AM EDT) 11/19/2022 10:3 9 AM EDT 11/20/2022 8:40 AM EDT [facility] - 12/02/2022 5:22 PM EDT ----- ------- Name: Rafi Ceja Age/Sex: 57/F : 1965 Unit#: [id number] Attend Dr: KARTHIK ROB CNM Re11/19/22 Status: DEP REF Location: HO.HHCLNP Disch: ----- ------- SPEC : [id number] RECD: 11/20/22 STATUS: [place] NUM: [id number] DANISHA: 11/19/22-[address] [facility] [address]: KARTHIK ROB CNM ENTERED: 11/20/22-1403 SP TYPE: Pap Smr [facility] DR: ORDERED: Pap Smear Interpretation Satisfactory for evaluation. Negative for intraepithelial lesion or malignancy. HPV mRNA E6/E7: NOT DETECTED This assay detects E6/E7 viral messenger RNA (mRNA) from 14 high-risk HPV types (16, 18, 31, 33, 35, 39, 45, 51, 52, 56, 58, 59, 66, 68) HPV testing performed by [facility], [place], [place]. See reference laboratory portion of the EMR for entire report. Clinical Information LMP: Unknown date Previous PAP test: WNL Material Received ThinPrep-Vaginal/Cervical ----- ------- Signed (signature on file) Razia Higgins 12/02/22 1722 ----- ------- END OF REPORT Karthik Rob [facility] LAB CYTOLOGY ORDERABLES F inal Result [facility] [address] [place] [phone] from Last 3 Months or Most Recently Relevant to Health Maintenance Insurance Arav C3 Care Teams Floor Space Allocator Relationship Specialty Start Date End Date Name, MD Andrés [address] [place] [address] PCP - General Family Medicine 04/08/15 Jhoana Pickering, Bladimir [address] [place] [address] Pharmacist Pharmacy 11/03/24
--- OUTSIDE RECORDS SUMMARY | 2024-12-02 17:41 | XMS_ITS | Encounter Summary ---
Author Organization [employer] Address [address] [facility] 7t [place] [address] Care Team Providers Care Wire Inserter Name Role Phone Name, Andrés RODRIGUEZ Primary Care Provider [phone] Jhoana Pickering PharmD Unavailable [phone] Encounter Details Date Type Department Care Team (Latest Contact Info) Description 12/02/2024 Travel Social History Tobacco Use Types Packs/Day [...] Description 12/18/2024 11:30 AM EDT Medication Management [facility] [address] [place] [address] Jhoana Pickering PharmD [address] [place] [address] 01/05/2025 11:00 AM EDT Office Visit [facility] [address] [place] [address] documented as of this encounter Visit Diagnoses Not on filedocumented in this encounter Additional Health Concerns Assessment Noted Time PHQ-9 Depression Total Score: 11 025 2:48 PM EDT documented as of this encounter Care Teams Wire Inserter Relationship Specialty Start Date End Date Name, MD Andrés [address] [place] [address] PCP - General Family Medicine 04/08/15 Jhoana Pickering, PharmD [address] [place] [address] Pharmacist Pharmacy 11/03/24 documented as of this encounter
--- OUTSIDE RECORDS SUMMARY | 2024-12-02 17:41 | XMS_ITS | Encounter Summary ---
Author Organization [employer] Address 75 [facility] 7[address] [place] [address] Care Team Providers Care Occupational Safety Specialist Name Role Phone Name, Andrés RODRIGUEZ Primary Care Provider [phone] Jhoana Pickering PharmD Unavailable [phone] Reason for Visit * Reason Comments Med Refill Encounter Details Date Type Department Care Team ([facility] st Contact Info) Description 01/20/2024 Refill [facility] [address] [place], [place] [phone] Name, MD Andrés [address] [place] [address] Depressive disorder Social History Tobacco Use Types [...] Description 12/18/2024 11:30 AM EDT Medication Management [facility] [address] [place] [address] Jhoana Pickering PharmD [address] [place] [address] 01/05/2025 11:00 AM EDT Office Visit [address] [address] documented as of this encounter Visit Diagnoses Diagnosis Depressive disorder Depressive disorder, not elsewhere classified documented in this encounter Additional Health Concerns Assessment Noted Time PHQ-9 Depression Total Score: 0 08/07/19 24 2:21 PM EDT documented as of this encounter Care Teams Occupational Safety Specialist Relationship Specialty Start Date End Date Name, MD Andrés [address] [place] [address] PCP - General Family Medicine 04/08/15 Jhoana Pickering, PharmD [address] [place] [address] Pharmacist Pharmacy 11/03/24 documented as of this encounter
--- OUTSIDE RECORDS SUMMARY | 2024-12-02 17:41 | XMS_ITS | Encounter Summary ---
Author Organization [employer] Address 75 [facility] 7[place] [address] Care Team Providers Care Clinical Nurse Reviewer Name Role Phone Name, Andrés RODRIGUEZ Primary Care Provider [phone] Jhoana Pickering PharmD Unavailable [phone] Reason for Visit * Reason Onset Date Comments Med Refill 02/18/2024 Encounter Details Date Type Department Care Team ([facility] st Contact Info) Description 02/18/2024 Telephone [facility] 230 [place], [place] [phone] Name, MD Andrés [address] [place] [address] Med Refill Social History Tobacco Use Types [...] 4 MG tablet To be sent to: [facility] - [place], [place] - [address] documented in this encounter Plan of Treatment Upcoming Encounters Date Type Department Care Team (Late st Contact Info) Description 12/18/2024 11:30 AM EDT Medication Management [facility] [address] [place] [address] [phone] Jhoana Pickering, PharmD [address] [place] [address] 01/05/2025 11:00 AM EDT Office Visit [facility] [address] [place] [address] documented as of this encounter Visit Diagnoses Not on filedocumented in this encounter Additional Health Concerns Assessment Noted Time PHQ-9 Depression Total Score: 0 08/07/19 24 2:21 PM EDT documented as of this encounter Care Teams Clinical Nurse Reviewer Relationship Specialty Start Date End Date Name, MD Andrés [address] [place] [address] PCP - General Family Medicine 04/08/15 Jhoana Pickering, ThomasD [address] [place] [address] Pharmacist Pharmacy 11/03/24 documented as of this encounter
--- OUTSIDE RECORDS SUMMARY | 2024-12-02 17:41 | XMS_ITS | Encounter Summary ---
Author Organization [facility] [employer] Address 75 [facility] 7[address] [place] [address] Care Team Providers Care Product Scientist Name Role Phone Name, Andrés RODRIGUEZ Primary Care Provider [phone] Jhoana Pickering PharmD Unavailable [phone] Reason for Visit * Reason Comments Med Refill Encounter Details Date Type Department Care Team ([facility] st Contact Info) Description 01/07/2024 Refill [facility] [address] [place], [place] [phone] Name, MD Andrés [address] [place] [address] Social History Tobacco Use Types Packs/Day Years [...] Description 12/18/2024 11:30 AM EDT Medication Management [address] [address] Jhoana Pickering PharmD [address] [place] [address] 01/05/2025 11:00 AM EDT Office Visit [address] [address] documented as of this encounter Visit Diagnoses Not on filedocumented in this encounter Additional Health Concerns Assessment Noted Time PHQ-9 Depression Total Score: 0 08/07/19 24 2:21 PM EDT documented as of this encounter Care Teams Product Scientist Relationship Specialty Start Date End Date Name, MD Andrés [address] [place] [address] PCP - General Family Medicine 04/08/15 Jhoana Pickering, ThomasD [address] [place] [address] Pharmacist Pharmacy 11/03/24 documented as of this encounter
--- OUTSIDE RECORDS SUMMARY | 2024-12-02 17:42 | XMS_ITS | Encounter Summary ---
Author Organization [employer] Address 75 [facility] 7[place] [address] Care Team Providers Care Experimental Display Builder Name Role Phone Name, Andrés RODRIGUEZ Primary Care Provider [phone] Jhoana Pickering PharmD Unavailable [phone] Reason for Visit * Reason Comments Med Refill Encounter Details Date Type Department Care Team ([facility] st Contact Info) Description 11/13/2024 Refill [facility] [address] [place], [place] [phone] Name, MD Andrés [address] [place] [address] Social History Tobacco Use Types Packs/Day Years [...] Description 12/18/2024 11:30 AM EDT Medication Management [facility] [address] [place] [address] Jhoana Pickering PharmD [address] [place] [address] 01/05/2025 11:00 AM EDT Office Visit [facility] [address] [place] [address] documented as of this encounter Visit Diagnoses Not on filedocumented in this encounter Additional Health Concerns Assessment Noted Time PHQ-9 Depression Total Score: 11 025 2:48 PM EDT documented as of this encounter Care Teams Experimental Display Builder Relationship Specialty Start Date End Date Name, MD Andrés [address] [place] [address] PCP - General Family Medicine 04/08/15 Jhoana Pickering, ThomasD [address] [place] [address] Pharmacist Pharmacy 11/03/24 documented as of this encounter
--- OUTSIDE RECORDS SUMMARY | 2024-12-02 17:42 | XMS_ITS | Encounter Summary ---
Author Organization [employer] Address 75 [facility] 7[place] [address] Care Team Providers Care Scan Coordinator Name Role Phone Name, Andrés RODRIGUEZ Primary Care Provider [phone] Jhoana Pickering PharmD Unavailable [phone] Reason for Visit * Reason Onset Date Comments PA 05/14/2024 Encounter Details Date Type Department Care Team ([facility] st Contact Info) Description 05/14/2024 Telephone [facility] 230 [place] [address] Name, MD Andrés [address] [place], [place] [phone] PA Social History Tobacco Use Types Packs/Day [...] is your housing situation today? I have imtiza lima 01/03/[address] you [...] me about the Lyrica and I called [facility]. They said no need for a PA, and that they would have it filled on 05/19/24 for her to citrus picker. I advised Ms. Ceja to let us know if she has any further difficulty picking up the med. Sending as FYI to PA team as no further action required at this time. * Telephone Encounter - Dale Khan - 05/14/2024 11:22 AM EST TC from pt requesting Pa for Medication pregabalin (Lyrica) 50 MG capsule. Contact pt at [phone] documented in this encounter Plan of Treatment Upcoming Encounters Date Type Department Care Team ([facility] st Contact Info) Description 12/18/2024 11:30 AM EDT Medication Management [address] [phone] Jhoana Pickering PharmD [address] [place] [address] 01/05/2025 11:00 AM EDT Office Visit [facility] [address] [place] [address] documented as of this encounter Visit Diagnoses Not on filedocumented in this encounter Additional Health Concerns Assessment Noted Time PHQ-9 Depression Total Score: 0 08/07/19 24 2:21 PM EDT documented as of this encounter Care Teams Scan Coordinator Relationship Specialty Start Date End Date Name, MD [place] [place] [address] PCP - General Family Medicine 04/08/15 Jhoana Pickering, Bladimir [address] [place] [address] Pharmacist Pharmacy 11/03/24 documented as of this encounter
--- OUTSIDE RECORDS SUMMARY | 2024-12-02 17:43 | XMS_ITS | Encounter Summary ---
Author Organization [employer] Address 75 [facility] 7[address] [place] [address] Care Team Providers Care Buckle Stringer Name Role Phone Name, Andrés RODRIGUEZ Primary Care Provider [phone] Johana Pickering PharmD Unavailable [phone] Reason for Visit * Reason Onset Date Comments Med Refill 05/21/2023 Encounter Details Date Type Department Care Team ([facility] st Contact Info) Description 05/21/2023 Telephone [facility] 230 [place], [place] [phone] Name, MD Andrés 230 [place], [place] [phone] Med Refill Social History Tobacco Use Types [...] 5-325 MG tablet To be sent to: [facility] - [place], [place] - [address] [place] [address] documented in this encounter Plan of Treatment Upcoming Encounters Date Type Department Care Team (Late st Contact Info) Description 12/18/2024 11:30 AM EDT Medication Management [facility] [address] [place] [address] Jhoana Pickering PharmD [address] [place] [address] 01/05/2025 11:00 AM EDT Office Visit [facility] [address] [place] [address] documented as of this encounter Visit Diagnoses Not on filedocumented in this encounter Additional Health Concerns Assessment Noted Time PHQ-9 Depression Total Score: 0 02/21/20 22 3:25 PM EST documented as of this encounter Care Teams Buckle Stringer Relationship Specialty Start Date End Date Name, MD Andrés [address] [place] [address] PCP - General Family Medicine 04/08/15 Jhoana Pickering PharmD [address] [place] [address] Pharmacist Pharmacy 11/03/24 documented as of this encounter
--- OUTSIDE RECORDS SUMMARY | 2024-12-02 17:43 | XMS_ITS | Encounter Summary ---
Author Organization [employer] Address 75 [facility] 7[address] [place] [address] Care Team Providers Care Front Clerk Name Role Phone Name, Andrés RODRIGUEZ Primary Care Provider [phone] Jhoana Pickering PharmD Unavailable [phone] Encounter Details Date Type Department Care Team (Late Contact Info) Description 04/12/2022 Orders Only [facility] [address] [place] [address] [phone] Graciela Gifford, ACCESS SERVICES REPRESENTATIVE Dysuria Social History Tobacco Use Types Packs/Day [...] 11:30 AM EDT Medication Management [facility] [address] [place] [address] PuiaMikeJhoana, PharmD [address] [place], [place] [phone] 01/05/2025 11:00 AM EDT Office Visit [facility] 230 [place] [address] documented as of this encounter Visit Diagnoses Diagnosis Dysuria documented in this encounter Additional Health Concerns Assessment Noted Time PHQ-9 Depression Total Score: 0 02/21/20 22 3:25 PM EST documented as of this encounter Care Teams Front Clerk Relationship Specialty Start Date End Date Name, MD Andrés [address] [place] [address] PCP - General Family Medicine 04/08/15 Jhoana Pickering, Bladimir [address] [place] [address] Pharmacist Pharmacy 11/03/24 documented as of this encounter
--- OUTSIDE RECORDS SUMMARY | 2024-12-02 17:43 | XMS_ITS | Encounter Summary ---
Author Organization [employer] Address 75 [facility] 7[address] [place] [address] Care Team Providers Care Service Person Name Role Phone Name, Andrés RODRIGUEZ Primary Care Provider [phone] Jhoana Pickering PharmD Unavailable [phone] Reason for Visit * Reason Onset Date Comments Medication Question 02/12/2023 Encounter Details Date Type Department Care Team ([facility] st Contact Info) Description 02/12/2023 Telephone [facility] 230 [place], [place] [phone] Name, MD Andrés [address] [place], [place] [phone] Medication Question Social History Tobacco Use Types [...] requesting status on lidocaine patch 5% however journalists and other writers does not see anything on chart regarding that matter. documented in this encounter Plan of Treatment Upcoming Encounters Date Type Department Care Team (Late st Contact Info) Description 12/18/2024 11:30 AM EDT Medication Management [facility] [address] [place] [address] Jhoana Pickering, PharmD [address] [place] [address] 01/05/2025 11:00 AM EDT Office Visit [facility] 230 [place] [address] documented as of this encounter Visit Diagnoses Not on filedocumented in this encounter Additional Health Concerns Assessment Noted Time PHQ-9 Depression Total Score: 0 02/21/20 22 3:25 PM EST documented as of this encounter Care Teams Service Person Relationship Specialty Start Date End Date Name, MD Andrés [address] [place] [address] PCP - General Family Medicine 04/08/15 Jhoana Pickering, Bladimir [address] [place] [address] Pharmacist Pharmacy 11/03/24 documented as of this encounter
--- OUTSIDE RECORDS SUMMARY | 2024-12-02 17:43 | XMS_ITS | Encounter Summary ---
Author Organization [employer] Address 75 [facility] [address] [place] [address] Care Team Providers Care Reading Assistant Name Role Phone Name, Andrés RODRIGUEZ Primary Care Provider [phone] Jhoana Pickering PharmD Unavailable [phone] Reason for Visit * Reason Onset Date Comments Med Refill 09/24/2023 Encounter Details Date Type Department Care Team ([facility] st Contact Info) Description 09/24/2023 Telephone [facility] 230 [place], [place] [phone] Name, MD Andrés [address] [place] [address] Med Refill Social History Tobacco Use Types [...] MG EC tablet To be sent to: [facility] [address] [facility] documented in this encounter Plan of Treatment Upcoming Encounters Date Type Department Care Team (Late st Contact Info) Description 12/18/2024 11:30 AM EDT Medication Management [facility] [address] [place] [address] Jhoana Pickering, PharmD [address] [place] [address] 01/05/2025 11:00 AM EDT Office Visit [facility] [address] [place] [address] documented as of this encounter Visit Diagnoses Not on filedocumented in this encounter Additional Health Concerns Assessment Noted Time PHQ-9 Depression Total Score: 0 08/07/19 24 2:21 PM EDT documented as of this encounter Care Teams Reading Assistant Relationship Specialty Start Date End Date Name, MD Andrés [address] [place] [address] PCP - General Family Medicine 04/08/15 Jhoana Pickering, Bladimir [address] [place] [address] Pharmacist Pharmacy 11/03/24 documented as of this encounter
--- OUTSIDE RECORDS SUMMARY | 2024-12-02 17:43 | XMS_ITS | Encounter Summary ---
Author Organization [employer] Address 75 [facility] 7 [place] [address] Care Team Providers Care Plant Equipment Engineer Name Role Phone Name, Andrés RODRIGUEZ Primary Care Provider [phone] Jhoana Pickering PharmD Unavailable [phone] Reason for Visit * Reason Onset Date Comments Appointment Request 03/23/2022 Encounter Details Date Type Department Care Team ([facility] Contact Info) Description 03/23/2022 Telephone [facility] 230 [place], [place] [phone] Name, MD Andrés [address] [place] [address] Appointment Request Social History Tobacco Use Types [...] at 9:45 am Please contact pt at [phone] documented in this encounter Plan of Treatment Upcoming Encounters Date Type Department Care Team ([facility] st Contact Info) Description 12/18/2024 11:30 AM EDT Medication Management [facility] [address] [place] [address] Jhoana Pickering PharmD [address] [place] [address] 01/05/2025 11:00 AM EDT Office Visit [facility] [address] [place] [address] documented as of this encounter Visit Diagnoses Not on filedocumented in this encounter Additional Health Concerns Assessment Noted Time PHQ-9 Depression Total Score: 0 02/21/20 22 3:25 PM EST documented as of this encounter Care Teams Plant Equipment Engineer Relationship Specialty Start Date End Date Name, MD Andrés [address] [place] [address] PCP - General Family Medicine 04/08/15 Jhoana Pickering PharmD [address] [place] [phone] Pharmacist Pharmacy 11/03/24 documented as of this encounter
== END 2024-12-02 15:16 | disposition home or self-care (01) ==
LOC: HO.HHCX 15:15
PROVIDERS: PCP Internal Medicine Geriatric Medicine; Visit Provider Internal Medicine Geriatric Medicine
DX: M65.321 Trigger finger, right index finger (principal); M65.311 Trigger thumb, right thumb; M65.331 Trigger finger, right middle finger; M65.341 Trigger finger, right ring finger; M65.351 Trigger finger, right little finger
CPT/HCPCS: 73130

== ENCOUNTER → 2024-12-02 15:22 | Outpatient (BNV) | payer MEDICAID, SELFPAY | PROVIDERS: PCP Internal Medicine Geriatric Medicine; Visit Provider Radiology Diagnostic Radiology | DX: M65.311 Trigger thumb, right thumb (principal) | CPT/HCPCS: 73130 ==

== ENCOUNTER 2025-01-06 15:37 | Outpatient (REF) | payer MEDICAID, SELFPAY ==
--- OUTSIDE RECORDS SUMMARY | 2025-01-05 11:00 | XMS_ITS | Encounter Summary ---
Author Organization [employer] Address [address] [facility] [address] [place] [address] Care Team Providers Care Napper Tender Name Role Phone Name, Andrés RODRIGUEZ Primary Care Provider [phone] Jhoana Pickering PharmD Unavailable [phone] Encounter Details Date Type Department Care Team (Latest Contact Info) Description 01/05/2025 11:00 AM EDT Office Visit [facility] [address] [place] [address] Lala Mercado FNP [address] [place] [address] Cervical radiculopathy due to degenerative joint disease [...] the past 12 months, has t he [employer], gas, oil or water [employer] threatened to shut off services in your [...] this encounter Progress Notes * Lala Mercado, MEDICAL RECORDS CLERK - 01/05/2025 11:00 AM EDT Subjective: Rafi Ceja is a 59 y.o. female w/ PMH HTN, DM2, obesity, esophageal reflux, cervical radiculopathy, who presents to the office for - [facility] Group visits. Initial Group visit: 05/21/23 Group Topic: K-Tape Presenter: Giuseppe Flores, Physical Therapist Chronic Pain History: Associated Diagnosis: cervical radicular [...] of spine Rx: Percocet 5/325mg q 8hours Controlled Substance Agreement 01/05/2025 Tier II (visit every 3 months) Current Assessment & Plan Timeline: - 08/04/24: Group visit - utox/pill count as expected - 09/01/24: Group visit - pill count as expected, utox as expected on 09/02/24 - 11/03/24: Group visit - pill count as expected, utox abnormal --> confirmatory testing pending - 01/05/25: Group visit - Utox as expected, pill count 5 short. See residential interior designer. Relevant Orders POCT MERLENE-14 Urine Drug Screen (Completed) Neuro Cervical radiculopathy due to degenerative joint disease of spine - Primary Current Assessment & Plan -Good engagement and participation with Group Medical Visit model -Encouraged multifactorial approach to pain control including pharm and non- pharm modalities -Utox as expected, pill count 5 short. See residential interior designer. Follow up: 1 month for PHOTOGRAPHIC PLATEMAKER visit. Sooner as needed. * Mone Parkinson RN - 01/05/2025 11:00 AM EDT PHOTOGRAPHIC PLATEMAKER concrete gun operator: PDMP reviewed today. Last fill date: 12/30/24 Percocet 5mg count was 59, anticipated 64 to be remaining. Reviewed percocet order with patient. Ptstated she has taken a few extra doses due to increased pain. Advised patient to take as PCP ordered. UTOX completed. Positive for OXY, Negative for AMP, BAR, BUP, BZO, ANJUM, FTY, MDMA, MET, MOP, MTD, PCP, TCA, THC. UTOX as expected. PHOTOGRAPHIC PLATEMAKER Agreement reviewed and signed. BPI updated today. Pain severity score of 8, activity interference score of 5. Previous BPI completed 08/04/24 with pain severity score of 8, activity interference score of 5. Will update PCP with BPI scoring and Percocet count documented in this encounter Miscellaneous Notes * Assessment & Plan Note - CRISTINA Cantu - 01/05/2025 1:59 PM EDTAssociated Problem(s): MCC (current) use of opiate analgesic Timeline: - 08/04/24: Group visit - utox/pill count as expected - 09/01/24: Group visit - pill count as expected, utox as expected on 09/02/24 - 11/03/24: Group visit - pill count as expected, utox abnormal --> confirmatory testing pending - 01/05/25: Group visit - Utox as expected, pill count 5 short. See residential interior designer. * Assessment & Plan Note - CRISTINA Cantu - 01/05/2025 1:58 PM EDTAssociated Problem(s): Cervical radiculopathy due to degenerative joint disease of spine -Good engagement and participation with Group Medical Visit model -Encouraged multifactorial approach to pain control including pharm and non- pharm modalities -Utox as expected, pill count 5 short. See residential interior designer. documented in this encounter Plan of Treatment Upcoming Encounters Date Type Department Care Team (Late st Contact Info) Description 01/26/2025 10:00 AM EST Medication Management [facility] [address] [place] [address] Jhoana Pickering, PharmD [address] [place] [address] 02/02/2025 11:00 AM EST Office Visit [facility] [address] [place] [address] documented as of this encounter Procedures Procedure Name Priority Date/Time Associated Diagnosis Comments POCT MERLENE-14 URINE DRUG SCREEN Routine 01/05/2025 11:40 AM EDT salvage determiner (current) use of opiate analgesic documented in this encounter Results * (ABNORMAL) POCT MERLENE-14 Urine Drug Screen (01/05/2025 11:40 AM EDT) THC Negative Negative Cocaine Screen, Urine Negative Negative Opiate Screen, Urine Negative Negative Methamphetamine Screen Urine Negative Negative Amphetamine Screen, Urine Negative Negative Benzodiazepines Screen, Urine Negative Negative Barbiturate Screen, Urine Negative Negative Methadone Screen, Urine Negative Negative Buprenophine Screen, Urine Negative Negative TCA, Urine Negative Negative MDMA Urine Negative Negative ng/mL Oxycodone Screen, Urine Positive(A) Negative Comment:PHOTOGRAPHIC PLATEMAKER pt on oxycodone Phencyclidine (PCP), Urine Negative Negative Propoxyphene, Urine Negative Negative Fentanyl, Urine Negative Negative Urine Urine specimen obtained by clean catch procedure / Unknown 01/05/2025 11:40 AM EDT Mone Choudhary RN - 01/05/2025 11:40 AM EDT UTOX cup Lot#[id number] Exp. 12/15/25 Internal Pass Control Lala Mercado MEDICAL RECORDS CLERK POINT OF CARE TEST ENTER/EDIT ORDERABLES Final Result documented in this encounter Visit Diagnoses Diagnosis Cervical radiculopathy due to degenerative joint disease of spine- Primary MCC (current) use of opiate analgesic documented in this encounter Additional Health Concerns Assessment Noted Time PHQ-9 Depression Total Score: 11 08/25/ 025 2:48 PM EDT documented as of this encounter Care Teams Napper Tender Relationship Specialty Start Date End Date Name, MD [place] [place] [address] PCP - General Family Medicine 04/08/15 Jhoana Pickering, PharmD [address] [place] [address] Pharmacist Pharmacy 11/03/24 documented as of this encounter
--- OUTSIDE RECORDS SUMMARY | 2025-01-06 19:53 | XMS_ITS | Encounter Summary ---
Author Organization [employer] Address [address] [facility] [address] [place] [address] Care Team Providers Care Label Coder Name Role Phone Name, Andrés RODRIGUEZ Primary Care Provider [phone] Jhoana Pickering PharmD Unavailable [phone] Reason for Visit * Reason Comments Med Refill Encounter Details Date Type Department Care Team ([facility] st Contact Info) Description 01/07/2024 Refill [facility] [address] [place], [place] [id number] Name, MD Andrés [address] [place] [address] Social History Tobacco Use Types Packs/Day Years [...] Description 01/26/2025 10:00 AM EST Medication Management [address] [address] Jhoana Pickering PharmD [address] [place] [phone] 02/02/2025 11:00 AM EST Office Visit [address] [address] documented as of this encounter Visit Diagnoses Not on filedocumented in this encounter Additional Health Concerns Assessment Noted Time PHQ-9 Depression Total Score: 0 08/07/19 24 2:21 PM EDT documented as of this encounter Care Teams Label Coder Relationship Specialty Start Date End Date Name, MD Andrés [address] [place] [id number] PCP - General Family Medicine 04/08/15 Jhoana Pickering PharmD [address] [place] [phone] Pharmacist Pharmacy 11/03/24 documented as of this encounter
--- OUTSIDE RECORDS SUMMARY | 2025-01-06 19:53 | XMS_ITS | Clinical Summary ---
Author Organization [employer] Address [address] [facility] [address] [place] [address] Care Team Providers Care Senior Audit Manager Name Role Phone Name, Andrés RDORIGUEZ Primary Care Provider [phone] Jhoana Pickering PharmD Unavailable [phone] Allergies No known active allergies Medications * This document contains information received from the source organization and may not represent a complete record from that organization. Multiple Vitamins-Minera ls (Alive [employer]) tablet Take 1 tablet by mouth Once per day. 02/10/20 16 Active pantoprazole (ProtoNix) 40 MG EC tablet 07/02/19 24 Active atorvastatin (Lipitor) 40 MG tablet Take 1 tablet (40 mg) by mouth Once per day. 90 tablet 3 04/08/19 25 026 Active lidocaine (Lidoderm) 5 % patchIndication s:Chronic neck pain APPLY 1 PATCH TOPICALLY IN THE MORNING. REMOVE & DISCARD PATCH WITHIN 12 HOURS OR DIRECTED BY MD. 30 patch 2 06/13/19 25 Active Continuous Glucose Electronic Musical Instrument Repairer (FreeStyle Kobe 3 [place]) device 1 each Once per day. Use as directed for CGM 1 each 09/08/19 25 Active glucose blood (FreeStyle Precision Nima Test) test strip Use to test blood sugar 3 times daily in case of CGM failure or extremes of BG 100 each 11 09/08/19 25 026 Active lisinopril 10 MG tabletIndicatio ns:Essential hypertension Take 1 tablet by mouth every day 90 tablet 1 09/09/19 25 Active sertraline (Zoloft) 50 MG tabletIndicatio ns:Depressive disorder TAKE 1 TABLET BY MOUTH EVERY DAY 30 tablet 2 10/24/19 25 Active naloxone (Narcan) 4 mg/0.1 mL nasal spray Administer 1 spray (4 mg) into affected nostril(s) if needed for opioid reversal. 2 each 1 11/04/19 25 Active aspirin (Aspirin Adult Low Dose) 81 MG EC tabletIndicatio ns:Type 2 diabetes mellitus with hyperglycemia, with long-term current use of insulin (HCC) Take 1 tablet (81 mg) by mouth Once per day. 90 tablet 3 11/21/19 25 026 Active insulin glargine (Lantus) 100 UNIT/ML penIndications: Type 2 diabetes mellitus with hyperglycemia, with long-term current use of insulin (HCC) Inject 34 Units under the skin at bedtime. Increase as directed up to a max of 58 units daily. 15 mL 2 11/21/19 25 Active metFORMIN XR (Glucophage-XR) 750 MG 24 hr tabletIndicatio ns:Type 2 diabetes mellitus without complication, without long-term current use of insulin (HCC) Take 1 tablet (750 mg) by mouth with breakfast and with evening meal. Do not crush, chew, or split. 180 tablet 3 12/03/19 25 026 Active insulin lispro (HumaLOG KWIKPEN) 100 UNIT/ML injectionIndica tions:Type 2 diabetes mellitus with hyperglycemia, with long-term current use of insulin ([facility]) Inject 10 Units under the skin with breakfast AND 10 Units with lunch. 10 units prior to lunch. 15 each 1 12/19/19 25 Active Insulin Disposable Pump (Omnipod 5 Libre2 G6 Intro G5) kit 1 Device Once per day. Use as directed for insulin administratio n. One kit = 30 day supply. 1 kit 12/19/19 25 Active Insulin Disposable Pump (Omnipod 5 Libre2 Plus G6 Pods) misc 1 Device every 3 (three) days. Wear daily for insulin administratio n. Apply a new pod every 72 hours as directed.) 10 each 11 12/19/19 25 Active insulin pen needle (BD Pen Needle Lashaun Ultrafine) 32G x 4 mm miscIndications :Type 2 diabetes mellitus with hyperglycemia, with long-term current use of insulin (HCC) Use to inject insulin three times daily 100 each 11 12/19/19 25 026 Active Continuous Glucose Sensor (FreeStyle Kobe 2 Plus Sensor) misc 1 Device every 15 days. Apply 1 sensor as directed every 15 days for CGM 2 each 12/23/19 Active tiZANidine (Zanaflex) 4 MG tabletIndicatio ns:Type 2 diabetes mellitus without complication, without long-term current use of insulin (HCC) TAKE 1 TABLET BY MOUTH EVERY 6 TO 8 HOURS NEEDED NOT TO EXCEED 3 DOSES IN 24 HOURS 30 tablet 12/31/19 25 Active oxyCODONE-aceta minophen (Percocet) 5-325 MG tabletIndicatio ns:Chronic neck pain Take 1 tablet by mouth every 8 (eight) hours if needed for severe pain for up to 28 days. 84 tablet 12/31/19 25 025 Active insulin pen needle (BD Pen Needle Lashaun Ultrafine) 32G x 4 mm misc Use as instructed 100 each 12 09/08/19 25 025 Discontinued(R eorder (will not trigger notification to Pharmacy)) Continuous Glucose Sensor (FreeStyle Kobe 3 Plus Sensor) misc 1 each every 15 days. Apply 1 every 15 days as directed for CGM 2 each 11 09/08/19 25 025 Discontinued(A lternate therapy) tiZANidine (Zanaflex) 4 MG tabletIndicatio ns:Type 2 diabetes mellitus without complication, without long-term current use of insulin (HCC) TAKE 1 TABLET BY MOUTH EVERY 6 TO 8 HOURS NEEDED NOT TO EXCEED 3 DOSES IN 24 HOURS 30 tablet 11/21/19 25 025 Discontinued oxyCODONE-aceta minophen (Percocet) 5-325 MG tabletIndicatio ns:Chronic neck pain Take 1 tablet by mouth every 8 (eight) hours if needed for severe pain for up to 28 days. Do not start before December 02, 2024. 84 tablet 12/03/19 25 025 Discontinued(R eorder (will not trigger notification to Pharmacy)) insulin lispro (HumaLOG KWIKPEN) 100 UNIT/ML injection 10 units prior to lunch 1 each 1 12/03/19 25 025 Discontinued(R eorder (will not trigger notification to Pharmacy)) tiZANidine (Zanaflex) 4 MG tabletIndicatio ns:Type 2 diabetes mellitus without complication, without long-term current use of insulin (HCC) TAKE 1 TABLET BY MOUTH EVERY 6 TO 8 HOURS NEEDED NOT TO EXCEED 3 DOSES IN 24 HOURS 30 tablet 12/16/19 025 Discontinued(R eorder (will not trigger notification to Pharmacy)) Continuous Glucose Sensor (FreeStyle Kobe 2 Plus Sensor) misc 1 Device every 15 days. 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 See sanitation worker hosing machinery. Assessment & Plan (11/03/2024 1:53 PM EDT): [...] disease of spine 10/29/2017 Assessment & Plan (01/05/2025 1:59 PM EDT): -Good engagement and participation with Group Medical Visit model -Encouraged multifactorial approach to pain control including pharm and non- pharm modalities -Utox as expected, pill count 5 short. See sanitation worker hosing machinery. Assessment & Plan (11/03/2024 1:52 PM EDT): [...] 6 Severe obesity (BMI 35.0-39.9) with comorbidity ([facility]) 04/08/2015 Plantar fasciitis 09/26/2010 Hypercholesterolemia 02/06/2010 Hypertension 11/18/2009 Recurrent urinary tract infection 01/28/2009 Encounters * This document contains information received from the source organization and may not represent a complete record from that organization. Date Type Department Care Team Description 01/05/2025 11:00 AM EDT Office Visit [facility] [address] [place] [phone] Lala Mercado FNP Cervical radiculopathy due to degenerative joint disease of spine (Primary Dx); [facility] (current) use of opiate analgesic 01/05/2025 Telephone [facility] [address] [place] [phone] Tesha, Mone, RN CYLINDER INSPECTOR AGreement renewed today; Percocet count discrepancy 01/05/2025 Travel 12/31/2024 Refill [facility] [address] [place] [address] NameAndrés MD Type 2 diabetes mellitus without complication, without long-term current use of insulin (HCC) 12/30/2024 Refill [facility] [address] [place] [address] NameAndrés MD Type 2 diabetes mellitus without complication, without long-term current use of insulin (HCC) 12/30/2024 Refill [facility] [address] [place] [phone] Andrés Lee MD Chronic neck pain 12/18/2024 Telephone [facility] [address] [place] [phone] Jhoana Pickering PharmD Prior Authorization (Omnipod 5 & Kobe 2 plus sensors) 12/18/2024 Travel 12/14/2024 Refill [facility] [address] [place] [phone] Andrés Lee MD Type 2 diabetes mellitus without complication, without long-term current use of insulin (HCC) 12/02/2024 2:30 PM EDT Office Visit [facility] [address] [place] [phone] Andrés Lee MD Type 2 diabetes mellitus without complication, without long-term current use of insulin ([facility]/HCC) (Primary Dx); Encounter for immunization; Trigger finger of all digits of right hand 12/02/2024 Travel 11/30/2024 Refill [facility] [address] [place] [address] Andrés Lee MD Chronic neck pain 11/25/2024 9:00 AM EDT Office Visit [facility] [address] [place] [address] Ovi, Sonali, OD Diabetes type 2, no ocular involvement (CMS/HCC) (Primary Dx); Combined forms of age-related cataract of both eyes; Meibomian gland disease of both eyes, unspecified eyelid; Presbyopia 11/25/2024 Travel 11/20/2024 Refill [facility] [address] [place] [phone] Andrés Lee MD Type 2 diabetes mellitus without complication, without long-term current use of insulin ([facility]) 11/20/2024 Travel 11/16/2024 Telephone [facility] [address] [place] [phone] Andrés Lee MD Med Refill 11/13/2024 Refill [facility] [address] [place] [phone] Andrés Lee MD 11/03/2024 11:00 AM EDT Office Visit [facility] [address] [place] [phone] Lala Mercado, CRISTINA Cervical radiculopathy due to degenerative joint disease of spine (Primary Dx); [facility] (current) use of opiate analgesic 11/03/2024 Refill [facility] [address] [place] [address] Heena Johnston RN Chronic neck pain 11/03/2024 Travel 10/23/2024 Refill [facility] [address] [place] [phone] Andrés Lee MD Type 2 diabetes mellitus without complication, without long-term current use of insulin (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) POCT GLYCATED HEMOGLOBIN, TOTAL Routine 11/20/2024 12:40 PM EDT Type 2 diabetes mellitus with hyperglycemia, with long-term current use of insulin ([facility]) POCT MERLENE-14 URINE DRUG SCREEN Routine 11/03/2024 11:22 AM EDT [facility] (current) use of opiate analgesic METHADONE SCREEN, URINE Routine 11/03/2024 11:00 AM EDT [facility] (current) use of opiate analgesic ALBUMIN, RANDOM [...] Urine Drug Screen (01/05/2025 11:40 AM EDT) Only the most recent of2 resultswithin the time period is included. THC Negative Negative Cocaine Screen, Urine Negative Negative Opiate Screen, Urine Negative Negative Methamphetamine Screen Urine Negative Negative Amphetamine Screen, Urine Negative Negative Benzodiazepines Screen, Urine Negative Negative Barbiturate Screen, Urine Negative Negative Methadone Screen, Urine Negative Negative Buprenophine Screen, Urine Negative Negative TCA, Urine Negative Negative MDMA Urine Negative Negative ng/mL Oxycodone Screen, Urine Positive(A) Negative Comment:CYLINDER INSPECTOR pt on oxycodone Phencyclidine (PCP), Urine Negative Negative Propoxyphene, Urine Negative Negative Fentanyl, Urine Negative Negative Urine Urine specimen obtained by clean catch procedure / Unknown 01/05/2025 11:40 AM EDT Narrative Mone Parkinson RN - 01/05/2025 11:40 AM EDT UTOX cup Lot#[id number] Exp. 12/15/25 Internal Pass Control us Lala Mercado LEVELMAN POINT OF CARE TEST ENTER/EDIT ORDERABLES Final Result * XR Hand 3+ Views Right (12/02/2024 3:43 PM EDT) Anatomical Region Laterality Modality Upper Extremities, Hand Right Radiogra phic Imaging 12/02/2024 3:43 PM EDT Narrative 12/02/2024 4:09 PM EDT [facility] [address] [place] [address] XRay Report Signed Patient: Rafi Ceja MR#: [id number] 3529 : 1965 Acct:[id number] Age/Sex: 59 / F ADM Date: 12/02/24 Loc: HO.HHCX Attending Dr: Andrés Lee MD Ordering Physician: Andrés Lee MD Date of Service: 12/02/24 Procedure(s): XR hand RT min 3V Accession Number(s): [id number] cc: Andrés Lee MD Reason for Exam: [...] Omid Arnett MD 12/02/2024 04:06 PM EDT Dictated By: Omid Arnett MD Signed By: <Electronically signed by Omid Arnett MD in OV> 12/02/24 1606 DD/ 1543 TD/TT: 12/02/24 1559 Senior Data Warehouse Developer: Procedure Note Donotuseinterpreter, Image - 12/02/[address] [address] XRay Report Signed Patient: [place] Ceja#: [id number] 3529 : 1965Acct:[id number] Age/Sex: 59 / FADM Date: 12/02/24 Loc: .CX Attending Dr: Andrés Lee MD Ordering Physician: Andrés Lee MD Date of Service: 12/02/24 Procedure(s): XR hand RT min 3V Accession Number(s): [id number] cc: Andrés Lee MD Reason for Exam: [...] Omid Arnett MD 12/02/2024 04:06 PM EDT Dictated By: Omid Arnett MD Signed By: <Electronically signed by Omid Arnett MD in OV> 12/02/24 1606 DD/ 1543 TD/TT: 12/02/24 1559 Senior Data Warehouse Developer: us Andrés Lee MD IMG XR PROCEDURES Final [...] TEST ENTER/EDIT OR DERABLES Final Result * Drug Monitoring, Methadone Metabolite, Screen, Urine (11/03/2024 11:00 AM EDT) Methadone Screen, Urine Not Detected Not Detect ng/mL [facility] Comment:Methadone cut-off is 300 ng/mL.Positive results are unconfirmed and should not be used fornon-medical purposes. Urine (Urine, Random) 11/03/2024 11:00 AM EDT 11/03/2024 1:25 PM EDT us Andrés Lee MD LAB URINE ORDERABLES Final Resul t Performing Organization Address [facility] Co de Phone Number [facility] [address] [place] [phone] * Albumin, Random Urine W/Creatinine (05/19/2024 9:10 AM EDT) Creatinine, Urine 188.03 mg/dL [facility] Microalbumin Urine 32.0 mg/L [facility] Microalbum Creatinine Ratio Ur 17.0 <30 ug/mg cr [facility] Comment:Albumin/Creatinine R atio Reference Ranges: Normal: < 30 ug/mg creatinine Microalbuminuria: 30 - 300 ug/mg creatinineClinical Albuminuria: > 300 ug/mg creatinine Urine (Urine, Random) 05/19/2024 9:10 AM EDT 05/19/2024 11:34 AM EDT us Andrés Lee MD LAB URINE ORDERABLES Final Resul t Performing Organization Address City/[facility]/ZIP Co de Phone Number [facility] [address] [place] [phone] * (ABNORMAL) Lipid Panel, Standard (05/19/2024 9:10 AM EDT) Triglycerides 129 <150 mg/dL [facility] Comment:Desirable Triglyceri de: less than 150 mg/dLBorderline High Triglyceride 150-199 mg/dLHigh Triglyceride: 200-499 mg/dLVery High Triglyceride: greater than or equal to 5OO mg/dL Cholesterol 122 <200 mg/dL [facility] Comment:Desirable Cholestero l: less than 200 mg/dLBorderline High Cholesterol: 200-239 mg/dLHigh Cholesterol: greater than 239 mg/dL LDL Cholesterol Calculated 60 <100 mg/dL [facility] Comment:Desirable LDL: less than 100 mg/dLNear Optimal/Above Optimal LDL: 110- 129 mg/dLBorderline High LDL: 130-159 mg/dLHigh LDL: 160-189 mg/dLVery High LDL: greater than or equal to 190 mg/dL HDL Cholesterol 37(L) >40 mg/dL [facility] Comment:Desirable HDL: great er than 40 mg/dL Note: This HDL assay may give artificially low results in patients with liver disease. Blood Venous blood specimen / Unknown 05/19/2024 9:10 AM EDT 05/19/2024 11:29 AM EDT us Andrés Lee MD LAB BLOOD ORDERABLES Final Resul t [facility] [address] [place] [phone] [phone] * (ABNORMAL) Hm Colonoscopy (02/20/2024 9:55 AM EST) Colonoscopy Abnormal(A ) Normal 02/20/2024 9:55 AM EST us Andrés Lee MD HEALTH MAINTENANCE Final Result * BI Mammogram Screening Tomosynthesis Bilateral (01/01/2024 3:45 PM EDT) Anatomical Region Laterality Modality Breast Bilateral Mammography 01/01/2024 3:45 PM EDT Narrative 01/13/2024 4:19 PM EST [address] [place], [place] [address] Mammography Report Signed Patient: Rafi Ceja MR#: [id number] 3529 : 1965 Acct:[id number] Age/Sex: 58 / F ADM Date: 01/01/24 Loc: HO.MAMMO Attending Dr: Andrés Lee MD Ordering Physician: Andrés eLe MD Results: 1Negative Date of Service: 01/01/24 Follow Up: 1 Year From Orig inal Mammogram Procedure(s): MM tomosynthesis screening BI Accession Number(s): [id number] cc: Andrés Lee MD EXAMINATION: MM SCREENING [...] 01/13/24 1615 DD/ 1545 TD/TT: 01/01/24 1600 Senior Data Warehouse Developer: Procedure Note Donotuseinterpreter, Image - 01/13/[address] [place] [address] Mammography Report Signed Patient: Georgia Ceja#: [id number] 3529 : 1965Acct:[id number] Age/Sex: 58 / FADM Date: 01/01/24 Loc: HO.MAMMO Attending Dr: Andrés Lee MD Ordering Physician: Andrés Lee MDResults: 1Negative Date of Service: 01/01/24Follow Up: 1 Year From Orig inal Mammogram Procedure(s): MM tomosynthesis screening BI Accession Number(s): [id number] cc: Andrés Lee MD EXAMINATION: MM SCREENING [...] 01/13/24 1615 DD/ 1545 TD/TT: 01/01/24 1600 Senior Data Warehouse Developer: us Andrés Lee MD IMG BI PROCEDURES Edited Result - Final * Referral to Ophthalmology (11/20/2023) us Andrés Lee MD OUTPATIENT REFERRAL ORDERABLES F inal Result * Hepatitis C Ab (04/17/2023 9:41 AM EST) Pathologist [facility] Hepatitis C Antibody Nonreactive Nonreactive [facility] Comment:Antibodies to HCV no t detected; does not exclude early acuteHCV infection. Blood Venous blood specimen / Unknown 04/17/2023 9:41 AM EST 04/17/2023 11:46 AM EST Andrés Lee MD LAB BLOOD ORDERABLES Final Resul t Performing Organization Address [facility] Co de Phone Number [facility] [address] [place] [phone] * HPV mRNA E6/E7 w/Reflex to HPV Genotypes 16, 18/45 (11/19/2022 10:39 AM EDT) Pathologist [facility] HPV nRNA E6/E7 Not Detected Not Detected [facility] Comment:Methodology: Transcr iption-Mediated AmplificationThis assay detects E6/E7 viral messenger RNA (mRNA) from 14high-risk HPV types (16,18,31,33,35,39,45,51,52,56,58,59,66,68).Cervical sources are required for HPV testing.If a vaginal source from a patient who has had atotal hysterectomy with removal of cervix wassubmitted, please contact the testing laboratoryfor alternative testing options.For additional information, please refer tohttp://[email or web address]/faq/YIZ637o2(This link if provided for information/educational purposes only.)THIS TEST WAS PERFORMED AT:[employer] [place] [phone] ANDREWS MD HPV mRNA E6/E7 [facility] HPV 16 RNA [facility] HPV 18/45 RNA [facility] 11/19/2022 10:3 9 AM EDT 11/20/2022 8:40 AM EDT Karthik Rob CNM LAB CYTOLOGY ORDERABLES F inal Result Performing Organization Address [facility]/ZIP Co de Phone Number [facility] [address] [place] [phone] * Pap Smear (11/19/2022 10:39 AM EDT) 11/19/2022 10:3 9 AM EDT 11/20/2022 8:40 AM EDT [facility] - 12/02/2022 5:22 PM EDT ----- ------- Name: Mikie Cejapeggy Age/Sex: 57/F : 1965 Unit#: [id number] Attend Dr: KARTHIK ROB CNM Re11/19/22 Status: DEP REF Location: HO.HHCLNP Disch: ----- ------- SPEC : [id number] RECD: 11/20/22 STATUS: MARIO GREENFEILD NUM: [id number] DANISHA: 11/19/22-10[address] [facility] [address]: KARTHIK ROB CNM ENTERED: 11/20/22-7389 SP TYPE: Pap Smr OT : ORDERED: Pap Smear Interpretation Satisfactory for evaluation. Negative for intraepithelial lesion or malignancy. HPV mRNA E6/E7: NOT DETECTED This assay detects E6/E7 viral messenger RNA (mRNA) from 14 high-risk HPV types (16, 18, 31, 33, 35, 39, 45, 51, 52, 56, 58, 59, 66, 68) HPV testing performed by [employer], [place], [place]. See reference laboratory portion of the EMR for entire report. Clinical Information LMP: Unknown date Previous PAP test: 2019, WNL Material Received ThinPrep-Vaginal/Cervical ----- ------- Signed (signature on file) Razia Higgins 12/02/221721 ----- ------- END OF REPORT Karthik Rob [facility] LAB CYTOLOGY ORDERABLES F inal Result [facility] [address] [place] [phone] from Last 3 Months or Most Recently Relevant to Health Maintenance Insurance [employer] Care Teams Senior Audit Manager Relationship Specialty Start Date End Date Name, MD Andrés [address] [place] [address] PCP - General Family Medicine 04/08/15 Jhoana Pickering, PharmD [address] [place] [phone] Pharmacist Pharmacy 11/03/24
--- OUTSIDE RECORDS SUMMARY | 2025-01-06 19:53 | XMS_ITS | Encounter Summary ---
Author Organization [employer] Address [address] [facility] [address] [place] [address] Care Team Providers Care [employer] Name Role Phone Name, Andrés RODRIGUEZ Primary Care Provider [phone] Jhoana Pickering PharmD Unavailable [phone] Encounter Details Date Type Department Care Team (Latest Contact Info) Description 01/05/2025 Travel Social History Tobacco Use Types Packs/Day [...] Description 01/26/2025 10:00 AM EST Medication Management [address] [phone] Jhoana Pickering PharmD [address] [place] [phone] 02/02/2025 11:00 AM EST Office Visit [address] [address] documented as of this encounter Visit Diagnoses Not on filedocumented in this encounter Additional Health Concerns Assessment Noted Time PHQ-9 Depression Total Score: 11 025 2:48 PM EDT documented as of this encounter Care Teams [employer] Relationship Specialty Start Date End Date Name, MD Andrés [address] [place] [phone] PCP - General Family Medicine 04/08/15 Jhoana Pickering, PharmD [address] [place] [phone] Pharmacist Pharmacy 11/03/24 documented as of this encounter
--- OUTSIDE RECORDS SUMMARY | 2025-01-06 19:53 | XMS_ITS | Encounter Summary ---
Author Organization [employer] Address [address] [facility] [address] [address] Care Team Providers Care Braid Cutter Name Role Phone Name, Andrés RODRIGUEZ Primary Care Provider [phone] Jhoana Pickering PharmD Unavailable [phone] Reason for Visit * Reason Onset Date Comments Med Refill 02/18/2024 Encounter Details Date Type Department Care Team ([facility] st Contact Info) Description 02/18/2024 Telephone [facility] MEDICINE 230 [place], [place] [phone] Name, MD Andrés 230 [place] [address] Med Refill Social History Tobacco Use Types [...] 4 MG tablet To be sent to: [facility] - [place], [place] - [address] documented in this encounter Plan of Treatment Upcoming Encounters Date Type Department Care Team (Late st Contact Info) Description 01/26/2025 10:00 AM EST Medication Management [facility] MEDICINE [address] [place] [address] [phone] Jhoana Pickering, PharmD 230 [place] [address] 02/02/2025 11:00 AM EST Office Visit [facility] MED[facility]INE [address] [place] [address] documented as of this encounter Visit Diagnoses Not on filedocumented in this encounter Additional Health Concerns Assessment Noted Time PHQ-9 Depression Total Score: 0 08/07/19 24 2:21 PM EDT documented as of this encounter Care Teams Braid Cutter Relationship Specialty Start Date End Date Name, MD Andrés 230 [place] [address] PCP - General Family Medicine 04/08/15 Jhoana Pickering, ThomasD 230 [place] [address] Pharmacist Pharmacy 11/03/24 documented as of this encounter
--- OUTSIDE RECORDS SUMMARY | 2025-01-06 19:53 | XMS_ITS | Encounter Summary ---
Author Organization [employer] Address 75 [facility] [address] [address] Care Team Providers Care Disaster Or Damage Control Specialist Name Role Phone Name, Andrés RODRIGUEZ Primary Care Provider Jhoana Pickering PharmD Unavailable [phone] Reason for Visit * Reason Onset Date Comments Nurse Triage 05/22/2024 Encounter Details Date Type Department Care Team ([facility] st Contact Info) Description 05/22/2024 Telephone [facility] MEDICINE 230 [place], [place] [phone] Name, MD Andrés 230 [place], [place] [phone] Nurse Triage Social History Tobacco Use Types [...] Triage call returned to patient with S Cell Room Operator # [id number] Marjan. Patient reports reaction to Pregabalin that [...] Description 01/26/2025 10:00 AM EST Medication Management [address] [address] Jhoana Pickering PharmD [address] [place] [address] 02/02/2025 11:00 AM EST Office Visit [facility] MEDICINE [address] [place] [address] documented as of this encounter Visit Diagnoses Not on filedocumented in this encounter Additional Health Concerns Assessment Noted Time PHQ-9 Depression Total Score: 0 08/07/19 24 2:21 PM EDT documented as of this encounter Care Teams Disaster Or Damage Control Specialist Relationship Specialty Start Date End Date Name, MD Andrés [address] [place] [address] PCP - General Family Medicine 04/08/15 Jhoana Pickering PharmD [address] [place] [address] Pharmacist Pharmacy 11/03/24 documented as of this encounter
--- OUTSIDE RECORDS SUMMARY | 2025-01-06 19:53 | XMS_ITS | Encounter Summary ---
Author Organization [employer] Address 75 [facility] 7[place] [address] Care Team Providers Care Clinical Academic Allergist Name Role Phone Name, Andrés RODRIGUEZ Primary Care Provider [phone] Jhoana Pickering PharmD Unavailable [phone] Reason for Visit * Reason Comments Med Refill Encounter Details Date Type Department Care Team ([facility] st Contact Info) Description 11/13/2024 Refill [facility] MEDICINE 230 [place], [place] [phone] Name, MD Andrés 230 [place] [address] Social History Tobacco Use Types Packs/Day Years [...] Description 01/26/2025 10:00 AM EST Medication Management [address] [address] Jhoana Pickering PharmD [address] [place] [address] 02/02/2025 11:00 AM EST Office Visit [address] [address] documented as of this encounter Visit Diagnoses Not on filedocumented in this encounter Additional Health Concerns Assessment Noted Time PHQ-9 Depression Total Score: 11 025 2:48 PM EDT documented as of this encounter Care Teams Clinical Academic Allergist Relationship Specialty Start Date End Date Name, MD Andrés [address] [place] [address] PCP - General Family Medicine 04/08/15 Jhoana Pickering, PharmD [address] [place] [address] Pharmacist Pharmacy 11/03/24 documented as of this encounter
--- OUTSIDE RECORDS SUMMARY | 2025-01-06 19:53 | XMS_ITS | Encounter Summary ---
Author Organization [employer] Address 75 [facility] [address] [address] Care Team Providers Care Load Blocker Name Role Phone Name, Andrés RODRIGUEZ Primary Care Provider [phone] Jhoana Pickering PharmD Unavailable [phone] Reason for Visit * Reason Comments Med Refill Encounter Details Date Type Department Care Team ([facility] st Contact Info) Description 01/20/2024 Refill [facility] MEDICINE 230 [place], [place] [phone] Name, MD Andrés 230 [place] [address] Depressive disorder Social History Tobacco Use Types [...] Description 01/26/2025 10:00 AM EST Medication Management [address] [address] Jhoana Pickering PharmD [address] [place] [address] 02/02/2025 11:00 AM EST Office Visit [address] [address] documented as of this encounter Visit Diagnoses Diagnosis Depressive disorder Depressive disorder, not elsewhere classified documented in this encounter Additional Health Concerns Assessment Noted Time PHQ-9 Depression Total Score: 0 08/07/19 24 2:21 PM EDT documented as of this encounter Care Teams Load Blocker Relationship Specialty Start Date End Date Name, MD Andrés [address] [place] [address] PCP - General Family Medicine 04/08/15 Jhoana Pickering, PharmD [address] [place] [address] Pharmacist Pharmacy 11/03/24 documented as of this encounter
--- OUTSIDE RECORDS SUMMARY | 2025-01-06 19:53 | XMS_ITS | Encounter Summary ---
Author Organization [employer] Address [address] [facility] [address] [address] Care Team Providers Care Payroll Technician Name Role Phone Name, Andrés RODRIGUEZ Primary Care Provider [phone] Jhoana Pickering PharmD Unavailable [phone] Reason for Visit * Reason Comments Med Refill Encounter Details Date Type Department Care Team ([facility] Contact Info) Description 08/28/2022 Refill [facility] MEDICINE [address] [place] [address] [phone] Name, MD Andrés [address] [place] [address] Cervical radicular pain Social History Tobacco Use [...] Upcoming Encounters Date Type Department Care Team ([facility] Contact Info) Description 01/26/2025 10:00 AM EST Medication Management [facility] MEDICINE [address] [place] [address] Jhoana Pickering PharmD 230 [place] [address] 02/02/2025 11:00 AM EST Office Visit [address] [address] documented as of this encounter Visit Diagnoses Diagnosis Cervical radicular pain documented in this encounter Additional Health Concerns Assessment Noted Time PHQ-9 Depression Total Score: 0 02/21/20 22 3:25 PM EST documented as of this encounter Care Teams Payroll Technician Relationship Specialty Start Date End Date Name, MD Andrés [address] [place] [address] PCP - General Family Medicine 04/08/15 Jhoana Pickering PharmD [address] [place] [address] Pharmacist Pharmacy 11/03/24 documented as of this encounter
--- OUTSIDE RECORDS SUMMARY | 2025-01-06 19:54 | XMS_ITS | Encounter Summary ---
Author Organization [employer] Address 75 [facility] 7[place] [address] Care Team Providers Care Supervisor Central Supply Name Role Phone Name, Andrés RODRIGUEZ Primary Care Provider [phone] Jhoana Pickering PharmD Unavailable [phone] Reason for Visit * Reason Comments Med Refill Encounter Details Date Type Department Care Team ([facility] st Contact Info) Description 12/31/2024 Refill [facility] MEDICINE 230 [place], [place] [phone] Name, MD Andrés 230 [place] [address] Type 2 diabetes mellitus without complication, without long-term current use of insulin (HCC) Social History Tobacco Use Types Packs/Day Years [...] 01/26/2025 10:00 AM EST Medication Management [address] [address] Jhoana Pickering PharmD [address] [place] [address] 02/02/2025 11:00 AM EST Office Visit [facility] MEDICINE [address] [place] [address] documented as of this encounter Visit Diagnoses Diagnosis Type 2 diabetes mellitus without complication, without long-term current use of insulin (HCC) documented in this encounter Additional Health Concerns Assessment Noted Time PHQ-9 Depression Total Score: 11 025 2:48 PM EDT documented as of this encounter Care Teams Supervisor Central Supply Relationship Specialty Start Date End Date Name, MD Andrés [address] [place] [address] PCP - General Family Medicine 04/08/15 Jhoana Pickering, PharmD 230 [place] [address] Pharmacist Pharmacy 11/03/24 documented as of this encounter
--- OUTSIDE RECORDS SUMMARY | 2025-01-06 19:54 | XMS_ITS | Encounter Summary ---
Author Organization [employer] Address 75 [facility] 7[address] [place] [address] Care Team Providers Care Editor Greeting Card Name Role Phone Name, Andrés RODRIGUEZ Primary Care Provider [phone] Jhoana Pickering PharmD Unavailable [phone] Reason for Visit * Reason Onset Date Comments BUSINESS OFFICE TECHNICIAN AGreement renewed today 01/05/2025 Percocet count discrepancy 01/05/2025 Encounter Details Date Type Department Care Team (Late st Contact Info) Description 01/05/2025 Telephone [facility] MEDICINE 230 [place] [address] Mone Parkinson, ALEJANDRO BUSINESS OFFICE TECHNICIAN AGreement renewed today; Percocet count discrepancy Social History Tobacco Use Types Packs/Day Years [...] Telephone Encounter - Mone Parkinson RN - 01/05/2025 12:05 PM EDT Pt attended chronic pain group today. BUSINESS OFFICE TECHNICIAN Agreement was signed. Percocet 5mg count was 59, anticipated 64 to be remaining. Reviewed percocet order with patient. Ptstated she has taken a few extra doses due to increased pain. Advised patient to take as PCP ordered. BPI updated today. Pain severity score of 8, activity interference score of 5. Previous BPI completed 08/04/24 with pain severity score of 8, activity interference score of 5. documented in this encounter Plan of Treatment Upcoming Encounters Date Type Department Care Team (Late st Contact Info) Description 01/26/2025 10:00 AM EST Medication Management [facility] MEDICINE [address] [place] [address] Jhoana Pickering, PharmD 230 [place] [address] 02/02/2025 11:00 AM EST Office Visit [facility] MEDICINE 230 [place] [address] documented as of this encounter Visit Diagnoses Not on filedocumented in this encounter Additional Health Concerns Assessment Noted Time PHQ-9 Depression Total Score: 11 025 2:48 PM EDT documented as of this encounter Care Teams Editor Greeting Card Relationship Specialty Start Date End Date Name, MD Andrés 230 [place] [address] PCP - General Family Medicine 04/08/15 Jhoana Pickering, Bladimir 230 [place] [address] Pharmacist Pharmacy 11/03/24 documented as of this encounter
--- OUTSIDE RECORDS SUMMARY | 2025-01-06 19:54 | XMS_ITS | Encounter Summary ---
Author Organization [employer] Address 75 [facility] 7 [place] [address] Care Team Providers Care Prepared Foods Service Team Member Name Role Phone Name, Andrés RODRIGUEZ Primary Care Provider [phone] Jhoana Pickering PharmD Unavailable [phone] Reason for Visit * Reason Onset Date Comments Appointment Request 03/23/2022 Encounter Details Date Type Department Care Team ([facility] Contact Info) Description 03/23/2022 Telephone [facility] MEDICINE 230 [place], [place] [phone] Name, MD Andrés 230 [place] [address] Appointment Request Social History Tobacco Use Types [...] at 9:45 am Please contact pt at [phone] documented in this encounter Plan of Treatment Upcoming Encounters Date Type Department Care Team ([facility] st Contact Info) Description 01/26/2025 10:00 AM EST Medication Management [facility] MEDICINE [address] [place] [address] Jhoana Pickering PharmD [address] [place] [address] 02/02/2025 11:00 AM EST Office Visit [facility] MEDICINE [address] [place] [address] documented as of this encounter Visit Diagnoses Not on filedocumented in this encounter Additional Health Concerns Assessment Noted Time PHQ-9 Depression Total Score: 0 02/21/20 22 3:25 PM EST documented as of this encounter Care Teams Prepared Foods Service Team Member Relationship Specialty Start Date End Date Name, MD Andrés [address] [place] [address] PCP - General Family Medicine 04/08/15 Jhoana Pickering PharmD [address] [place] [address] Pharmacist Pharmacy 11/03/24 documented as of this encounter
--- OUTSIDE RECORDS SUMMARY | 2025-01-06 19:54 | XMS_ITS | Encounter Summary ---
Author Organization [employer] Address 75 [facility] [address] [place] [address] Care Team Providers Care Door To Door Sales Representative Name Role Phone Name, Andrés RODRIGUEZ Primary Care Provider [phone] Jhoana Pickering PharmD Unavailable [phone] Reason for Visit * Reason Onset Date Comments PA 05/14/2024 Encounter Details Date Type Department Care Team ([facility] st Contact Info) Description 05/14/2024 Telephone [facility] MEDICINE 230 [place] [address] Name, MD Andrés 230 [place], [place] [phone] PA Social History Tobacco Use Types Packs/Day [...] me about the Lyrica and I called [facility]. They said no need for a PA, and that they would have it filled on 05/19/24 for her to parts picker. I advised Ms. Ceja to let us know if she has any further difficulty picking up the med. Sending as FYI to PA team as no further action required at this time. * Telephone Encounter - Dale Khan - 05/14/2024 11:22 AM EST TC from pt requesting Pa for Medication pregabalin (Lyrica) 50 MG capsule. Contact pt at [phone] documented in this encounter Plan of Treatment Upcoming Encounters Date Type Department Care Team ([facility] st Contact Info) Description 01/26/2025 10:00 AM EST Medication Management [address] [phone] Jhoana Pickering PharmD [address] [place] [address] 02/02/2025 11:00 AM EST Office Visit [facility] MEDICINE [address] [place] [address] documented as of this encounter Visit Diagnoses Not on filedocumented in this encounter Additional Health Concerns Assessment Noted Time PHQ-9 Depression Total Score: 0 08/07/19 24 2:21 PM EDT documented as of this encounter Care Teams Door To Door Sales Representative Relationship Specialty Start Date End Date Name, MD Andrés [address] [place] [address] PCP - General Family Medicine 04/08/15 Jhoana Pickering PharmD [address] [place] [address] Pharmacist Pharmacy 11/03/24 documented as of this encounter
--- OUTSIDE RECORDS SUMMARY | 2025-01-06 19:54 | XMS_ITS | Encounter Summary ---
Author Organization [employer] Address 75 [facility] 7[place] [address] Care Team Providers Care Junior Net Developer Name Role Phone Name, Andrés RODRIGUEZ Primary Care Provider [phone] Jhoana Pickering PharmD Unavailable [phone] Reason for Visit * Reason Onset Date Comments Med Refill 05/21/2023 Encounter Details Date Type Department Care Team ([facility] st Contact Info) Description 05/21/2023 Telephone [facility] MEDICINE 230 [place], [place] [phone] Name, MD Andrés 230 [place], [place] [phone] Med Refill Social History Tobacco Use Types [...] 5-325 MG tablet To be sent to: [facility] - [place], [place] - [address] [place] [address] documented in this encounter Plan of Treatment Upcoming Encounters Date Type Department Care Team (Late st Contact Info) Description 01/26/2025 10:00 AM EST Medication Management [facility] MEDICINE [address] [place] [address] Jhoana Pickering PharmD [address] [place] [address] 02/02/2025 11:00 AM EST Office Visit [facility] MEDICINE [address] [place] [address] documented as of this encounter Visit Diagnoses Not on filedocumented in this encounter Additional Health Concerns Assessment Noted Time PHQ-9 Depression Total Score: 0 02/21/20 22 3:25 PM EST documented as of this encounter Care Teams Junior Net Developer Relationship Specialty Start Date End Date Name, MD Andrés [address] [place] [address] PCP - General Family Medicine 04/08/15 Jhoana Pickering PharmD [address] [place] [address] Pharmacist Pharmacy 11/03/24 documented as of this encounter
--- OUTSIDE RECORDS SUMMARY | 2025-01-06 19:54 | XMS_ITS | Encounter Summary ---
Author Organization [employer] Address 75 [facility] [address] [address] Care Team Providers Care Plate Drying Machine Tender Name Role Phone Name, Andrés RODRIGUEZ Primary Care Provider [phone] Jhoana Pickering PharmD Unavailable [phone] Reason for Visit * Reason Onset Date Comments Med Refill 09/24/2023 Encounter Details Date Type Department Care Team ([facility] st Contact Info) Description 09/24/2023 Telephone [facility] MEDICINE 230 [place], [place] [phone] Name, MD Andrés 230 [place] [address] Med Refill Social History Tobacco Use Types [...] MG EC tablet To be sent to: [facility] [address] [facility] documented in this encounter Plan of Treatment Upcoming Encounters Date Type Department Care Team (Late st Contact Info) Description 01/26/2025 10:00 AM EST Medication Management [facility] MEDICINE [address] [place] [address] Jhoana Pickering, PharmD 230 [place] [address] 02/02/2025 11:00 AM EST Office Visit [facility] MEDICINE [address] [place] [address] documented as of this encounter Visit Diagnoses Not on filedocumented in this encounter Additional Health Concerns Assessment Noted Time PHQ-9 Depression Total Score: 0 08/07/19 24 2:21 PM EDT documented as of this encounter Care Teams Plate Drying Machine Tender Relationship Specialty Start Date End Date Name, MD Andrés 230 [place] [address] PCP - General Family Medicine 04/08/15 Jhoana Pickering, Bladimir 230 [place] [address] Pharmacist Pharmacy 11/03/24 documented as of this encounter
--- OUTSIDE RECORDS SUMMARY | 2025-01-06 19:54 | XMS_ITS | Encounter Summary ---
Author Organization [employer] Address 75 [facility] [address] [address] Care Team Providers Care Corporation Lawyer Name Role Phone Name, Andrés RODRIGUEZ Primary Care Provider [phone] Jhoana Pickering PharmD Unavailable [phone] Reason for Visit * Reason Onset Date Comments Medication Question 02/12/2023 Encounter Details Date Type Department Care Team ([facility] st Contact Info) Description 02/12/2023 Telephone [facility] MEDICINE 230 [place], [place] [phone] Name, MD Andrés 230 [place], [place] [phone] Medication Question Social History Tobacco Use Types [...] requesting status on lidocaine patch 5% however tech writer does not see anything on chart regarding that matter. documented in this encounter Plan of Treatment Upcoming Encounters Date Type Department Care Team (Late st Contact Info) Description 01/26/2025 10:00 AM EST Medication Management [facility] MEDICINE 230 [place] [address] Jhoana Pickering, PharmD 230 [place], [place] [phone] 02/02/2025 11:00 AM EST Office Visit [facility] MEDICINE 230 [place] [address] documented as of this encounter Visit Diagnoses Not on filedocumented in this encounter Additional Health Concerns Assessment Noted Time PHQ-9 Depression Total Score: 0 02/21/20 22 3:25 PM EST documented as of this encounter Care Teams Corporation Lawyer Relationship Specialty Start Date End Date Name, MD Andrés 230 [place] [address] PCP - General Family Medicine 04/08/15 Jhoana Pickering PharmD 230 [place] [address] Pharmacist Pharmacy 11/03/24 documented as of this encounter
--- OUTSIDE RECORDS SUMMARY | 2025-01-06 19:54 | XMS_ITS | Encounter Summary ---
Author Organization [employer] Address 75 [facility] [address] [address] Care Team Providers Care Claim Attorney Name Role Phone Name, Andrés RODRIGUEZ Primary Care Provider [phone] Jhoana Pickering PharmD Unavailable [phone] Encounter Details Date Type Department Care Team (Late Contact Info) Description 04/12/[address] [facility] MEDICINE [address] [place] [address] Graciela Gifford, TRIAGE REGISTERED NURSE Dysuria Social History Tobacco Use Types Packs/Day [...] Description 01/26/2025 10:00 AM EST Medication Management [facility] MEDICINE [address] [place] [address] PuiaMikeJhoana, PharmD 230 [place] [address] 02/02/2025 11:00 AM EST Office [address] [facility] MEDICINE 230 [place] [address] documented as of this encounter Visit Diagnoses Diagnosis Dysuria documented in this encounter Additional Health Concerns Assessment Noted Time PHQ-9 Depression Total Score: 0 02/21/20 22 3:25 PM EST documented as of this encounter Care Teams Claim Attorney Relationship Specialty Start Date End Date Name, MD Andrés 230 [place] [address] PCP - General Family Medicine 04/08/15 Jhoana Pickering, Bladimir 230 [place] [address] Pharmacist Pharmacy 11/03/24 documented as of this encounter
== END 2025-01-06 15:38 | disposition home or self-care (01) ==
LOC: HO.MAMMO 15:37
PROVIDERS: PCP Internal Medicine Geriatric Medicine; Visit Provider Internal Medicine Geriatric Medicine
DX: Z12.31 Encounter for screening mammogram for malignant neoplasm of breast (principal)
CPT/HCPCS: 77063; 77067

== ENCOUNTER → 2025-01-06 16:00 | Outpatient (BNV) | payer MEDICAID, SELFPAY | PROVIDERS: PCP Internal Medicine Geriatric Medicine; Visit Provider Radiology Body Imaging | DX: Z12.31 Encounter for screening mammogram for malignant neoplasm of breast (principal) | CPT/HCPCS: 77063; 77067 ==

== ENCOUNTER 2025-01-11 12:15 | Outpatient (REF) | payer MEDICAID, SELFPAY ==
--- OUTSIDE RECORDS SUMMARY | 2025-01-11 11:30 | XMS_ITS | Encounter Summary ---
Author Organization [employer] Address [address] [facility] 7t [place] [address] Care Team Providers Care Forging Press Setter Up Name Role Phone Name, Andrés RODRIGUEZ Primary Care Provider [phone] Jhoana Pickering PharmD Unavailable [phone] Encounter Details Date Type Department Care Team (Late st Contact Info) Description 01/11/2025 11:30 AM EST Office Visit [facility] [address] [place] [address] [phone] Name, MD Andrés [address] [place], [place] [phone] Left lower quadrant abdominal pain (Primary Dx); [...] yesterday (pt felt dizzy while walking to [place] and had to stop, go home and [...] & patientunsure what she has at home; [facility] called preferred pharmacy in visit & they confirm metformin ER750 mg was dispensed 11/2024. ?? Pertinent negatives include polyuria, polydipsia, blurred vision ?? Patient using [employer] 3 plus. Able to view results via [employer] account. Patient is using phone dee dee connected to [facility] Blue Team for remote monitoring. In [...] hyperglycemia, with long-term current use of insulin ([facility]) Orders: POCT Hgb A1c POCT Glucose POCT Urinalysis Pt's history of Gastric Bypass (2019), and consistent hyperglycemia can predispose to diarrhea. Advised patient to stay well hydrated d/t to both hyperglycemia and diarrhea. Prescribed loperamide for up to 3 days to be taken as ordered. Recommended pt eat Micronesian yogurt for gut health. Discussed hyperglycemia. Reinforced [...] 01/11/2025 11:30 AM Andrés Lee MD MEDICINE [facility] 01/26/2025 10:00 AM Jhoana Pickering PharmD MEDICINE [facility] 02/02/2025 11:00 AM [facility] CHRONIC PAIN CLINIC MEDICINE [facility] Current Medications[3] [facility] REG[employer]LE[employer]IVERS[employer] Attestation [employer]IV[employer] Resident Attestation: Patient was seen and evaluated by Mu EVANS, in collaboration with Andrés Lee MD who has reviewed my assessment and plan. I, Andrés Lee MD , have reviewed the resident's note and agree with the assessment & plan of care as documented above. Visit Conducted in: Togolese Translation by: Provided by [employer] Phone Service ID # [id number] and by Dr. Lee when in the [...] infection Sexual dysfunction Type 2 diabetes mellitus ([facility]) Ureteral stone Class 1 obesity H. 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 Use as directedfor CGM, Disp: 1 each, Rfl: 0 Continuous Glucose Sensor (FreeStyle Kobe 2 Plus Sensor) [facility], 1 Device every 15 days. Apply 1 [...] Pump (Omnipod 5 Libre2 Plus G6 Pods) [facility] [place], 1 Device every 3 (three) days. Wear [...] Needle Lashaun Ultrafine) 32G x 4 mm [facility] [place], Use to inject insulin three times daily, [...] be taken as ordered. Recommended pt eat Micronesian yogurt for gut health. Discussed hyperglycemia. Reinforced benefits of starting CGM and pump therapy, encouraged her to attend her scheduled meeting on 01/26/25 for pump / CGM education. documented in this encounter Plan of Treatment Upcoming Encounters Date Type Department Care Team (Late st Contact Info) Description 01/26/2025 10:00 AM EST Medication Management [facility] [address] [place] [phone] Jhoana Pickering, PharmD [address] [place] [address] 02/02/2025 11:00 AM EST Office Visit [facility] [address] [place] [address] Scheduled Orders Name Type Priority Associated Diagnoses Orde r Schedule Urinalysis, Complete, with Reflex to Culture Lab Routine Foul smelling urine Expected: 01/11/2025 (Approximate), Expires: 01/11/2026 documented as of this encounter Procedures Procedure Name Priority Date/Time Associated Diagnosis Comments CBC WITH AUTO DIFFERENTIAL Routine 01/11/2025 12:21 PM EST Left lower quadrant abdominal pain POCT URINALYSIS DIPSTICK Routine 01/11/2025 12:02 PM EST Type 2 diabetes mellitus with hyperglycemia, with long-term current use of insulin (HCC) POCT GLUCOSE Routine 01/11/2025 11:54 AM EST Type 2 diabetes mellitus with hyperglycemia, with long-term current use of insulin ([facility]) POCT GLYCATED HEMOGLOBIN, TOTAL Routine 01/11/2025 11:53 AM EST Type 2 diabetes mellitus with hyperglycemia, with long-term current use of insulin ([facility]) documented in this encounter Results * (ABNORMAL) CBC auto differential (01/11/2025 12:21 PM EST) White Blood Count 8.5 4.8 - 10.8 X10*3/uL [facility] Red Blood Count 4.78 4.20 - 5.50 X10*6/uL [facility] Hemoglobin 11.5(L) 12.0 - 16.0 g/dl [facility] Hematocrit 38.3 37.0 - 47.0 % [facility] Mean Corpuscular Volume 80.1 80.0 - 98.0 fL [facility] Mean Corpuscular Hemoglobin 24.1(L) 27.0 - 33.0 pg [facility] Mean Corpuscular HGB Conc 30.0(L) 31.0 - 35.0 g/dl [facility] Red Cell Distribution Width 12.9 11.0 - 16.0 % [facility] Platelet Count 247 160 - 400 X10*3/uL [facility] Mean Platelet Volume 11.9 9.4 - 12.3 fL [facility] Neutrophils Percent Auto 59.7 45 - 73 % [facility] Imm Gran Pct Auto 0.6(H) 0.0 - 0.4 % [facility] Lymphocytes Percent Auto 27.9 20 - 40 % [facility] Monocytes Percent Auto 10.0 2 - 11 % [facility] Eosinophils Percent Auto 1.1 0 - 4 % [facility] Basophils Percent Auto 0.7 0 - 2 % [facility] NRBC Pct Auto 0.0 0.0 - 0.2 /100WBC [facility] Neutrophils Absolute Auto 5.1 2.0 - 8.3 x10*3/uL [facility] Imm Gran Abs Auto 0.05(H) 0.00 - 0.03 X10*3/uL [facility] Lymphocytes Absolute Auto 2.4 1.2 - 4.9 X10*3/uL [facility] Monocytes Absolute Auto 0.9 0.1 - 1.2 X10*3/uL [facility] Eosinophils Absolute Auto 0.1 0.0 - 0.4 X10*3/uL [facility] Basophils Absolute Auto 0.1 0.0 - 0.2 X10*3/uL [facility] NRBC Abs Auto 0.000 0.0 - 0.012 X10*3/uL [facility] Blood Venous blood specimen / Unknown 01/11/2025 12:21 PM EST 01/11/2025 1:26 PM EST us Mu Alcocer SUPERVISOR NET MAKING LAB BLOOD ORDERABLES Final Re sult [facility] [address] [place] [address] [phone] * (ABNORMAL) POCT Urinalysis (01/11/2025 12:02 [...] Urine (Urine, Random) 01/11/2025 12:02 PM EST us Andrés Lee MD POINT OF CARE TEST ENTER/EDIT OR DERABLES Final Result * (ABNORMAL) POCT Glucose (01/11/2025 11:54 AM EST) Glucose Blood, POC 335(A) 60 - 200 mg/dL QC Media Lot # [id number] Lot# Expiration Date 31,126 Blood Capillary blood specimen / Unknown 01/11/2025 11:54 AM EST us Andrés Lee MD POINT OF CARE TEST ENTER/EDIT OR DERABLES Final Result * (ABNORMAL) POCT Hgb A1c (01/11/2025 11:53 AM EST) Pathologist [facility] Hemoglobin A1C 11.0(A) 4.0 - 5.7 % QC Media Lot # [id number] Lot# Expiration Date 51,227 Blood 01/11/2025 11:5 3 AM EST us Andrés Lee MD POINT OF [...] Assessment Noted Time PHQ-9 Depression Total Score: 08/25/ 025 2:48 PM EDT documented as of this encounter Care Teams Forging Press Setter Up Relationship Specialty Start Date End Date NameAndrés MD [address] [place] [address] PCP - General Family Medicine 04/08/15 Jhoana Pickering, Bladimir [address] [place] [address] Pharmacist Pharmacy 11/03/24 documented as of this encounter
[2025-01-11 13:28] LABS: MANUAL DIFF FLAG NO
[2025-01-11 13:36] LABS: Hematocrit 38.3 % (37.0-47.0); Hemoglobin 11.5 g/dl (12.0-16.0); Imm Gran Abs Auto 0.05 X10*3/uL (0.00-0.03); Imm Gran Pct Auto 0.6 % (0.0-0.4); Lymphocytes Absolute Auto 2.4 X10*3/uL (1.2-4.9); Mean Corpuscular HGB Conc 30.0 g/dl (31.0-35.0); Mean Corpuscular Hemoglobin 24.1 pg (27.0-33.0); Mean Corpuscular Volume 80.1 fL (80.0-98.0); NRBC Abs Auto 0.000 X10*3/uL (0.0-0.012); NRBC Pct Auto 0.0 /100WBC (0.0-0.2); Platelet Count 247 X10*3/uL (160-400); Red Blood Count 4.78 X10*6/uL (4.20-5.50); White Blood Count 8.5 X10*3/uL (4.8-10.8)
--- OUTSIDE RECORDS SUMMARY | 2025-01-11 15:28 | XMS_ITS | Encounter Summary ---
Author Organization [employer] Address [address] [facility] [address] [place] [address] Care Team Providers Care Chief Innovation Officer Name Role Phone Name, Andrés RODRIGUEZ Primary Care Provider [phone] Jhoana Pickering PharmD Unavailable [phone] Reason for Visit * Reason Onset Date Comments PA 05/14/2024 Encounter Details Date Type Department Care Team ([facility] st Contact Info) Description 05/14/2024 Telephone [facility] [address] [place] [address] Name, MD Andrés [address] [place], [place] [phone] PA Social History Tobacco Use Types Packs/Day [...] me about the Lyrica and I called [facility]. They said no need for a PA, and that they would have it filled on 05/19/24 for her to picker. I advised Ms. Ceja to let us know if she has any further difficulty picking up the med. Sending as FYI to PA team as no further action required at this time. * Telephone Encounter - Dale Khan - 05/14/2024 11:22 AM EST TC from pt requesting Pa for Medication pregabalin (Lyrica) 50 MG capsule. Contact pt at [phone] documented in this encounter Plan of Treatment Upcoming Encounters Date Type Department Care Team ([facility] st Contact Info) Description 01/26/2025 10:00 AM EST Medication Management [address] [phone] Jhoana Pickering PharmD [address] [place] [phone] 02/02/2025 11:00 AM EST Office Visit [facility] [address] [place] [phone] documented as of this encounter Visit Diagnoses Not on filedocumented in this encounter Additional Health Concerns Assessment Noted Time PHQ-9 Depression Total Score: 0 08/07/19 24 2:21 PM EDT documented as of this encounter Care Teams Chief Innovation Officer Relationship Specialty Start Date End Date Name, MD Andrés [address] [place] [phone] PCP - General Family Medicine 04/08/15 Jhoana Pickering PharmD [address] [place] [phone] Pharmacist Pharmacy 11/03/24 documented as of this encounter
--- OUTSIDE RECORDS SUMMARY | 2025-01-11 15:28 | XMS_ITS | Encounter Summary ---
Author Organization [employer] Address [address] [facility] 7t [place] [address] Care Team Providers Care Windows Deployment Technician Name Role Phone Name, Andrés RODRIGUEZ Primary Care Provider [phone] Jhoana Pickering PharmD Unavailable [phone] Encounter Details Date Type Department Care Team (Latest Contact Info) Description 01/11/2025 Travel Social History Tobacco Use Types Packs/Day [...] Description 01/26/2025 10:00 AM EST Medication Management [address] [address] Jhoana Pickering PharmD [address] [place] [phone] 02/02/2025 11:00 AM EST Office Visit [address] [phone] documented as of this encounter Visit Diagnoses Not on filedocumented in this encounter Additional Health Concerns Assessment Noted Time PHQ-9 Depression Total Score: 11 025 2:48 PM EDT documented as of this encounter Care Teams Windows Deployment Technician Relationship Specialty Start Date End Date Name, MD Andrés [address] [place] [phone] PCP - General Family Medicine 04/08/15 Jhoana Pickering, PharmD [address] [place] [phone] Pharmacist Pharmacy 11/03/24 documented as of this encounter
--- OUTSIDE RECORDS SUMMARY | 2025-01-11 15:28 | XMS_ITS | Encounter Summary ---
Author Organization [employer] Address [address] [facility] [address] [place] [address] Care Team Providers Care Bank Secrecy Act Officer Name Role Phone Name, Andrés RODRIGUEZ Primary Care Provider [phone] Jhoana Pickering PharmD Unavailable [phone] Reason for Visit * Reason Onset Date Comments Med Refill 02/18/2024 Encounter Details Date Type Department Care Team ([facility] st Contact Info) Description 02/18/2024 Telephone [facility] [address] [place], [place] [phone] Name, MD Andrés [address] [place] [address] Med Refill Social History Tobacco Use Types [...] 4 MG tablet To be sent to: [facility] - [place], [place] - [address] documented in this encounter Plan of Treatment Upcoming Encounters Date Type Department Care Team (Late st Contact Info) Description 01/26/2025 10:00 AM EST Medication Management [facility] [address] [place] [address] [phone] Jhoana Pickering, PharmD [address] [place] [address] 02/02/2025 11:00 AM EST Office Visit [facility] [address] [place] [phone] documented as of this encounter Visit Diagnoses Not on filedocumented in this encounter Additional Health Concerns Assessment Noted Time PHQ-9 Depression Total Score: 0 08/07/19 24 2:21 PM EDT documented as of this encounter Care Teams Bank Secrecy Act Officer Relationship Specialty Start Date End Date Name, MD Andrés [address] [place] [address] PCP - General Family Medicine 04/08/15 Jhoana Pickering, ThomasD [address] [place] [address] Pharmacist Pharmacy 11/03/24 documented as of this encounter
--- OUTSIDE RECORDS SUMMARY | 2025-01-11 15:28 | XMS_ITS | Clinical Summary ---
Author Organization [employer] Address [address] [facility] [address] [place] [address] Care Team Providers Care Bookkeeping Service Sales Agent Name Role Phone Name, Andrés RODRIGUEZ Primary Care Provider [phone] Jhoana Pickering PharmD Unavailable [phone] Allergies No known active allergies Medications [...] patch 2 06/13/19 25 Active Continuous Glucose Aerodynamics Engineer (FreeStyle Kobe 3 Doon) device 1 each Once per day. Use as directed for CGM 1 each 09/08/19 25 Active glucose blood (FreeStyle Precision Nima Test) test strip Use to test blood sugar 3 times daily in case of CGM failure or extremes of BG 100 each 11 09/08/19 25 026 Active sertraline (Zoloft) 50 MG tabletIndicatio ns:Depressive [...] hyperglycemia, with long-term current use of insulin ([facility]) Take 1 tablet (81 mg) by mouth Once per day. 90 tablet 3 11/21/19 25 026 Active insulin glargine (Lantus) 100 UNIT/ML penIndications: Type 2 diabetes mellitus with hyperglycemia, with long-term current use of insulin ([facility]) Inject 34 Units under the skin at bedtime. Increase as directed up to a max of 58 units daily. 15 mL 2 11/21/19 25 Active metFORMIN XR (Glucophage-XR) 750 MG 24 hr tabletIndicatio ns:Type 2 diabetes mellitus without complication, without long-term current use of insulin ([facility]) Take 1 tablet (750 mg) by mouth with breakfast and with evening meal. Do not crush, chew, or split. 180 tablet 3 12/03/19 25 026 Active insulin lispro (HumaLOG KWIKPEN) 100 UNIT/ML injectionIndica tions:Type 2 diabetes mellitus with hyperglycemia, with long-term current use of insulin ([facility]) Inject 10 Units under the skin with [...] hyperglycemia, with long-term current use of insulin ([facility]) Use to inject insulin three times daily 100 each 11 12/19/19 25 026 Active Continuous Glucose Sensor (FreeStyle Kobe 2 Plus Sensor) misc 1 Device every 15 days. Apply 1 sensor as directed every 15 days for CGM 2 each 12/23/19 25 Active tiZANidine (Zanaflex) 4 MG tabletIndicatio [...] days. 84 tablet 12/31/19 25 025 Active loperamide (Imodium A-D) 2 MG tabletIndicatio ns:Diarrhea, unspecified type Take 1-2 tablets (2-4 mg) by mouth if needed in the morning, at noon, in the evening, and at bedtime for diarrhea for up to 3 days. 24 tablet 01/12/20 25 025 Active insulin pen needle (BD Pen Needle Lashaun Ultrafine) 32G x 4 mm misc Use as instructed 100 each 12 09/08/19 25 025 Discontinued(R eorder (will not trigger notification to Pharmacy)) Continuous Glucose Sensor (FreeStyle Kobe 3 Plus Sensor) misc 1 each every 15 days. Apply 1 every 15 days as directed for CGM 2 each 09/08/19 25 025 Discontinued(A lternate therapy) lisinopril 10 MG tabletIndicatio ns:Essential hypertension Take 1 tablet by mouth every day 90 tablet 1 09/09/19 25 025 Discontinued(S kaiser effects) tiZANidine (Zanaflex) 4 [...] 10 units prior to lunch 1 each 12/03/19 025 Discontinued(R eorder (will not trigger notification [...] Active Problems Problem Noted Date Diagnosed Date [facility] (current) use of opiate analgesic 01/09 Overview [...] as expected, pill count 5 short. See sports fitness and wellness director. Assessment & Plan (11/03/2024 1:53 PM EDT): [...] dysfunction 04/11/2022 Type 2 diabetes mellitus 04/11/2022 Assessment & Plan (01/11/2025 12:50 PM EST): Orders: POCT Hgb A1c POCT Glucose POCT Urinalysis Pt's history of Gastric Bypass (2019), and consistent hyperglycemia can predispose to diarrhea. Advised patient to stay well hydrated d/t to both hyperglycemia and diarrhea. Prescribed loperamide for up to 3 days to be taken as ordered. Recommended pt eat English yogurt for gut health. Discussed hyperglycemia. Reinforced benefits of starting CGM and pump therapy, encouraged her to attend her scheduled meeting on 01/26/25 for pump / CGM education. Ureteral stone 04/11/2022 Overview (04/11/2022): Carbonate Apatite: [...] as expected, pill count 5 short. See sports fitness and wellness director. Assessment & Plan (11/03/2024 1:52 PM EDT): [...] 6 Severe obesity (BMI 35.0-39.9) with comorbidity ([facility]) 04/08/2015 Plantar fasciitis 09/26/2010 Hypercholesterolemia 02/06/2010 Hypertension 11/18/2009 Recurrent urinary tract infection 01/28/2009 Encounters * This document contains information received from the source organization and may not represent a complete record from that organization. Date Type Department Care Team Description 01/11/2025 11:30 AM EST Office Visit [address] [address] Andrés Lee MD Left lower quadrant abdominal pain (Primary Dx); Diarrhea, unspecified type; Type 2 diabetes mellitus with hyperglycemia, with long-term current use of insulin ([facility]); Foul smelling urine; Low blood pressure reading 01/11/2025 Results Follow-Up [address] [address] Mu Alcocer FNP CBC auto differential, POCT Hgb A1c, POCT Glucose, POCT Urinalysis 01/11/2025 Travel 01/11/[address] [address] Andrés Lee MD Nurse Triage 01/05/2025 1:00 PM EDT Office Visit [facility] [address] [place] [address] Ovi, Sonali, OD Presbyopia (Primary Dx) 01/05/2025 11:00 AM EDT Office Visit [address] [address] Lala Mercado, CRISTINA Cervical radiculopathy due to degenerative joint disease of spine (Primary Dx); supervisor 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 (current) use of opiate analgesic 01/05/[address] [address] Mone Parkinson, RN BOX PACKER AGreement renewed today; Percocet count discrepancy 01/05/2025 Travel 12/31/2024 Refill [facility] [address] [place] [phone] Andrés Lee MD Type 2 diabetes mellitus without complication, without long-term current use of insulin ([facility]) 12/30/2024 Refill [facility] [address] [place] [address] Andrés Lee MD Type 2 diabetes mellitus without complication, without long-term current use of insulin ([facility]) 12/30/2024 Refill [facility] [address] [place] [address] Andrés Lee MD Chronic neck pain 12/18/2024 Telephone [facility] [address] [place] [address] Jhoana Pickering, ThomasD Prior Authorization (Omnipod 5 & Kobe 2 plus sensors) 12/18/2024 Travel 12/14/2024 Refill [facility] [address] [place] [address] Andrés Lee MD Type 2 diabetes mellitus without complication, without long-term current use of insulin ([facility]) 12/02/2024 2:30 PM EDT Office Visit [facility] [address] [place] [phone] Andrés Lee MD Type 2 diabetes mellitus without complication, without long-term current use of insulin ([facility]) (Primary Dx); Encounter for immunization; Trigger finger of all digits of right hand 12/02/2024 Travel 11/30/2024 Refill [facility] [address] [place] [address] Andrés Lee MD Chronic neck pain 11/25/2024 9:00 AM EDT Office Visit [facility] [address] [place] [address] Ovi, Sonali, OD Diabetes type 2, no ocular involvement ([facility]/HCC) (Primary Dx); Combined forms of age-related cataract of both eyes; Meibomian gland disease of both eyes, unspecified eyelid; Presbyopia 11/25/2024 Travel 11/20/2024 Refill [facility] [address] [place] [address] Andrés Lee MD Type 2 diabetes mellitus without complication, without long-term current use of insulin (CMS/HCC) 11/20/2024 Travel 11/16/2024 Telephone [facility] [address] [place] [address] Andrés Lee MD Med Refill 11/13/2024 Refill [facility] [address] [place] [address] Andrés Lee MD 11/03/2024 11:00 AM EDT Office Visit [facility] [address] [place] [address] Lala Mercado, CARRY ALL DRIVER Cervical radiculopathy due to degenerative joint disease of spine (Primary Dx); supervisor 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 (current) use of opiate analgesic 11/03/2024 Refill [facility] [address] [place], [place] [phone] Heena Johnston RN Chronic neck pain 11/03/2024 Travel 10/23/2024 Refill [facility] [address] [place] [address] Andrés Lee MD Type 2 diabetes mellitus without complication, without long-term current use of insulin ([facility]); Depressive disorder from Last 3 Months Immunizations [...] the past 12 months, has t he vSocial, [employer], oil or water [employer] threatened to shut off services in your [...] Mass Index 42.85 01/11/2025 11:48 AM EST Plan of Treatment Upcoming Encounters Date Type Department Care Team (Late st Contact Info) Description 01/26/2025 10:00 AM EST Medication Management [facility] [address] [place] [phone] Jhoana Pickering, PharmD [address] [place] [phone] 02/02/2025 11:00 AM EST Office Visit [facility] [address] [place] [phone] Health Maintenance Due Date Last Done Comments CT Colonography 1965 FIT DNA/Cologuard 1965 FIT 1965 FOBT 1965 HIV Screening 1965 Sigmoidoscopy 1965 Cervical Cancer Screening 11/20/2023 HPV/Cotest 11/20/2023 11/19/2022, 11/2019, 09/20/2016 Pap Smear 11/20/2023 11/19/2022, 03/11, 11/18/2019, Additional history exists Diabetes: Foot Exam 01/22/2024 01/21/2023, 01/21/2023, 01/21/2023, Additional history exists COVID-19 Vaccine ( season) 2024 12/21/2021, 07/28/2021, 03/07/2021, Additional history exists Colonoscopy 02/19/2025 02/20/2024, 10/10/2023 Colorectal Cancer Screening 02/19/2025 Depression Monitoring 02/24/2025 08/25/2024, 025 Diabetes: Hemoglobin A1C 04/13/2025 025, 11/20/2024, 08/25/2024, Additional history exists Diabetes: Urine Protein Screening 05/19/2025 05/19/2024, 04/17/2023, 04/11/2022, Additional history exists Lipid Panel 05/19/2025 05/19/2024, 020 09/2023, 04/11/2022, Additional history exists Disability Screening 08/25/2025 08/25/2024 Alcohol/Substance Use Screening 12/02/2025 12/02/2024 SDOH Screening 12/02/2025 12/02/2024 Mammogram 01/06/2026 01/06/2025, 12/10, 12/13/2022, Additional history exists Tobacco Screening 01/11/2026 01/11/2025 Eye Exam 11/25/2026 11/25/2024, 11/09, 11/25/2024, Additional [...] long-term current use of insulin (HCC) POCT GLYCATED HEMOGLOBIN, TOTAL Routine 01/11/2025 11:53 AM EST Type 2 diabetes mellitus with hyperglycemia, with long-term current use of insulin (HCC) BI MAMMOGRAM SCREENING TOMOSYNTHESIS BILATERAL Routine 01/06/2025 3:50 PM EDT POCT MERLENE-14 URINE DRUG SCREEN Routine 01/05/2025 11:40 AM EDT [facility] (current) use of opiate analgesic XR HAND 3+ VIEWS RIGHT Routine 3:43 PM EDT Trigger finger of all digits of right hand POCT GLUCOSE Routine 12/02/2024 2:37 PM EDT Type 2 diabetes mellitus without complication, without long-term current use of insulin (CMS/HCC) POCT GLYCATED HEMOGLOBIN, TOTAL Routine 11/20/2024 12:40 PM EDT Type 2 diabetes mellitus with hyperglycemia, with long-term current use of insulin (CMS/HCC) POCT MERLENE-14 URINE DRUG SCREEN Routine 11/03/2024 11:22 AM EDT [facility] (current) use of opiate analgesic METHADONE SCREEN, URINE Routine 11/03/2024 11:00 AM EDT [facility] (current) use of opiate analgesic ALBUMIN, RANDOM URINE W/CREATININE Routine 05/19/2024 9:10 AM EDT Type 2 diabetes mellitus without complication, without long-term current use of insulin (CMS/HCC) LIPID PANEL, STANDARD Routine 05/19/2024 9:10 AM EDT Type 2 diabetes mellitus without complication, without long-term current use of insulin (CMS/HCC) HM COLONOSCOPY Routine 02/20/2024 9:55 AM EST AMB REFERRAL TO OPHTHALMOLOGY Routine 11/20/2023 Eyelid lesion HEPATITIS C ANTIBODY Routine 04/17/2023 9:41 AM EST Need for hepatitis C screening test HPV MRNA E6/E7 REFLEX TO HPV 16, 18/45 Routine 11/19/2022 10:39 AM EDT PAP SMEAR Routine 11/19/2022 10:39 AM EDT from Last 3 Months or Most Recently Relevant to Health Maintenance Results * (ABNORMAL) CBC auto differential (01/11/2025 12:21 PM EST) White Blood Count 8.5 4.8 - 10.8 X10*3/uL [facility] Red Blood Count 4.78 4.20 - 5.50 X10*6/uL [facility] Hemoglobin 11.5(L) 12.0 - 16.0 g/dl [facility] Hematocrit 38.3 37.0 - 47.0 % [facility] Mean Corpuscular Volume 80.1 80.0 - 98.0 fL [facility] Mean Corpuscular Hemoglobin 24.1(L) 27.0 - 33.0 pg [facility] Mean Corpuscular HGB Conc 30.0(L) 31.0 - 35.0 g/dl [facility] Red Cell Distribution Width 12.9 11.0 - 16.0 % [facility] Platelet Count 247 160 - 400 X10*3/uL [facility] Mean Platelet Volume 11.9 9.4 - 12.3 fL [facility] Neutrophils Percent Auto 59.7 45 - 73 % [facility] Imm Gran Pct Auto 0.6(H) 0.0 - 0.4 % [facility] Lymphocytes Percent Auto 27.9 20 - 40 % [facility] Monocytes Percent Auto 10.0 2 - 11 % [facility] Eosinophils Percent Auto 1.1 0 - 4 % [facility] Basophils Percent Auto 0.7 0 - 2 % [facility] NRBC Pct Auto 0.0 0.0 - 0.2 /100WBC [facility] Neutrophils Absolute Auto 5.1 2.0 - 8.3 x10*3/uL [facility] Imm Gran Abs Auto 0.05(H) 0.00 - 0.03 X10*3/uL [facility] Lymphocytes Absolute Auto 2.4 1.2 - 4.9 X10*3/uL [facility] Monocytes Absolute Auto 0.9 0.1 - 1.2 X10*3/uL [facility] Eosinophils Absolute Auto 0.1 0.0 - 0.4 X10*3/uL [facility] Basophils Absolute Auto 0.1 0.0 - 0.2 X10*3/uL [facility] NRBC Abs Auto 0.000 0.0 - 0.012 X10*3/uL [facility] Blood Venous blood specimen / Unknown 01/11/2025 12:21 PM EST 01/11/2025 1:26 PM EST Mu Alcocer CARRY ALL DRIVER LAB BLOOD ORDERABLES Final Re sult [facility] [address] [place] [phone] * (ABNORMAL) POCT Urinalysis (01/11/2025 12:02 [...] (ABNORMAL) POCT Glucose (01/11/2025 11:54 AM EST) Only the most recent of2 resultswithin the time period is included. Glucose Blood, POC 335(A) 60 - 200 mg/dL QC Media Lot # [id number] Lot# Expiration Date 31,126 Blood Capillary blood specimen / Unknown 01/11/2025 11:54 AM EST Andrés Lee MD POINT OF CARE TEST ENTER/EDIT OR DERABLES Final Result * (ABNORMAL) POCT Hgb A1c (01/11/2025 11:53 AM EST) Only the most recent of2 resultswithin the time period is included. Hemoglobin A1C 11.0(A) 4.0 - 5.7 % QC Media Lot # [id number] Lot# Expiration Date Blood 01/11/2025 11:5 3 AM EST Andrés Lee MD POINT OF CARE TEST ENTER/EDIT OR DERABLES Final Result * BI Mammogram Screening Tomosynthesis Bilateral (01/06/2025 3:50 PM EDT) Anatomical Region Laterality Modality Breast Bilateral Mammography 01/06/2025 3:50 PM EDT Narrative 01/09/2025 6:37 PM EDT [facility] [address] [place] [address] Mammography Report Signed Patient: Rafi Ceja MR#: [id number] : 1965 Acct:[id number] Age/Sex: 59 / F ADM Date: 01/06/25 Loc: HO.MAMMO Attending Dr: Andrés Lee MD Ordering Physician: Andrés Lee MD Results: 1Negative Date of Service: 01/06/25 Follow Up: 1 Year From Orig ina Mammogram Procedure(s): MM tomosynthesis screening BI Accession Number(s): [id number] cc: Andrés Lee MD Reason For Exam: SCREENING EXAMINATION: MM SCREENING DIGITAL BREAST TOMOSYNTHESIS, BILATERAL CLINICAL INFORMATION: Screening. Asymptomatic. COMPARISON: Comparison made to multiple prior, most recent January 01, 2024, and most remote September 18, 2014. TECHNIQUE: Digital breast tomosynthesis is performed in mediolateral oblique and craniocaudal views along with computer-aided detection (CAD). Synthesized 2D images are generated from the tomosynthesis. FINDINGS: BREAST COMPOSITION: There are scattered areas of fibroglandular density. BILATERAL BREASTS: No significant masses, suspicious calcifications or other abnormalities are seen in either breast. MM/MM tomosynthesis screening BI IMPRESSION: BILATERAL BREASTS: Negative, no mammographic evidence of malignancy. Normal interval follow-up is recommended in 12 months. ASSESSMENT: BI-RADS: Category 1: Negative RECOMMENDATION: Routine annual mammography screening. FOLLOW-UP: 1 year F/U This examination should not preclude the clinical evaluation of a suspicious palpable abnormality. This patient's information was entered into a reminder system with a target due date for their next mammogram. Electronically signed by: Parker Mason MD 01/09/2025 06:35 PM EDT Dictated By: Parker Mason MD Signed By: <Electronically signed by Parker Mason MD in OV> 01/09/25 1831 DD/ 1550 TD/TT: 01/06/25 1610 [employer] Teacher: Procedure Note Donotuseinterpreter, Image - 01/09/2025 [facility] [address] [place] [address] Mammography Report Signed Patient: [place] Ceja#: [id number] : 1965Acct:[id number] Age/Sex: 59 / FADM Date: 01/06/25 Loc: HO.MAMMO Attending Dr: Andrés Lee MD Ordering Physician: Andrés Leeesults: 1Negative Date of Service: 01/06/25Follow Up: 1 Year From Orig inal Mammogram Procedure(s): MM tomosynthesis screening BI Accession Number(s): [id number] cc: Andrés Lee MD Reason For Exam: SCREENING EXAMINATION: MM SCREENING DIGITAL BREAST TOMOSYNTHESIS, BILATERAL CLINICAL INFORMATION: Screening. Asymptomatic. COMPARISON: Comparison made to multiple prior, most recent January 01, 2024, and most remote September 18, 2014. TECHNIQUE: Digital breast tomosynthesis is performed in mediolateral oblique and craniocaudal views along with computer-aided detection (CAD). Synthesized 2D images are generated from the tomosynthesis. FINDINGS: BREAST COMPOSITION: There are scattered areas of fibroglandular density. BILATERAL BREASTS: No significant masses, suspicious calcifications or other abnormalities are seen in either breast. MM/MM tomosynthesis screening BI IMPRESSION: BILATERAL BREASTS: Negative, no mammographic evidence of malignancy. Normal interval follow-up is recommended in 12 months. ASSESSMENT: BI-RADS: Category 1: Negative RECOMMENDATION: Routine annual mammography screening. FOLLOW-UP: 1 year F/U This examination should not preclude the clinical evaluation of a suspicious palpable abnormality. This patient's information was entered into a reminder system with a target due date for their next mammogram. Electronically signed by: Parker Mason MD 01/09/2025 06:35 PM EDT Dictated By: Parker Mason MD Signed By: <Electronically signed by Parker Mason MD in OV> 01/09/25 1835 DD/ 1550 TD/TT: 01/06/25 1610 [employer] Teacher: Andrés Lee MD IMG BI PROCEDURES Edited Result - Final * (ABNORMAL) POCT MERLENE-14 Urine Drug Screen [...] Negative ng/mL Oxycodone Screen, Urine Positive(A) Negative Comment:BOX PACKER pt on oxycodone Phencyclidine (PCP), Urine Negative Negative Propoxyphene, Urine Negative Negative Fentanyl, Urine Negative Negative Urine Urine specimen obtained by clean catch procedure / Unknown 01/05/2025 11:40 AM EDT Mone Choudhary RN - 01/05/2025 11:40 AM EDT UTOX cup Lot#[id number] Exp. 12/15/25 Internal Pass Control Lala Mercado CARRY ALL DRIVER POINT OF CARE TEST ENTER/EDIT ORDERABLES Final Result * XR Hand 3+ Views Right (12/02/2024 3:43 PM EDT) Anatomical Region Laterality Modality Upper Extremities, Hand Right Radiogra phic Imaging 12/02/2024 3:43 PM EDT Narrative 12/02/2024 4:09 PM EDT [address] [address] XRay Report Signed Patient: Rafi Ceja MR#: [id number] : 1965 Acct:[id number] Age/Sex: 59 / F ADM Date: 12/02/24 Loc: JOSEPHCX Attending Dr: Andrés Lee MD Ordering Physician: Andrés Lee MD Date of Service: 12/02/24 Procedure(s): XR hand RT min 3V Accession Number(s): [id number] cc: Andrés Lee MD Reason for Exam: [...] Arnett MD Signed By: <Electronically signed by mOid Arnett MD in OV> 12/02/24 1606 DD/ 1543 TD/TT: 12/02/24 1559 [employer] Teacher: Procedure Note Donotuseinterpreter, Image - 12/02/[address] [address] XRay Report Signed Patient: Rafi CejaMR#: [id number] : 1965Acct:[id number] Age/Sex: 59 / FADM Date: 12/02/24 Loc: JOSEPHCX Attending Dr: Andrés Lee MD Ordering Physician: Andrés Lee MD Date of Service: 12/02/24 Procedure(s): XR hand RT min 3V Accession Number(s): [id number] cc: Andrés Lee MD Reason for Exam: [...] 12/02/24 1606 DD/ 1543 TD/TT: 12/02/24 1559 [employer] Teacher: us Andrés Lee MD IMG XR PROCEDURES Final Result * Drug Monitoring, Methadone Metabolite, Screen, Urine (11/03/2024 11:00 AM EDT) Methadone Screen, Urine Not Detected Not Detect ng/mL [facility] Comment:Methadone cut-off is 300 ng/mL.Positive results are unconfirmed and should not be used fornon-medical purposes. Urine (Urine, Random) 11/03/2024 11:00 AM EDT 11/03/2024 1:25 PM EDT us Andrés Lee MD LAB URINE ORDERABLES Final Resul t [facility] [address] [place] [phone] * Albumin, Random Urine W/Creatinine (05/19/2024 9:10 AM EDT) Creatinine, Urine 188.03 mg/dL [facility] Microalbumin Urine 32.0 mg/L [facility] Microalbum Creatinine Ratio Ur 17.0 <30 ug/mg cr [facility] Comment:Albumin/Creatinine R atio Reference Ranges: Normal: < 30 ug/mg creatinine Microalbuminuria: 30 - 300 ug/mg creatinineClinical Albuminuria: > 300 ug/mg creatinine Urine (Urine, Random) 05/19/2024 9:10 AM EDT 05/19/2024 11:34 AM EDT us Andrés Lee MD LAB URINE ORDERABLES Final Resul t Performing Organization Address [facility] de Phone Number [facility] [address] [place] [phone] * (ABNORMAL) Lipid Panel, Standard (05/19/2024 9:10 AM EDT) Triglycerides 129 <150 mg/dL [facility] Comment:Desirable Triglyceri de: less than 150 mg/dLBorderline High Triglyceride 150-199 mg/dLHigh Triglyceride: 200-499 mg/dLVery High Triglyceride: greater than or equal to 5OO mg/dL Cholesterol 122 <200 mg/dL [facility] Comment:Desirable Cholestero l: less than 200 mg/dLBorderline High Cholesterol: 200-239 mg/dLHigh Cholesterol: greater than 239 mg/dL LDL Cholesterol Calculated 60 <100 mg/dL [facility] Comment:Desirable LDL: less than 100 mg/dLNear Optimal/Above Optimal LDL: 110- 129 mg/dLBorderline High LDL: 130-159 mg/dLHigh LDL: 160-189 mg/dLVery High LDL: greater than or equal to 190 mg/dL HDL Cholesterol 37(L) >40 mg/dL [facility] Comment:Desirable HDL: great er than 40 mg/dL Note: This HDL assay may give artificially low results in patients with liver disease. Blood Venous blood specimen / Unknown 05/19/2024 9:10 AM EDT 05/19/2024 11:29 AM EDT us Andrés Lee MD LAB BLOOD ORDERABLES Final Resul t Performing Organization Address [facility] Co de Phone Number [facility] [address] [place] [phone] * (ABNORMAL) Colonoscopy (02/20/2024 9:55 AM EST) Pathologist [facility] Colonoscopy Abnormal(A ) Normal 02/20/2024 9:55 AM EST us Andrés Lee MD HEALTH MAINTENANCE Final Result * Referral to Ophthalmology (11/20/2023) us Andrés Lee MD OUTPATIENT REFERRAL ORDERABLES F inal Result * Hepatitis C Ab (04/17/2023 9:41 AM EST) [facility] Hepatitis C Antibody Nonreactive Nonreactive [facility] LABS Comment:Antibodies to HCV no t detected; does not exclude early acuteHCV infection. Blood Venous blood specimen / Unknown 04/17/2023 9:41 AM EST 04/17/2023 11:46 AM EST us Andrés Lee MD LAB BLOOD ORDERABLES Final Resul t [facility] [address] [place] [phone] * HPV mRNA E6/E7 w/Reflex to HPV Genotypes 16, 18/45 (11/19/2022 10:39 AM EDT) [facility] HPV nRNA E6/E7 Not Detected Not Detected [facility] Comment:Methodology: Transcr iption-Mediated AmplificationThis assay detects E6/E7 viral messenger RNA (mRNA) from 14high-risk HPV types (16,18,31,33,35,39,45,51,52,56,58,59,66,68).Cervical sources are required for HPV testing.If a vaginal source from a patient who has had atotal hysterectomy with removal of cervix wassubmitted, please contact the testing laboratoryfor alternative testing options.For additional information, please refer tohttp://education.Tiqets/faq/EZB628z9(This link if provided for information/educational purposes only.)THIS TEST WAS PERFORMED AT:[facility] [place] [phone] ANDREWS MD HPV mRNA E6/E7 TNP [facility] HPV 16 RNA TNP [facility] HPV 18/45 RNA TNP [facility] 11/19/2022 10:3 9 AM EDT 11/20/2022 8:40 AM EDT Karthik Rob [facility] LAB CYTOLOGY ORDERABLES F inal Result [facility] [address] [place] [address] [phone] * Pap Smear (11/19/2022 10:39 AM EDT) 11/19/2022 10:3 9 AM EDT 11/20/2022 8:40 AM EDT Narrative [facility] - 12/02/2022 5:22 PM EDT ----- ------- Name: Rafi Ceja Age/Sex: 57/F : 1965 Unit#: [id number] Attend Dr: KARTHIK ROB Re11/19/22 Status: DEP REF Location: HO.HHCLNP Disch: ----- ------- SPEC : [id number] RECD: 11/20/22 STATUS: MARIO [place] NUM: [id number] DANISHA: 11/19/22-1038 [facility] DR: KARTHIK ROB CNM ENTERED: 11/20/22 SP TYPE: Pap Smr OTHR DR: ORDERED: Pap Smear Interpretation Satisfactory for evaluation. Negative for intraepithelial lesion or malignancy. HPV mRNA E6/E7: NOT DETECTED This assay detects E6/E7 viral messenger RNA (mRNA) from 14 high-risk HPV types (16, 18, 31, 33, 35, 39, 45, 51, 52, 56, 58, 59, 66, 68) HPV testing performed by [facility], [place], [place]. See reference laboratory portion of the EMR for entire report. Clinical Information LMP: Unknown date Previous PAP test: WNL Material Received ThinPrep-Vaginal/Cervical ----- ------- Signed (signature on file) Razia Fitzgerald Ronaldo 12/02/22 1722 ----- ------- END OF REPORT Karthik Rob CNM LAB CYTOLOGY ORDERABLES F inal Result [facility] [address] [place] [address] [phone] from Last 3 Months or Most Recently Relevant to Health Maintenance Insurance C3 Care Teams Bookkeeping Service Sales Agent Relationship Specialty Start Date End Date Name, MD Andrés [address] [place] [address] PCP - General Family Medicine 04/08/15 Jhoana Pickering PharmD [address] [place] [address] Pharmacist Pharmacy 11/03/24
--- OUTSIDE RECORDS SUMMARY | 2025-01-11 15:28 | XMS_ITS | Encounter Summary ---
Author Organization [facility] Address [address] [facility] 7t [place] [address] Care Team Providers Care Manager Of Photography Name Role Phone Name, Andrés RODRIGUEZ Primary Care Provider [phone] Jhoana Pickering PharmD Unavailable [phone] Reason for Visit * Reason Comments Med Refill Encounter Details Date Type Department Care Team ([facility] st Contact Info) Description 01/20/2024 Refill [facility] [address] [place], [place] [phone] Name, MD Andrés 230 [place] [address] Depressive disorder Social History Tobacco Use Types [...] Description 01/26/2025 10:00 AM EST Medication Management [address] [address] Jhoana Pickering PharmD [address] [place] [address] 02/02/2025 11:00 AM EST Office Visit [address] [address] documented as of this encounter Visit Diagnoses Diagnosis Depressive disorder Depressive disorder, not elsewhere classified documented in this encounter Additional Health Concerns Assessment Noted Time PHQ-9 Depression Total Score: 0 08/07/19 24 2:21 PM EDT documented as of this encounter Care Teams Manager Of Photography Relationship Specialty Start Date End Date Name, MD Andrés [address] [place] [address] PCP - General Family Medicine 04/08/15 Jhoana Pickering, PharmD [address] [place] [address] Pharmacist Pharmacy 11/03/24 documented as of this encounter
--- OUTSIDE RECORDS SUMMARY | 2025-01-11 15:28 | XMS_ITS | Encounter Summary ---
Author Organization [employer] Address [address] [place] [address] 7 [place] [address] Care Team Providers Care Litigation Support Analyst Name Role Phone Name, Andrés RODRIGUEZ Primary Care Provider [phone] Jhoana Pickering PharmD Unavailable [phone] Encounter Details Date Type Department Care Team ([facility] st Contact Info) Description 01/11/2025 Results Follow-Up [facility] [address] [place] [address] Mu Alcocer FNP [address] [place] [address] CBC auto differential, POCT Hgb A1c, POCT Glucose, POCT Urinalysis Social History Tobacco Use Types Packs/Day Years [...] Description 01/26/2025 10:00 AM EST Medication Management [address] [address] Jhoana Pickering PharmD [address] [place] [address] 02/02/2025 11:00 AM EST Office Visit [address] [address] documented as of this encounter Visit Diagnoses Not on filedocumented in this encounter Additional Health Concerns Assessment Noted Time PHQ-9 Depression Total Score: 11 025 2:48 PM EDT documented as of this encounter Care Teams Litigation Support Analyst Relationship Specialty Start Date End Date Name, MD Andrés [address] [place] [address] PCP - General Family Medicine 04/08/15 Jhoana Pickering PharmD [address] [place] [address] Pharmacist Pharmacy 11/03/24 documented as of this encounter
--- OUTSIDE RECORDS SUMMARY | 2025-01-11 15:28 | XMS_ITS | Encounter Summary ---
Author Organization [employer] Address 75 [facility] 7 [place] [address] Care Team Providers Care Printed Circuit Board Designer Name Role Phone Name, Andrés RODRIGUEZ Primary Care Provider [phone] Jhoana Pickering PharmD Unavailable [phone] Reason for Visit * Reason Onset Date Comments Appointment Request 03/23/2022 Encounter Details Date Type Department Care Team ([facility] Contact Info) Description 03/23/2022 Telephone [facility] 230 [place], [place] [phone] Name, MD Andrés 230 [place] [address] Appointment Request Social History Tobacco Use Types [...] at 9:45 am Please contact pt at [phone] documented in this encounter Plan of Treatment Upcoming Encounters Date Type Department Care Team ([facility] st Contact Info) Description 01/26/2025 10:00 AM EST Medication Management [facility] [address] [place] [address] Jhoana Pickering PharmD [address] [place] [address] 02/02/2025 11:00 AM EST Office Visit [facility] [address] [place] [address] documented as of this encounter Visit Diagnoses Not on filedocumented in this encounter Additional Health Concerns Assessment Noted Time PHQ-9 Depression Total Score: 0 02/21/20 22 3:25 PM EST documented as of this encounter Care Teams Printed Circuit Board Designer Relationship Specialty Start Date End Date Name, MD Andrés [address] [place] [address] PCP - General Family Medicine 04/08/15 Jhoana Pickering PharmD [address] [place] [address] Pharmacist Pharmacy 11/03/24 documented as of this encounter
--- OUTSIDE RECORDS SUMMARY | 2025-01-11 15:28 | XMS_ITS | Encounter Summary ---
Author Organization [employer] Address [address] [facility] [address] [address] Care Team Providers Care Watch Mechanic Name Role Phone Name, Andrés RODRIGUEZ Primary Care Provider [phone] Jhoana Pickering PharmD Unavailable [phone] Reason for Visit * Reason Onset Date Comments Nurse Triage 01/11/2025 Encounter Details Date Type Department Care Team ([facility] st Contact Info) Description 01/11/2025 Telephone [facility] 230 [place], [place] [phone] Name, MD Andrés 230 [place], [place] [phone] Nurse Triage Social History Tobacco Use Types [...] housing situation today? I have imtiza lima 08/25/[address] you [...] encounter Miscellaneous Notes * Telephone Encounter - Suzi Sarabia RN - 01/11/2025 9:48 AM EST T/C returned to pt utilizing BLS #[id number] to triage. Pt reports 9/10 abdominal pain with diarrhea x1 week. Abdominal pain located in left lower quadrant. Pt also having chills. Pt reports that she has had similar pain before when she had an infection and needed IV medication. Pt didn't disclose what kind of infection but upon chart review, pt with Hx of H Pylori infection. Pt denies pain radiating.Pt denies vomiting, changes in urination, nausea, blood in stool or urine, fever, or any other Sx. Pt denies Sx of dehydration as well. Pt booked to see PCP today at 11:30. Pt agrees with disposition. Pt given ED precautions: if pain increases, fever, blood in stool, or vomiting go to the ED. Protocol Used: Abdominal Pain - Female (Adult) Protocol-Based Disposition: See in Office or Video Visit Today Video visit offer not recorded Positive Triage Question: * Patient wants to be seen * All higher-acuity triage questions were negative Care Advice Discussed: * Reasons To Call Back - You become worse * Telephone Encounter - Andrés Sauer - 01/11/2025 9:31 AM EST Symptom: Abdominal Pain - Female - Not Outcome: Talk to a nurse or provider within 15 minutes Reason: Severe pain now The caller accepted this outcome. Contact pt at [phone] documented in this encounter Plan of Treatment Upcoming Encounters Date Type Department Care Team ([facility] st Contact Info) Description 01/26/2025 10:00 AM EST Medication Management [facility] [address] [place] [address] Jhoana Pickering PharmD [address] [place] [address] 02/02/2025 11:00 AM EST Office Visit [facility] [address] [place] [address] documented as of this encounter Visit Diagnoses Not on filedocumented in this encounter Additional Health Concerns Assessment Noted Time PHQ-9 Depression Total Score: 11 025 2:48 PM EDT documented as of this encounter Care Teams Watch Mechanic Relationship Specialty Start Date End Date Name, MD Andrés [address] [place] [address] PCP - General Family Medicine 04/08/15 Jhoana Pickering PharmD [address] [place] [address] Pharmacist Pharmacy 11/03/24 documented as of this encounter
--- OUTSIDE RECORDS SUMMARY | 2025-01-11 15:28 | XMS_ITS | Encounter Summary ---
Author Organization [employer] Address [address] [facility] 7[address] [place] [address] Care Team Providers Care Manager Community Name Role Phone Name, Andrés RODRIGUEZ Primary Care Provider [phone] Jhoana Pickering PharmD Unavailable [phone] Encounter Details Date Type Department Care Team (Late Contact Info) Description 04/12/2022 Orders Only [facility] [address] [place] [address] Graciela Gifford, INCIDENT RESPONSE SPECIALIST Dysuria Social History Tobacco Use Types Packs/Day [...] Description 01/26/2025 10:00 AM EST Medication Management [facility] [address] [place] [address] PuiaMikeJhoana, PharmD [address] [place] [address] 02/02/2025 11:00 AM EST Office Visit [facility] [address] [place] [address] documented as of this encounter Visit Diagnoses Diagnosis Dysuria documented in this encounter Additional Health Concerns Assessment Noted Time PHQ-9 Depression Total Score: 0 02/21/20 22 3:25 PM EST documented as of this encounter Care Teams Manager Community Relationship Specialty Start Date End Date Name, MD Andrés [address] [place] [address] PCP - General Family Medicine 04/08/15 Jhoana Pickering, Bladimir [address] [place] [address] Pharmacist Pharmacy 11/03/24 documented as of this encounter
--- OUTSIDE RECORDS SUMMARY | 2025-01-11 15:28 | XMS_ITS | Encounter Summary ---
Author Organization [employer] Address 75 [facility] 7t [place] [address] Care Team Providers Care Commercial Green Building Designer Name Role Phone Name, Andrés RODRIGUEZ Primary Care Provider [phone] Jhoana Pickering PharmD Unavailable [phone] Reason for Visit * Reason Comments Med Refill Encounter Details Date Type Department Care Team ([facility] st Contact Info) Description 12/31/2024 Refill [facility] 230 [place], [place] [phone] Name, MD Andrés [address] [place] [address] Type 2 diabetes mellitus without complication, without [...] Description 01/26/2025 10:00 AM EST Medication Management [address] [address] Jhoana Pickering PharmD [address] [place] [address] 02/02/2025 11:00 AM EST Office Visit [facility] [address] [place] [address] documented as of this encounter Visit Diagnoses Diagnosis Type 2 diabetes mellitus without complication, without long-term current use of insulin (HCC) documented in this encounter Additional Health Concerns Assessment Noted Time PHQ-9 Depression Total Score: 11 025 2:48 PM EDT documented as of this encounter Care Teams Commercial Green Building Designer Relationship Specialty Start Date End Date Name, MD Andrés [address] [place] [address] PCP - General Family Medicine 04/08/15 Jhoana Pickering, PharmD [address] [place] [address] Pharmacist Pharmacy 11/03/24 documented as of this encounter
--- OUTSIDE RECORDS SUMMARY | 2025-01-11 15:28 | XMS_ITS | Encounter Summary ---
Author Organization [employer] Address 75 [facility] 7[address] [place] [address] Care Team Providers Care Credentialing Specialist Name Role Phone Name, Andrés RODRIGUEZ Primary Care Provider [phone] Jhoana Pickering PharmD Unavailable [phone] Reason for Visit * Reason Comments Med Refill Encounter Details Date Type Department Care Team ([facility] Contact Info) Description 08/28/2022 Refill [facility] [address] [place] [address] [phone] Name, MD Andrés [address] [place] [address] Cervical radicular pain Social History Tobacco Use [...] Upcoming Encounters Date Type Department Care Team ([facility] Contact Info) Description 01/26/2025 10:00 AM EST Medication Management [facility] [address] [place] [address] Jhoana Pickering PharmD 230 [place] [address] 02/02/2025 11:00 AM EST Office Visit [address] [address] documented as of this encounter Visit Diagnoses Diagnosis Cervical radicular pain documented in this encounter Additional Health Concerns Assessment Noted Time PHQ-9 Depression Total Score: 0 02/21/20 22 3:25 PM EST documented as of this encounter Care Teams Credentialing Specialist Relationship Specialty Start Date End Date Name, MD Andrés [address] [place] [address] PCP - General Family Medicine 04/08/15 Jhoana Pickering PharmD [address] [place] [address] Pharmacist Pharmacy 11/03/24 documented as of this encounter
--- OUTSIDE RECORDS SUMMARY | 2025-01-11 15:28 | XMS_ITS | Encounter Summary ---
Author Organization [employer] Address 75 [facility] 7[address] [place] [address] Care Team Providers Care Patrol Driver Name Role Phone Name, Andrés RODRIGUEZ Primary Care Provider [phone] Jhoana Pickering PharmD Unavailable [phone] Reason for Visit * Reason Onset Date Comments Medication Question 02/12/2023 Encounter Details Date Type Department Care Team ([facility] st Contact Info) Description 02/12/2023 Telephone [facility] 230 [place], [place] [phone] Name, MD Andrés [address] [place], [place] [phone] Medication Question Social History Tobacco Use Types [...] requesting status on lidocaine patch 5% however physician underwriter does not see anything on chart regarding that matter. documented in this encounter Plan of Treatment Upcoming Encounters Date Type Department Care Team (Late st Contact Info) Description 01/26/2025 10:00 AM EST Medication Management [facility] [address] [place] [address] Jhoana Pickering, PharmD [address] [place], [place] [phone] 02/02/2025 11:00 AM EST Office Visit [facility] 230 [place] [address] documented as of this encounter Visit Diagnoses Not on filedocumented in this encounter Additional Health Concerns Assessment Noted Time PHQ-9 Depression Total Score: 0 02/21/20 22 3:25 PM EST documented as of this encounter Care Teams Patrol Driver Relationship Specialty Start Date End Date Name, MD Andrés [address] [place] [address] PCP - General Family Medicine 04/08/15 Jhoana Pickering PharmD [address] [place] [address] Pharmacist Pharmacy 11/03/24 documented as of this encounter
--- OUTSIDE RECORDS SUMMARY | 2025-01-11 15:28 | XMS_ITS | Encounter Summary ---
Author Organization [employer] Address 75 [facility] 7t [place] [address] Care Team Providers Care General Pediatrician Name Role Phone Name, Andrés RODRIGUEZ Primary Care Provider [phone] Jhoana Pickering PharmD Unavailable [phone] Reason for Visit * Reason Onset Date Comments Med Refill 09/24/2023 Encounter Details Date Type Department Care Team ([facility] st Contact Info) Description 09/24/2023 Telephone [facility] 230 [place], [place] [phone] Name, MD Andrés [address] [place] [address] Med Refill Social History Tobacco Use Types [...] MG EC tablet To be sent to: [facility] [address] [facility] documented in this encounter Plan of Treatment Upcoming Encounters Date Type Department Care Team (Late st Contact Info) Description 01/26/2025 10:00 AM EST Medication Management [facility] [address] [place] [address] Jhoana Pickering, PharmD 230 [place] [address] 02/02/2025 11:00 AM EST Office Visit [facility] [address] [place] [address] documented as of this encounter Visit Diagnoses Not on filedocumented in this encounter Additional Health Concerns Assessment Noted Time PHQ-9 Depression Total Score: 0 08/07/19 24 2:21 PM EDT documented as of this encounter Care Teams General Pediatrician Relationship Specialty Start Date End Date Name, MD Andrés [address] [place] [address] PCP - General Family Medicine 04/08/15 Jhoana Pickering, Bladimir [address] [place] [address] Pharmacist Pharmacy 11/03/24 documented as of this encounter
--- OUTSIDE RECORDS SUMMARY | 2025-01-11 15:28 | XMS_ITS | Encounter Summary ---
Author Organization [employer] Address 75 [facility] 7[place] [address] Care Team Providers Care Orbitread Operator Name Role Phone Name, Andrés RODRIGUEZ Primary Care Provider [phone] Jhoana Pickering PharmD Unavailable [phone] Reason for Visit * Reason Onset Date Comments Nurse Triage 05/22/2024 Encounter Details Date Type Department Care Team ([facility] st Contact Info) Description 05/22/2024 Telephone [facility]INE 230 [place], [place] [phone] Name, MD Andrés 230 [place], [place] [phone] Nurse Triage Social History Tobacco Use Types [...] Triage call returned to patient with S Rv Servicer # [id number] Marjan. Patient reports reaction to Pregabalin that [...] Description 01/26/2025 10:00 AM EST Medication Management [address] [address] Jhoana Pickering PharmD [address] [place] [address] 02/02/2025 11:00 AM EST Office Visit [facility] [address] [place] [address] documented as of this encounter Visit Diagnoses Not on filedocumented in this encounter Additional Health Concerns Assessment Noted Time PHQ-9 Depression Total Score: 0 08/07/19 24 2:21 PM EDT documented as of this encounter Care Teams Orbitread Operator Relationship Specialty Start Date End Date Name, MD Andrés [address] [place] [address] PCP - General Family Medicine 04/08/15 Jhoana Pickering PharmD [address] [place] [address] Pharmacist Pharmacy 11/03/24 documented as of this encounter
--- OUTSIDE RECORDS SUMMARY | 2025-01-11 15:28 | XMS_ITS | Encounter Summary ---
Author Organization [email or web address] Address 75 [facility] [address] [address] Care Team Providers Care Breakfast Manager Name Role Phone Name, Andrés RODRIGUEZ Primary Care Provider [phone] Jhoana Pickering PharmD Unavailable [phone] Reason for Visit * Reason Comments Med Refill Encounter Details Date Type Department Care Team ([facility] st Contact Info) Description 01/07/2024 Refill [facility] [address] [place], [place] [phone] Name, MD Andrés 230 [place] [address] Social History Tobacco Use Types Packs/Day Years [...] Description 01/26/2025 10:00 AM EST Medication Management [address] [address] Jhoana Pickering PharmD [address] [place] [address] 02/02/2025 11:00 AM EST Office Visit [address] [address] documented as of this encounter Visit Diagnoses Not on filedocumented in this encounter Additional Health Concerns Assessment Noted Time PHQ-9 Depression Total Score: 0 08/07/19 24 2:21 PM EDT documented as of this encounter Care Teams Breakfast Manager Relationship Specialty Start Date End Date Name, MD Andrés [address] [place] [address] PCP - General Family Medicine 04/08/15 Jhoana Pickering PharmD [address] [place] [address] Pharmacist Pharmacy 11/03/24 documented as of this encounter
--- OUTSIDE RECORDS SUMMARY | 2025-01-11 15:28 | XMS_ITS | Encounter Summary ---
Author Organization [employer] Address 75 [facility] [address] [place] [address] Care Team Providers Care Pill Coater Name Role Phone Name, Andrés RODRIGUEZ Primary Care Provider [phone] Jhoana Pickering PharmD Unavailable [phone] Reason for Visit * Reason Onset Date Comments Med Refill 05/21/2023 Encounter Details Date Type Department Care Team ([facility] st Contact Info) Description 05/21/2023 Telephone [facility] 230 [place], [place] [phone] Name, MD Andrés 230 [place] [address] Med Refill Social History Tobacco Use Types [...] 5-325 MG tablet To be sent to: [facility] - [place], [place] - [address] [place] [address] documented in this encounter Plan of Treatment Upcoming Encounters Date Type Department Care Team (Late st Contact Info) Description 01/26/2025 10:00 AM EST Medication Management [facility] [address] [place] [address] Jhoana Pickering PharmD [address] [place] [address] 02/02/2025 11:00 AM EST Office Visit [facility] [address] [place] [address] documented as of this encounter Visit Diagnoses Not on filedocumented in this encounter Additional Health Concerns Assessment Noted Time PHQ-9 Depression Total Score: 0 02/21/20 22 3:25 PM EST documented as of this encounter Care Teams Pill Coater Relationship Specialty Start Date End Date Name, MD Andrés [address] [place] [phone] PCP - General Family Medicine 04/08/15 Jhoana Pickeirng PharmD [address] [place] [address] Pharmacist Pharmacy 11/03/24 documented as of this encounter
--- OUTSIDE RECORDS SUMMARY | 2025-01-11 15:28 | XMS_ITS | Encounter Summary ---
Author Organization [email or web address] Address [address] [facility] [address] [place] [address] Care Team Providers Care Marine Services Technician Name Role Phone Name, Andrés RODRIGUEZ Primary Care Provider [phone] Jhoana Pickering PharmD Unavailable [phone] Reason for Visit * Reason Comments Med Refill Encounter Details Date Type Department Care Team ([facility] st Contact Info) Description 11/13/2024 Refill [facility] MEDICINE [address] [place], [place] [phone] Name, MD Andrés [address] [place] [address] Social History Tobacco Use Types Packs/Day Years [...] Description 01/26/2025 10:00 AM EST Medication Management [address] [address] Jhoana Pickering PharmD [address] [place] [address] 02/02/2025 11:00 AM EST Office Visit [address] [address] documented as of this encounter Visit Diagnoses Not on filedocumented in this encounter Additional Health Concerns Assessment Noted Time PHQ-9 Depression Total Score: 11 025 2:48 PM EDT documented as of this encounter Care Teams Marine Services Technician Relationship Specialty Start Date End Date Name, MD Andrés [address] [place] [address] PCP - General Family Medicine 04/08/15 Jhoana Pickering, PharmD [address] [place] [address] Pharmacist Pharmacy 11/03/24 documented as of this encounter
[2025-01-11 18:57] LABS: Appearance Urine Cloudy; Glucose Urine UA 100 mg/dL (Negative); PH 6.0 (5.0-9.0); Specific Gravity - Urine >= 1.030 (1.005-1.025); UMIC TRIGGER UACC YES
[2025-01-11 18:59] LABS: UACC Culture Trigger YES
== END 2025-01-11 12:16 | disposition home or self-care (01) ==
LOC: HO.HHCL 12:15
PROVIDERS: PCP Internal Medicine Geriatric Medicine; Visit Provider Internal Medicine Geriatric Medicine
DX: R10.32 Left lower quadrant pain (principal); R82.90 Unspecified abnormal findings in urine
CPT/HCPCS: 36415; 81001; 85025; 87086

== ENCOUNTER 2025-01-14 15:53 | Outpatient (REF) | payer MEDICAID, SELFPAY ==
--- OUTSIDE RECORDS SUMMARY | 2025-01-11 11:30 | XMS_ITS | Encounter Summary ---
Author Organization [employer] Address [address] [place] [address] Care Team Providers Care Government Affairs Manager Name Role Phone Name, Andrés RODRIGUEZ Primary Care Provider [phone] Jhoana Pickering PharmD Unavailable [phone] Encounter Details Date Type Department Care Team (Late st Contact Info) Description 01/11/2025 11:30 AM EST Office Visit [facility] MEDICINE [address] [place] [address] [phone] Name, MD Andrés [address] [place], [place] [phone] Left lower quadrant abdominal pain (Primary Dx); Diarrhea, unspecified type; Type 2 diabetes mellitus with hyperglycemia, with long-term current use of insulin (HCC); Foul smelling urine; Low blood pressure reading Social History Tobacco Use Types Packs/Day Years [...] your housing situation today? I have imtiaz ilma 08/25/[address] you li [...] Sign Reading Time Taken Comments Blood Pressure 96/60 01/11/2025 11:48 AM EST Pulse 96 01/11/2025 11:48 AM EST Temperature 35.6 C (96 F) 01/11/2025 11:48 AM EST Respiratory Rate 18 01/11/2025 11:48 AM EST Oxygen Saturation 96% 01/11/2025 11:48 AM EST Inhaled Oxygen Concentration - - Weight 99.5 kg (219 lb 6.4 oz) 01/11/2025 11:48 AM EST Height 152.4 cm (5') 01/11/2025 11:48 AM EST Body Mass Index 42.85 01/11/2025 11:48 AM EST documented in this encounter Progress Notes * Andrés Lee MD - 01/11/2025 11:30 AM EST Images from the original note were not included. Rafi Ceja is a 59 y.o. female with a PMH including hypertension, HLD, Obesity, DM Type II, esophageal reflux, recurrent UTI, anxiety / depression, presents for an acute visit, complaining of suprapubic discomfort, left lower quadrant abdominal pain, and foul-smelling urine for 1 week; and weakness / dizziness starting yesterday (pt felt dizzy while walking to [facility] and had to stop, go home and lie down). Pt has a history that includes DM Type II. GLP-1s caused gastric upset and were cancelled after consult with GI; SLGT-1s were avoided d/t a PMH of frequent UTIs. Pt confirms she has been taking metformin as prescribed, using lantus (58 units/day as prescribed) and preprandial insulin (10 units x 2x/day as prescribed); she is in the process of switching to a CGM / omnipod pump set up. She has an appointment in approximately 2 weeks (on 01/26/25) for instruction on the insulin pump and CGM. Pt had a gastric bypass in 2019. Note from pharmacist 12/18/24 med reconcilliation concerning DM II meds: Type 2 Diabetes ?? Regarding DM meds patient reports the following: ?? Started Humalog 10 units daily with lunch (new) as per PCP plan 12/02 ?? Using Lantus 58 units daily (increase) per titration plan in last CD visit. ?? Taking metformin ER 750 mg mg twice daily (change from 2 tabs daily) as recommended by PCP 12/02 with improvement in GI AE (diarrhea). There was no dispense history for ER formulation & patientunsure what she has at home; [facility] called preferred pharmacy in visit & they confirm metformin ER750 mg was dispensed 11/2024. ?? Pertinent negatives include polyuria, polydipsia, blurred vision ?? Patient using [employer] 3 plus. Able to view results via [employer] account. Patient is using phone dee dee connected to [facility] Blue Team for remote monitoring. In summary: ?? CGM shows pattern of frequent hyperglycemia although improved from last download 11/12 (91% very high, 9% high, 0% in range). Pt attends group chronic pain meetings; last attended meetin01/05/25. She is currently on 5 mg oxycodone 3 x day PRN for chronic cervical neck pain. Prescription ends 01/27/25. Problem List[1] Allergies[2] Review of Systems Constitutional: Positive for chills and fatigue. Negative for appetite change, diaphoresis, fever and unexpected weight change. HENT: Negative. Negative for congestion, dental problem, ear pain, facial swelling, postnasal drip,rhinorrhea, sinus pressure, sinus pain, sneezing and sore throat. Eyes: Negative. Negative for visual disturbance. Respiratory: Negative. Negative for chest tightness, shortness of breath, wheezing and stridor. Cardiovascular: Negative. Negative for chest pain, palpitations and leg swelling. Gastrointestinal: Positive for diarrhea. Negative for abdominal pain, blood in stool, constipation,nausea and vomiting. Endorses diarrhea x 1 week Watery Bms after meals No blood in the stool Endocrine: Negative. Negative for polydipsia and polyuria. Genitourinary: Negative. Negative for difficulty urinating, dyspareunia, dysuria, flank pain, frequency, genital sores, hematuria, menstrual problem, pelvic pain, urgency, vaginal discharge and vaginal pain. Musculoskeletal: Negative. Negative for arthralgias, back pain and myalgias. Skin: Negative. Allergic/Immunologic: Negative. Neurological: Positive for weakness. Negative for dizziness, seizures, numbness and headaches. Hematological: Negative. Negative for adenopathy. Does not bruise/bleed easily. Psychiatric/Behavioral: Negative. Negative for confusion, self-injury, sleep disturbance and suicidal ideas. The patient is not nervous/anxious. 02/18/2024 5:40 PM 2024 2:09 PM 08/25/2024 2:16 PM 08/25/2024 2:39 PM 09/07/2024 10:33 AM 12/02/2024 2:36 PM 01/11/2025 11:48 AM Vitals Systolic 141 128 142 128 130 128 96 Diastolic 80 72 78 78 74 82 60 Heart Rate 78 84 83 81 72 96 Temp 98.2 ??F (36.8 ??C) 97.9 ??F (36.6 ??C) 96.9 ??F (36.1 ??C) 97 ??F (36.1 ??C) 98.5 ??F (36.9 ??C) 96 ??F (35.6 ??C) Resp 19 21 18 12 18 18 Height (in) 5' 2 (1.575 m) 5' (1.524 m) 5' 2 (1.575 m) 5' 2 (1.575 m) 5' 2 (1.575 m) 5' (1.524 m) Weight (lb) 201.13 208 205.6 198 212.4 219.4 BMI 36.79 kg/m2 40.62 kg/m2 37.6 kg/m2 36.21 kg/m2 38.85 kg/m2 42.85 kg/m2 BSA (m2) 2 m2 2 m2 2.02 m2 1.98 m2 2.05 m2 2.05 m2 Visit Report Report Report Report Report Report Report Report Standing BP: 93/69 POCT Blood Glucose: 335 POCT Hb A1C: 11.0 Urinalysis Component Ref Range & Units (hover) 12:02 (01/11/25) 11:54 (01/11/25) 11:53 (01/11/25) 1 mo ago (12/02/24) 4 mo ago (08/25/24) 4 mo ago (08/25/24) 4 mo ago (08/25/24) Color, UA Dark [place] Yellow Clarity, UA Cloudy Clear Glucose, UA Negative Negative Bilirubin, UA Many Negative Comment: small Ketones, UA Negative Negative Spec Grav, UA 1.030 1.025 Blood, UA Positive Abnormal Negative Comment: trace-inta pH, UA 6.0 6.0 Protein, UA Trace Many CM Comment: 100mg/dL Urobilinogen, UA 1.0 0.2 Leukocytes, UA Negative Many Abnormal CM Nitrite, UA Negative Negative Appearance, UA dark yellow yellow QC Media Lot # [id number] 2,[id number] 10,233,[id number] 2,505,[id number] 406,020 10,231,689 [id number] Lot# Expiration Date 63,026 31,126 51,227 22,726 113,025 12,227 103,025 Specimen Collected: 01/11/25 12:02 Last Resulted: 01/11/25 12:09 Physical Exam Constitutional: Appearance: Normal appearance. She is obese. HENT: Head: Normocephalic. Right Ear: Tympanic membrane, ear canal and external ear normal. Left Ear: Tympanic membrane, ear canal and external ear normal. Nose: Nose normal. Mouth/Throat: Mouth: Mucous membranes are moist. Pharynx: Oropharynx is clear. Eyes: Extraocular Movements: Extraocular movements intact. Pupils: Pupils are equal, round, and reactive to light. Cardiovascular: Rate and Rhythm: Normal rate and regular rhythm. Pulses: Normal pulses. Heart sounds: Normal heart sounds. Pulmonary: Effort: Pulmonary effort is normal. Breath sounds: Normal breath sounds. No wheezing or rhonchi. Chest: Chest wall: No tenderness. Abdominal: General: Bowel sounds are normal. Palpations: Abdomen is soft. Tenderness: There is abdominal tenderness. There is no right CVA tenderness, left CVA tenderness, guarding or rebound. Comments: Mild discomfort on deep palpation of left lower quadrant abdominal Musculoskeletal: General: Normal range of motion. Cervical back: Normal range of motion and neck supple. Right lower leg: No edema. Left lower leg: No edema. Skin: General: Skin is warm. Capillary Refill: Capillary refill takes less than 2 seconds. Neurological: General: No focal deficit present. Mental Status: She is alert and oriented to person, place, and time. Psychiatric: Mood and Affect: Mood normal. Behavior: Behavior normal. Assessment & Plan Diarrhea, unspecified type Orders: loperamide (Imodium A-D) 2 MG tablet; Take 1-2 tablets (2-4 mg) by mouth if needed in the morning, at noon, in the evening, and at bedtime for diarrhea for up to 3 days. Left lower quadrant abdominal pain Check CBC, if she had elevated WBC I would do CT to r/o diverticulitis and start on antibiotics Orders: CBC auto differential; Future Type 2 diabetes mellitus with hyperglycemia, with long-term current use of insulin ([facility]) Orders: POCT Hgb A1c POCT Glucose POCT Urinalysis Pt's history of Gastric Bypass (2019), and consistent hyperglycemia can predispose to diarrhea. Advised patient to stay well hydrated d/t to both hyperglycemia and diarrhea. Prescribed loperamide for up to 3 days to be taken as ordered. Recommended pt eat Azerbaijani yogurt for gut health. Discussed hyperglycemia. Reinforced benefits of starting CGM and pump therapy, encouraged her to attend her scheduled meeting on 01/26/25 for pump / CGM education. Foul smelling urine Orders: Urinalysis, Complete, with Reflex to Culture; Future Will contact patient if culture necessitates antibiotics. Urine dip today is benign Low blood pressure reading Hold lisinopril for low blood pressure until further notice. Contact your PCP if symptoms worsen; if dizziness increases, do not drive; call your PCP, or if serious dizziness or weakness develops, call 911 to be taken to the emergency room. Contact your PCP ifsymptoms do not improve in the next week to two weeks. Future Appointments Date Time Provider Department Center 01/11/2025 11:30 AM Andrés Lee MD MEDICINE [facility] 01/26/2025 10:00 AM Jhoana Pickering PharmD MEDICINE [facility] 02/02/2025 11:00 AM [facility]RON[facility] MEDICINE [facility] Current Medications[3] [facility] WAX MACHINE OPERATOR Attestation WAX MACHINE OPERATOR Resident Attestation: Patient was seen and evaluated by Mu EVANS, in collaboration with Andrés Lee MD who has reviewed my assessment and plan. I, Andrés Lee MD , have reviewed the resident's note and agree with the assessment & plan of care as documented above. Visit Conducted in: Cuban Translation by: Provided by [employer] Phone Service ID # [id number] and by Dr. Lee when in the room. [1] Patient Active Problem List Diagnosis Carpal tunnel syndrome Chronic radicular cervical pain Cervical radiculopathy due to degenerative joint disease of spine Radicular pain Chronic neck pain Anxiety and depression Diabetes mellitus type 2, uncontrolled Hypertension Severe obesity (BMI 35.0-39.9) with comorbidity (CMS/HCC) (HCC) Snoring Tired IUD (intrauterine device) in place Esophageal reflux Hypercholesterolemia Migraine Pelvic pain syndrome Plantar fasciitis Recurrent urinary tract infection Sexual dysfunction Type 2 diabetes mellitus ([facility]) Ureteral stone Class 1 obesity H. 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 Use as directedfor CGM, Disp: 1 each, Rfl: 0 Continuous Glucose Sensor (FreeStyle Kobe 2 Plus Sensor) [facility], 1 Device every 15 days. Apply 1 sensor as directed every 15 days for CGM, Disp: 2 each, Rfl: 11 glucose blood (FreeStyle Precision Nima Test) test strip, Use to test blood sugar 3 times daily in case of CGM failure or extremes of BG, Disp: 100 each, Rfl: 11 Insulin Disposable Pump (Omnipod 5 Libre2 G6 Intro G5) kit, 1 Device Once per day. Use as directed for insulin administration. One kit = 30 day supply., Disp: 1 kit, Rfl: 0 Insulin Disposable Pump (Omnipod 5 Libre2 Plus G6 Pods) [facility], 1 Device every 3 (three) days. Wear daily for insulin administration. Apply a new pod every 72 hours as directed.), Disp: 10 each, Rfl: 11 insulin glargine (Lantus) 100 UNIT/ML pen, Inject 34 Units under the skin at bedtime. Increase as directed up to a max of 58 units daily., Disp: 15 mL, Rfl: 2 insulin lispro (HumaLOG KWIKPEN) 100 UNIT/ML injection, Inject 10 Units under the skin with breakfast AND 10 Units with lunch. 10 units prior to lunch., Disp: 15 each, Rfl: 1 insulin pen needle (BD Pen Needle [place] Ultrafine) 32G x 4 mm [facility], Use to inject insulin three times daily, Disp: 100 each, Rfl: 11 lidocaine (Lidoderm) 5 % patch, APPLY 1 PATCH TOPICALLY IN THE MORNING. REMOVE & DISCARD PATCH WITHIN 12 HOURS OR DIRECTED BY MD., Disp: 30 patch, Rfl: 2 lisinopril 10 MG tablet, Take 1 tablet by mouth every day, Disp: 90 tablet, Rfl: 1 metFORMIN XR (Glucophage-XR) 750 MG 24 hr tablet, Take 1 tablet (750 mg) by mouth with breakfast and with evening meal. Do not crush, chew, or split., Disp: 180 tablet, Rfl: 3 Multiple Vitamins-Minerals ([employer]) tablet, Take 1 tablet by mouth Once per day., Disp: , Rfl: naloxone (Narcan) 4 mg/0.1 mL nasal spray, Administer 1 spray (4 mg) into affected nostril(s) if needed for opioid reversal., Disp: 2 each, Rfl: 1 oxyCODONE-acetaminophen (Percocet) 5-325 MG tablet, Take 1 tablet by mouth every 8 (eight) hours ifneeded for severe pain for up to 28 days., Disp: 84 tablet, Rfl: 0 pantoprazole (ProtoNix) 40 MG EC tablet, , Disp: , Rfl: sertraline (Zoloft) 50 MG tablet, TAKE 1 TABLET BY MOUTH EVERY DAY, Disp: 30 tablet, Rfl: 2 tiZANidine (Zanaflex) 4 MG tablet, TAKE 1 TABLET BY MOUTH EVERY 6 TO 8 HOURS NEEDED NOT TO EXCEED 3 DOSES IN 24 HOURS, Disp: 30 tablet, Rfl: 0 documented in this encounter Miscellaneous Notes * Assessment & Plan Note - Andrés Lee MD - 01/11/2025 11:30 AM ESTAssociated Problem(s): Type 2 diabetes mellitus (HCC) Orders: POCT Hgb A1c POCT Glucose POCT Urinalysis Pt's history of Gastric Bypass (2019), and consistent hyperglycemia can predispose to diarrhea. Advised patient to stay well hydrated d/t to both hyperglycemia and diarrhea. Prescribed loperamide for up to 3 days to be taken as ordered. Recommended pt eat Azerbaijani yogurt for gut health. Discussed hyperglycemia. Reinforced benefits of starting CGM and pump therapy, encouraged her to attend her scheduled meeting on 01/26/25 for pump / CGM education. documented in this encounter Plan of Treatment Upcoming Encounters Date Type Department Care Team (Late st Contact Info) Description 01/26/2025 10:00 AM EST Medication Management [facility] [address] [place] [phone] Jhoana Pickering, PharmD [address] [place] [address] 02/02/2025 11:00 AM EST Office Visit [facility] [address] [place] [address] documented as of this encounter Procedures Procedure Name Priority Date/Time Associated Diagnosis Comments CBC WITH AUTO DIFFERENTIAL Routine 01/11/2025 12:21 PM EST Left lower quadrant abdominal pain URINALYSIS, COMPLETE, WITH REFLEX TO CULTURE Routine 01/11/2025 12:09 PM EST Foul smelling urine POCT URINALYSIS DIPSTICK Routine 01/11/2025 12:02 PM EST Type 2 diabetes mellitus with hyperglycemia, with long-term current use of insulin ([facility]) POCT GLUCOSE Routine 01/11/2025 11:54 AM EST Type 2 diabetes mellitus with hyperglycemia, with long-term current use of insulin ([facility]) POCT GLYCATED HEMOGLOBIN, TOTAL Routine 01/11/2025 11:53 AM EST Type 2 diabetes mellitus with hyperglycemia, with long-term current use of insulin ([facility]) documented in this encounter Results * (ABNORMAL) CBC auto differential (01/11/2025 12:21 PM EST) White Blood Count 8.5 4.8 - 10.8 X10*3/uL [facility] Red Blood Count 4.78 4.20 - 5.50 X10*6/uL [facility] Hemoglobin 11.5(L) 12.0 - 16.0 g/dl [facility] Hematocrit 38.3 37.0 - 47.0 % [facility] Mean Corpuscular Volume 80.1 80.0 - 98.0 fL [facility] Mean Corpuscular Hemoglobin 24.1(L) 27.0 - 33.0 pg [facility] Mean Corpuscular HGB Conc 30.0(L) 31.0 - 35.0 g/dl [facility] Red Cell Distribution Width 12.9 11.0 - 16.0 % [facility] Platelet Count 247 160 - 400 X10*3/uL [facility] Mean Platelet Volume 11.9 9.4 - 12.3 fL [facility] Neutrophils Percent Auto 59.7 45 - 73 % [facility] Imm Gran Pct Auto 0.6(H) 0.0 - 0.4 % [facility] Lymphocytes Percent Auto 27.9 20 - 40 % [facility] Monocytes Percent Auto 10.0 2 - 11 % [facility] Eosinophils Percent Auto 1.1 0 - 4 % [facility] Basophils Percent Auto 0.7 0 - 2 % [facility] NRBC Pct Auto 0.0 0.0 - 0.2 /100WBC [facility] Neutrophils Absolute Auto 5.1 2.0 - 8.3 x10*3/uL [facility] Imm Gran Abs Auto 0.05(H) 0.00 - 0.03 X10*3/uL [facility] Lymphocytes Absolute Auto 2.4 1.2 - 4.9 X10*3/uL [facility] Monocytes Absolute Auto 0.9 0.1 - 1.2 X10*3/uL [facility] Eosinophils Absolute Auto 0.1 0.0 - 0.4 X10*3/uL [facility] Basophils Absolute Auto 0.1 0.0 - 0.2 X10*3/uL [facility] NRBC Abs Auto 0.000 0.0 - 0.012 X10*3/uL [facility] Blood Venous blood specimen / Unknown 01/11/2025 12:21 PM EST 01/11/2025 1:26 PM EST Mu Alcocer PLASMA PROCESSOR LAB BLOOD ORDERABLES Final Re sult [facility] [address] [place] [address] [phone] * (ABNORMAL) Urinalysis, Complete, with Reflex to Culture (01/11/2025 12:09 PM EST) Color Urine Dark Yellow [facility] Appearance Urine Cloudy [facility] PH 6.0 5.0 - 9.0 [facility] Glucose Urine UA 100(A) Negative mg/dL [facility] Urine Blood Negative Negative [facility] Specific [place] - Urine >=1.030(H) 1.005 - 1.025 [facility] Urine Protein 30 (1+)(A) Neg-Trace mg/dL [facility] Urine Ketones Negative Negative mg/dL [facility] Nitrite Urine Negative Negative [facility] Leukocyte Esterase Urine Small (1+)(A) Negative [facility] RBC Urine 0-2 0 - 2 /HPF [facility] Urine WBC 21-50(A) 0 - 5 /HPF [facility] Urine Squamous Epithelial Cell 6-10 0 - 2 /HPF [facility] Urine Bacteria None Seen None Seen [facility] Hyaline Casts, Urine 0-2 0 - 2 /LPF [facility] Urine 01/11/2025 12:0 9 PM EST 01/11/2025 6:20 PM EST Narrative [facility] - 01/11/2025 7:00 PM EST Urine, Clean Catch Mu Alcocer [facility] URINE ORDERABLES Final Re sult [facility] [address] [place] [phone] * (ABNORMAL) POCT Urinalysis (01/11/2025 12:02 PM EST) Color, UA Dark [place] Clarity, UA Cloudy Glucose, UA Negative Bilirubin, UA Many Comment:small Ketones, UA Negative Spec Grav, UA 1.030 Blood, UA Positive(A) Negative, None Detected Comment:trace-inta pH, UA 6.0 Protein, UA Trace Comment:100mg/dL Urobilinogen, UA 1.0 Leukocytes, UA Negative Negative, Rare, Trace Nitrite, UA Negative Negative, None Detected Appearance, UA dark yellow QC Media Lot # [id number] Lot# Expiration Date 63,026 Urine (Urine, Random) 01/11/2025 12:02 PM EST Andrés Lee MD POINT OF CARE TEST ENTER/EDIT OR DERABLES Final Result * (ABNORMAL) POCT Glucose (01/11/2025 11:54 AM EST) Glucose Blood, POC 335(A) 60 - 200 mg/dL QC Media Lot # [id number] Lot# Expiration Date 31,126 Blood Capillary blood specimen / Unknown 01/11/2025 11:54 AM EST Andrés Lee MD POINT OF CARE TEST ENTER/EDIT OR DERABLES Final Result * (ABNORMAL) POCT Hgb A1c (01/11/2025 11:53 AM EST) Hemoglobin A1C 11.0(A) 4.0 - 5.7 % QC Media Lot # [id number] Lot# Expiration Date 51,227 Blood 01/11/2025 11:5 3 AM EST Andrés Lee MD POINT OF CARE TEST ENTER/EDIT OR DERABLES Final Result documented in this encounter Visit Diagnoses Diagnosis Left lower quadrant abdominal pain- Primary Diarrhea, unspecified type Type 2 diabetes mellitus with hyperglycemia, with long-term current use of insulin (HCC) Foul smelling urine Low blood pressure reading Nonspecific low blood pressure reading documented in this encounter Additional Health Concerns Assessment Noted Time PHQ-9 Depression Total Score: 11 025 2:48 PM EDT documented as of this encounter Care Teams Government Affairs Manager Relationship Specialty Start Date End Date Name, MD Andrés [address] [place] [address] PCP - General Family Medicine 04/08/15 Jhoana Pickering PharmD [address] [place] [address] Pharmacist Pharmacy 11/03/24 documented as of this encounter
[2025-01-14 17:52] LABS: Appearance Urine Clear; Glucose Urine UA Negative (Negative); PH 5.5 (5.0-9.0); Specific Gravity - Urine >= 1.030 (1.005-1.025); UMIC TRIGGER UACC YES
[2025-01-14 17:58] LABS: UACC Culture Trigger YES
--- OUTSIDE RECORDS SUMMARY | 2025-01-14 18:31 | XMS_ITS | Encounter Summary ---
Author Organization [employer] Address [address] [place] [address] 7 [place] [address] Care Team Providers Care Electrophysiologist Name Role Phone Name, Andrés RODRIGUEZ Primary Care Provider [phone] Jhoana Pickering PharmD Unavailable [phone] Encounter Details Date Type Department Care Team ([facility] st Contact Info) Description 01/11/2025 Results Follow-Up [facility] MEDICINE [address] [place] [address] Mu Alcocer FNP [address] [place] [address] CBC auto differential, POCT Hgb A1c, POCT Glucose, Additional followed-up results: 2 Social History Tobacco Use Types Packs/Day Years [...] encounter Miscellaneous Notes * Telephone Encounter - Xin Guerra RN - 01/12/2025 11:52 AM EST Tc to pt via BLS ID: [email or web address] I sent cefpodoxime instead, please let her know . Pt verbalized understanding and denies any further questions or concerns at this time. Pt is to follow up with PCPprn. * Telephone Encounter - Xin Guerra RN - 01/12/2025 11:25 AM EST Tc to pt via BLS ID: [id number] to let them know per covering provider Please contact pt and let her know that WBC was normal; no indication of infection; antibiotics not indicated. Take imodium as ordered; recommend eating Gambian Yogurt to assist gut biome. Contact PCP if not feeling better in the next week. . Pt reports they received a phone call from their PCP that they have an infection and is at the pharmacy to apple picking supervisor the medication but they can't. Per PCP I called the patient, she has UTI, I sent 14days of Cefixime to her pharmacy . Pt advised we'll call the pharmacy to find out why they're unable to apple picking supervisor their antibiotic. Tc to [facility] who reports a PA is require d for Cefixime. They reports Cefdinir and Cefpodoxime does not require a PA. Message sent to PCP for review. documented in this encounter Plan of Treatment Upcoming Encounters Date Type Department Care Team (Late st Contact Info) Description 01/26/2025 10:00 AM EST Medication Management [facility] MEDICINE [address] [place] [phone] Jhoana Pickering PharmD [address] [place] [address] 02/02/2025 11:00 AM EST Office Visit [facility] [address] [place] [address] documented as of this encounter Visit Diagnoses Not on filedocumented in this encounter Additional Health Concerns Assessment Noted Time PHQ-9 Depression Total Score: 11 025 2:48 PM EDT documented as of this encounter Care Teams Electrophysiologist Relationship Specialty Start Date End Date Name, MD Andrés [address] [place] [phone] PCP - General Family Medicine 04/08/15 Jhoana Pickering PharmD [address] [place] [address] Pharmacist Pharmacy 11/03/24 documented as of this encounter
--- OUTSIDE RECORDS SUMMARY | 2025-01-14 18:31 | XMS_ITS | Encounter Summary ---
Author Organization [employer] Address [address] [place] [address] 7 [place] [address] Care Team Providers Care Tree Pruner Name Role Phone Name, Andrés RODRIGUEZ Primary Care Provider [phone] Jhoana Pickering PharmD Unavailable [phone] Encounter Details Date Type Department Care Team ([facility] st Contact Info) Description 01/11/2025 Orders Only [facility] MEDICINE [address] [place], [place] [phone] Mu Alcocer FNP [address] [place] [address] Social History Tobacco Use Types Packs/Day Years [...] Description 01/26/2025 10:00 AM EST Medication Management [address] [address] Jhoana Pickering, PharmD [address] [place] [address] 02/02/2025 11:00 AM EST Office Visit [address] [address] documented as of this encounter Procedures Procedure Name Priority Date/Time Associated Diagnosis Comments CULTURE, URINE, ROUTINE Routine 01/11/2025 7:01 PM EST documented in this encounter Results * Culture, Urine, Routine (01/11/2025 7:01 PM EST) Urine Urine specimen obtained by clean catch procedure / Unknown 01/11/2025 7:01 PM EST 01/11/2025 7:01 PM EST Comment:[facility] - 01/13/2025 12:22 PM EST Urine Culture Report Result Urine Culture 10,000 to 50,000 cfu/ml Urine Culture Mixed bacterial vimal characteristic of Urine Culture urogenital contamination. Specimen Source: Urine clean catch Mu Alcocer [facility] MICROBIOLOGY - GENERAL OR DERABLES Final Result [facility] [address] [place] [address] [phone] documented in this encounter Visit Diagnoses Not on filedocumented in this encounter Additional Health Concerns Assessment Noted Time PHQ-9 Depression Total Score: 11 025 2:48 PM EDT documented as of this encounter Care Teams Tree Pruner Relationship Specialty Start Date End Date Name, MD Andrés [address] [place] [address] PCP - General Family Medicine 04/08/15 Jhoana Pickering, Bladimir [address] [place] [address] Pharmacist Pharmacy 11/03/24 documented as of this encounter
--- OUTSIDE RECORDS SUMMARY | 2025-01-14 18:31 | XMS_ITS | Encounter Summary ---
Author Organization [employer] Address [address] [facility] [address] [place] [address] Care Team Providers Care Roll Tube Setter Name Role Phone Name, Andrés RODRIGUEZ Primary Care Provider [phone] Jhoana Pickering PharmD Unavailable [phone] Encounter Details Date Type Department Care [...] 01/26/2025 10:00 AM EST Medication Management [address] [address] Jhoana Pickering PharmD [address] [place] [address] 02/02/2025 11:00 AM EST Office Visit [address] [address] documented as of this encounter Visit Diagnoses Not on filedocumented in this encounter Additional Health Concerns Assessment Noted Time PHQ-9 Depression Total Score: 11 025 2:48 PM EDT documented as of this encounter Care Teams Roll Tube Setter Relationship Specialty Start Date End Date Name, MD Andrés [address] [place] [address] PCP - General Family Medicine 04/08/15 Jhoana Pickering, PharmD [address] [place] [address] Pharmacist Pharmacy 11/03/24 documented as of this encounter
--- OUTSIDE RECORDS SUMMARY | 2025-01-14 18:31 | XMS_ITS | Encounter Summary ---
Author Organization [employer] Address [address] [facility] [address] [place] [address] Care Team Providers Care Drying Can Worker Name Role Phone Name, Andrés RODRIGUEZ Primary Care Provider [phone] Jhoana Pickering PharmD Unavailable [phone] Reason for Visit * Reason Onset Date Comments Nurse Triage 01/11/2025 Encounter Details Date Type Department Care Team ([facility] st Contact Info) Description 01/11/2025 Telephone [facility] MEDICINE [address] [place], [place] [phone] Name, MD Andrés [address] [place], [place] [phone] Nurse Triage Social History Tobacco Use Types [...] EST T/C returned to pt utilizing BLS #[id number] to triage. Pt reports 9/10 abdominal pain [...] caller accepted this outcome. Contact pt at [phone] documented in this encounter Plan of Treatment Upcoming Encounters Date Type Department Care Team ([facility] st Contact Info) Description 01/26/2025 10:00 AM EST Medication Management [facility] MEDICINE [address] [place] [address] Jhoana Pickering PharmD [address] [place] [address] 02/02/2025 11:00 AM EST Office Visit [facility] MEDICINE [address] [place] [address] documented as of this encounter Visit Diagnoses Not on filedocumented in this encounter Additional Health Concerns Assessment Noted Time PHQ-9 Depression Total Score: 11 025 2:48 PM EDT documented as of this encounter Care Teams Drying Can Worker Relationship Specialty Start Date End Date Name, MD Andrés [address] [place] [address] PCP - General Family Medicine 04/08/15 Jhoana Pickering PharmD [address] [place] [address] Pharmacist Pharmacy 11/03/24 documented as of this encounter
--- OUTSIDE RECORDS SUMMARY | 2025-01-14 18:32 | XMS_ITS | Encounter Summary ---
Author Organization [employer] Address [address] [facility] [address] [place] [address] Care Team Providers Care Graphite Mill Operator Name Role Phone Name, Andrés RODRIGUEZ Primary Care Provider Jhoana Pickering PharmD Unavailable [phone] Reason for Visit * Reason Onset Date Comments Med Refill 09/24/2023 Encounter Details Date Type Department Care Team ([facility] st Contact Info) Description 09/24/2023 Telephone [facility] MEDICINE [address] [place], [place] [phone] Name, MD Andrés [address] [place] [address] Med Refill Social History Tobacco Use Types [...] MG EC tablet To be sent to: [facility] [address] [facility] documented in this encounter Plan of Treatment Upcoming Encounters Date Type Department Care Team (Late st Contact Info) Description 01/26/2025 10:00 AM EST Medication Management [facility] MEDICINE [address] [place] [address] Jhoana Pickering, PharmD [address] [place] [address] 02/02/2025 11:00 AM EST Office Visit [facility] MED[facility]INE [address] [place] [address] documented as of this encounter Visit Diagnoses Not on filedocumented in this encounter Additional Health Concerns Assessment Noted Time PHQ-9 Depression Total Score: 0 08/07/19 24 2:21 PM EDT documented as of this encounter Care Teams Graphite Mill Operator Relationship Specialty Start Date End Date Name, MD Andrés [address] [place] [address] PCP - General Family Medicine 04/08/15 Jhoana Pickering, Bladimir [address] [place] [address] Pharmacist Pharmacy 11/03/24 documented as of this encounter
--- OUTSIDE RECORDS SUMMARY | 2025-01-14 18:32 | XMS_ITS | Encounter Summary ---
Author Organization [employer] Address [address] [facility] [address] [place] [address] Care Team Providers Care Groundhand Name Role Phone Name, Andrés RODRIGUEZ Primary Care Provider [phone] Jhoana Pickering PharmD Unavailable [phone] Reason for Visit * Reason Onset Date Comments Med Refill 05/21/2023 Encounter Details Date Type Department Care Team ([facility] st Contact Info) Description 05/21/2023 Telephone [facility] MEDICINE [address] [place], [place] [phone] Name, MD Andrés [address] [place] [address] Med Refill Social History Tobacco Use Types [...] 5-325 MG tablet To be sent to: [facility] - [place], [place] - [address] [place] [address] documented in this encounter Plan of Treatment Upcoming Encounters Date Type Department Care Team (Late st Contact Info) Description 01/26/2025 10:00 AM EST Medication Management [facility] MEDICINE [address] [place] [address] Jhoana Pickering PharmD [address] [place] [address] 02/02/2025 11:00 AM EST Office Visit [facility] MEDICINE [address] [place] [address] documented as of this encounter Visit Diagnoses Not on filedocumented in this encounter Additional Health Concerns Assessment Noted Time PHQ-9 Depression Total Score: 0 02/21/20 22 3:25 PM EST documented as of this encounter Care Teams Groundhand Relationship Specialty Start Date End Date Name, MD Andrés [address] [place] [address] PCP - General Family Medicine 04/08/15 Jhoana Pickering PharmD [address] [place] [address] Pharmacist Pharmacy 11/03/24 documented as of this encounter
--- OUTSIDE RECORDS SUMMARY | 2025-01-14 18:32 | XMS_ITS | Clinical Summary ---
Author Organization [employer] Address [address] [facility] [address] [place] [address] Care Team Providers Care Study Specialist Name Role Phone Name, Andrés RODRIGUEZ Primary Care Provider [phone] Jhoana Pickering PharmD Unavailable [phone] Allergies No known active allergies Medications [...] patch 2 06/13/19 25 Active Continuous Glucose Switch Box Installer (FreeStyle Kobe 3 Spurgeon) device 1 each Once per day. Use [...] hyperglycemia, with long-term current use of insulin ([facility]) Take 1 tablet (81 mg) by mouth Once per day. 90 tablet 3 11/21/19 25 026 Active insulin glargine (Lantus) 100 UNIT/ML penIndications: Type 2 diabetes mellitus with hyperglycemia, with long-term current use of insulin ([facility]) Inject 34 Units under the skin at bedtime. Increase as directed up to a max of 58 units daily. 15 mL 2 11/21/19 25 Active metFORMIN XR (Glucophage-XR) 750 MG 24 hr tabletIndicatio ns:Type 2 diabetes mellitus without complication, without long-term current use of insulin ([facility]) Take 1 tablet (750 mg) by mouth with breakfast and with evening meal. Do not crush, chew, or split. 180 tablet 3 12/03/19 25 026 Active insulin lispro (HumaLOG KWIKPEN) 100 UNIT/ML injectionIndica tions:Type 2 diabetes mellitus with hyperglycemia, with long-term current use of insulin ([facility]) Inject 10 Units under the skin with [...] hyperglycemia, with long-term current use of insulin ([facility]) Use to inject insulin three times daily [...] DOSES IN 24 HOURS 30 tablet 12/31/19 Active oxyCODONE-aceta minophen (Percocet) 5-325 MG tabletIndicatio [...] days. 24 tablet 01/12/20 25 025 Active cefpodoxime (Vantin) 200 MG tablet Take 1 tablet (200 mg) by mouth 2 times daily for 14 days. 28 tablet 01/13/20 25 025 Active insulin pen needle (BD [...] 1 09/09/19 25 025 Discontinued(S kaiser effects) oxyCODONE-aceta minophen (Percocet) 5-325 MG tabletIndicatio ns:Chronic [...] to lunch 1 each 1 12/03/19 25 10/10/2 025 Discontinued(R eorder (will not trigger notification [...] eorder (will not trigger notification to Pharmacy)) cefixime (Suprax) capsule Take 1 capsule (400 mg) by mouth Once per day for 14 days. 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 See aeronautical engineer. Assessment & Plan (11/03/2024 1:53 PM EDT): [...] be taken as ordered. Recommended pt eat Turkish yogurt for gut health. Discussed hyperglycemia. Reinforced [...] as expected, pill count 5 short. See aeronautical engineer. Assessment & Plan (11/03/2024 1:52 PM EDT): [...] 6 Severe obesity (BMI 35.0-39.9) with comorbidity ([facility]/HCC) 04/08/2015 Plantar fasciitis 09/26/2010 Hypercholesterolemia 02/06/2010 Hypertension 11/18/2009 Recurrent urinary tract infection 01/28/2009 Encounters * This document contains information received from the source organization and may not represent a complete record from that organization. Date Type Department Care Team Description 01/13/2025 Results Follow-Up [address] [address] Mu Alcocer FNP Culture, Urine, Routine 01/11/2025 11:30 AM EST Office Visit [address] [address] Andrés eLe MD Left lower quadrant abdominal pain (Primary Dx); Diarrhea, unspecified type; Type 2 diabetes mellitus with hyperglycemia, with long-term current use of insulin ([facility]); Foul smelling urine; Low blood pressure reading 01/11/2025 Orders Only [address] [address] Mu Alcocer FNP 01/11/2025 Results Follow-Up [address] [address] Mu Alcocer FNP CBC auto differential, POCT Hgb A1c, POCT Glucose, Additional followed-up results: 2 01/11/2025 Travel 01/11/[address] [address] Andrés Lee MD Nurse Triage 01/05/2025 1:00 PM EDT Office Visit [facility] [address] [place] [address] Ovi, Sonali, OD Presbyopia (Primary Dx) 01/05/2025 11:00 AM EDT Office Visit [facility] [address] [place] [address] Phalen, Lala, FIRE OFFICER Cervical radiculopathy due to degenerative joint disease of spine (Primary Dx); [facility] (current) use of opiate analgesic 01/05/2025 Telephone [facility] [address] [place] [address] Mone Parkinson, RN GOVERNMENT OPERATIONS CONSULTANT AGreement renewed today; Percocet count discrepancy 01/05/2025 Travel 12/31/2024 Refill [facility] [address] [place] [address] Andrés Lee MD Type 2 diabetes mellitus without complication, without long-term current use of insulin ([facility]) 12/30/2024 Refill [facility] [address] [place] [address] Andrés Lee MD Type 2 diabetes mellitus without complication, without long-term current use of insulin (HCC) 12/30/2024 Refill [facility] [address] [place] [address] Andrés Lee MD Chronic neck pain 12/18/2024 Telephone [facility] [address] [place] [phone] Jhoana Pickering PharmD Prior Authorization (Omnipod 5 & Kobe 2 plus sensors) 12/18/2024 Travel 12/14/2024 Refill [facility] [address] [place] [address] Andrés Lee MD Type 2 diabetes mellitus without complication, without long-term current use of insulin (HCC) 12/02/2024 2:30 PM EDT Office Visit [facility] [address] [place] [address] Andrés Lee MD Type 2 diabetes mellitus without complication, without long-term current use of insulin ([facility]) (Primary Dx); Encounter for immunization; Trigger finger of all digits of right hand 12/02/2024 Travel 11/30/2024 Refill [facility] [address] [place] [address] Andrés Lee MD Chronic neck pain 11/25/2024 9:00 AM EDT Office Visit [facility] [address] [place] [address] Ovi, Sonali, OD Diabetes type 2, no ocular involvement (CMS/HCC) (Primary Dx); Combined forms of age-related cataract of both eyes; Meibomian gland disease of both eyes, unspecified eyelid; Presbyopia 11/25/2024 Travel 11/20/2024 Refill [facility] [address] [place] [address] NameAndrés MD Type 2 diabetes mellitus without complication, without long-term current use of insulin (CMS/HCC) 11/20/2024 Travel 11/16/2024 Telephone [facility] [address] [place] [address] Andrés Lee MD Med Refill 11/13/2024 Refill [facility] [address] [place] [address] NameAndrés MD 11/03/2024 11:00 AM EDT Office Visit [facility] [address] [place], [place] [phone] Lala Mercado FNP Cervical radiculopathy due to degenerative joint disease of spine (Primary Dx); [facility] (current) use of opiate analgesic 11/03/2024 Refill [facility] [address] [place], [place] [phone] Heena Johnston RN Chronic neck pain 11/03/2024 Travel 10/23/2024 Refill [facility] [address] [place] [address] NameAndrés MD Type 2 diabetes mellitus without complication, without long-term current use of insulin ([facility]); Depressive disorder from Last 3 Months Immunizations [...] Description 01/26/2025 10:00 AM EST Medication Management [facility] [address] [place] [address] Jhoana Pickering, PharmD [address] [place] [address] 02/02/2025 11:00 AM EST Office Visit [facility] [address] [place] [address] Health Maintenance Due Date Last Done Comments [...] Procedure Name Priority Date/Time Associated Diagnosis Comments URINALYSIS, COMPLETE, WITH REFLEX TO CULTURE Routine 01/14/2025 4:02 PM EST Foul smelling urine CULTURE, URINE, ROUTINE Routine 01/11/2025 7:01 PM EST CBC WITH AUTO DIFFERENTIAL Routine 01/11/2025 12:21 [...] DRUG SCREEN Routine 01/05/2025 11:40 AM EDT 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 XR HAND 3+ VIEWS RIGHT Routine 3:43 PM EDT Trigger finger of all digits of right hand POCT GLUCOSE Routine 12/02/2024 2:37 PM EDT Type 2 diabetes mellitus without complication, without long-term current use of insulin ([facility]/HCC) POCT GLYCATED HEMOGLOBIN, TOTAL Routine 11/20/2024 12:40 PM EDT Type 2 diabetes mellitus with hyperglycemia, with long-term current use of insulin (CMS/HCC) POCT MERLENE-14 URINE DRUG SCREEN Routine 11/03/2024 11:22 AM EDT 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 Color Urine Yellow [facility] Appearance Urine Clear [facility] PH 5.5 5.0 - 9.0 [facility] Glucose Urine UA Negative Negative mg/dL [facility] Urine Blood Negative Negative [facility] Specific [place] - Urine >=1.030(H) 1.005 - 1.025 [facility] Urine Protein Trace Neg-Trace mg/dL [facility] Urine Ketones Negative Negative mg/dL [facility] Nitrite Urine Negative Negative [facility] Leukocyte Esterase Urine Trace(A) Negative [facility] RBC Urine 0-2 0 - 2 /HPF [facility] Urine WBC 6-10(A) 0 - 5 /HPF [facility] Urine Squamous Epithelial Cell 0-2 0 - 2 /HPF [facility] Urine Bacteria None Seen None Seen [facility] Hyaline Casts, Urine 0-2 0 - 2 /LPF [facility] Urine 01/14/2025 4:02 PM EST 01/14/2025 5:46 PM EST Narrative [facility] - 01/14/2025 5:58 PM EST Urine, Clean Catch Mu Alcocer [facility] URINE ORDERABLES Final Re sult Performing Organization Address City/[facility]/ZIP Co de Phone Number [facility] [address] [place] [phone] * Culture, Urine, Routine (01/11/2025 7:01 PM EST) Urine Urine specimen obtained by clean catch procedure / Unknown 01/11/2025 7:01 PM EST 01/11/2025 7:01 PM EST Comment:[facility] Narrative [facility] - 01/13/2025 12:22 PM EST Urine Culture Report Result Urine Culture 10,000 to 50,000 cfu/ml Urine Culture Mixed bacterial vimal characteristic of Urine Culture urogenital contamination. Specimen Source: Urine clean catch Mu Alcocer [facility] MICROBIOLOGY - GENERAL OR DERABLES Final Result Performing Organization Address [facility] Co de Phone Number [facility] [address] [place] [phone] * (ABNORMAL) CBC auto differential (01/11/2025 12:21 PM EST) White Blood Count 8.5 4.8 - 10.8 X10*3/uL [facility] Red Blood Count 4.78 4.20 - 5.50 X10*6/uL [facility] Hemoglobin 11.5(L) 12.0 - 16.0 g/dl [facility] Hematocrit 38.3 37.0 - 47.0 % [facility] Mean Corpuscular Volume 80.1 80.0 - 98.0 fL [facility] Mean Corpuscular Hemoglobin 24.1(L) 27.0 - 33.0 pg [facility] Mean Corpuscular HGB Conc 30.0(L) 31.0 - 35.0 g/dl [facility] Red Cell Distribution Width 12.9 11.0 - 16.0 % [facility] Platelet Count 247 160 - 400 X10*3/uL [facility] Mean Platelet Volume 11.9 9.4 - 12.3 fL [facility] Neutrophils Percent Auto 59.7 45 - 73 % [facility] Imm Gran Pct Auto 0.6(H) 0.0 - 0.4 % [facility] Lymphocytes Percent Auto 27.9 20 - 40 % [facility] Monocytes Percent Auto 10.0 2 - 11 % [facility] Eosinophils Percent Auto 1.1 0 - 4 % [facility] Basophils Percent Auto 0.7 0 - 2 % [facility] NRBC Pct Auto 0.0 0.0 - 0.2 /100WBC [facility] Neutrophils Absolute Auto 5.1 2.0 - 8.3 x10*3/uL [facility] Imm Gran Abs Auto 0.05(H) 0.00 - 0.03 X10*3/uL [facility] Lymphocytes Absolute Auto 2.4 1.2 - 4.9 X10*3/uL [facility] Monocytes Absolute Auto 0.9 0.1 - 1.2 X10*3/uL [facility] Eosinophils Absolute Auto 0.1 0.0 - 0.4 X10*3/uL [facility] Basophils Absolute Auto 0.1 0.0 - 0.2 X10*3/uL [facility] NRBC Abs Auto 0.000 0.0 - 0.012 X10*3/uL [facility] Blood Venous blood specimen / Unknown 01/11/2025 12:21 PM EST 01/11/2025 1:26 PM EST Mu Alcocer FIRE OFFICER LAB BLOOD ORDERABLES Final Re sult [facility] [address] [place] [phone] [phone] * (ABNORMAL) POCT Urinalysis (01/11/2025 12:02 [...] PM EDT Narrative 01/09/2025 6:37 PM EDT [facility] [address] [place], [place] [address] Mammography Report Signed Patient: Rafi Ceja MR#: [id number] : 1965 Acct:[id number] Age/Sex: 59 / F ADM Date: 01/06/25 Loc: HO.MAMMO Attending Dr: Andrés Lee MD Ordering Physician: Andrés Lee MD Results: 1Negative Date of Service: 01/06/25 Follow Up: 1 Year From Orig inal Mammogram Procedure(s): MM tomosynthesis screening BI Accession Number(s): [id number] cc: Name,Andrés RODRIGUEZ Reason For Exam: SCREENING EXAMINATION: MM SCREENING [...] 01/09/25 1835 DD/ 1550 TD/TT: 01/06/25 1610 Golf Teacher: Procedure Note Donotuseinterpreter, Image - [facility] [address] [place] [address] Mammography Report Signed Patient: [place] Ceja#: [id number] : 1965Acct:[id number] Age/Sex: 59 / FADM Date: 01/06/25 Loc: HO.MAMMO Attending Dr: Andrés Lee MD Ordering Physician: Andrés Leeults: 1Negative Date of Service: 01/06/25Follow Up: 1 Year From Orig inal Mammogram Procedure(s): MM tomosynthesis screening BI Accession Number(s): [id number] cc: Rosa,Andrés RODRIGUEZ Reason For Exam: SCREENING EXAMINATION: MM SCREENING [...] 01/09/25 1835 DD/ 1550 TD/TT: 01/06/25 1610 Golf Teacher: Andrés Lee MD [facility] BI PROCEDURES Edited Result - Final * [...] Negative ng/mL Oxycodone Screen, Urine Positive(A) Negative Comment:GOVERNMENT OPERATIONS CONSULTANT pt on oxycodone Phencyclidine (PCP), Urine Negative Negative Propoxyphene, Urine Negative Negative Fentanyl, Urine Negative Negative Urine Urine specimen obtained by clean catch procedure / Unknown 01/05/2025 11:40 AM EDT Narrative Mone Parkinson, RN - 01/05/2025 11:40 AM EDT UTOX cup Lot#[id number] Exp. 12/15/25 Internal Pass Control Lala Mercado FIRE OFFICER POINT OF CARE TEST ENTER/EDIT ORDERABLES Final Result * XR Hand 3+ Views Right (12/02/2024 3:43 PM EDT) Anatomical Region Laterality Modality Upper Extremities, Hand Right Radiogra phic Imaging 12/02/2024 3:43 PM EDT Narrative 12/02/2024 4:09 [place] [address] XRay Report Signed Patient: Rafi Ceja MR#: [id number] : 1965 Acct:[id number] Age/Sex: 59 / F ADM Date: 12/02/24 Loc: HO.HHCX Attending Dr: Andrés Lee MD Ordering Physician: Andrés Lee MD Date of Service: 12/02/24 Procedure(s): XR hand RT min 3V Accession Number(s): [id number] cc: Andrés Lee MD Reason for Exam: [...] 12/02/24 1606 DD/ 1543 TD/TT: 12/02/24 1559 Golf Teacher: Procedure Note Stoney, Gwen - 12/02/[address] [address] XRay Report Signed Patient: Rafi Ceja#: [id number] : 1965Acct:[id number] Age/Sex: 59 / FADM Date: 12/02/24 Loc: HO.HHCX Attending Dr: Andrés Lee MD Ordering Physician: Andrés Lee MD Date of Service: 12/02/24 Procedure(s): XR hand RT min 3V Accession Number(s): [id number] cc: Andrés Lee MD Reason for Exam: [...] 12/02/24 1606 DD/ 1543 TD/TT: 12/02/24 1559 Golf Teacher: us Andrés Lee MD IMG XR PROCEDURES Final Result * Drug Monitoring, Methadone Metabolite, Screen, Urine (11/03/2024 11:00 AM EDT) Methadone Screen, Urine Not Detected Not Detect ng/mL [facility] Comment:Methadone cut-off is 300 ng/mL.Positive results are unconfirmed and should not be used fornon-medical purposes. Urine (Urine, Random) 11/03/2024 11:00 AM EDT 11/03/2024 1:25 PM EDT us Andrés Lee MD LAB URINE ORDERABLES Final Resul t Performing Organization Address [facility] Co de Phone Number [facility] [address] [place] [phone] * Albumin, Random Urine W/Creatinine (05/19/2024 9:10 AM EDT) Creatinine, Urine 188.03 mg/dL [facility] Microalbumin Urine 32.0 mg/L [facility] Microalbum Creatinine Ratio Ur 17.0 <30 ug/mg cr [facility] Comment:Albumin/Creatinine R atio Reference Ranges: Normal: < 30 ug/mg creatinine Microalbuminuria: 30 - 300 ug/mg creatinineClinical Albuminuria: > 300 ug/mg creatinine Urine (Urine, Random) 05/19/2024 9:10 AM EDT 05/19/2024 11:34 AM EDT us Andrés Lee MD LAB URINE ORDERABLES Final Resul t Performing Organization Address [facility] Co de Phone Number [facility] [address] [place] [address] [phone] * (ABNORMAL) Lipid Panel, Standard (05/19/2024 9:10 AM EDT) Triglycerides 129 <150 mg/dL [facility] Comment:Desirable Triglyceri de: less than 150 mg/dLBorderline High Triglyceride 150-199 mg/dLHigh Triglyceride: 200-499 mg/dLVery High Triglyceride: greater than or equal to 5OO mg/dL Cholesterol 122 <200 mg/dL [facility] Comment:Desirable Cholestero l: less than 200 mg/dLBorderline High Cholesterol: 200-239 mg/dLHigh Cholesterol: greater than 239 mg/dL LDL Cholesterol Calculated 60 <100 mg/dL [facility] Comment:Desirable LDL: less than 100 mg/dLNear Optimal/Above Optimal LDL: 110- 129 mg/dLBorderline High LDL: 130-159 mg/dLHigh LDL: 160-189 mg/dLVery High LDL: greater than or equal to 190 mg/dL HDL Cholesterol 37(L) >40 mg/dL [facility] Comment:Desirable HDL: great er than 40 mg/dL Note: This HDL assay may give artificially low results in patients with liver disease. Blood Venous blood specimen / Unknown 05/19/2024 9:10 AM EDT 05/19/2024 11:29 AM EDT us Andrés Lee MD LAB BLOOD ORDERABLES Final Resul t [facility] [address] [place] [phone] * (ABNORMAL) Hm Colonoscopy (02/20/2024 9:55 AM EST) Colonoscopy Abnormal(A ) Normal 02/20/2024 9:55 AM EST us Andrés Lee MD HEALTH MAINTENANCE Final Result * Referral to Ophthalmology (11/20/2023) us Andrés Lee MD OUTPATIENT REFERRAL ORDERABLES F inal Result * Hepatitis C Ab (04/17/2023 9:41 AM EST) Hepatitis C Antibody Nonreactive Nonreactive [facility] Comment:Antibodies to HCV no t detected; does not exclude early acuteHCV infection. Blood Venous blood specimen / Unknown 04/17/2023 9:41 AM EST 04/17/2023 11:46 AM EST us Andrés Lee MD LAB BLOOD ORDERABLES Final Resul t Performing Organization Address [facility]/ZIP Co de Phone Number [facility] [address] [place] [phone] * HPV mRNA E6/E7 w/Reflex to HPV Genotypes 16, 18/45 (11/19/2022 10:39 AM EDT) HPV nRNA E6/E7 Not Detected Not Detected [facility] Comment:Methodology: Transcr iption-Mediated AmplificationThis assay detects E6/E7 viral messenger RNA (mRNA) from 14high-risk HPV types (16,18,31,33,35,39,45,51,52,56,58,59,66,68).Cervical sources are required for HPV testing.If a vaginal source from a patient who has had atotal hysterectomy with removal of cervix wassubmitted, please contact the testing laboratoryfor alternative testing options.For additional information, please refer [email or web address].[employer]/faq/VAU686q7(This link if provided for information/educational purposes only.)THIS TEST WAS PERFORMED AT:[facility] [place] [phone] ANDREWS MD HPV mRNA E6/E7 [facility] HPV 16 RNA [facility] HPV 18/45 RNA [facility] 11/19/2022 10:3 9 AM EDT 11/20/2022 8:40 AM EDT us Karthik Rob CNM LAB CYTOLOGY ORDERABLES F inal Result Performing Organization Address City/[facility]/ZIP Co de Phone Number [facility] [address] [place] [phone] [phone] * Pap Smear (11/19/2022 10:39 AM EDT) 11/19/2022 10:3 9 AM EDT 11/20/2022 8:40 AM EDT [facility] - 12/02/2022 5:22 PM EDT ----- ------- Name: Rafi Ceja Age/Sex: 57/F : 1965 Unit#: [id number] Attend Dr: AKRTHIK ROB CNM Re11/19/22 Status: [facility]: ----- ------- SPEC : [id number] RECD: 11/20/22 STATUS: MARIO GIN NUM: [id number] DANISHA: 11/19/22-[address] [facility] [address]: KARTHIK ROB CNM ENTERED: 11/20/22-1403 SP TYPE: Pap Smr [facility] DR: ORDERED: Pap Smear Interpretation Satisfactory for evaluation. Negative for intraepithelial lesion or malignancy. HPV mRNA E6/E7: NOT DETECTED This assay detects E6/E7 viral messenger RNA (mRNA) from 14 high-risk HPV types (16, 18, 31, 33, 35, 39, 45, 51, 52, 56, 58, 59, 66, 68) HPV testing performed by [employer], [place], [place]. See reference laboratory portion of the EMR for entire report. Clinical Information LMP: Unknown date Previous PAP test: Material Received ThinPrep-Vaginal/Cervical ----- ------- Signed (signature on file) Rzaia Higgins 12/02/22 1722 ----- ------- END OF REPORT Karthik Rob [facility] CYTOLOGY ORDERABLES F inal Result [facility] [address] [place] [address] [phone] from Last 3 Months or Most Recently Relevant to Health Maintenance Insurance Care Teams Study Specialist Relationship Specialty Start Date End Date Name, MD Andrés [address] [place] [phone] PCP - General Family Medicine 04/08/15 Jhoana Pickering, ThomasD [address] [place] [phone] Pharmacist Pharmacy 11/03/24
--- OUTSIDE RECORDS SUMMARY | 2025-01-14 18:32 | XMS_ITS | Encounter Summary ---
Author Organization [employer] Address [address] [facility] [address] [place] [address] Care Team Providers Care Excavating Contractor Name Role Phone Name, Andrés RODRIGUEZ Primary Care Provider [phone] Jhoana Pickering PharmD Unavailable [phone] Reason for Visit * Reason Comments Med Refill Encounter Details Date Type Department Care Team ([facility] st Contact Info) Description 01/07/2024 Refill [facility] [address] [place], [place] [phone] Name, MD Andrés [address] [place] [address] Social History Tobacco Use Types Packs/Day Years [...] 01/26/2025 10:00 AM EST Medication Management [address] [address] Jhoana Pickering PharmD [address] [place] [phone] 02/02/2025 11:00 AM EST Office Visit [address] [address] documented as of this encounter Visit Diagnoses Not on filedocumented in this encounter Additional Health Concerns Assessment Noted Time PHQ-9 Depression Total Score: 0 08/07/19 24 2:21 PM EDT documented as of this encounter Care Teams Excavating Contractor Relationship Specialty Start Date End Date Name, MD Andrés [address] [place] [phone] PCP - General Family Medicine 04/08/15 Jhoana Pickering PharmD [address] [place] [phone] Pharmacist Pharmacy 11/03/24 documented as of this encounter
--- OUTSIDE RECORDS SUMMARY | 2025-01-14 18:32 | XMS_ITS | Encounter Summary ---
Author Organization [employer] Address 75 [facility] [address] [place] [address] Care Team Providers Care Armored Machine Operator Name Role Phone Name, Andrés RODRIGUEZ Primary Care Provider [phone] Jhoana Pickering PharmD Unavailable [phone] Reason for Visit * Reason Comments Med Refill Encounter Details Date Type Department Care Team ([facility] Contact Info) Description 08/28/2022 Refill [facility] [address] [place] [address] [phone] Name, MD Andrés [address] [place] [address] Cervical radicular pain Social History Tobacco Use [...] Date Type Department Care Team ([facility] Contact Info) Description 01/26/2025 10:00 AM EST Medication Management [facility] [address] [place] [address] Jhoana Pickering PharmD 230 [place] [address] 02/02/2025 11:00 AM EST Office Visit [address] [address] documented as of this encounter Visit Diagnoses Diagnosis Cervical radicular pain documented in this encounter Additional Health Concerns Assessment Noted Time PHQ-9 Depression Total Score: 0 02/21/20 22 3:25 PM EST documented as of this encounter Care Teams Armored Machine Operator Relationship Specialty Start Date End Date Name, MD Andrés [address] [place] [address] PCP - General Family Medicine 04/08/15 Jhoana Pickering PharmD [address] [place] [address] Pharmacist Pharmacy 11/03/24 documented as of this encounter
--- OUTSIDE RECORDS SUMMARY | 2025-01-14 18:32 | XMS_ITS | Encounter Summary ---
Author Organization [employer] Address 75 [facility] 7 [place] [address] Care Team Providers Care Linotype Machinist Apprentice Name Role Phone Name, Andrés RODRIGUEZ Primary Care Provider [phone] Jhoana Pickering PharmD Unavailable [phone] Reason for Visit * Reason Onset Date Comments Appointment Request 03/23/2022 Encounter Details Date Type Department Care Team ([facility] Contact Info) Description 03/23/2022 Telephone [facility] 230 [place], [place] [phone] Name, MD Andrés 230 [place] [address] Appointment Request Social History Tobacco Use Types [...] at 9:45 am Please contact pt at [phone] documented in this encounter Plan of Treatment Upcoming Encounters Date Type Department Care Team ([facility] st Contact Info) Description 01/26/2025 10:00 AM EST Medication Management [facility] [address] [place] [address] Jhoana Pickering PharmD [address] [place] [address] 02/02/2025 11:00 AM EST Office Visit [facility] [address] [place] [address] documented as of this encounter Visit Diagnoses Not on filedocumented in this encounter Additional Health Concerns Assessment Noted Time PHQ-9 Depression Total Score: 0 02/21/20 22 3:25 PM EST documented as of this encounter Care Teams Linotype Machinist Apprentice Relationship Specialty Start Date End Date Name, MD Andrés [address] [place] [address]681 PCP - General Family Medicine 04/08/15 Jhoana Pickering PharmD [address] [place] [address] Pharmacist Pharmacy 11/03/24 documented as of this encounter
--- OUTSIDE RECORDS SUMMARY | 2025-01-14 18:32 | XMS_ITS | Encounter Summary ---
Author Organization [employer] Address 75 [facility] [address] [place] [address] Care Team Providers Care Electric Deicer Inspector Name Role Phone Name, Andrés RODRIGUEZ Primary Care Provider Jhoana Pickering PharmD Unavailable [phone] Reason for Visit * Reason Onset Date Comments Medication Question 02/12/2023 Encounter Details Date Type Department Care Team ([facility] st Contact Info) Description 02/12/2023 Telephone [facility] [address] [place], [place] [phone] Name, MD Andrés 230 [place], [place] [phone] Medication Question Social History Tobacco Use Types [...] requesting status on lidocaine patch 5% however repairer typewriter does not see anything on chart regarding that matter. documented in this encounter Plan of Treatment Upcoming Encounters Date Type Department Care Team (Late st Contact Info) Description 01/26/2025 10:00 AM EST Medication Management [facility] [address] [place] [address] Jhoana Pickering, PharmD 230 [place], [place] [phone] 02/02/2025 11:00 AM EST Office Visit [facility] [address] [place] [address] documented as of this encounter Visit Diagnoses Not on filedocumented in this encounter Additional Health Concerns Assessment Noted Time PHQ-9 Depression Total Score: 0 02/21/20 22 3:25 PM EST documented as of this encounter Care Teams Electric Deicer Inspector Relationship Specialty Start Date End Date Name, MD Andrés 230 [place] [address] PCP - General Family Medicine 04/08/15 Jhoana Pickering PharmD 230 [place] [address] Pharmacist Pharmacy 11/03/24 documented as of this encounter
--- OUTSIDE RECORDS SUMMARY | 2025-01-14 18:32 | XMS_ITS | Encounter Summary ---
Author Organization [employer] Address 75 [facility] [address] [address] Care Team Providers Care Crop Production Advisor Name Role Phone Name, Andrés RODRIGUEZ Primary Care Provider [phone] Jhoana Pickering PharmD Unavailable [phone] Reason for Visit * Reason Onset Date Comments PA 05/14/2024 Encounter Details Date Type Department Care Team ([facility] st Contact Info) Description 05/14/2024 Telephone [facility] 230 [place] [address] Name, MD Andrés 230 [place], [place] [phone] PA Social History Tobacco Use Types Packs/Day [...] me about the Lyrica and I called [place] [facility]. They said no need for a PA, and that they would have it filled on 05/19/24 for her to vegetable picker. I advised Ms. Ceja to let us know if she has any further difficulty picking up the med. Sending as FYI to PA team as no further action required at this time. * Telephone Encounter - Dale Khan - 05/14/2024 11:22 AM EST TC from pt requesting Pa for Medication pregabalin (Lyrica) 50 MG capsule. Contact pt at [phone] documented in this encounter Plan of Treatment Upcoming Encounters Date Type Department Care Team ([facility] st Contact Info) Description 01/26/2025 10:00 AM EST Medication Management [address] [phone] Jhoana Pickering PharmD [address] [place] [address] 02/02/2025 11:00 AM EST Office Visit [facility] [address] [place] [address] documented as of this encounter Visit Diagnoses Not on filedocumented in this encounter Additional Health Concerns Assessment Noted Time PHQ-9 Depression Total Score: 0 08/07/19 24 2:21 PM EDT documented as of this encounter Care Teams Crop Production Advisor Relationship Specialty Start Date End Date Name, MD Andrés [address] [place] [address] PCP - General Family Medicine 04/08/15 Jhoana Pickering PharmD [address] [place] [address] Pharmacist Pharmacy 11/03/24 documented as of this encounter
--- OUTSIDE RECORDS SUMMARY | 2025-01-14 18:32 | XMS_ITS | Encounter Summary ---
Author Organization [employer] Address 75 [facility] [address] [address] Care Team Providers Care Clerical Support Specialist Name Role Phone Name, Andrés RODRIGUEZ Primary Care Provider [phone] Jhoana Pickering PharmD Unavailable [phone] Reason for Visit * Reason Comments Med Refill Encounter Details Date Type Department Care Team ([facility] st Contact Info) Description 01/20/2024 Refill [facility] 230 [place], [place] [phone] Name, MD Andrés 230 [place] [address] Depressive disorder Social History Tobacco Use Types [...] Description 01/26/2025 10:00 AM EST Medication Management [address] [address] Jhoana Pickering PharmD [address] [place] [address] 02/02/2025 11:00 AM EST Office Visit [address] [address] documented as of this encounter Visit Diagnoses Diagnosis Depressive disorder Depressive disorder, not elsewhere classified documented in this encounter Additional Health Concerns Assessment Noted Time PHQ-9 Depression Total Score: 0 08/07/19 24 2:21 PM EDT documented as of this encounter Care Teams Clerical Support Specialist Relationship Specialty Start Date End Date Name, MD Andrés [address] [place] [address] PCP - General Family Medicine 04/08/15 Jhoana Pickering, PharmD [address] [place] [address] Pharmacist Pharmacy 11/03/24 documented as of this encounter
--- OUTSIDE RECORDS SUMMARY | 2025-01-14 18:32 | XMS_ITS | Encounter Summary ---
Author Organization [employer] Address [address] [place] [address] 7 [place] [address] Care Team Providers Care Satellite Project Site Monitor Name Role Phone Name, Andrés RODRIGUEZ Primary Care Provider [phone] Jhoana Pickering PharmD Unavailable [phone] Encounter Details Date Type Department Care Team ([facility] st Contact Info) Description 01/13/2025 Results Follow-Up [facility] 230 [place] [address] Mu Alcocer FNP 230 [place] [address] Culture, Urine, Routine Social History Tobacco Use Types Packs/Day Years [...] encounter Miscellaneous Notes * Telephone Encounter - Agueda Beal RN - 01/14/2025 3:54 PM EST T/C to pt via [employer] #[id number]. Pt continues to c/o abdominal pain and foul odor to urine. Denies burning with urination, dysuria. Advised of message from CRISTINA. Review collection instruction for clean catch urine. Pt verbalized understanding and agrees to come to lab for repeat tomorrow. Reviewed [facility] availability for urgent concerns. Pt reports agreement with plan. * Telephone Encounter - Agueda Beal RN - 01/14/2025 3:39 PM EST ----- Message from Mu Alcocer sent at 01/13/2025 2:12 PM EST ----- Please check in with pt; ask if she is still having abdominal pain. Her urine culture was contaminated and so didn't have a valid result. If she is still experiencing abdominal pain, burning or pain with urination, or other symptom suggestive of UTI, please have her return to provide a new urine sample; educate on how to get a clean urine catch. And order a UA with culture. Please let me know if you have any questions on this. Thank you, Mu ----- Message ----- From: Interface, Lab Results In Sent: 01/12/2025 12:07 PM EST To: CRISTINA Small documented in this encounter Plan of Treatment Upcoming Encounters Date Type Department Care Team (Late st Contact Info) Description 01/26/2025 10:00 AM EST Medication Management [facility] [address] [place] [phone] Jhoana Pickering, PharmD [address] [place] [address] 02/02/2025 11:00 AM EST Office Visit [address] [address] documented as of this encounter Procedures Procedure Name Priority Date/Time Associated Diagnosis Comments URINALYSIS, COMPLETE, WITH REFLEX TO CULTURE Routine 01/14/2025 4:02 PM EST Foul smelling urine documented in this encounter Results * (ABNORMAL) Urinalysis, Complete, with Reflex to Culture (01/14/2025 4:02 PM EST) Color Urine Yellow [facility] Appearance Urine Clear [facility] PH 5.5 5.0 - 9.0 [facility] Glucose Urine UA Negative Negative mg/dL [facility] Urine Blood Negative Negative [facility] Specific [place] - Urine >=1.030(H) 1.005 - 1.025 [facility] Urine Protein Trace Neg-Trace mg/dL [facility] Urine Ketones Negative Negative mg/dL [facility] Nitrite Urine Negative Negative [facility] Leukocyte Esterase Urine Trace(A) Negative [facility] RBC Urine 0-2 0 - 2 /HPF [facility] Urine WBC 6-10(A) 0 - 5 /HPF [facility] Urine Squamous Epithelial Cell 0-2 0 - 2 /HPF [facility] Urine Bacteria None Seen None Seen [facility] Hyaline Casts, Urine 0-2 0 - 2 /LPF [facility] Urine 01/14/2025 4:02 PM EST 01/14/2025 5:46 PM EST Narrative [facility] - 01/14/2025 5:58 PM EST Urine, Clean Catch Mu Alcocer AUTOMOTIVE SALES SPECIALIST LAB URINE ORDERABLES Final Re sult [facility] [address] [place] [address] [phone] documented in this encounter Visit Diagnoses Diagnosis Foul smelling urine- Primary documented in this encounter Additional Health Concerns Assessment Noted Time PHQ-9 Depression Total Score: 025 2:48 PM EDT documented as of this encounter Care Teams Satellite Project Site Monitor Relationship Specialty Start Date End Date Name, MD Andrés [address] [place] [address] PCP - General Family Medicine 04/08/15 Jhoana Pickering PharmD [address] [place] [address] Pharmacist Pharmacy 11/03/24 documented as of this encounter
--- OUTSIDE RECORDS SUMMARY | 2025-01-14 18:32 | XMS_ITS | Encounter Summary ---
Author Organization [employer] Address 75 [facility] [address] [place] [address] Care Team Providers Care Windows Systems Architect Name Role Phone Name, Andrés RODRIGUEZ Primary Care Provider Jhoana Pickering PharmD Unavailable [phone] Reason for Visit * Reason Comments Med Refill Encounter Details Date Type Department Care Team ([facility] st Contact Info) Description 11/13/2024 Refill [facility] [address] [place], [place] [phone] Name, MD Andrés 230 [place] [address] Social History Tobacco Use Types Packs/Day Years [...] Description 01/26/2025 10:00 AM EST Medication Management [address] [address] Jhoana Pickering PharmD [address] [place] [address] 02/02/2025 11:00 AM EST Office Visit [address] [address] documented as of this encounter Visit Diagnoses Not on filedocumented in this encounter Additional Health Concerns Assessment Noted Time PHQ-9 Depression Total Score: 11 025 2:48 PM EDT documented as of this encounter Care Teams Windows Systems Architect Relationship Specialty Start Date End Date Name, MD Andrés [address] [place] [address] PCP - General Family Medicine 04/08/15 Jhoana Pickering, PharmD [address] [place] [address] Pharmacist Pharmacy 11/03/24 documented as of this encounter
--- OUTSIDE RECORDS SUMMARY | 2025-01-14 18:32 | XMS_ITS | Encounter Summary ---
Author Organization [employer] Address 75 [facility] 7t [place] [address] Care Team Providers Care Microfiche Duplicator Name Role Phone Name, Andrés RODRIGUEZ Primary Care Provider [phone] Jhoana Pickering PharmD Unavailable [phone] Encounter Details Date Type Department Care Team (Late Contact Info) Description 04/12/2022 Orders Only [facility] [address] [place] [address] Graciela Gifford, HOSPICE NURSE PRACTITIONER Dysuria Social History Tobacco Use Types Packs/Day [...] Description 01/26/2025 10:00 AM EST Medication Management [facility] [address] [place] [address] PuiaMikeJhoana, PharmD 230 [place] [address] 02/02/2025 11:00 AM EST Office Visit [facility] 230 [place] [address] documented as of this encounter Visit Diagnoses Diagnosis Dysuria documented in this encounter Additional Health Concerns Assessment Noted Time PHQ-9 Depression Total Score: 0 02/21/20 22 3:25 PM EST documented as of this encounter Care Teams Microfiche Duplicator Relationship Specialty Start Date End Date Name, MD Andrés [address] [place] [address] PCP - General Family Medicine 04/08/15 Jhoana Pickering, Bladimir [address] [place] [address] Pharmacist Pharmacy 11/03/24 documented as of this encounter
--- OUTSIDE RECORDS SUMMARY | 2025-01-14 18:32 | XMS_ITS | Encounter Summary ---
Author Organization [employer] Address 75 [facility] 7t [place] [address] Care Team Providers Care Shoer Name Role Phone Name, Andrés RODRIGUEZ Primary Care Provider [phone] Jhoana Pickering PharmD Unavailable [phone] Reason for Visit * Reason Comments Med Refill Encounter Details Date Type Department Care Team ([facility] st Contact Info) Description 12/31/2024 Refill [facility] 230 [place], [place] [phone] Name, MD Andrés 230 [place] [address] Type 2 diabetes mellitus without complication, without [...] Description 01/26/2025 10:00 AM EST Medication Management [address] [address] Jhoana Pickering PharmD [address] [place] [address] 02/02/2025 11:00 AM EST Office Visit [facility] [address] [place] [address] documented as of this encounter Visit Diagnoses Diagnosis Type 2 diabetes mellitus without complication, without long-term current use of insulin (HCC) documented in this encounter Additional Health Concerns Assessment Noted Time PHQ-9 Depression Total Score: 11 025 2:48 PM EDT documented as of this encounter Care Teams Shoer Relationship Specialty Start Date End Date Name, MD Andrés [address] [place] [phone] PCP - General Family Medicine 04/08/15 Jhoana Pickering, PharmD 230 [place] [address] Pharmacist Pharmacy 11/03/24 documented as of this encounter
--- OUTSIDE RECORDS SUMMARY | 2025-01-14 18:32 | XMS_ITS | Encounter Summary ---
Author Organization [employer] Address 75 [facility] 7[address] [place] [address] Care Team Providers Care E Commerce Manager Name Role Phone Name, Andrés RODRIGUEZ Primary Care Provider [phone] Jhoana Pickering PharmD Unavailable [phone] Reason for Visit * Reason Onset Date Comments Nurse Triage 05/22/2024 Encounter Details Date Type Department Care Team ([facility] st Contact Info) Description 05/22/2024 Telephone [facility] 230 [place], [place] [phone] Name, MD Andrés 230 [place], [place] [phone] Nurse Triage Social History Tobacco Use Types [...] Triage call returned to patient with S Gas Welder # [id number] Marjan. Patient reports reaction to Pregabalin that [...] 01/26/2025 10:00 AM EST Medication Management [address] [address] Jhoana Pickering PharmD [address] [place] [address] 02/02/2025 11:00 AM EST Office Visit [facility] [address] [place] [address] documented as of this encounter Visit Diagnoses Not on filedocumented in this encounter Additional Health Concerns Assessment Noted Time PHQ-9 Depression Total Score: 0 08/07/19 24 2:21 PM EDT documented as of this encounter Care Teams E Commerce Manager Relationship Specialty Start Date End Date Name, MD Andrés [address] [place] [address] PCP - General Family Medicine 04/08/15 Jhoana Pickering PharmD [address] [place] [address] Pharmacist Pharmacy 11/03/24 documented as of this encounter
--- OUTSIDE RECORDS SUMMARY | 2025-01-14 18:32 | XMS_ITS | Encounter Summary ---
Author Organization [employer] Address 75 [facility] [address] [address] Care Team Providers Care Client Strategist Name Role Phone Name, Andrés RODRIGUEZ Primary Care Provider [phone] Jhoana Pickering PharmD Unavailable [phone] Reason for Visit * Reason Onset Date Comments Med Refill 02/18/2024 Encounter Details Date Type Department Care Team ([facility] st Contact Info) Description 02/18/2024 Telephone [facility] 230 [place], [place] [phone] Name, MD Andrés [address] [place] [address] Med Refill Social History Tobacco Use Types [...] 4 MG tablet To be sent to: [facility] - [place], [place] - [address] documented in this encounter Plan of Treatment Upcoming Encounters Date Type Department Care Team (Late st Contact Info) Description 01/26/2025 10:00 AM EST Medication Management [facility] [address] [place] [address] [phone] Jhoana Pickering, PharmD [address] [place] [address] 02/02/2025 11:00 AM EST Office Visit [facility] [address] [place] [address] documented as of this encounter Visit Diagnoses Not on filedocumented in this encounter Additional Health Concerns Assessment Noted Time PHQ-9 Depression Total Score: 0 08/07/19 24 2:21 PM EDT documented as of this encounter Care Teams Client Strategist Relationship Specialty Start Date End Date Name, MD Andrés [address] [place] [address] PCP - General Family Medicine 04/08/15 Jhoana Pickering, ThomasD [address] [place] [address] Pharmacist Pharmacy 11/03/24 documented as of this encounter
== END 2025-01-14 15:54 | disposition home or self-care (01) ==
LOC: HO.HHCL 15:53
PROVIDERS: PCP Internal Medicine Geriatric Medicine; Visit Provider Internal Medicine Geriatric Medicine
DX: R82.90 Unspecified abnormal findings in urine (principal)
CPT/HCPCS: 81001; 87086